=== PATIENT | male | born 1980 | race Caucasian/White ===

== ENCOUNTER 2018-01-01 03:12 | Inpatient (IN) | payer OTHER, SELFPAY ==
[2018-01-01] VITALS (19 sets, daily range): BP systolic 103–120; BP diastolic 57–86; PULSE 95–142; RESP 12–21; TEMP 36.8–38.1; O2SAT 94–98; BMI 25.5; BMI 25.6
--- NOTE | 2018-01-01 03:17 | NURSING ---
CALLED FOR EKG PER RN REQUEST, NO OLD EKG'S IN MUSE
--- NOTE | 2018-01-01 03:19 | EKG12_ITS ---
Test Reason : CP/SOB Blood Pressure : / mmHG Vent. Rate : 103 BPM Atrial Rate : 103 BPM P-R Int : 144 ms QRS Dur : 086 ms QT Int : 332 ms P-R-T Axes : 042 016 045 degrees QTc Int : 434 ms Sinus tachycardia Otherwise normal ECG Confirmed by TOR LACY, GOVIND ([id number]), school photograph editor BRINDA MONTES ([id number]) on 01/03/2018 2:15:31 PM Referred By: HOLLIE Confirmed By:GOVIND LENTZ MD
--- NOTE | 2018-01-01 03:19 | RAD_ITS ---
STUDY: X-RAY CHEST REASON FOR EXAM: Male, 37 years old. Chest pain for 6 months. Onset of shortness of breath tonight. TECHNIQUE: PA and lateral chest. COMPARISON: None. FINDINGS: The lungs are clear and expanded. There is no demonstrated pleural abnormality. Normal size heart. Normal mediastinum and narayan. Normal visualized pulmonary arteries. Normal visualized aortic arch and descending thoracic aorta. Normal visualized thoracic spine. Normal visualized ribs, clavicles, and shoulders. There is no demonstrated abnormality of the visualized soft tissue structures of the upper abdomen. RAD/Chest PA and Lateral IMPRESSION: Normal x-ray examination of the chest. Electronically Signed: Jey Lou MD at 4:06 EST , Service support ,
--- NOTE | 2018-01-01 03:22 | ED.DCSUM_ITS ---
- ER Visit Summary Date of Service: 01/01/18 Chief Complaint: [Chest pain shortness of breath.] History of Present Illness: The patient is a 37 M [presents the emergency department with chest pain and shortness of breath. He woke up about 10 PM with severe shortness of breath feeling like his throat was closing tightness in his chest could breathe could not talk he had tightness in his hands. This started suddenly. He is not lightheaded or dizzy or nauseated. He states is slightly improved. He rates it about 4 or 5 out of 10. He has had a cough and headache. No fevers. His only medical problem is GERD. He does vapor E cigarettes. He drinks 2 beers a month. He has been seeing his primary care doctor over the past year for chest pain he has had a stress test and echocardiogram which were normal about 6 months ago. No new medications or exposures. No rash or itchiness.] Physical Examination: [] WN WD NAD very anxious appearing PERRL EOMI MMM NECK supple and nontender, no masses Regular tachycardic rhythm no murmur rub or gallop, no peripheral edema, symmetric radial pulses CTAB no respiratory distress ABDOMEN is soft and nontender, normal bowel sounds, no distension, no rebound or guarding SKIN is warm and dry no rashes Alert and Oriented x3, CN II-XII in tact, no motor or sensory deficits, gait normal No lymphadenopathy Test Results: [] Emergency Department Course and Treatment: [EKG shows sinus tachycardia at a rate of 103. Chest x-ray is normal. D-dimer is normal. Troponin is normal. Patient has a mild leukocytosis with neutrophilic shift and lymphopenia. He was given Ativan and Benadryl in the emerge C department. His symptoms resolved however he continued to be tachycardic. CTA was obtained at that time and showed a right pleural thickening but was otherwise normal. There was no dissection or PE. Patient has had a 2 day Holter monitor stress test and seen neurologist over the last 1-2 years for various symptoms. I think at this time he can be discharged home however he continues to be Tachycardic from 110-120. It is a sinus tachycardia. It is asymptomatic at this time. I will have him follow-up with cardiology and did recommend possible 30 day Holter monitor. He was given a work excuse for today. Him and his given careful precautions for which to return.] Treatment Plan: [] Disposition: [Discharge] Impression: [Chest pain, sinus tachycardia] This note was generated with [employer] dictation software. It may contain incorrect words, spelling, and punctuation that were not noted in review of the chart prior to signing ED Disposition - Plan for ED Patient: Chief Complaint: Shortness of Breath Referrals: Nicole Hanks MD [Primary Care Provider] -
[2018-01-01] MEDS: Aspirin 81 MG TAB.CHEW 324 MG PO (03:27)
[2018-01-01] MEDS: LORazepam 2 MG/ML Syringe 0.5 MG IV (03:33)
[2018-01-01] MEDS: Ondansetron 4 MG/2 ML Vial IV (03:34)
[2018-01-01 03:41] LABS: D-Dimer Quantitative (DVT/PE) 0.27 FEU/ug/m (0.27-0.49)
[2018-01-01 03:42] LABS: Absolute Lymphocyte Count 0.55 X10^3/ul (0.83-4.51); Absolute Neutrophil Count 10.2 X10^3/uL (2.0-7.7); Basophil# 0.02 X10^3/uL; Basophil% 0.2 % (0-1); Differential Indicated SCAN CRITERIA MET; Eosinophil# 0.07 X10^3/uL; Eosinophils% 0.6 % (0-5); Hematocrit 41.4 % (40-54); Hemoglobin 14.1 g/dl (13.0-16.5); Lymphocyte # 0.55 X10^3/ul (4.0); Lymphocyte % 4.8 % (19-41); Mean Corp Hgb Conc 34.1 g/gl (32-36); Mean Corpuscular Hgb 30.9 pg (27.0-32.0); Mean Corpuscular Volume 90.6 fL (80-94); Mean Platelet Vol. 10.3 fl (6.2-12.0); Monocyte# 0.59 X10^3/uL; Monocyte% 5.2 % (0-10); Neutrophil # 10.19 X10^3/uL (2.7-7.7); Neutrophil % 88.9 % (47-70); POSITIVE COUNT NO; POSITIVE DIFFERENTIAL YES; POSITIVE MORPHOLOGY NO; Platelet Count 262 K/mm3 (150-450); RBC Distribution Width CV 12.2 % (11.6-14.6); RBC Distribution Width SD 40.2 fl (35.1-43.9); Red Blood Count 4.57 M/mm3 (4.6-6.2); White Blood Count 11.5 K/mm3 (4.4-11.0)
[2018-01-01 03:51] LABS: Anion Gap 6 (5-15); BUN 14 mg/dL (7-18); BUN/Creat Ratio 14.7 RATIO (10-20); Calcium,Total 8.9 mg/dL (8.5-10.1); Chloride 105 mmol/L (98-107); Creatinine, Serum 0.95 mg/dL (0.70-1.30); EST Glomerular Filtration Rate 94 mL/min (>60); Est Glom Filt Rate - Afr Amer 114 mL/min (>60); Estimated Creatinine Clearance 109.93 ml/min; Glucose 104 mg/dL (74-106); Sodium Level 140 mmol/L (136-145)
[2018-01-01 03:59] LABS: Differential Comment SCANNED
[2018-01-01] MEDS: DiphenhydrAMINE 50 MG/ML Syringe 25 MG IV (04:21)
--- NOTE | 2018-01-01 05:18 | CT_ITS ---
STUDY: CTA CHEST REASON FOR EXAM: Male, 37 years old. Shortness of breath, chest pain. RADIATION DOSAGE (If Supplied By Facility): CTDIvol = ( 14.49 ) mGy, DLP = ( 568.81 ) mGycm TECHNIQUE: The examination was performed with the intravenous administration of 100ML ml of Isovue 370 contrast material. Post-processing of the angiographic images was performed, with multiplanar reformation and 3D reconstruction. Individualized dose optimization techniques were used for this CT. COMPARISON: Chest x-ray January 01, 2018. FINDINGS: Normal enhancement of the main pulmonary artery and right and left pulmonary arteries. Normal enhancement of the bilateral peripheral pulmonary arteries. There is no demonstrated pulmonary embolism. There is extensive streak artifact. Normal thoracic aorta and visualized great vessels. There is no demonstrated aortic dissection. Normal heart and pericardium. Normal mediastinum. Normal hilar regions. Normal visualized trachea and bronchi. The lungs are well expanded. Normal pulmonary parenchyma. 0.9 cm focal pleural thickening lateral pleural surface right lower lobe with adjacent soft tissue stranding axial image 111 series 1002. Normal chest wall structures. Normal osseous structures. Normal visualized upper abdomen. CT/CTA Chest W/WO Contrast IMPRESSION: No pulmonary embolus or thoracic aortic dissection. Focal pleural thickening lateral pleural surface right lower lobe probably representing postinflammatory changes. Recommend limited follow-up noncontrast CT in 6 months, through this area of interest. Electronically Signed: Jey Lou MD at 6:24 EST , Service support ,
[2018-01-01 05:41] LABS: Thyroid Stim Hormone (TSH) 1.52 uIU/mL (0.358-3.74)
[2018-01-01] MEDS: 0.9% Normal Saline 1,000 ML 999 ML IV (06:49)
[2018-01-01] MEDS: Acetaminophen 500 MG Tablet 1000 MG PO (06:50)
--- NOTE | 2018-01-01 07:08 | NURSING ---
when getting the pt up and walking with the pulse ox on, pt was extremely tachy-- 130's, diaphoretic, nausea, pt was pale. he went warm when he got up and i checked his temperature which was 100.6. let the doctor know.
--- NOTE | 2018-01-01 07:33 | PCM.HP.STD ---
Problem List (1) Acute respiratory insufficiency Status: Acute (2) GERD (gastroesophageal reflux disease) Status: Chronic Qualifiers: Esophagitis presence: esophagitis presence not specified Qualified Code(s): K21.9 - Gastro-esophageal reflux disease without esophagitis (3) Bronchitis Status: Acute History of Present Illness Date of Admission: 01/01/18 Chief Complaint: Shortness of breath The patient is a 37 year old M with reported past medical history of hiatal hernia/GERD, recently worked up for chest pain with negative stress test and echo, comes in with complaints of chest pain and shortness of breath that started last night. Denies any history of COPD, asthma, or chronic smoking. He felt short of breath and had chest discomfort that started at 10 PM on 12/31/2017, and progressed to 2 AM of 01/01/2018. According to his , around 2 AM he collapsed, was gasping for air, holding his throat, and unable to speak. He was pale and diaphoretic. She called the EMS, and patient to have SPO2 of 95% on room air with initial faint expiratory wheezes. Air entry was reported as very diminished. BP 152/60, RR 30, HR 133. EKG showed sinus tachycardia. In the [facility] ED, EKG shows sinus tachycardia with no acute ST-T changes. Mention vitals show temperature of 90 8.2F, heart rate of 109, blood pressure 117/86, respiratory rate of 12, SPO2 of 96% on room air but was kept on 2 L of oxygen for comfort. Investigations show WBC count of 11.5, Hb of 14.1, platelets of 262, sodium 140, potassium 4, chloride 105, bicarbonate 29, BUN 14, creatinine 0.95. Chest x-ray shows no acute cardiopulmonary abnormality. CTA shows no PE, normal mediastinum, focal pleural thickening on the lateral surface of the right lower lobe adjacent soft tissue stranding. Past Medical History Past Medical History (Chronic Problems): Chronic Problems GERD (gastroesophageal reflux disease) (Chronic) Allergies Penicillins Allergy (Verified 01/01/18 03:19) Rash Home Medications: Ambulatory Orders Medication Instructions Recorded Esomeprazole Magnesium 40 mg PO DAILY 01/01/18 Surgical History: - - Recent endoscopy, multiple arthroscopies Psychiatric History: No pertinent psych hx Lives: Spouse/ Significant Other Smoking Status: Current some day smoker Tobacco Use: - - vapor cigaretter Alcohol: None Drugs: None - *Family History Maternal History Items: Unknown, No pertinent history Paternal History Items: Unknown Sibling History Items: Unknown Review of Systems Constitutional: Reports: Weakness. Denies: Anorexia, Chills, Fever, Weight Change Eyes: Denies: Blurred vision, Cataracts, Conjunctivae Inflammation, Double vision HEENT: Reports: Nasal Congestion, - - Feels like throat is swollen. Denies: Ear Pain, Head Aches, Hearing Changes, Sinus Congestion, Sinus Drainage Cardiovascular: Denies: Chest Pain, Palpitations Respiratory: Reports: Shortness of Breath, Shortness of breath at rest, Shortness of breath upon exertion. Denies: Cough, Hemoptysis, Pleuritic Pain, Sputum production Gastrointestinal: Denies: Abdominal Pain, Nausea, Vomiting Genitourinary: Denies: Dysuria, Frequency, Hematuria, Incontinence, Nocturia, Retention Musculoskeletal: Denies: Joint Pain, Joint stiffness, Joint swelling, Joint Tenderness Skin: Denies: Dryness, Jaundice, Rash, Wounds Neurological: Denies: Difficulty swallowing, Focal weakness, Headaches, Numbness, Tingling Psychiatric: Denies: Anxiety, Depression, Homicidal Ideations, Suicidal Ideations Endocrine: Denies: Change in Body Habitus, Heat/ Cold Intolerance Hematologic/ Lymphatic: Denies: Adenopathy, Anemia, Easy Bruising, Easy Bleeding VTE Information - Inpt Only VTE Present on Admission: No VTE Pharm Prophylaxis ordered?: No Reason prophylaxis not ordered:: Treatment Not Indicated Patient Problems: Active and Suspected Problems Acute respiratory insufficiency (Acute) Bronchitis (Acute) - Physical Exam General: Alert, Oriented x3, Cooperative, - - on 2L oxygen HEENT: Atraumatic, PERRLA, EOMI, Normocephalic Oral: Moist Mucosa Neck: Supple Lungs: Clear to auscultation, Normal air movement Cardiovascular: Regular rate, Regular Rhythm, Normal S1, Normal S2, No murmurs, Tachycardic Abdomen: Bowel Sounds Present, Soft, Non Tender, Non-Distended, No Hepato-splenomegaly Extremities: No edema Skin: No rashes, No breakdown Musculoskeletal: No Tenderness to Palpation of Joints or Extremities Lymphatic: No Cervical, Supraclavicular, or Inguinal Adenopathy Neurological: Cranial nerves II-XII grossly intact, Motor Exam 5/5 strength throughout Psych/Mental Status: Normal Affect, Appropriate Vital Signs Temp Pulse Resp BP Pulse Ox 100.6 F H 115 H 18 117/78 97 01/01/18 06:50 01/01/18 06:50 01/01/18 06:50 01/01/18 06:50 01/01/18 06:50 Oxygen Flow Rate 2 Oxygen Delivery Method Nasal Cannula Weight: 80.7 kg Body Mass Index (BMI) 25.5 Microbiology Past 72 Hours 01/01/18 06:50 Group A Streptococcus Rapid Screen - Preliminary Mucosa - Throat 01/01/18 03:30 Influenza Types A,B Direct FA (JOHN) - Final Mucosa - Nasopharyngeal Laboratory Tests Past 24 Hrs 01/01/18 01/01/18 01/01/18 03:20 03:20 03:20 WBC 11.5 H RBC 4.57 L Hgb 14.1 Hct 41.4 MCV 90.6 MCH 30.9 MCHC 34.1 RDW 12.2 RDW Differential 40.2 Plt Count 262 MPV 10.3 Immature Gran % (Auto) 0.300 Neut % (Auto) 88.9 H Lymph % (Auto) 4.8 L [place] % (Auto) 5.2 Eos % (Auto) 0.6 Baso % (Auto) 0.2 Absolute Neuts (auto) 10.2 H Absolute Lymphs (auto) 0.55 L Total Counted Not Reportable Differential Comment SCANNED D-Dimer Quant (PE/DVT) 0.27 Sodium 140 Potassium 4.0 Chloride 105 Carbon Dioxide 29.0 Anion Gap 6 BUN 14 Creatinine 0.95 Estim Creat Clear Calc 109.93 Est GFR (MDRD) Af Amer 114 Est GFR (MDRD) Non-Af 94 BUN/Creatinine Ratio 14.7 Glucose 104 Calcium 8.9 Troponin I < 0.02 TSH 01/01/18 03:20 WBC RBC Hgb Hct MCV MCH MCHC RDW RDW Differential Plt Count MPV Immature Gran % (Auto) Neut % (Auto) Lymph % (Auto) [place] % (Auto) Eos % (Auto) Baso % (Auto) Absolute Neuts (auto) Absolute Lymphs (auto) Total Counted Differential Comment D-Dimer Quant (PE/DVT) Sodium Potassium Chloride Carbon Dioxide Anion Gap BUN Creatinine Estim Creat Clear Calc Est GFR (MDRD) Af Amer Est GFR (MDRD) Non-Af BUN/Creatinine Ratio Glucose Calcium Troponin I TSH 1.52 Assessment/Plan Active and Suspected Problems Acute respiratory insufficiency (Acute) Bronchitis (Acute) 37 year old M with reported past medical history of hiatal hernia/GERD, recently worked up for chest pain with negative stress test and echo, comes in with complaints of chest pain and shortness of breath that started last night. 1. Shortness of breath, chest discomfort, fever(T 100.6), unclear etiology, likely related to viral bronchitis versus anxiety disorder. Influenza Screen was negative, strep throat was negative. CTA chest negative for PE, showed some focal right lower lobe pleural thickening(likely not responsible for presentation). Plan: Admit to [facility], continue on oxygen protocol and wean off for SPO2 more than 94%, continue breathing treatments as needed, blood cultures taken in the ER are pending, will continue on empiric levofloxacin started, follow-up on blood cultures 2. GERD/hiatal hernia, continue on PPI 3. DVT PPX - with early ambulation Code Visit Inpatient E&M: 14756 Init Hosp L3
[2018-01-01] MEDS: Pantoprazole Sodium 40 MG Tablet PO (10:12)
[2018-01-01] MEDS: oxyCODONE 5 MG Tablet PO ×3 (10:12→20:15)
[2018-01-01] MEDS: guaiFENesin 1,200 MG Tablet 1200 MG PO ×2 (10:12→20:15)
[2018-01-01] MEDS: Ipratropium/Albuterol Sulfate 3 ML AMPUL.NEB INHALATION ×2 (11:16→15:26)
[2018-01-01] MEDS: 0.9% Normal Saline 1,000 ML 100 ML IV ×2 (12:55→23:11)
[2018-01-01] MEDS: Mag Hydrox/Al Hydrox/Simeth 30 ML UDC PO (17:27)
--- NOTE | 2018-01-01 17:55 | EKG12_ITS ---
Test Reason : CP Blood Pressure : / mmHG Vent. Rate : 117 BPM Atrial Rate : 117 BPM P-R Int : 154 ms QRS Dur : 100 ms QT Int : 314 ms P-R-T Axes : 045 007 027 degrees QTc Int : 438 ms Sinus tachycardia Confirmed by TRO LACY, GOVIND ([id number]), city editor BRINDA MONTES ([id number]) on 01/08/2018 1:35:10 PM Referred By: MOHAMUD Confirmed By:GOVIND LENTZ MD
[2018-01-01] MEDS: Acetaminophen 325 MG Tablet 650 MG PO (18:20)
[2018-01-01] MEDS: LORazepam 1 MG Tablet PO (19:23)
[2018-01-02] VITALS (18 sets, daily range): BP systolic 95–109; BP diastolic 50–66; PULSE 84–134; RESP 14–18; TEMP 37.1–37.5; O2SAT 90–105
[2018-01-02] MEDS: Acetaminophen 325 MG Tablet 650 MG PO ×2 (03:38→10:22)
[2018-01-02 06:20] LABS: Hematocrit 35.8 % (40-54); Hemoglobin 11.7 g/dl (13.0-16.5); Mean Corp Hgb Conc 32.7 g/gl (32-36); Mean Corpuscular Hgb 30.6 pg (27.0-32.0); Mean Corpuscular Volume 93.7 fL (80-94); Mean Platelet Vol. 10.4 fl (6.2-12.0); Platelet Count 222 K/mm3 (150-450); RBC Distribution Width CV 12.8 % (11.6-14.6); RBC Distribution Width SD 42.6 fl (35.1-43.9); Red Blood Count 3.82 M/mm3 (4.6-6.2)
[2018-01-02 06:23] LABS: Scan Indicated on CBC? Y/N NO
[2018-01-02 06:51] LABS: Anion Gap 8 (5-15); BUN 12 mg/dL (7-18); BUN/Creat Ratio 13.5 RATIO (10-20); Calcium,Total 7.9 mg/dL (8.5-10.1); Chloride 106 mmol/L (98-107); Creatinine, Serum 0.89 mg/dL (0.70-1.30); EST Glomerular Filtration Rate 102 mL/min (>60); Est Glom Filt Rate - Afr Amer 124 mL/min (>60); Estimated Creatinine Clearance 113.64 ml/min; Glucose 80 mg/dL (74-106); Potassium 3.7 mmol/L (3.5-5.1); Sodium Level 140 mmol/L (136-145)
[2018-01-02] MEDS: Ipratropium/Albuterol Sulfate 3 ML AMPUL.NEB INHALATION ×4 (07:44→19:16)
--- NOTE | 2018-01-02 08:03 | RAD_ITS ---
STUDY: X-RAY - THORACIC SPINE REASON FOR EXAM: Male, 37 years old. Back pain. TECHNIQUE: 3 view(s) of the thoracic spine were obtained. COMPARISON: None. FINDINGS: There is an increase in the normal thoracic kyphosis. There is no substantial scoliosis. Normal thoracic vertebrae and endplates. Normal disc space heights. The soft tissue structures are unremarkable. RAD/Thoracic Spine 3 Views IMPRESSION: Increased kyphosis. This may be positional. Electronically Signed: Chad Jiménez MD at 9:16 EST Tel [phone], Service support ,
--- NOTE | 2018-01-02 08:25 | RAD_ITS ---
STUDY: X-RAY - LUMBAR SPINE REASON FOR EXAM: Male, 37 years old. Back pain. TECHNIQUE: 5 view(s) of the lumbar spine were obtained including oblique views. COMPARISON: None FINDINGS: Normal lumbar lordosis. There is no substantial scoliosis. There is a normal alignment of the vertebrae. Normal vertebral bodies and endplates. Normal disc space heights. The soft tissue structures are unremarkable. RAD/L/S Spine Min 4 Views IMPRESSION: Normal x-ray examination of the lumbar spine. Electronically Signed: Chad Jiménez MD at 9:18 EST Tel [phone], Service support ,
--- NOTE | 2018-01-02 08:28 | RAD_ITS ---
STUDY: X-RAY CHEST REASON FOR EXAM: Male, 37 years old. Shortness of breath and dyspnea. TECHNIQUE: PA and lateral views of the chest. COMPARISON: Comparison is made with prior study dated January 01, 2018. FINDINGS: EKG electrodes are seen. There now is evidence of increased markings in both lower lobes with areas of confluence worse in the right lower lobe. This may represent either bibasilar atelectasis and/or early infiltrates. Follow-up is recommended. There is no demonstrated pleural abnormality. Normal size heart. Normal mediastinum and narayan. Normal visualized pulmonary arteries. Normal visualized aortic arch and descending thoracic aorta. Normal visualized thoracic spine. Normal visualized ribs, clavicles, and shoulders. There is no demonstrated abnormality of the visualized soft tissue structures of the upper abdomen. RAD/Chest PA and Lateral IMPRESSION: There are now is evidence of increased markings in the lower lobes with areas of confluence worse in the right lower lobe suggestive of either atelectasis and/or early infiltrates. Follow-up is recommended. Electronically Signed: Chad Jiménez MD at 9:18 EST Tel [phone], Service support ,
[2018-01-02 08:33] LABS: Thyroid Stim Hormone (TSH) 0.72 uIU/mL (0.358-3.74)
[2018-01-02] MEDS: Pantoprazole Sodium 40 MG Tablet PO (10:22)
[2018-01-02] MEDS: guaiFENesin 1,200 MG Tablet 1200 MG PO ×2 (10:22→22:22)
[2018-01-02] MEDS: oxyCODONE 5 MG Tablet PO ×3 (10:23→22:22)
[2018-01-02] MEDS: 0.9% NaCl Peripheral Flush Adult/Peds IV (10:23)
[2018-01-02] MEDS: Mag Hydrox/Al Hydrox/Simeth 30 ML UDC PO (10:23)
--- NOTE | 2018-01-02 11:17 | CASEMGMT ---
RN GRACIELA Face to Face with patient for initial transition planning/care coordination assessment. RN CM introduced self and role at [facility]. Patient lying in bed, alert and oriented, at bedside. Patient willing to participate in assessment and is able to answer all questions appropriately. Care providers, pharmacy, and demographics verified. See link attached. Patient wishes to discharge home, denies need for home health at this time. Patient states he has no further needs or concerns at this time. CM to follow for discharge planning needs that may arise. Disposition Plan: Patient to discharge home with family support and follow-up plans in place.
[2018-01-02] MEDS: 0.9% Normal Saline 1,000 ML 100 ML IV (14:04)
[2018-01-02] MEDS: Senna/Docusate Sodium 1 Tablet 2 TABLET PO ×2 (14:23→22:23)
--- NOTE | 2018-01-02 15:05 | PCM.PN.HOSP ---
Patient Problems: Active and Suspected Problems Acute respiratory insufficiency (Acute) Bronchitis (Acute) Subjective: Patient was seen and examined. Noted that he has been tachycardic the whole night with heart rate going up above 140s, any nausea or vomiting. Been using incentive spirometer. Objective: Physical Exam General: Alert, Oriented x3, Cooperative, - - on 2L oxygen, later was saturating well off oxygen HEENT: Atraumatic, PERRLA, EOMI, Normocephalic Oral: Moist Mucosa Neck: Supple Lungs: Clear to auscultation, Normal air movement Cardiovascular: Regular rate, Regular Rhythm, Normal S1, Normal S2, No murmurs, Tachycardic Abdomen: Bowel Sounds Present, Soft, Non Tender, Non-Distended, No Hepato-splenomegaly Extremities: No edema Skin: No rashes, No breakdown Musculoskeletal: No Tenderness to Palpation of Joints or Extremities Lymphatic: No Cervical, Supraclavicular, or Inguinal Adenopathy Neurological: Cranial nerves II-XII grossly intact, Motor Exam 5/5 strength throughout Psych/Mental Status: Normal Affect, Appropriate Vitals/I&O's: Vital Signs Temp Pulse Resp BP Pulse Ox 99.5 F H 115 H 18 107/50 L 93 01/02/18 10:00 01/02/18 14:35 01/02/18 14:35 01/02/18 11:35 01/02/18 11:04 Oxygen Flow Rate 1 Oxygen Delivery Method Room Air Weight: 78.6 kg Body Mass Index (BMI) 25.5 Orthostatic Vital Signs Start: 01/02/18 11:35 Freq: q24h Status: Active Protocol: Activity Type Activity Date Activity User E-Sign Co-Sign Detail Recorded Client Recorded Date Recorded By Document 01/02/18 11:35 ELISSA [id number] 01/02/18 11:44 ELISSA 01/02/18 11:35 Orthostatic Vitals Standing -Blood Pressure (90/60-120/80) 100/60 -Extremity Use Left Arm -Pulse Rate (60-100) 134 H Sitting -Blood Pressure (90/60-120/80) 109/66 -Extremity Use Left Arm -Pulse Rate (60-100) 128 H Lying -Blood Pressure (90/60-120/80) 107/50 L -Extremity Use Left Arm -Pulse Rate (60-100) 107 H Intake and Output for Last 24 Hours 12/31/17 01/01/18 01/02/18 23:59 23:59 23:59 Intake Total 2071 / 2071 2200 / 2200 Output Total 1500 / 1500 1999 / 1999 Balance 571 / 571 200 / 200 Microbiology Past 72 Hours 01/01/18 10:55 Mucosa - Nasopharyngeal Respiratory Panel (PCR) - Final Laboratory Results 01/02/18 06:00: WBC 7.0, RBC 3.82 L, Hgb 11.7 L, Hct 35.8 L, MCV 93.7, MCH 30.6, MCHC 32.7, RDW 12.8, RDW Differential 42.6, Plt Count 222, MPV 10.4 01/02/18 06:00: Sodium 140, Potassium 3.7, Chloride 106, Carbon Dioxide 26.0, Anion Gap 8, BUN 12, Creatinine 0.89, Estim Creat Clear Calc 113.64, Est GFR (MDRD) Af Amer 124, Est GFR (MDRD) Non-Af 102, BUN/Creatinine Ratio 13.5, Glucose 80, Calcium 7.9 L 01/02/18 06:00: TSH 0.72 Current Medications Acetaminophen (Tylenol) 650 mg PO Q6H PRN PRN PRN Reason: MILD-MOD PAIN (1-5/10) OR TEMP Last Admin: 01/02/18 10:22 Dose: 650 mg Al Hydroxide/Mg Hydroxide (Mylanta Ii) 30 ml PO Q6H PRN PRN PRN Reason: Gastric burning Last Admin: 01/02/18 10:23 Dose: 30 ml Albuterol/Ipratropium (Duoneb) 3 ml INHALATION Q4HWA.RT [facility] Last Admin: 01/02/18 14:35 Dose: 3 ml Guaifenesin (Mucinex) 1,200 mg PO BID [facility] Last Admin: 01/02/18 10:22 Dose: 1,200 mg Levofloxacin (Levaquin) 750 mg in 150 mls @ 100 mls/hr IV Q24 [facility] Last Admin: 01/02/18 10:22 Dose: 100 mls/hr Aztreonam 2 gm/ Sodium (Chloride) 100 mls @ 150 mls/hr IV Q8 [facility] Last Admin: 01/02/18 14:04 Dose: 150 mls/hr Sodium Chloride () 1,000 mls @ 100 mls/hr IV .Q10H [facility] Stop: 01/03/18 07:59 Last Admin: 01/02/18 14:04 Dose: 100 mls/hr Magnesium Hydroxide (Milk Of Magnesia) 30 ml PO DAILY PRN PRN Reason: Constipation Ondansetron HCl (Zofran) 4 mg IV Q8H PRN PRN PRN Reason: NAUSEA Oxycodone HCl (Oxyir) 5 mg PO Q4H PRN PRN PRN Reason: Moderate Pain (pain scale 4-5) Last Admin: 01/02/18 14:23 Dose: 5 mg Pantoprazole Sodium (Protonix) 40 mg PO DAILY [facility] Last Admin: 01/02/18 10:22 Dose: 40 mg Psyllium Hydrophilic Mucilloid (Metamucil) 1 packet PO DAILY PRN PRN PRN Reason: CONSTIPATION Senna/Docusate Sodium (Senokot-S, Yasmeen-Colace) 2 tablet PO BID PRN PRN Reason: Constipation Last Admin: 01/02/18 14:23 Dose: 2 tablet Sodium Chloride () 5 - 30 ml IV UD PRN PRN Reason: SALINE FLUSH Last Admin: 01/02/18 10:23 Dose: 10 ml Assessment/Plan Active and Suspected Problems Acute respiratory insufficiency (Acute) Bronchitis (Acute) 37 year old M with reported past medical history of hiatal hernia/GERD, recently worked up for chest pain with negative stress test and echo, comes in with complaints of chest pain and shortness of breath that started last night. 1. Sepsis secondary to right CAP, repeat chest x-ray this morning suggestive of right lower lobe community-acquired pneumonia, present since admission, started on levaquin empirically, vitals show persistent tachycardia, WBC is improved, still having low-grade fever, blood cultures are pending, respiratory panel and influenza negative, continue on levofloxacin 750 mg IV daily, would add Aztreonam IV for severe community acquired pneumonia in a patient who is allergic to penicillin(hives), will continue to monitor vitals closely. 2. Tachycardia, sinus, secondary to sepsis secondary to right CAP, PE ruled out with negative CTA chest , will continue patient on IV fluids and monitor 3. Chronic smoker, vapor use, advised to quit 4. GERD/hiatal hernia, no hernia seen on CT, continue on PPI 5. DVT PPX - with early ambulation Code Visit Inpatient E&M: 93277 Subs Hosp L2
--- NOTE | 2018-01-02 15:13 | PN_ITS ---
Patient Problems: Active and Suspected Problems Acute respiratory insufficiency (Acute) Bronchitis (Acute) Subjective: Patient was seen and examined. Noted that he has been tachycardic the whole night with heart rate going up above 140s, any nausea or vomiting. Been using incentive spirometer. Objective: Physical Exam General: Alert, Oriented x3, Cooperative, - - on 2L oxygen, later was saturating well off oxygen HEENT: Atraumatic, PERRLA, EOMI, Normocephalic Oral: Moist Mucosa Neck: Supple Lungs: Clear to auscultation, Normal air movement Cardiovascular: Regular rate, Regular Rhythm, Normal S1, Normal S2, No murmurs, Tachycardic Abdomen: Bowel Sounds Present, Soft, Non Tender, Non-Distended, No Hepato- splenomegaly Extremities: No edema Skin: No rashes, No breakdown Musculoskeletal: No Tenderness to Palpation of Joints or Extremities Lymphatic: No Cervical, Supraclavicular, or Inguinal Adenopathy Neurological: Cranial nerves II-XII grossly intact, Motor Exam 5/5 strength throughout Psych/Mental Status: Normal Affect, Appropriate Vitals/I&O's: Vital Signs Temp Pulse Resp BP Pulse Ox 99.5 F H 115 H 18 107/50 L 93 01/02/18 10:00 01/02/18 14:35 01/02/18 14:35 01/02/18 11:35 01/02/18 11:04 Oxygen Flow Rate 1 Oxygen Delivery Method Room Air Weight: 78.6 kg Body Mass Index (BMI) 25.5 Orthostatic Vital Signs Start: 01/02/18 11:35 Freq: q24h Status: Active Protocol: Activity Type Activity Date Activity User E-Sign Co-Sign Detail Recorded Client Recorded Date Recorded By Document 01/02/18 11:35 ELISSA [id number] 01/02/18 11:44 ELISSA 01/02/18 11:35 Orthostatic Vitals Standing -Blood Pressure (90/60-120/80) 100/60 -Extremity Use Left Arm -Pulse Rate (60-100) 134 H Sitting -Blood Pressure (90/60-120/80) 109/66 -Extremity Use Left Arm -Pulse Rate (60-100) 128 H Lying -Blood Pressure (90/60-120/80) 107/50 L -Extremity Use Left Arm -Pulse Rate (60-100) 107 H Intake and Output for Last 24 Hours 12/31/17 01/01/18 01/02/18 23:59 23:59 23:59 Intake Total 2071 / 2071 2200 / 2200 Output Total 1500 / 1500 1999 / 1999 Balance 571 / 571 200 / 200 Microbiology Past 72 Hours 01/01/18 10:55 Mucosa - Nasopharyngeal Respiratory Panel (PCR) - Final Laboratory Results 01/02/18 06:00: WBC 7.0, RBC 3.82 L, Hgb 11.7 L, Hct 35.8 L, MCV 93.7, MCH 30.6 , MCHC 32.7, RDW 12.8, RDW Differential 42.6, Plt Count 222, MPV 10.4 01/02/18 06:00: Sodium 140, Potassium 3.7, Chloride 106, Carbon Dioxide 26.0, Anion Gap 8, BUN 12, Creatinine 0.89, Estim Creat Clear Calc 113.64, Est GFR ( MDRD) Af Amer 124, Est GFR (MDRD) Non-Af 102, BUN/Creatinine Ratio 13.5, Glucose 80, Calcium 7.9 L 01/02/18 06:00: TSH 0.72 Current Medications Acetaminophen (Tylenol) 650 mg PO Q6H PRN PRN PRN Reason: MILD-MOD PAIN (1-5/10) OR TEMP Last Admin: 01/02/18 10:22 Dose: 650 mg Al Hydroxide/Mg Hydroxide (Mylanta Ii) 30 ml PO Q6H PRN PRN PRN Reason: Gastric burning Last Admin: 01/02/18 10:23 Dose: 30 ml Albuterol/Ipratropium (Duoneb) 3 ml INHALATION Q4HWA.RT [facility] Last Admin: 01/02/18 14:35 Dose: 3 ml Guaifenesin (Mucinex) 1,200 mg PO BID [facility] Last Admin: 01/02/18 10:22 Dose: 1,200 mg Levofloxacin (Levaquin) 750 mg in 150 mls @ 100 mls/hr IV Q24 [facility] Last Admin: 01/02/18 10:22 Dose: 100 mls/hr Aztreonam 2 gm/ Sodium (Chloride) 100 mls @ 150 mls/hr IV Q8 [facility] Last Admin: 01/02/18 14:04 Dose: 150 mls/hr Sodium Chloride () 1,000 mls @ 100 mls/hr IV .Q10H [facility] Stop: 01/03/18 07:59 Last Admin: 01/02/18 14:04 Dose: 100 mls/hr Magnesium Hydroxide (Milk Of Magnesia) 30 ml PO DAILY PRN PRN Reason: Constipation Ondansetron HCl (Zofran) 4 mg IV Q8H PRN PRN PRN Reason: NAUSEA Oxycodone HCl (Oxyir) 5 mg PO Q4H PRN PRN PRN Reason: Moderate Pain (pain scale 4-5) Last Admin: 01/02/18 14:23 Dose: 5 mg Pantoprazole Sodium (Protonix) 40 mg PO DAILY [facility] Last Admin: 01/02/18 10:22 Dose: 40 mg Psyllium Hydrophilic Mucilloid (Metamucil) 1 packet PO DAILY PRN PRN PRN Reason: CONSTIPATION Senna/Docusate Sodium (Senokot-S, Yasmeen-Colace) 2 tablet PO BID PRN PRN Reason: Constipation Last Admin: 01/02/18 14:23 Dose: 2 tablet Sodium Chloride () 5 - 30 ml IV UD PRN PRN Reason: SALINE FLUSH Last Admin: 01/02/18 10:23 Dose: 10 ml Assessment/Plan Active and Suspected Problems Acute respiratory insufficiency (Acute) Bronchitis (Acute) 37 year old M with reported past medical history of hiatal hernia/GERD, recently worked up for chest pain with negative stress test and echo, comes in with complaints of chest pain and shortness of breath that started last night. 1. Sepsis secondary to right CAP, repeat chest x-ray this morning suggestive of right lower lobe community-acquired pneumonia, present since admission, started on levaquin empirically, vitals show persistent tachycardia, WBC is improved, still having low-grade fever, blood cultures are pending, respiratory panel and influenza negative, continue on levofloxacin 750 mg IV daily, would add Aztreonam IV for severe community acquired pneumonia in a patient who is allergic to penicillin(hives), will continue to monitor vitals closely. 2. Tachycardia, sinus, secondary to sepsis secondary to right CAP, PE ruled out with negative CTA chest , will continue patient on IV fluids and monitor 3. Chronic smoker, vapor use, advised to quit 4. GERD/hiatal hernia, no hernia seen on CT, continue on PPI 5. DVT PPX - with early ambulation Code Visit Inpatient E&M: 50295 Subs Hosp L2
[2018-01-02] MEDS: Ondansetron 4 MG/2 ML Vial IV (18:14)
[2018-01-03] VITALS (14 sets, daily range): BP systolic 100–125; BP diastolic 57–80; PULSE 68–97; RESP 16–18; TEMP 36.9–37.3; O2SAT 94–97
[2018-01-03] MEDS: 0.9% Normal Saline 1,000 ML 100 ML IV (00:10)
[2018-01-03 06:09] LABS: Absolute Lymphocyte Count 1.42 X10^3/ul (0.83-4.51); Absolute Neutrophil Count 2.2 X10^3/uL (2.0-7.7); Basophil# 0.01 X10^3/uL; Basophil% 0.2 % (0-1); Eosinophil# 0.03 X10^3/uL; Eosinophils% 0.7 % (0-5); Hematocrit 39.1 % (40-54); Hemoglobin 12.7 g/dl (13.0-16.5); Lymphocyte # 1.42 X10^3/ul (4.0); Lymphocyte % 33.7 % (19-41); Mean Corp Hgb Conc 32.5 g/gl (32-36); Mean Corpuscular Hgb 30.8 pg (27.0-32.0); Mean Corpuscular Volume 94.9 fL (80-94); Mean Platelet Vol. 10.1 fl (6.2-12.0); Monocyte# 0.58 X10^3/uL; Monocyte% 13.8 % (0-10); Neutrophil # 2.16 X10^3/uL (2.7-7.7); Neutrophil % 51.4 % (47-70); Platelet Count 213 K/mm3 (150-450); RBC Distribution Width SD 43.9 fl (35.1-43.9); Red Blood Count 4.12 M/mm3 (4.6-6.2); White Blood Count 4.2 K/mm3 (4.4-11.0)
[2018-01-03 06:15] LABS: POSITIVE COUNT NO; POSITIVE DIFFERENTIAL NO; POSITIVE MORPHOLOGY NO
[2018-01-03 06:41] LABS: Anion Gap 9 (5-15); BUN 9 mg/dL (7-18); BUN/Creat Ratio 9.9 RATIO (10-20); Calcium,Total 8.1 mg/dL (8.5-10.1); Chloride 105 mmol/L (98-107); Creatinine, Serum 0.91 mg/dL (0.70-1.30); EST Glomerular Filtration Rate 99 mL/min (>60); Est Glom Filt Rate - Afr Amer 120 mL/min (>60); Estimated Creatinine Clearance 111.14 ml/min; Glucose 91 mg/dL (74-106); Potassium 3.8 mmol/L (3.5-5.1); Sodium Level 140 mmol/L (136-145)
[2018-01-03] MEDS: Ipratropium/Albuterol Sulfate 3 ML AMPUL.NEB INHALATION ×3 (07:37→14:54)
[2018-01-03] MEDS: guaiFENesin 1,200 MG Tablet 1200 MG PO ×2 (08:41→21:47)
[2018-01-03] MEDS: Pantoprazole Sodium 40 MG Tablet PO (08:41)
[2018-01-03] MEDS: oxyCODONE 5 MG Tablet PO (08:45)
[2018-01-03] MEDS: Ondansetron 4 MG/2 ML Vial IV (10:36)
[2018-01-03] MEDS: 0.9% NaCl Peripheral Flush Adult/Peds IV ×2 (12:31→21:48)
[2018-01-03] MEDS: Acetaminophen 325 MG Tablet 650 MG PO (16:01)
--- NOTE | 2018-01-03 16:11 | PCM.PN.HOSP ---
Patient Problems: Active and Suspected Problems Acute respiratory insufficiency (Acute) Bronchitis (Acute) Subjective: Patient was seen and examined. feels much better. No fevers seen. No more tachycardia. Medicated for nausea overnight. Objective: Physical Exam General: Alert, Oriented x3, Cooperative, - - on 2L oxygen, later was saturating well off oxygen HEENT: Atraumatic, PERRLA, EOMI, Normocephalic Oral: Moist Mucosa Neck: Supple Lungs: Clear to auscultation, Normal air movement Cardiovascular: Regular rate, Regular Rhythm, Normal S1, Normal S2, No murmurs, Tachycardic Abdomen: Bowel Sounds Present, Soft, Non Tender, Non-Distended, No Hepato-splenomegaly Extremities: No edema Skin: No rashes, No breakdown Musculoskeletal: No Tenderness to Palpation of Joints or Extremities Lymphatic: No Cervical, Supraclavicular, or Inguinal Adenopathy Neurological: Cranial nerves II-XII grossly intact, Motor Exam 5/5 strength throughout Psych/Mental Status: Normal Affect, Appropriate Vitals/I&O's: Vital Signs Temp Pulse Resp BP Pulse Ox 99.0 F 84 16 125/80 H 96 01/03/18 14:10 01/03/18 14:58 01/03/18 14:58 01/03/18 14:10 01/03/18 14:10 Oxygen Flow Rate 1 Oxygen Delivery Method Room Air Weight: 78.6 kg Body Mass Index (BMI) 25.5 Intake and Output for Last 24 Hours 01/01/18 01/02/18 01/03/18 23:59 23:59 23:59 Intake Total 2071 / 2071 3260 / 3260 2689 / 2689 Output Total 1500 / 1500 2900 / 2900 2780 / 2780 Balance 571 / 571 360 / 360 -91 / -91 Microbiology Past 72 Hours 01/01/18 08:02 Blood Culture (Wb) #2 - Right Hand Blood Culture - Preliminary No growth in 48 hours. 01/01/18 07:55 Blood Culture (Wb) #2 - Anticubital Left Blood Culture - Preliminary No growth in 48 hours. 01/01/18 10:55 Mucosa - Nasopharyngeal Respiratory Panel (PCR) - Final Laboratory Results 01/03/18 05:50: WBC 4.2 L, RBC 4.12 L, Hgb 12.7 L, Hct 39.1 L, MCV 94.9 H, MCH 30.8, MCHC 32.5, RDW 13.0, RDW Differential 43.9, Plt Count 213, MPV 10.1, Immature Gran % (Auto) 0.200, Neut % (Auto) 51.4, Lymph % (Auto) 33.7, [place] % (Auto) 13.8 H, Eos % (Auto) 0.7, Baso % (Auto) 0.2, Absolute Neuts (auto) 2.2, Absolute Lymphs (auto) 1.42, Total Counted Not Reportable 01/03/18 05:50: Sodium 140, Potassium 3.8, Chloride 105, Carbon Dioxide 26.0, Anion Gap 9, BUN 9, Creatinine 0.91, Estim Creat Clear Calc 111.14, Est GFR (MDRD) Af Amer 120, Est GFR (MDRD) Non-Af 99, BUN/Creatinine Ratio 9.9 L, Glucose 91, Calcium 8.1 L Current Medications Acetaminophen (Tylenol) 650 mg PO Q6H PRN PRN PRN Reason: MILD-MOD PAIN (1-5/10) OR TEMP Last Admin: 01/03/18 16:01 Dose: 650 mg Al Hydroxide/Mg Hydroxide (Mylanta Ii) 30 ml PO Q6H PRN PRN PRN Reason: Gastric burning Last Admin: 01/02/18 10:23 Dose: 30 ml Albuterol/Ipratropium (Duoneb) 3 ml INHALATION Q4HWA.RT [facility] Last Admin: 01/03/18 14:54 Dose: 3 ml Guaifenesin (Mucinex) 1,200 mg PO BID [facility] Last Admin: 01/03/18 08:41 Dose: 1,200 mg Levofloxacin (Levaquin) 750 mg in 150 mls @ 100 mls/hr IV Q24 [facility] Last Admin: 01/03/18 09:36 Dose: 100 mls/hr Aztreonam 2 gm/ Sodium (Chloride) 100 mls @ 150 mls/hr IV Q8 [facility] Last Admin: 01/03/18 14:08 Dose: 150 mls/hr Magnesium Hydroxide (Milk Of Magnesia) 30 ml PO DAILY PRN PRN Reason: Constipation Ondansetron HCl (Zofran) 4 mg IV Q8H PRN PRN PRN Reason: NAUSEA Last Admin: 01/03/18 10:36 Dose: 4 mg Oxycodone HCl (Oxyir) 5 mg PO Q4H PRN PRN PRN Reason: Moderate Pain (pain scale 4-5) Last Admin: 01/03/18 08:45 Dose: 5 mg Pantoprazole Sodium (Protonix) 40 mg PO DAILY [facility] Last Admin: 01/03/18 08:41 Dose: 40 mg Promethazine HCl (Phenergan (Ll)) 6.25 mg IV Q6H PRN PRN PRN Reason: NAUSEA/VOMITING Last Admin: 01/03/18 12:31 Dose: 6.25 mg Psyllium Hydrophilic Mucilloid (Metamucil) 1 packet PO DAILY PRN PRN PRN Reason: CONSTIPATION Senna/Docusate Sodium (Senokot-S, Yasmeen-Colace) 2 tablet PO BID PRN PRN Reason: Constipation Last Admin: 01/02/18 22:23 Dose: 2 tablet Sodium Chloride () 5 - 30 ml IV UD PRN PRN Reason: SALINE FLUSH Last Admin: 01/03/18 12:31 Dose: 10 ml Assessment/Plan Active and Suspected Problems Acute respiratory insufficiency (Acute) Bronchitis (Acute) 37 year old M with reported past medical history of hiatal hernia/GERD, recently worked up for chest pain with negative stress test and echo, comes in with complaints of chest pain and shortness of breath that started last night. 1. Sepsis secondary to right CAP, tachycardia has improved, patient's initial CXR was negative, repeat chest x-ray yesterday was suggestive of right lower lobe community-acquired pneumonia, present since admission, on Levaquin and aztreonam IV, no fevers seen, will continue on same regimen as patient was initially very ill and just became less tachycardic less then 24 hours, [facility] tomorrow on po omnicef 2. Tachycardia, sinus, secondary to sepsis secondary to right CAP, PE ruled out with negative CTA chest , improved, resolved, will stop IV fluids 3. Chronic smoker, vapor use, advised to quit. 4. GERD/hiatal hernia, no hernia seen on CT, continue on PPI 5. DVT PPX - with early ambulation Code Visit Inpatient E&M: 89971 Subs Hosp L2
--- NOTE | 2018-01-03 16:17 | PN_ITS ---
Patient Problems: Active and Suspected Problems Acute respiratory insufficiency (Acute) Bronchitis (Acute) Subjective: Patient was seen and examined. feels much better. No fevers seen. No more tachycardia. Medicated for nausea overnight. Objective: Physical Exam General: Alert, Oriented x3, Cooperative, - - on 2L oxygen, later was saturating well off oxygen HEENT: Atraumatic, PERRLA, EOMI, Normocephalic Oral: Moist Mucosa Neck: Supple Lungs: Clear to auscultation, Normal air movement Cardiovascular: Regular rate, Regular Rhythm, Normal S1, Normal S2, No murmurs, Tachycardic Abdomen: Bowel Sounds Present, Soft, Non Tender, Non-Distended, No Hepato- splenomegaly Extremities: No edema Skin: No rashes, No breakdown Musculoskeletal: No Tenderness to Palpation of Joints or Extremities Lymphatic: No Cervical, Supraclavicular, or Inguinal Adenopathy Neurological: Cranial nerves II-XII grossly intact, Motor Exam 5/5 strength throughout Psych/Mental Status: Normal Affect, Appropriate Vitals/I&O's: Vital Signs Temp Pulse Resp BP Pulse Ox 99.0 F 84 16 125/80 H 96 01/03/18 14:10 01/03/18 14:58 01/03/18 14:58 01/03/18 14:10 01/03/18 14:10 Oxygen Flow Rate 1 Oxygen Delivery Method Room Air Weight: 78.6 kg Body Mass Index (BMI) 25.5 Intake and Output for Last 24 Hours 01/01/18 01/02/18 01/03/18 23:59 23:59 23:59 Intake Total 2071 / 2071 3260 / 3260 2689 / 2689 Output Total 1500 / 1500 2900 / 2900 2780 / 2780 Balance 571 / 571 360 / 360 -91 / -91 Microbiology Past 72 Hours 01/01/18 08:02 Blood Culture (Wb) #2 - Right Hand Blood Culture - Preliminary No growth in 48 hours. 01/01/18 07:55 Blood Culture (Wb) #2 - Anticubital Left Blood Culture - Preliminary No growth in 48 hours. 01/01/18 10:55 Mucosa - Nasopharyngeal Respiratory Panel (PCR) - Final Laboratory Results 01/03/18 05:50: WBC 4.2 L, RBC 4.12 L, Hgb 12.7 L, Hct 39.1 L, MCV 94.9 H, MCH 30.8, MCHC 32.5, RDW 13.0, RDW Differential 43.9, Plt Count 213, MPV 10.1, Immature Gran % (Auto) 0.200, Neut % (Auto) 51.4, Lymph % (Auto) 33.7, [place] % ( Auto) 13.8 H, Eos % (Auto) 0.7, Baso % (Auto) 0.2, Absolute Neuts (auto) 2.2, Absolute Lymphs (auto) 1.42, Total Counted Not Reportable 01/03/18 05:50: Sodium 140, Potassium 3.8, Chloride 105, Carbon Dioxide 26.0, Anion Gap 9, BUN 9, Creatinine 0.91, Estim Creat Clear Calc 111.14, Est GFR ( MDRD) Af Amer 120, Est GFR (MDRD) Non-Af 99, BUN/Creatinine Ratio 9.9 L, Glucose 91, Calcium 8.1 L Current Medications Acetaminophen (Tylenol) 650 mg PO Q6H PRN PRN PRN Reason: MILD-MOD PAIN (1-5/10) OR TEMP Last Admin: 01/03/18 16:01 Dose: 650 mg Al Hydroxide/Mg Hydroxide (Mylanta Ii) 30 ml PO Q6H PRN PRN PRN Reason: Gastric burning Last Admin: 01/02/18 10:23 Dose: 30 ml Albuterol/Ipratropium (Duoneb) 3 ml INHALATION Q4HWA.RT [facility] Last Admin: 01/03/18 14:54 Dose: 3 ml Guaifenesin (Mucinex) 1,200 mg PO BID [facility] Last Admin: 01/03/18 08:41 Dose: 1,200 mg Levofloxacin (Levaquin) 750 mg in 150 mls @ 100 mls/hr IV Q24 [facility] Last Admin: 01/03/18 09:36 Dose: 100 mls/hr Aztreonam 2 gm/ Sodium (Chloride) 100 mls @ 150 mls/hr IV Q8 [facility] Last Admin: 01/03/18 14:08 Dose: 150 mls/hr Magnesium Hydroxide (Milk Of Magnesia) 30 ml PO DAILY PRN PRN Reason: Constipation Ondansetron HCl (Zofran) 4 mg IV Q8H PRN PRN PRN Reason: NAUSEA Last Admin: 01/03/18 10:36 Dose: 4 mg Oxycodone HCl (Oxyir) 5 mg PO Q4H PRN PRN PRN Reason: Moderate Pain (pain scale 4-5) Last Admin: 01/03/18 08:45 Dose: 5 mg Pantoprazole Sodium (Protonix) 40 mg PO DAILY [facility] Last Admin: 01/03/18 08:41 Dose: 40 mg Promethazine HCl (Phenergan (Ll)) 6.25 mg IV Q6H PRN PRN PRN Reason: NAUSEA/VOMITING Last Admin: 01/03/18 12:31 Dose: 6.25 mg Psyllium Hydrophilic Mucilloid (Metamucil) 1 packet PO DAILY PRN PRN PRN Reason: CONSTIPATION Senna/Docusate Sodium (Senokot-S, Yasmeen-Colace) 2 tablet PO BID PRN PRN Reason: Constipation Last Admin: 01/02/18 22:23 Dose: 2 tablet Sodium Chloride () 5 - 30 ml IV UD PRN PRN Reason: SALINE FLUSH Last Admin: 01/03/18 12:31 Dose: 10 ml Assessment/Plan Active and Suspected Problems Acute respiratory insufficiency (Acute) Bronchitis (Acute) 37 year old M with reported past medical history of hiatal hernia/GERD, recently worked up for chest pain with negative stress test and echo, comes in with complaints of chest pain and shortness of breath that started last night. 1. Sepsis secondary to right CAP, tachycardia has improved, patient's initial CXR was negative, repeat chest x-ray yesterday was suggestive of right lower lobe community-acquired pneumonia, present since admission, on Levaquin and aztreonam IV, no fevers seen, will continue on same regimen as patient was initially very ill and just became less tachycardic less then 24 hours, [facility] [place] tomorrow on po omnicef 2. Tachycardia, sinus, secondary to sepsis secondary to right CAP, PE ruled out with negative CTA chest , improved, resolved, will stop IV fluids 3. Chronic smoker, vapor use, advised to quit. 4. GERD/hiatal hernia, no hernia seen on CT, continue on PPI 5. DVT PPX - with early ambulation Code Visit Inpatient E&M: 06801 Subs Hosp L2
[2018-01-04 02:00] VITALS: BP 114/71; PULSE 81; RESP 16; TEMP 37.1; O2SAT 95
[2018-01-04 03:50] VITALS: PULSE 78
[2018-01-04] MEDS: 0.9% NaCl Peripheral Flush Adult/Peds IV (05:39)
[2018-01-04 07:11] LABS: Absolute Lymphocyte Count 1.45 X10^3/ul (0.83-4.51); Absolute Neutrophil Count 2.9 X10^3/uL (2.0-7.7); Basophil# 0.01 X10^3/uL; Basophil% 0.2 % (0-1); Eosinophil# 0.04 X10^3/uL; Eosinophils% 0.8 % (0-5); Hematocrit 44.2 % (40-54); Hemoglobin 14.1 g/dl (13.0-16.5); Lymphocyte # 1.45 X10^3/ul (4.0); Lymphocyte % 29.8 % (19-41); Mean Corp Hgb Conc 31.9 g/gl (32-36); Mean Corpuscular Hgb 29.7 pg (27.0-32.0); Mean Corpuscular Volume 93.2 fL (80-94); Mean Platelet Vol. 9.8 fl (6.2-12.0); Monocyte# 0.48 X10^3/uL; Monocyte% 9.9 % (0-10); Neutrophil # 2.88 X10^3/uL (2.7-7.7); Neutrophil % 59.1 % (47-70); Platelet Count 237 K/mm3 (150-450); RBC Distribution Width CV 12.9 % (11.6-14.6); RBC Distribution Width SD 43.8 fl (35.1-43.9); Red Blood Count 4.74 M/mm3 (4.6-6.2); White Blood Count 4.9 K/mm3 (4.4-11.0)
[2018-01-04] MEDS: Acetaminophen 325 MG Tablet 650 MG PO (07:14)
[2018-01-04 07:18] LABS: POSITIVE COUNT NO; POSITIVE DIFFERENTIAL NO; POSITIVE MORPHOLOGY NO
[2018-01-04 07:20] VITALS: PULSE 84; RESP 16; O2SAT 93
[2018-01-04] MEDS: Ipratropium/Albuterol Sulfate 3 ML AMPUL.NEB INHALATION (07:20)
[2018-01-04 07:24] VITALS: BP 110/71; PULSE 94; RESP 18; TEMP 36.5; O2SAT 95
[2018-01-04 07:28] VITALS: PULSE 110
[2018-01-04] MEDS: guaiFENesin 1,200 MG Tablet 1200 MG PO (07:36)
--- NOTE | 2018-01-04 08:02 | PCM.DC ---
- Discharge Diagnoses Current Active Problems: Current Active and Chronic Problems Acute respiratory insufficiency (Acute) GERD (gastroesophageal reflux disease) (Chronic) Bronchitis (Acute) Reason(s) for Visit for Discharge Instructions: Fever, shortness of breath You will use the following diet at home:: Regular Your food should be the consistency of: Regular Your liquids should be the consistency of: Regular/Thin Discharge Activity: Return to Normal Activity Additional Instructions: You are advised to stop smoking. Complete all your antibiotics. Continue to use the incentive spirometer. Allergies/Adverse Reactions: Allergies Penicillins Allergy (Verified 01/01/18 03:19) Rash Medications to take at Discharge Esomeprazole Magnesium 40 mg PO DAILY 01/01/18 Cefdinir [Omnicef [equiv]] 300 mg PO Q12H #14 cap 01/03/18 Guaifenesin [Mucinex] 1,200 mg PO BID #14 tab 01/03/18 The following prescriptions were given: Cefdinir [Omnicef [equiv]] 300 mg PO Q12H #14 cap Guaifenesin [Mucinex] 1,200 mg PO BID #14 tab Primary Care Physician: Nicole Hanks MD [Primary Care Provider] - Please follow up with your Primary Care Physician in: within 2 weeks Proposed Discharge Date: 01/04/18
--- NOTE | 2018-01-04 08:04 | DS.PCM_ITS ---
Discharge Date and Diagnosis Date of Admission: 01/01/18 Date of Discharge: 01/04/18 - Primary Discharge Diagnosis Active and Suspected Problems Acute respiratory insufficiency (Acute) Acute CAP - Secondary Discharge Diagnosis Chronic Problems GERD (gastroesophageal reflux disease) (Chronic) Hospital Course and Treatment Imaging Results: Clinical Impression(s) from Imaging Studies Chest X-Ray 01/01/18 03:19 IMPRESSION: Normal x-ray examination of the chest. Electronically Signed: Jey Lou MD at 4:06 EST , Service support , Chest CTA 01/01/18 05:18 IMPRESSION: No pulmonary embolus or thoracic aortic dissection. Focal pleural thickening lateral pleural surface right lower lobe probably representing postinflammatory changes. Recommend limited follow-up noncontrast CT in 6 months, through this area of interest. Electronically Signed: Jey Lou MD at 6:24 EST , Service support , Thoracic Spine X-Ray 01/02/18 08:03 IMPRESSION: Increased kyphosis. This may be positional. Electronically Signed: Chad Jiménez MD at 9:16 EST Tel [phone], Service support , Lumbar Spine X-Ray 01/02/18 08:25 IMPRESSION: Normal x-ray examination of the lumbar spine. Electronically Signed: Chad Jiménez MD at 9:18 EST Tel [phone], Service support , Chest X-Ray 01/02/18 08:28 IMPRESSION: There are now is evidence of increased markings in the lower lobes with areas of confluence worse in the right lower lobe suggestive of either atelectasis and/or early infiltrates. Follow-up is recommended. Electronically Signed: Chad Jiménez MD at 9:18 EST Tel [phone], Service support , None Operations: None Procedures: None Summary of Care Provided: 37 year old M with reported past medical history of hiatal hernia/GERD, recently worked up for chest pain with negative stress echo, comes in with complaints of chest pain and shortness of breath of one day's duration. He was said to be complaining of worsening SOB and the EMS was called. 1. Sepsis secondary to right community acquired pneumonia, patient's initial CXR was negative, repeat chest x-ray yesterday was suggestive of right lower lobe community-acquired pneumonia, started on IV Levaquin and later aztreonam IV was added. Influenza, respiratory panel and blood cultures are negative. Low- grade fevers were seen on admission. Discharged on omnicef. 2. Tachycardia, sinus, secondary to sepsis secondary to right CAP, PE ruled out with negative CTA chest, this resolved with IV fluids and antibiotics. 3. Chronic smoker, vapor use, advised to quit. 4. GERD/hiatal hernia, no hernia seen on CT, on PPI Discharge Diet: No Restrictions Discharge Activity: Return to Normal Activity Home Medications: Medications to take at Discharge Esomeprazole Magnesium 40 mg PO DAILY 01/01/18 Cefdinir [Omnicef [equiv]] 300 mg PO Q12H #14 cap 01/03/18 Guaifenesin [Mucinex] 1,200 mg PO BID #14 tab 01/03/18 Following Prescrptions Were Given to Patient: Cefdinir [Omnicef [equiv]] 300 mg PO Q12H #14 cap Guaifenesin [Mucinex] 1,200 mg PO BID #14 tab Primary Care Physician: Nicole Hanks MD [Primary Care Provider] - Please follow up with your Primary Care Physician in: within 2 weeks Disposition: Home Minutes spent on discharge:: 25 Patient Condition:: Stable Meaningful Use Info Meaningful Use Diagnoses (Choose all that apply): None applicable Code Visit Inpatient E&M: 16114 Disch Hosp
[2018-01-04] MEDS: Pantoprazole Sodium 40 MG Tablet PO (09:16)
== END 2018-01-04 10:10 | disposition home or self-care (01) | DRG 871 ==
LOC: ED 04:03 → MS3 07:48
PROVIDERS: Admitting Provider Internal Medicine; Emergency Provider Emergency Medicine; Family Provider Family Medicine; PCP Family Medicine; Visit Provider Internal Medicine
DX: A41.9 Sepsis, unspecified organism (principal); J18.9 Pneumonia, unspecified organism; J20.9 Acute bronchitis, unspecified; R06.89 Other abnormalities of breathing; K21.9 Gastro-esophageal reflux disease without esophagitis; F17.290 Nicotine dependence, other tobacco product, uncomplicated; Z79.899 Other long term (current) drug therapy; Z88.0 Allergy status to penicillin
CPT/HCPCS: 36415; 71046; 71275; 72072; 72110; 80048; 84443; 84484; 85025; 85027; 85379; 87040; 87633; 87804; 87880; 93005; 94640; 99251; 99285; 99406; J7030; Q9967; A4216; G0463; J2405

== ENCOUNTER → 2018-01-10 16:00 | Outpatient (CLI) | payer OTHER, SELFPAY ==
[2018-01-10 17:45] LABS: Absolute Lymphocyte Count 2.54 X10^3/ul (0.83-4.51); Absolute Neutrophil Count 4.2 X10^3/uL (2.0-7.7); Basophil# 0.03 X10^3/uL; Basophil% 0.4 % (0-1); Eosinophil# 0.17 X10^3/uL; Eosinophils% 2.3 % (0-5); Hematocrit 38.1 % (40-54); Hemoglobin 13.1 g/dl (13.0-16.5); Lymphocyte # 2.54 X10^3/ul (4.0); Lymphocyte % 33.6 % (19-41); Mean Corp Hgb Conc 34.4 g/gl (32-36); Mean Corpuscular Volume 90.3 fL (80-94); Mean Platelet Vol. 10.5 fl (6.2-12.0); Monocyte# 0.59 X10^3/uL; Monocyte% 7.8 % (0-10); Neutrophil # 4.16 X10^3/uL (2.7-7.7); Neutrophil % 55.1 % (47-70); POSITIVE COUNT NO; POSITIVE DIFFERENTIAL NO; POSITIVE MORPHOLOGY NO; Platelet Count 317 K/mm3 (150-450); RBC Distribution Width CV 12.2 % (11.6-14.6); RBC Distribution Width SD 39.3 fl (35.1-43.9); Red Blood Count 4.22 M/mm3 (4.6-6.2); White Blood Count 7.6 K/mm3 (4.4-11.0)
[2018-01-10 18:20] LABS: Anion Gap 9 (5-15); BUN 17 mg/dL (7-18); BUN/Creat Ratio 21.2 RATIO (10-20); Calcium,Total 8.4 mg/dL (8.5-10.1); Chloride 106 mmol/L (98-107); EST Glomerular Filtration Rate 115 mL/min (>60); Est Glom Filt Rate - Afr Amer 139 mL/min (>60); Glucose 98 mg/dL (74-106); Potassium 3.9 mmol/L (3.5-5.1); Sodium Level 140 mmol/L (136-145)
== END ==
PROVIDERS: Internal Medicine; Family Provider Family Medicine; PCP Family Medicine; Visit Provider Family Medicine
DX: J15.9 Unspecified bacterial pneumonia (principal)
CPT/HCPCS: 36415; 80048; 85025

== ENCOUNTER → 2018-01-28 11:59 | Outpatient (CLI) | payer OTHER, SELFPAY ==
--- NOTE | 2018-01-28 12:59 | US_ITS ---
STUDY: ABDOMINAL ULTRASOUND - RIGHT UPPER QUADRANT REASON FOR VISIT: Male, 37 years old. Right abdominal pain. TECHNIQUE: Ultrasound evaluation of the right upper quadrant was performed with real-time and static [place]-scale imaging. TECHNICAL QUALITY: Limited. Examination limited by bowel gas. COMPARISON: None. FINDINGS: Liver: The liver measures 16.0 cm. There is increased echogenicity consistent with fatty infiltration. The bile ducts are within normal limits. There is hepatic color flow. The direction of portal flow is hepatopetal. There is no demonstrated mass lesion. Gallbladder: Normal distended gallbladder. The gallbladder wall measures 2.8 mm. There is a negative sonographic Maxwell's sign. There is no pericholecystic fluid. There are no gallstones. There is a 6 mm x 5 mm polyp adherent to the gallbladder wall. Common Bile Duct (C.B.D.): The common bile duct measures 2.0 mm. Pancreas: There is nonvisualization of the pancreas due to overlying bowel gas. There is normal echogenicity of the pancreas. There is no demonstrated pancreatic mass or cyst. Right Kidney: Normal size of the right kidney. The right kidney measures 12.2 cm x 4.9 cm x 5.7 cm. Normal renal cortex. The right cortex measures 1.9 cm. There is no demonstrated renal mass or cyst. There is no right hydronephrosis. US/Gallbladder IMPRESSION: 6 mm x 5 mm gallbladder polyp. Fatty infiltration of the liver. Electronically Signed: Chad Jiménez MD at 14:27 EST Tel [phone], Service support ,
[2018-01-28 15:30] LABS: Absolute Neutrophil Count 4.2 X10^3/uL (2.0-7.7); Basophil# 0.02 X10^3/uL; Basophil% 0.3 % (0-1); Eosinophil# 0.22 X10^3/uL; Hematocrit 42.2 % (40-54); Hemoglobin 13.8 g/dl (13.0-16.5); Lymphocyte % 32.8 % (19-41); Mean Corp Hgb Conc 32.7 g/gl (32-36); Mean Corpuscular Hgb 30.3 pg (27.0-32.0); Mean Corpuscular Volume 92.5 fL (80-94); Mean Platelet Vol. 10.5 fl (6.2-12.0); Monocyte# 0.44 X10^3/uL; Neutrophil # 4.22 X10^3/uL (2.7-7.7); Neutrophil % 57.6 % (47-70); Platelet Count 307 K/mm3 (150-450); Red Blood Count 4.56 M/mm3 (4.6-6.2); White Blood Count 7.3 K/mm3 (4.4-11.0)
[2018-01-28 15:39] LABS: Absolute Lymphocyte Count 2.68 X10^3/ul (0.83-4.51); Absolute Neutrophil Count 4.1 X10^3/uL (2.0-7.7); Basophil# 0.02 X10^3/uL; Basophil% 0.3 % (0-1); Eosinophil# 0.19 X10^3/uL; Eosinophils% 2.6 % (0-5); Hematocrit 41.7 % (40-54); Hemoglobin 13.5 g/dl (13.0-16.5); Lymphocyte # 2.68 X10^3/ul (4.0); Lymphocyte % 36.2 % (19-41); Mean Corp Hgb Conc 32.4 g/gl (32-36); Mean Corpuscular Hgb 29.7 pg (27.0-32.0); Mean Corpuscular Volume 91.9 fL (80-94); Mean Platelet Vol. 10.2 fl (6.2-12.0); Monocyte# 0.42 X10^3/uL; Monocyte% 5.7 % (0-10); Neutrophil # 4.09 X10^3/uL (2.7-7.7); Neutrophil % 55.1 % (47-70); Platelet Count 289 K/mm3 (150-450); RBC Distribution Width CV 12.7 % (11.6-14.6); RBC Distribution Width SD 42.8 fl (35.1-43.9); Red Blood Count 4.54 M/mm3 (4.6-6.2); White Blood Count 7.4 K/mm3 (4.4-11.0)
[2018-01-28 15:45] LABS: POSITIVE COUNT NO; POSITIVE DIFFERENTIAL NO; POSITIVE MORPHOLOGY NO
[2018-01-28 15:47] LABS: POSITIVE COUNT NO; POSITIVE DIFFERENTIAL NO
[2018-01-28 15:48] LABS: POSITIVE MORPHOLOGY NO
[2018-01-28 15:55] LABS: ALB/GLOB Ratio 1.1 RATIO (0.9-2.4); AST(SGOT) 58 U/L (15-37); Alanine Aminotransfer ALT/SGPT 142 U/L (16-61); Albumin, Serum 4.1 g/dL (3.2-5.0); Alkaline Phosphatase 77 U/L (45-117); Anion Gap 10 (5-15); BUN 17 mg/dL (7-18); BUN/Creat Ratio 20.8 RATIO (10-20); Chloride 104 mmol/L (98-107); Creatinine, Serum 0.82 mg/dL (0.70-1.30); EST Glomerular Filtration Rate 112 mL/min (>60); Est Glom Filt Rate - Afr Amer 136 mL/min (>60); Globulin 3.8 g/dL (2.2-4.2); Glucose 78 mg/dL (74-106); Potassium 3.7 mmol/L (3.5-5.1); Protein, Total 7.9 g/dL (6.4-8.2); Sodium Level 139 mmol/L (136-145)
[2018-01-28 16:20] LABS: ALB/GLOB Ratio 1.1 RATIO (0.9-2.4); AST(SGOT) 59 U/L (15-37); Alanine Aminotransfer ALT/SGPT 141 U/L (16-61); Alkaline Phosphatase 76 U/L (45-117); Anion Gap 11 (5-15); BUN 16 mg/dL (7-18); Calcium,Total 8.7 mg/dL (8.5-10.1); Chloride 105 mmol/L (98-107); Creatinine, Serum 0.84 mg/dL (0.70-1.30); EST Glomerular Filtration Rate 109 mL/min (>60); Est Glom Filt Rate - Afr Amer 132 mL/min (>60); Globulin 3.8 g/dL (2.2-4.2); Glucose 77 mg/dL (74-106); Lipase 203 U/L (73-393); Potassium 3.9 mmol/L (3.5-5.1); Protein, Total 7.8 g/dL (6.4-8.2); Sodium Level 140 mmol/L (136-145)
== END ==
PROVIDERS: Family Provider Family Medicine; PCP Family Medicine; Visit Provider Family Medicine
DX: R10.11 Right upper quadrant pain (principal)
CPT/HCPCS: 36415; 76705; 80053; 83690; 85025

== ENCOUNTER → 2018-01-29 10:06 | Outpatient (CLI) | payer OTHER, SELFPAY ==
[2018-01-30 09:07] LABS: HEPATITIS B SURFACE AG Negative (Negative); Hepatitis A AB, Total Negative (Negative); Hepatitis A IgM Antibody Negative (Negative); Hepatitis B Core AB IgM Negative (Negative); Hepatitis B Core Ab Total Negative (Negative); Hepatitis C Ab 0.2 s/co ratio (0.0-0.9)
[2018-01-30 12:55] LABS: Hep B Surface Antibodies Non Reactive (.)
== END ==
PROVIDERS: Family Provider Family Medicine; PCP Family Medicine; Visit Provider Family Medicine
DX: R79.89 Other specified abnormal findings of blood chemistry (principal)
CPT/HCPCS: 36415; 86704; 86705; 86706; 86708; 86709; 86803; 87340

== ENCOUNTER → 2018-01-30 07:47 | Outpatient (CLI) | payer OTHER, SELFPAY ==
--- NOTE | 2018-01-30 08:06 | NM_ITS ---
CLINICAL: 37-year-old male with reported history of right upper quadrant abdominal pain. RADIONUCLIDE HEPATOBILIARY SCINTIGRAPHY COMPARISON: Abdominal ultrasound report 01/28/2018 FINDINGS: Following the intravenous administration of 5.4 mCi of 99m Tc Mebrofenin, hepatobiliary images reveal: 1. Relatively prompt and homogeneous radiopharmaceutical concentration is noted by a normal sized liver. No parenchymal defects are identified. 2. Gallbladder activity is identified at 15 minutes post radiopharmaceutical administration. 3. Small intestinal tract is observed at 10 minutes following tracer injection. 4. Washout of the radiopharmaceutical by the hepatic parenchyma appears qualitatively normal. Cholecystokinin (0.02 ug/kg) was administered intravenously over a 30-minute period. The post CCK gallbladder ejection fraction calculated at 30 minutes following Cholecystokinin administration was noted to be < 5 % (normal greater than 35%). NM/Hepatobilliary Imaging IMPRESSION: 1. ABNORMAL 99m Tc Mebrofenin hepatobiliary imaging examination with Cholecystokinin. A. A gallbladder ejection fraction calculated to be less than 35% following the administration of Cholecystokinin is consistent with the presence of functional hepatobiliary disease (gallbladder and/or sphincter of Oddi dyskinesia) and/or organic hepatobiliary disease (chronic acalculous cholecystitis and/or cystic duct syndrome) in patients with intermediate to high pretest probabilities of hepatobiliary illness. ([employer] et al, Journal of Nuclear Medicine 32:1695, 1990). Electronically Signed: Ken Sr DO at 10:54 EST Tel , Service support ,
== END ==
PROVIDERS: Family Provider Family Medicine; PCP Family Medicine; Visit Provider Family Medicine
DX: R10.11 Right upper quadrant pain (principal)
CPT/HCPCS: 78226; A9537

== ENCOUNTER → 2018-02-12 14:27 | Outpatient (CLI) | payer OTHER, SELFPAY ==
--- NOTE | 2018-02-12 14:32 | VDLE_ITS ---
Reason For Study: LLE pain RIGHT LEFT CFV is compressible, spontaneous, phasic, GSV is normal. competent and demonstrates normal CFV is compressible, spontaneous, phasic, augmentation. competent, and demonstrates normal Procedure augmentation. Exam performed in department. FV is compressible, spontaneous, phasic, The exam was diagnostic. competent and demonstrates normal A preliminary report was called and/or faxed augmentation. to Teetee Fowler PA-C @ [phone] @ 2:55 POP V is compressible, spontaneous, phasic, pm. competent and demonstrates normal augmentation. T/P Trunk is compressible. PTV is compressible. LT PerV is compressible. Interpretation Summary There is no evidence of left lower extremity deep vein thrombosis. Left greater saphenous vein appears patent and compressible segmentally. Normal flow patterns right common femoral vein. Ordering Physician: Teetee Fowler PA-C Referring Physician: Joshua Cortez Performed By: Ashley Her, KALPESH, RVT
== END ==
PROVIDERS: Family Provider Family Medicine; PCP Family Medicine; Visit Provider Physician Assistant
DX: M79.662 Pain in left lower leg (principal)
CPT/HCPCS: 93971

== ENCOUNTER → 2018-05-23 07:56 | Outpatient (CLI) | payer OTHER, SELFPAY ==
--- NOTE | 2018-05-23 08:05 | RAD_ITS ---
STUDY: X-RAY - ESOPHAGUS (BARIUM SWALLOW) WITH FLUOROSCOPY REASON FOR EXAM: Male, 37 years old. Dysphagia. TECHNIQUE: 15 view(s) of the esophagus were obtained following swallowing of barium. FLUOROSCOPY TIME (if supplied): (0:24) minutes/seconds COMPARISON: None. FINDINGS: There is no demonstrated esophageal foreign body. There is no demonstrated stricture or mucosal abnormality. Normal gastroesophageal junction, without a demonstrated hiatal hernia. The patient ingest a 12 mm tablet of barium without any difficulty. Normal visualized aortic arch and descending thoracic aorta. Normal visualized pulmonary parenchyma. Normal visualized osseous structures of the thorax. RAD/Esophagus Only IMPRESSION: Normal plain film x-ray examination (barium swallow) of the esophagus. Electronically Signed: Chad Jiménez MD at 8:47 EDT Tel [phone], Service support ,
== END ==
PROVIDERS: Family Provider Family Medicine; PCP Family Medicine; Visit Provider Otolaryngology
DX: R13.10 Dysphagia, unspecified (principal); K21.9 Gastro-esophageal reflux disease without esophagitis
CPT/HCPCS: 74220

== ENCOUNTER → 2018-08-06 18:27 | Outpatient (CLI) | payer OTHER, SELFPAY ==
[2018-08-06 20:28] LABS: M R Staph aureus DNA By PCR Negative (Negative); Probe Check PASS; Specimen Processing Control PASS; Staph aureus DNA By PCR POSITIVE (Negative)
== END ==
PROVIDERS: Visit Provider Podiatrist
DX: L60.0 Ingrowing nail (principal)
CPT/HCPCS: 87070; 87077; 87186; 87205; 87640

== ENCOUNTER 2018-08-28 20:57 | Emergency (ER) | payer OTHER, SELFPAY ==
[2018-08-28 20:58] VITALS: BP 115/78; PULSE 121; RESP 20; TEMP 36.7; O2SAT 93; BMI 26.7
--- NOTE | 2018-08-28 21:16 | EKG12_ITS ---
Test Reason : SOB Blood Pressure : / mmHG Vent. Rate : 095 BPM Atrial Rate : 095 BPM P-R Int : 152 ms QRS Dur : 084 ms QT Int : 340 ms P-R-T Axes : 048 -07 019 degrees QTc Int : 427 ms Normal sinus rhythm Normal ECG Confirmed by MARY LACY, DILIP ([id number]), staff editor BRINDA MONTES ([id number]) on 09/01/2018 2:37:18 PM Referred By: SINDHU Confirmed By:DILIP HERNANDEZ MD
[2018-08-28] MEDS: 0.9% Normal Saline 1,000 ML 1000 ML IV (21:28)
[2018-08-28 21:39] VITALS: PULSE 98; RESP 18
[2018-08-28] MEDS: Ipratropium/Albuterol Sulfate 3 ML AMPUL.NEB INHALATION (21:39)
[2018-08-28 21:44] LABS: Absolute Lymphocyte Count 0.93 X10^3/ul (0.83-4.51); Absolute Neutrophil Count 7.2 X10^3/uL (2.0-7.7); Basophil# 0.02 X10^3/uL; Basophil% 0.2 % (0-1); Eosinophil# 0.03 X10^3/uL; Eosinophils% 0.3 % (0-5); Hematocrit 40.8 % (40-54); Hemoglobin 13.4 g/dl (13.0-16.5); Lymphocyte # 0.93 X10^3/ul (4.0); Lymphocyte % 9.9 % (19-41); Mean Corp Hgb Conc 32.8 g/gl (32-36); Mean Corpuscular Hgb 29.7 pg (27.0-32.0); Mean Corpuscular Volume 90.5 fL (80-94); Mean Platelet Vol. 9.8 fl (6.2-12.0); Monocyte# 1.14 X10^3/uL; Monocyte% 12.2 % (0-10); Neutrophil # 7.22 X10^3/uL (2.7-7.7); Neutrophil % 77.3 % (47-70); Platelet Count 243 K/mm3 (150-450); RBC Distribution Width CV 12.6 % (11.6-14.6); RBC Distribution Width SD 41.5 fl (35.1-43.9); Red Blood Count 4.51 M/mm3 (4.6-6.2); White Blood Count 9.4 K/mm3 (4.4-11.0)
[2018-08-28 21:45] LABS: POSITIVE COUNT NO; POSITIVE DIFFERENTIAL NO; POSITIVE MORPHOLOGY NO
--- NOTE | 2018-08-28 21:50 | RAD_ITS ---
STUDY: X-RAY CHEST REASON FOR EXAM: Male, 38 years old. Shortness of breath TECHNIQUE: Frontal and lateral views COMPARISON: None. FINDINGS: The lungs are clear and expanded. There is no demonstrated pleural abnormality. Normal size heart. Normal mediastinum and narayan. Normal visualized pulmonary arteries. Normal visualized aortic arch and descending thoracic aorta. Normal visualized thoracic spine. Normal visualized ribs, clavicles, and shoulders. There is no demonstrated abnormality of the visualized soft tissue structures of the upper abdomen. RAD/Chest PA and Lateral IMPRESSION: Normal x-ray examination of the chest. Electronically Signed: David Chowdhury DO at 22:13 EDT Tel [phone], Service support ,
[2018-08-28 21:54] LABS: ALB/GLOB Ratio 1.1 RATIO (0.9-2.4); AST(SGOT) 30 U/L (15-37); Alanine Aminotransfer ALT/SGPT 57 U/L (16-61); Albumin, Serum 3.9 g/dL (3.2-5.0); Alkaline Phosphatase 84 U/L (45-117); Anion Gap 9 (5-15); BUN 10 mg/dL (7-18); BUN/Creat Ratio 10.4 RATIO (10-20); Calcium,Total 8.5 mg/dL (8.5-10.1); Chloride 105 mmol/L (98-107); Creatinine, Serum 0.96 mg/dL (0.70-1.30); EST Glomerular Filtration Rate 93 mL/min (>60); Est Glom Filt Rate - Afr Amer 112 mL/min (>60); Estimated Creatinine Clearance 107.73 ml/min; Globulin 3.7 g/dL (2.2-4.2); Glucose 103 mg/dL (74-106); Potassium 3.2 mmol/L (3.5-5.1); Protein, Total 7.6 g/dL (6.4-8.2); Sodium Level 139 mmol/L (136-145)
--- NOTE | 2018-08-28 22:36 | ED.VISSUMM ---
- ER Visit Summary Date of Service: 08/28/18 Chief Complaint: Shortness of breath History of Present Illness: The patient is a 38 M who states that he is experiencing some chest tightness tonight trying to sleep. He notes he vomited last night. He has had tightness in his throat for greater than a year and is in ENT and GI. He had admission in December 2017 for community-acquired pneumonia. He states that for extended period of time he has been fatigued. He had 2 stress test in 2017 that were negative. He notes a pain on the left lower chest left upper quadrant that he describes as burning that comes and goes. He is a former smoker. Physical Examination: Afebrile vital signs are stable. Noted tachycardia in triage however he is 89 on my examination Gen: Well-nourished well-developed Head: Normocephalic atraumatic Eyes: Perrl EOMI ENT: TMs clear no rhinorrhea moist mucous membranes Neck: Supple no lymphadenopathy no JVD nontender CVS: Regular rate rhythm no murmurs normal S1-S2 Respiratory: No distress clear to auscultation bilaterally chest nontender Abdomen: Soft nontender nondistended normal bowel sounds no masses Back: Nontender Extremity: Nontender no edema Skin: Normal color no rash Neuro: alert orientated ?3 CN II-XII intact normal strength sensation reflexes gait cerebellar Psych: Normal affect normal mood Emergency Department Course and Treatment: EKG normal sinus rhythm at a rate of 95. Chest x-ray negative. CBC BMP and troponin were negative. Patient sitting in the bed resting comfortably. He is to be discharged and follow-up with his doctor. This appears to be acute on chronic condition. Impression: 1. Dyspnea This note was generated with [employer] dictation software. It may contain incorrect words, spelling, and punctuation that were not noted in review of the chart prior to signing ED Disposition - Plan for ED Patient: Disposition: Home or Assisted Living Chief Complaint: Shortness of Breath Instructions: ED Dyspnea Shortness of Breath Referrals: Nicole Hanks MD [Primary Care Provider] - (call to arrange follow up)
--- NOTE | 2018-08-29 12:01 | CM.ED ---
ED CALLBACK: Follow-up call placed to patient. Patient states he had an appointment with his PCP this morning and she wants him to try elevating the head of his bed with sleep. He states she feels his symptoms may be related to reflux. Patient denies any questions, concerns or needs at this time.
== END 2018-08-28 22:46 | disposition home or self-care (01) ==
PROVIDERS: Emergency Provider Emergency Medicine; Family Provider Family Medicine; PCP Family Medicine
DX: R06.00 Dyspnea, unspecified (principal); R07.89 Other chest pain; K21.9 Gastro-esophageal reflux disease without esophagitis; Z87.01 Personal history of pneumonia (recurrent); Z87.891 Personal history of nicotine dependence
CPT/HCPCS: 71046; 80053; 84484; 85025; 93005; 94640; 99283; J7030; A4216

== ENCOUNTER → 2018-09-12 09:57 | Outpatient (CLI) | payer OTHER, SELFPAY ==
--- NOTE | 2018-09-12 10:00 | NM_ITS ---
CLINICAL: 38-year-old male with reported history of chronic nausea. SEMI-SOLID PHASE 99m Tc SULFUR COLLOID GASTRIC EMPTYING STUDY COMPARISON: CCK-hepatobiliary scintigraphy study report 01/30/2018 FINDINGS: The patient was administered 1.1 mCi of 99m Tc sulfur colloid mixed with oatmeal and consumed per os. Image acquisitions in the anterior-posterior projections for a total of 60 minutes. There is prompt visualization of the stomach. There is no gastroesophageal reflux identified. The T1/2 linear fit was calculated to be 24.21 minutes, (Normal: 12-56 minutes). NM/Gastric Emptying Study IMPRESSION: 1. NORMAL 99m Tc sulfur colloid semi-solid phase (oatmeal) gastric emptying imaging examination. A. There is normal and preserved semi-solid phase gastric emptying compared to normal controls with maintained first order kinetics throughout all components of the examination. (Moe et al, J Nucl Med Tech 38: 186, 2010). Electronically Signed: Ken Sr DO at 7:57 EDT Tel , Service support ,
== END ==
PROVIDERS: Family Provider Family Medicine; PCP Family Medicine; Referring Provider Internal Medicine Gastroenterology; Visit Provider Internal Medicine Gastroenterology
DX: R11.0 Nausea (principal)
CPT/HCPCS: 78264; A9541

== ENCOUNTER 2019-04-11 14:52 | Emergency (ER) | payer OTHER, SELFPAY ==
[2019-04-11 14:52] VITALS: BMI 25.5
[2019-04-11 14:53] VITALS: BP 129/84; PULSE 89; RESP 16; TEMP 36.9; O2SAT 98; BMI 27.4
--- NOTE | 2019-04-11 15:55 | ED.VIS.GEN ---
History of Present Illness Chief Complaint: Lower Extremity Injury Informant: Patient Onset: Days Context: Gradual Onset Timing: Continuous, Intermittent Quality: Pain and cramping Location: Mid right calf Current Severity: Mild Maximum Severity: Moderate Worsened by: Walking and palpation Relieved by: Nothing Associated Symptoms: Patient has been in a walking shoe/boot for approximately 4 weeks secondary Narrative: Patient presents with atraumatic right calf pain. He has been in a walking boot/walking shoe for the past 4 weeks. He had an injury to his toe. There is no fractures noted. He denies history of PE or DVT. He denies chest pain or shortness of breath. He also complains of numbness anterior right foot and anterior right leg. He has no symptoms of claudication. He has no other complaints. Prior similar symptoms: No Recent Illness/Hospitalization: Yes - Past Medical History (1) GERD (gastroesophageal reflux disease) Status: Chronic Past Medical History - Allergies and Home Meds Allergies/Adverse Reactions: Allergies bee venom protein (honey bee) Allergy (Verified 04/11/19 14:54) Shortness of breath Penicillins Allergy (Verified 04/11/19 14:54) Rash Primary Care Physician: Nicole Hanks MD [Primary Care Provider] - Prior records reviewed: Yes Surgical History: noncontributory, - - Recent endoscopy, multiple arthroscopies Lives: Spouse/ Significant Other Smoking Status: Never smoker Alcohol: Rare Drugs: None - Family History Maternal Family History: Reports: Unknown, No pertinent history Paternal Family History: Reports: Unknown Sibling Family History: Reports: Unknown Review of Systems General: Denies: Chills, Fever, Malaise, Sweats, Weight loss Eyes: Denies: Visual changes - bilaterally, Blurred Vision - bilaterally, Diplopia Cardiovascular: Denies: Chest pain, Palpitations, Heart racing Respiratory: Denies: Dyspnea, Cough, Sputum, Dyspnea on exertion, Orthopnea, Paroxysmal nocturnal dyspnea, -, - Gastrointestinal: Denies: Abdominal pain, Nausea, Vomiting Musculoskeletal: Reports: Extremity Pain - Posterior mid right calf. Denies: Myalgias, Arthralgias, Neck pain, Back pain, Swelling Skin: Denies: Rash, Wounds Hematologic: Denies: Easy bruising, Easy bleeding Physical Exam Vital Signs/Narrative: Vital Signs Temp Pulse Resp BP Pulse Ox 04/11/19 14:53 98.5 F 89 16 129/84 H 98 Inital Vital Signs reviewed: Yes General: Well nourished, Well developed, No Acute Distress Eyes: Perrl, EOMI ENT: Moist mucous membranes, No rhinorrhea Neck: Supple, Nontender, No lymphadenopathy, No JVD Cardiovascular: Regular rate, Regular rhythm Respiratory: No distress Extremities: No edema, Tenderness - In the distribution of deep venous system. Negative for: Nontender, Edema Skin: Normal color, No rash Neurological: Alert, Oriented x3, Cranial nerves II-XII grossly intact, Normal Strength, Normal Sensation Psychological: Normal affect, Normal Mood Diagnostic/Tx/Re-eval Laboratory Results 04/11/19 15:40 D-Dimer Quant (PE/DVT) 1.05 H* - Medical Decision Making Dimer was obtained to risk stratify for DVT. He is low likelihood. Would not expect paresthesia anterior right foot or anterior right leg if this was a DVT. There is no asymmetry, discoloration, ligament distention or palpable cords. There is no significant asymmetry between the right leg and left leg. Since patient's d-dimer is elevated he will receive a dose of Eliquis. He was explained risk benefits of Coumadin and Lovenox versus Xarelto versus Eliquis. After answering his questions he chose Eliquis. He will be scheduled for an outpatient noninvasive study. ED Disposition - Plan for ED Patient: Disposition: Home or Assisted Living Diagnosis: Pain of right calf, Elevated d-dimer Instructions: ED Leg Swelling Unilateral Referrals: Nicole Hanks MD [Primary Care Provider] -
[2019-04-11 16:14] LABS: D-Dimer Quantitative (DVT/PE) 1.05 FEU/ug/m (0.27-0.49)
--- NOTE | 2019-04-11 16:17 | ED.RN ---
PT WITH D-DIMER 1.05. DR. ANNE AWARE.
--- NOTE | 2019-04-11 16:17 | ED.RN ---
LAB CALLED WITH D-DIMER 1.05, RYAN CHOW RN, INFORMED OF SAME.
--- NOTE | 2019-04-11 16:58 | VDLE_ITS ---
Reason For Study: ELEVATED D DIMER RIGHT LEFT GSV is normal. CFV is compressible, spontaneous, phasic, CFV is compressible, spontaneous, phasic, competent, and demonstrates normal competent and demonstrates normal augmentation. augmentation. FV is compressible, spontaneous, phasic, competent and demonstrates normal augmentation. POP V is compressible, spontaneous, phasic, competent and demonstrates normal augmentation. T/P Trunk is compressible. PTV is compressible. RT PerV is compressible. RT Soleal V is dilated and NONCOMPRESSIBLE. Interpretation Summary Acute deep vein thrombosis is noted in the right soleus vein. The remainder of the right lower extremity deep venous system is patent and compressible. Valvular competence appears intact within the proximal deep venous system on the right . The right greater saphenous vein appears patent and compressible segmentally. Ordering Physician: Ruperto Lemus Referring Physician: MARLENE POWELL Performed By: Amy Lee, KALPESH, RVT
[2019-04-11] MEDS: APIXABAN 5 MG TABLET 10 MG PO (17:21)
[2019-04-11 17:26] VITALS: BP 127/91; PULSE 79; RESP 16; O2SAT 97
== END 2019-04-11 17:27 | disposition home or self-care (01) ==
PROVIDERS: Emergency Provider Emergency Medicine; Family Provider Family Medicine; PCP Family Medicine
DX: M79.661 Pain in right lower leg (principal); R20.0 Anesthesia of skin; R74.8 Abnormal levels of other serum enzymes; K21.9 Gastro-esophageal reflux disease without esophagitis; Z88.0 Allergy status to penicillin; Z79.899 Other long term (current) drug therapy
CPT/HCPCS: 85379; 93971; 99283

== ENCOUNTER 2019-04-16 13:09 | Emergency (ER) | payer OTHER, SELFPAY ==
[2019-04-16 13:10] VITALS: BP 156/91; PULSE 72; RESP 18; TEMP 36.4; O2SAT 98; BMI 27.8
--- NOTE | 2019-04-16 13:20 | EKG12_ITS ---
Test Reason : SOB Blood Pressure : / mmHG Vent. Rate : 079 BPM Atrial Rate : 079 BPM P-R Int : 164 ms QRS Dur : 094 ms QT Int : 388 ms P-R-T Axes : 039 000 027 degrees QTc Int : 444 ms Normal sinus rhythm Normal ECG Confirmed by HORTENSIA GIFFORD ([id number]), editorial writer IMANI DE LEON ([id number]) on 04/23/2019 8:49:43 AM Referred By: GEOFF Confirmed By:HORTENSIA GIFFORD
--- NOTE | 2019-04-16 13:23 | RAD_ITS ---
STUDY: X-RAY CHEST REASON FOR EXAM: Male, 38 years old. Left-sided chest pain. Shortness of breath. History of the left lower extremity DVT. TECHNIQUE: Single AP portable view of the chest. COMPARISON: Comparison is made with prior study dated August 28, 2018. FINDINGS: EKG electrodes are seen. The lungs are clear and expanded. There is no demonstrated pleural abnormality. Normal size heart. Normal mediastinum and narayan. Normal visualized pulmonary arteries. Normal visualized aortic arch and descending thoracic aorta. Normal visualized thoracic spine. Normal visualized ribs, clavicles, and shoulders. There is no demonstrated abnormality of the visualized soft tissue structures of the upper abdomen. RAD/Chest 1 View (Portable) IMPRESSION: Normal x-ray examination of the chest. Electronically Signed: Chad Jiménez, at 13:51 EDT , Service support ,
--- NOTE | 2019-04-16 13:29 | CT_ITS ---
STUDY: CTA CHEST REASON FOR EXAM: Male, 38 years old. Left-sided chest pain and shortness of breath. Recent diagnosis of the left lower extremity DVT. RADIATION DOSAGE (If Supplied By Facility): CTDIvol = ( 15.47 ) mGy, DLP = ( 714.77 ) mGycm TECHNIQUE: The examination was performed with the intravenous administration of 100ML IV Isovue 370. Post-processing of the angiographic images was performed, with multiplanar reformation and 3D reconstruction. Individualized dose optimization techniques were used for this CT. COMPARISON: Comparison is made with prior examination dated January 01, 2018. FINDINGS: Normal enhancement of the main pulmonary artery and right and left pulmonary arteries. Normal enhancement of the bilateral peripheral pulmonary arteries. There is no demonstrated pulmonary embolism. Normal thoracic aorta and visualized great vessels. There is no demonstrated aortic dissection. Normal heart and pericardium. Normal mediastinum. Normal hilar regions. Normal visualized trachea and bronchi. The lungs are well expanded. Minimal degree of bone bibasilar atelectasis. Normal pleura. Normal chest wall structures. Normal osseous structures. Normal visualized upper abdomen. CT/CTA Chest W/WO Contrast IMPRESSION: Normal CTA chest examination, without a demonstrated pulmonary embolism or arterial dissection. Electronically Signed: Chad Jiménez, at 14:29 EDT , Service support ,
--- NOTE | 2019-04-16 13:30 | VDLE_ITS ---
Reason For Study: Chest Pain RIGHT LEFT GSV is normal. CFV is compressible, spontaneous, phasic, CFV is compressible, spontaneous, phasic, competent, and demonstrates normal competent and demonstrates normal augmentation. augmentation. FV is compressible, spontaneous, phasic, competent and demonstrates normal augmentation. POP V is compressible, spontaneous, phasic, competent and demonstrates normal augmentation. T/P Trunk is compressible. RT PerV is compressible. Acute deep vein thrombosis is noted in the right posterior tibial vein. Acute deep vein thrombosis is noted in the right soleus vein. Acute deep vein thrombosis is noted in the right gastroc vein. Procedure Exam performed portable in ED. A preliminary report was called and/or faxed to ED. Interpretation Summary Acute deep vein thrombosis is noted in the right posterior tibial vein. Acute deep vein thrombosis is noted in the right soleus vein. Acute deep vein thrombosis is noted in the right gastrocnemius vein. The remainder of the right lower extremity deep venous system is patent and compressible. Valvular competence appears intact within the proximal deep venous system on the right . The right greater saphenous vein appears patent and compressible segmentally. Ordering Physician: Moustapha White Referring Physician: Nicole Hanks M.D. Performed By: Vanessa Flores RVT
--- NOTE | 2019-04-16 13:34 | ED.DCSUM_ITS ---
- ER Visit Summary Date of Service: 04/16/19 Chief Complaint: [] Transient left chest spasm history of right calf DVT History of Present Illness: The patient is a 38 M [] patient diagnosed with right calf DVT Saturday he has been on Eliquis 10 mg a day. He basically indicates she is been wearing a right lower extremity boot related to some unspecified problem causing pain to his right great toe no trauma no history of DVT. He was in his usual state of health today he was in his car as he had another car he felt a nonspecific spasm in his left chest that radiates his left back it caused some minimal shortness of breath. It lasted for just a few minutes resolve spontaneously and he came into the emergency department. He has had no fever no cough no numbness weakness paresthesias the right lower extremity is the same as it has always been is unchanged, he had some discomfort to the right calf he has no discomfort behind the knee or in the right thigh, he has no symptoms in the left leg. He has no history of MN DVT otherwise or PE Physical Examination: [] VS Within normal range General, no distress resting comfortably HEENT is generally unremarkable The neck is supple no adenopathy Cardiovascular, regular rate and rhythm Lungs, clear bilateral Abdomen, soft nontender Extremities, no clubbing cyanosis or edema the right lower extremities really unremarkable he has some discomfort over the right great toe but the exam is normal he has a very vague discomfort over the right calf dorsi and plantar flexion knee function hip function normal no pain behind the knee or in the right thigh neurovascular function normal Neurologic, awake alert answering questions appropriately moving all 4 extremities Test Results: [] Emergency Department Course and Treatment: [] His complaints his risk factors of DVT PE is certainly differential this time screening labs are obtained EKG CTA duplex scan to look for propagation of the DVT Treatment Plan: [] Patient's EKG shows a sinus rhythm nothing acute, the screening labs also showed no acute abnormalities generally see those reports, chest x-ray unremarkable per radiology, CTA of chest showed no PE dissection or other acute abnormality please see all those reports, duplex scan of the right leg showed that the DVT is still below the knee but it now involves 1 of the soleus veins in the mandi-gastroc vein but again below the knee nothing in the popliteal fossa or in the thigh I went and discussed all the above with the patient his we discussed the long differential chest pain and the potential life-threatening etiologies we discussed inpatient versus outpatient management. He indicates that he feels fine indicates that the chest spasm he had lasted for a very short period of time he had no recurrence of it he understands all the above does not wish to be admitted and would prefer outpatient management, he will continue take all his medications and follow-up as outpatient providers return for change in symptoms Disposition: [] Home stable declined admission Impression: [] Transient chest spasm resolved history of DVT below the knee right calf This note was generated with [employer] dictation software. It may contain incorrect words, spelling, and punctuation that were not noted in review of the chart prior to signing ED Disposition - Plan for ED Patient: Referrals: Nicole Hanks MD [Primary Care Provider] -
[2019-04-16 13:51] LABS: Absolute Lymphocyte Count 2.46 X10^3/ul (0.83-4.51); Absolute Neutrophil Count 3.3 X10^3/uL (2.0-7.7); Basophil# 0.02 X10^3/uL; Basophil% 0.3 % (0-1); Eosinophil# 0.18 X10^3/uL; Eosinophils% 2.8 % (0-5); Hematocrit 40.9 % (40-54); Hemoglobin 13.8 g/dl (13.0-16.5); Lymphocyte # 2.46 X10^3/ul (4.0); Lymphocyte % 38.6 % (19-41); Mean Corp Hgb Conc 33.7 g/gl (32-36); Mean Corpuscular Hgb 30.2 pg (27.0-32.0); Mean Corpuscular Volume 89.5 fL (80-94); Mean Platelet Vol. 9.8 fl (6.2-12.0); Monocyte# 0.38 X10^3/uL; Neutrophil # 3.32 X10^3/uL (2.7-7.7); Neutrophil % 52.1 % (47-70); POSITIVE COUNT NO; POSITIVE DIFFERENTIAL NO; POSITIVE MORPHOLOGY NO; Platelet Count 291 K/mm3 (150-450); RBC Distribution Width CV 12.4 % (11.6-14.6); RBC Distribution Width SD 40.1 fl (35.1-43.9); Red Blood Count 4.57 M/mm3 (4.6-6.2); White Blood Count 6.4 K/mm3 (4.4-11.0)
[2019-04-16 14:06] LABS: Anion Gap 5 (5-15); BUN 12 mg/dL (7-18); Calcium,Total 8.7 mg/dL (8.5-10.1); Chloride 109 mmol/L (98-107); Creatinine, Serum 1.09 mg/dL (0.70-1.30); EST Glomerular Filtration Rate 80 mL/min (>60); Est Glom Filt Rate - Afr Amer 97 mL/min (>60); Estimated Creatinine Clearance 94.88 ml/min; Glucose 108 mg/dL (74-106); Potassium 3.5 mmol/L (3.5-5.1); Sodium Level 140 mmol/L (136-145)
[2019-04-16 15:17] VITALS: BP 166/94; PULSE 78; RESP 18; O2SAT 100
--- NOTE | 2019-04-16 16:05 | ED.DEP ---
ED Disposition - Plan for ED Patient: Instructions: ED Chest Pain Atypical Unkn Cause Referrals: Nicole Hanks MD [Primary Care Provider] -
[2019-04-16 16:17] VITALS: BP 148/78; PULSE 76; RESP 16; O2SAT 98
== END 2019-04-16 16:18 | disposition home or self-care (01) ==
LOC: ED 13:59
PROVIDERS: Emergency Provider Emergency Medicine; Family Provider Family Medicine; PCP Family Medicine
DX: I82.441 Acute embolism and thrombosis of right tibial vein (principal); I82.4Z1 Acute embolism and thrombosis of unspecified deep veins of right distal lower extremity; R07.9 Chest pain, unspecified; R06.02 Shortness of breath; Z79.01 Long term (current) use of anticoagulants; Z86.718 Personal history of other venous thrombosis and embolism; Z79.899 Other long term (current) drug therapy
CPT/HCPCS: 71045; 71275; 80048; 84484; 85025; 93005; 93971; 96360; 96361; 99285; J7030; J7040; Q9967; A4216

== ENCOUNTER → 2019-06-02 16:41 | Outpatient (CLI) | payer OTHER, SELFPAY ==
[2019-06-03 10:59] LABS: M R Staph aureus DNA By PCR Negative (Negative); Probe Check PASS; Specimen Processing Control PASS; Staph aureus DNA By PCR POSITIVE (Negative)
== END ==
PROVIDERS: PCP Family Medicine; Visit Provider Podiatrist
DX: L60.0 Ingrowing nail (principal)
CPT/HCPCS: 87070; 87077; 87186; 87205; 87640

== ENCOUNTER → 2019-07-01 16:46 | Outpatient (CLI) | payer OTHER, SELFPAY ==
--- NOTE | 2019-07-01 16:50 | RAD_ITS ---
STUDY: X-RAY CHEST REASON FOR EXAM: Male, 39 years old. Hemoptysis. TECHNIQUE: PA and lateral chest radiographs. COMPARISON: 04/16/2019 CTA chest. FINDINGS: The lungs are clear and expanded. There is no demonstrated pleural abnormality. Normal size heart. Normal mediastinum and narayan. Normal visualized pulmonary arteries. Normal visualized aortic arch and descending thoracic aorta. Normal visualized thoracic spine. Normal visualized ribs, clavicles, and shoulders. There is no demonstrated abnormality of the visualized soft tissue structures of the upper abdomen. RAD/Chest PA and Lateral IMPRESSION: Normal x-ray examination of the chest. Electronically Signed: Wisam Davey, at 17:46 EDT Tel , Service support ,
[2019-07-01 17:30] LABS: Absolute Lymphocyte Count 2.99 X10^3/uL (0.83-4.51); Absolute Neutrophil Count 3.6 X10^3/uL (2.0-7.7); Basophil# 0.04 X10^3/uL; Basophil% 0.5 % (0-1); Eosinophil# 0.17 X10^3/uL; Eosinophils% 2.3 % (0-5); Hematocrit 41.6 % (40-54); Hemoglobin 13.7 g/dL (13.0-16.5); Lymphocyte # 2.99 X10^3/ul (4.0); Lymphocyte % 40.9 % (19-41); Mean Corp Hgb Conc 32.9 g/dL (32-36); Mean Corpuscular Hgb 29.9 pg (27.0-32.0); Mean Corpuscular Volume 90.8 fL (80-94); Mean Platelet Vol. 10.1 fl (6.2-12.0); Monocyte# 0.46 X10^3/uL; Monocyte% 6.3 % (0-10); NRBC Flagged by Analyzer 0 % (0-5); Neutrophil # 3.64 X10^3/uL (2.7-7.7); Neutrophil % 49.9 % (47-70); Platelet Count 284 K/mm3 (150-450); RBC Distribution Width SD 40.1 fl (35.1-43.9); Red Blood Count 4.58 M/mm3 (4.6-6.2); White Blood Count 7.3 K/mm3 (4.4-11.0)
[2019-07-01 17:38] LABS: D-Dimer Quantitative (DVT/PE) < 0.27 FEU/ug/m (0.27-0.49)
[2019-07-01 17:39] LABS: Erythrocyte Sedimentation Rate 6 mm/hr (0-15)
[2019-07-04 20:07] LABS: QNTFERON TB Mitogen Value > 10.00 IU/mL (.); QNTFERON TB Nil Value 0.02 IU/mL (.); QNTFERON TB1+ Ag Value 0.02 IU/mL (.); QNTFERON TB2+ Ag Value 0.01 IU/mL (.)
[2019-07-05 07:42] LABS: QNTIFERON TB Positive Criteria Negative (Negative)
== END ==
PROVIDERS: Family Provider Family Medicine; PCP Family Medicine; Referring Provider Family Medicine; Visit Provider Family Medicine
DX: R04.2 Hemoptysis (principal)
CPT/HCPCS: 36415; 71046; 85025; 85379; 85652; 86480

== ENCOUNTER → 2019-07-07 17:26 | Outpatient (CLI) | payer OTHER, SELFPAY ==
[2019-07-09 14:16] LABS: M R Staph aureus DNA By PCR Negative (Negative); Probe Check PASS; Specimen Processing Control PASS; Staph aureus DNA By PCR POSITIVE (Negative)
== END ==
PROVIDERS: Family Provider Family Medicine; PCP Family Medicine; Referring Provider Podiatrist; Visit Provider Podiatrist
DX: L60.0 Ingrowing nail (principal)
CPT/HCPCS: 87070; 87075; 87077; 87186; 87205; 87640

== ENCOUNTER → 2019-08-04 15:08 | Outpatient (CLI) | payer OTHER, SELFPAY ==
--- NOTE | 2019-08-04 15:20 | MRI_ITS ---
STUDY: MRI RIGHT FOREFOOT WITHOUT CONTRAST REASON FOR EXAM: Male, 39 years old. Foot pain TECHNIQUE: Standardized fat and water weighted pulse sequences were obtained in all 3 orthogonal planes. COMPARISON: None. FINDINGS: There are small osteophytes at the first metatarsophalangeal joint. There are small articular and osteochondral lesions involving the base of the proximal phalanx and distal first metatarsal. The largest osteochondral lesion is involving the plantar aspect of the distal metaphysis of the first metatarsal which measures approximately 4 mm. There is subchondral bone marrow edema within the distal first metatarsal. There is mild edema with increased T2 signal within the subcutaneous soft tissues. The visualized intrinsic and extrinsic ligaments are normal. There are mild degenerative changes at the tarsometatarsal joints. MRI/Lower Ext/No Jt/w/o IMPRESSION: Osteoarthrosis which is most significant at the first metatarsal-phalangeal joint with osteophyte formation, articular and osteochondral lesions as described above Electronically Signed: Adilson Pride, at 5:14 EDT Tel , Service support ,
== END ==
PROVIDERS: Family Provider Family Medicine; PCP Family Medicine; Referring Provider Podiatrist; Visit Provider Podiatrist
DX: S93.521D Sprain of metatarsophalangeal joint of right great toe, subsequent encounter (principal); S96.2 Injury of intrinsic muscle and tendon at ankle and foot level; M19.071 Primary osteoarthritis, right ankle and foot; M79.671 Pain in right foot; X58.XXXD Exposure to other specified factors, subsequent encounter
CPT/HCPCS: 73718

== ENCOUNTER → 2019-09-04 15:53 | Outpatient (CLI) | payer OTHER, SELFPAY ==
[2019-09-04 17:20] LABS: Absolute Lymphocyte Count 3.32 X10^3/uL (0.83-4.51); Absolute Neutrophil Count 3.9 X10^3/uL (2.0-7.7); Basophil# 0.03 X10^3/uL; Basophil% 0.4 % (0-1); Eosinophil# 0.11 X10^3/uL; Eosinophils% 1.4 % (0-5); Hematocrit 42.5 % (40-54); Hemoglobin 13.9 g/dL (13.0-16.5); Lymphocyte # 3.32 X10^3/ul (4.0); Mean Corp Hgb Conc 32.7 g/dL (32-36); Mean Corpuscular Hgb 29.8 pg (27.0-32.0); Mean Platelet Vol. 10.3 fl (6.2-12.0); Monocyte# 0.57 X10^3/uL; Monocyte% 7.2 % (0-10); NRBC Flagged by Analyzer 0 % (0-5); Neutrophil # 3.85 X10^3/uL (2.7-7.7); Neutrophil % 48.7 % (47-70); Platelet Count 307 K/mm3 (150-450); RBC Distribution Width CV 11.9 % (11.6-14.6); Red Blood Count 4.67 M/mm3 (4.6-6.2); White Blood Count 7.9 K/mm3 (4.4-11.0)
[2019-09-04 17:35] LABS: Prothrombin Time (Protime)PT. 12.9 SECONDS (11.7-14.9)
[2019-09-04 17:36] LABS: Partial Thromboplast Time 32.8 Seconds (24.1-36.2)
[2019-09-04 17:55] LABS: Anion Gap 8 (5-15); BUN 17 mg/dL (7-18); BUN/Creat Ratio 14.9 RATIO (10-20); Calcium,Total 8.9 mg/dL (8.5-10.1); Chloride 105 mmol/L (98-107); Creatinine, Serum 1.14 mg/dL (0.70-1.30); EST Glomerular Filtration Rate 76 mL/min (>60); Est Glom Filt Rate - Afr Amer 92 mL/min (>60); Glucose 78 mg/dL (74-106); Potassium 3.6 mmol/L (3.5-5.1); Sodium Level 138 mmol/L (136-145)
== END ==
PROVIDERS: Family Provider Family Medicine; PCP Family Medicine; Referring Provider Podiatrist Foot & Ankle Surgery; Visit Provider Podiatrist Foot & Ankle Surgery
DX: Z01.818 Encounter for other preprocedural examination (principal)
CPT/HCPCS: 36415; 80048; 85025; 85610; 85730

== ENCOUNTER → 2019-10-16 15:23 | Outpatient (CLI) | payer OTHER, SELFPAY ==
--- NOTE | 2019-10-16 15:26 | VDLE_ITS ---
Reason For Study: PAIN RIGHT LEFT GSV is normal. CFV is compressible, spontaneous, phasic, CFV is compressible, spontaneous, phasic, competent, and demonstrates normal competent and demonstrates normal augmentation. augmentation. FV is compressible, spontaneous, phasic, competent and demonstrates normal augmentation. POP V is compressible, spontaneous, phasic, competent and demonstrates normal augmentation. T/P Trunk is compressible. PTV is compressible. Acute deep vein thrombosis is noted in the right peroneal vein. Procedure Exam performed in department. A preliminary report was called and/or faxed to Marlene Hanks. Interpretation Summary Acute deep vein thrombosis is noted in the right peroneal vein. The remainder of the right lower extremity deep venous system is patent and compressible. Valvular competence appears intact within the proximal deep venous system on the right . The right great saphenous vein appears patent and compressible segmentally. Ordering Physician: Juan Cowan Referring Physician: MARLENE HANKS Performed By: Amy Lee, RDCS, RVT
== END ==
PROVIDERS: Family Provider Family Medicine; PCP Family Medicine; Referring Provider Podiatrist Foot & Ankle Surgery; Visit Provider Podiatrist Foot & Ankle Surgery
DX: M79.661 Pain in right lower leg (principal)
CPT/HCPCS: 93971

== ENCOUNTER 2019-10-20 13:15 | Emergency (ER) | payer OTHER, SELFPAY ==
[2019-10-20 13:16] VITALS: BP 130/78; PULSE 97; RESP 16; TEMP 36.6; O2SAT 97; BMI 27.6
--- NOTE | 2019-10-20 13:53 | VDLE_ITS ---
Reason For Study: Swelling RIGHT LEFT GSV is normal. CFV is compressible, spontaneous, phasic, CFV is compressible, spontaneous, phasic, competent, and demonstrates normal competent and demonstrates normal augmentation. augmentation. FV is compressible, spontaneous, phasic, competent and demonstrates normal augmentation. POP V is compressible, spontaneous, phasic, competent and demonstrates normal augmentation. T/P Trunk is compressible. PTV is compressible. Acute deep vein thrombosis is noted in the right peroneal vein. Procedure Exam performed portable in ED. Compared to study done on 10/16/19. A preliminary report was called and/or faxed to ED Nurse. Interpretation Summary Acute deep vein thrombosis is noted in the right peroneal vein. The remainder of the right lower extremity deep venous system is patent and compressible. Valvular competence appears intact within the proximal deep venous system on the right . The right great saphenous vein appears patent and compressible segmentally. There has been no change since a prior study on 10/16/2019. Ordering Physician: Matthew Rice Referring Physician: Nicole Hanks M.D. Performed By: Vanessa Flores RVT
[2019-10-20 14:12] LABS: Absolute Lymphocyte Count 2.28 X10^3/uL (0.83-4.51); Absolute Neutrophil Count 4.9 X10^3/uL (2.0-7.7); Basophil# 0.04 X10^3/uL; Basophil% 0.5 % (0-1); Eosinophil# 0.13 X10^3/uL; Eosinophils% 1.6 % (0-5); Hematocrit 40.4 % (40-54); Hemoglobin 13.5 g/dL (13.0-16.5); Lymphocyte # 2.28 X10^3/ul (4.0); Lymphocyte % 28.5 % (19-41); Mean Corp Hgb Conc 33.4 g/dL (32-36); Mean Corpuscular Hgb 30.2 pg (27.0-32.0); Mean Corpuscular Volume 90.4 fL (80-94); Mean Platelet Vol. 9.8 fl (6.2-12.0); Monocyte# 0.59 X10^3/uL; Monocyte% 7.4 % (0-10); NRBC Flagged by Analyzer 0 % (0-5); Neutrophil # 4.94 X10^3/uL (2.7-7.7); Neutrophil % 61.7 % (47-70); Platelet Count 268 K/mm3 (150-450); RBC Distribution Width CV 11.9 % (11.6-14.6); RBC Distribution Width SD 39.7 fl (35.1-43.9); Red Blood Count 4.47 M/mm3 (4.6-6.2)
[2019-10-20 14:30] LABS: International Normalized Ratio 1.2; Prothrombin Time (Protime)PT. 14.9 SECONDS (11.7-14.9)
--- NOTE | 2019-10-20 15:22 | ED.VISSUMM ---
- ER Visit Summary Date of Service: 10/20/19 Chief Complaint: Redness and pain to the right upper thigh History of Present Illness: The patient is a 39 M who presents with redness and pain to his right upper thigh that began yesterday. Patient describes his pain as cramping. Patient states the pain is constant. Patient states is over the posterior aspect of the right thigh. Patient states it is better when he applies pressure to the area. Patient admits to subjective fevers and chills. Patient admits to nausea but denies any vomiting. Patient is currently being treated for DVT. Patient also had recent surgery on his right great toe. Physical Examination: Stable. Patient is afebrile. Patient is in no acute distress. Skin is warm and dry. There is some mild erythema around the incision of the right great toes consistent with healing. There is minimal tenderness. There is no discharge or drainage. There is no fluctuance. There is no calf tenderness on the right. There is some mild tenderness over the posterior aspect of the right thigh. There is no erythema or warmth. There is full range of motion. Pedal pulses are equal bilaterally. Test Results: CBC was normal. INR was 1.2. Venous duplex of the right lower extremity was obtained. There is a DVT in the right peroneal vein which is unchanged compared to previous venous duplex. There is no progression of the DVT. Emergency Department Course and Treatment: Patient was advised of his results. Patient was instructed to continue his medications as previously prescribed. Patient was instructed to follow-up with his primary care physician in 5 to 7 days. Patient understood and was agreeable with the plan. All questions were answered. Disposition: Discharge home Impression: DVT right peroneal vein This note was generated with [employer] dictation software. It may contain incorrect words, spelling, and punctuation that were not noted in review of the chart prior to signing ED Disposition - Plan for ED Patient: Disposition: Home or Assisted Living Diagnosis: DVT (deep venous thrombosis) Instructions: Deep Vein Thrombosis Referrals: Nicole Hanks MD [Primary Care Provider] - 5-7 Days
== END 2019-10-20 15:48 | disposition home or self-care (01) ==
PROVIDERS: Emergency Provider Emergency Medicine; Family Provider Family Medicine; PCP Family Medicine
DX: I82.451 Acute embolism and thrombosis of right peroneal vein (principal); R11.0 Nausea; R07.9 Chest pain, unspecified; M54.2 Cervicalgia; R35.0 Frequency of micturition; F41.9 Anxiety disorder, unspecified; Z79.01 Long term (current) use of anticoagulants; Z79.899 Other long term (current) drug therapy
CPT/HCPCS: 85025; 85610; 93971; 99283

== ENCOUNTER → 2019-11-02 09:58 | Outpatient (CLI) | payer OTHER, SELFPAY ==
[2019-10-20 13:16] VITALS: BMI 27.6
--- NOTE | 2019-11-02 10:00 | VDLE_ITS ---
Reason For Study: swelling, F/U DVT RIGHT LEFT GSV is normal. CFV is compressible, spontaneous, phasic, CFV is compressible, spontaneous, phasic, competent, and demonstrates normal competent and demonstrates normal augmentation. augmentation. FV is compressible, spontaneous, phasic, competent and demonstrates normal augmentation. POP V is compressible, spontaneous, phasic, competent and demonstrates normal augmentation. T/P Trunk is compressible. PTV is compressible. Acute deep vein thrombosis is noted in the right peroneal vein. No significant change noted from prior exam 10.20.2019. Procedure Exam performed in department. A preliminary report was called and/or faxed to Dr. Guillen @ 10:35 am. Interpretation Summary Acute deep vein thrombosis is noted in the right peroneal vein. The remainder of the right lower extremity deep venous system is patent and compressible. Valvular competence appears intact within the proximal deep venous system on the right . The right great saphenous vein appears patent and compressible segmentally. There has been no change since a prior study on 10/20/2019. Ordering Physician: Joshua Guillen Referring Physician: Joshua Guillen Performed By: Ashley Her, KALPESH, RVT
== END ==
PROVIDERS: Family Provider Family Medicine; PCP Family Medicine; Referring Provider Family Medicine; Visit Provider Family Medicine
DX: M79.89 Other specified soft tissue disorders (principal)
CPT/HCPCS: 93971

== ENCOUNTER → 2019-11-02 10:32 | Outpatient (CLI) | payer OTHER, SELFPAY ==
[2019-10-20 13:16] VITALS: BMI 27.6
[2019-11-05 07:07] LABS: Dilute Prothrombin Time (dPT) 39.8 sec (0.0-55.0); Dilute Russell Viper Venom 51.7 sec (0.0-47.0); PTT-LA 43.6 sec (0.0-51.9); Protein C Antigen 101 % (60-150); Protein C, Functional 127 % (73-180); Thrombin Time 20.1 sec (0.0-23.0); dPT Confirm Ratio 1.11 Ratio (0.00-1.40)
[2019-11-05 15:49] LABS: Antithrombin 3 Function 125 % (75-135); Interpretation Comment: (.); Protein S, Free 75 % (57-157); Protein S, Funtional 71 % (63-140); Protein S, Total 89 % (60-150)
== END ==
PROVIDERS: Family Provider Family Medicine; PCP Family Medicine; Referring Provider Family Medicine; Visit Provider Family Medicine
DX: I82.409 Acute embolism and thrombosis of unspecified deep veins of unspecified lower extremity (principal)
CPT/HCPCS: 36415; 85300; 85302; 85303; 85305; 85306

== ENCOUNTER → 2019-11-03 16:41 | Outpatient (CLI) | payer OTHER, SELFPAY ==
[2019-10-20 13:16] VITALS: BMI 27.6
== END ==
PROVIDERS: Family Provider Family Medicine; PCP Family Medicine; Referring Provider Dermatology; Visit Provider Dermatology
DX: L08.9 Local infection of the skin and subcutaneous tissue, unspecified (principal)
CPT/HCPCS: 87070; 87077; 87186; 87205

== ENCOUNTER → 2020-08-15 11:46 | Outpatient (CLI) | payer OTHER, SELFPAY ==
--- NOTE | 2020-08-15 11:49 | US_ITS ---
STUDY: SUPERFICIAL ULTRASOUND - RIGHT UPPER THIGH. REASON FOR EXAM: Male, 40 years old. Lump right thigh TECHNIQUE: A superficial ultrasound was performed with real-time and static banegas-scale imaging. COMPARISON: None. FINDINGS: The palpable abnormality corresponds to a 1 cm x 1.7 cm x 0.7 cm mildly hyperechoic nodule. This most likely represents a focal lipoma. US/Ext Non Vasc Limited/Soft Tiss IMPRESSION: Findings suggestive of a small lipoma at the palpable site. Electronically Signed: Chad Jiménez, at 13:04 EDT , Service support ,
== END ==
PROVIDERS: PCP Family Medicine; Referring Provider Family Medicine; Visit Provider Family Medicine
DX: R22.41 Localized swelling, mass and lump, right lower limb (principal)
CPT/HCPCS: 76882

== ENCOUNTER → 2020-10-03 12:59 | Outpatient (CLI) | payer OTHER, SELFPAY ==
[2020-08-25 14:30] VITALS: BMI 27.6
--- NOTE | 2020-10-03 14:42 | NEURO ---
NCS and/or EMG Patient Report Ordering Doctor: Nicole Hanks DATE OF SERVICE: 10/03/20 Indication: Intermittent circumferential numbness of the right lower extremity. Left elbow pain associated with intermittent numbness. Evaluate for peripheral nerve injury. Findings: Nerve conduction studies were performed in the left upper and right lower extremities. The left median motor study recording the abductor pollicis brevis showed a normal amplitude, normal distal latency and normal conduction velocity. The left ulnar motor study recording the abductor digiti minimi showed a normal amplitude, normal distal latency and normal conduction velocity. No conduction block or focal slowing was present across the elbow. The left median sensory response recording digit two showed a normal amplitude, latency and conduction velocity. The left ulnar sensory response recording digit five showed a normal amplitude, latency and conduction velocity. The left radial sensory response recording over the extensor snuff box showed a normal amplitude, latency and conduction velocity. The right peroneal motor study recording the extensor digitorum brevis showed a normal amplitude, normal distal latency and normal conduction velocity. No conduction block or focal slowing was present across the fibular neck. The right tibial motor study recording the abductor hallucis brevis showed a normal amplitude, normal distal latency and normal conduction velocity. Right sural sensory response showed a normal amplitude and conduction velocity. Right superficial peroneal sensory response showed a normal amplitude and conduction velocity. Needle EMG of the left upper and right lower extremity muscles was performed. No denervation was present in any muscle, including the cervical and lumbar paraspinal muscles. Motor unit morphology, activation, and recruitment patterns were normal. Impression: This is a normal study. There is no electrophysiologic evidence of peripheral neuropathy. In addition, there was no electrophysiologic evidence of cervical or lumbar radiculopathy. Please note: routine nerve conduction studies and needle EMG assess the larger, myelinated motor and sensory fibers. Thus, routine electrodiagnostic studies may be insensitive in detecting a peripheral neuropathy restricted to small fibers alone (i.e., pain, temperature and autonomic fibers). However, most peripheral neuropathies with predominantly small fiber large dysfunction will also involve large fibers to a lesser extent, and will demonstrate abnormalities on electrodiagnostic studies. Thus, clinical correlation is required in the interpretation of this negative electrodiagnostic study if an isolated small fiber neuropathy is considered. Mello Avitia D.O.
== END ==
PROVIDERS: PCP Family Medicine; Referring Provider Family Medicine; Visit Provider Family Medicine
DX: R20.2 Paresthesia of skin (principal)
CPT/HCPCS: 95886; 95912

== ENCOUNTER → 2021-01-23 11:01 | Outpatient (CLI) | payer OTHER, SELFPAY ==
[2020-08-25 14:30] VITALS: BMI 27.6
--- NOTE | 2021-01-23 11:05 | RAD_ITS ---
STUDY: X-RAY CHEST REASON FOR EXAM: Male, 40 years old. HEMOPTYSIS TECHNIQUE: PA and lateral views of the chest. COMPARISON: Comparison is made with prior study dated 07/01/2019. FINDINGS: The lungs are clear and expanded. Scattered calcified granulomas. There is no demonstrated pleural abnormality. Normal size heart. Normal mediastinum and narayan. Normal visualized pulmonary arteries. Normal visualized aortic arch and descending thoracic aorta. Normal visualized thoracic spine. Normal visualized ribs, clavicles, and shoulders. There is no demonstrated abnormality of the visualized soft tissue structures of the upper abdomen. RAD/Chest PA and Lateral IMPRESSION: Normal x-ray examination of the chest. Electronically Signed: Chad Jiménez MD at 18:23 EST , Service support ,
[2021-01-23 15:45] LABS: Absolute Lymphocyte Count 2.64 X10^3/uL (0.83-4.51); Absolute Neutrophil Count 3.3 X10^3/uL (2.0-7.7); Basophil# 0.04 X10^3/uL; Basophil% 0.6 % (0-1); Eosinophil# 0.12 X10^3/uL; Eosinophils% 1.8 % (0-5); Hematocrit 41.9 % (40-54); Hemoglobin 13.6 g/dL (13.0-16.5); Lymphocyte # 2.64 X10^3/ul (4.0); Lymphocyte % 40.2 % (19-41); Mean Corp Hgb Conc 32.5 g/dL (32-36); Mean Corpuscular Hgb 29.9 pg (27.0-32.0); Mean Corpuscular Volume 92.1 fL (80-94); Mean Platelet Vol. 10.7 fl (6.2-12.0); Monocyte% 7.6 % (0-10); NRBC Flagged by Analyzer 0 % (0-5); Neutrophil # 3.25 X10^3/uL (2.7-7.7); Neutrophil % 49.6 % (47-70); Platelet Count 327 K/mm3 (150-450); RBC Distribution Width CV 11.9 % (11.6-14.6); RBC Distribution Width SD 40.6 fl (35.1-43.9); Red Blood Count 4.55 M/mm3 (4.6-6.2); White Blood Count 6.6 K/mm3 (4.4-11.0)
[2021-01-23 15:46] LABS: Erythrocyte Sedimentation Rate 7 mm/hr (0-20)
== END ==
PROVIDERS: PCP Family Medicine; Referring Provider Family Medicine; Visit Provider Family Medicine
DX: R04.2 Hemoptysis (principal)
CPT/HCPCS: 36415; 71046; 85025; 85652

== ENCOUNTER → 2021-04-28 16:28 | Outpatient (CLI) | payer OTHER, SELFPAY ==
[2020-08-25 14:30] VITALS: BMI 27.6
[2021-05-01 14:08] LABS: QNTFERON TB Mitogen Value > 10.00 IU/mL (.); QNTFERON TB Nil Value 0 IU/mL (.); QNTFERON TB1+ Ag Value 0 IU/mL (.); QNTFERON TB2+ Ag Value 0 IU/mL (.)
[2021-05-01 14:49] LABS: QNTIFERON TB Positive Criteria Negative (Negative)
== END ==
PROVIDERS: PCP Family Medicine; Visit Provider Internal Medicine Pulmonary Disease
DX: R04.2 Hemoptysis (principal)
CPT/HCPCS: 36415; 86480

== ENCOUNTER → 2021-04-30 14:47 | Outpatient (CLI) | payer OTHER, SELFPAY ==
[2020-08-25 14:30] VITALS: BMI 27.6
== END ==
PROVIDERS: PCP Family Medicine; Visit Provider Internal Medicine Pulmonary Disease
DX: R04.2 Hemoptysis (principal)
CPT/HCPCS: 87015; 87070; 87116; 87205; 87206

== ENCOUNTER 2021-05-15 18:56 | Emergency (ER) | payer OTHER, SELFPAY ==
[2020-08-25 14:30] VITALS: BMI 27.6
[2021-05-15 18:57] VITALS: BP 136/82; PULSE 76; RESP 18; TEMP 36.5; O2SAT 97; BMI 27.3
[2021-05-15 19:15] LABS: Absolute Lymphocyte Count 3.96 X10^3/uL (0.83-4.51); Absolute Neutrophil Count 4.3 X10^3/uL (2.0-7.7); Basophil# 0.06 X10^3/uL; Basophil% 0.6 % (0-1); Eosinophil# 0.23 X10^3/uL; Eosinophils% 2.5 % (0-5); Hematocrit 41.2 % (40-54); Hemoglobin 13.7 g/dL (13.0-16.5); Lymphocyte # 3.96 X10^3/ul (0.83-4.51); Lymphocyte % 42.7 % (19-41); Mean Corp Hgb Conc 33.3 g/dL (32-36); Mean Corpuscular Hgb 30.5 pg (27.0-32.0); Mean Corpuscular Volume 91.8 fL (80-94); Monocyte# 0.69 X10^3/uL; Monocyte% 7.4 % (0-10); NRBC Flagged by Analyzer 0 % (0-5); Neutrophil # 4.31 X10^3/uL (2.7-7.7); Neutrophil % 46.6 % (47-70); Platelet Count 315 K/mm3 (150-450); RBC Distribution Width CV 11.9 % (11.6-14.6); RBC Distribution Width SD 40.2 fl (35.1-43.9); Red Blood Count 4.49 M/mm3 (4.6-6.2); White Blood Count 9.3 K/mm3 (4.4-11.0)
[2021-05-15 19:29] LABS: Anion Gap 9 (5-15); BUN 14 mg/dL (7-18); BUN/Creat Ratio 12.2 RATIO (10-20); Calcium,Total 8.8 mg/dL (8.5-10.1); Chloride 105 mmol/L (98-107); Creatinine, Serum 1.15 mg/dL (0.70-1.30); EST Glomerular Filtration Rate 75 mL/min (>60); Est Glom Filt Rate - Afr Amer 90 mL/min (>60); Estimated Creatinine Clearance 85.39 ml/min; Glucose 88 mg/dL (74-106); Potassium 3.5 mmol/L (3.5-5.1); Sodium Level 142 mmol/L (136-145)
--- NOTE | 2021-05-15 19:52 | CT_ITS ---
INDICATION: hemoptysis, syncope EXAMINATION: CTA Chest WO/W Contrast Injection TECHNIQUE: Helically acquired images were obtained of the chest following administration of IV contrast. A radiation dose optimization technique was used for this scan. 3D postprocessing images including MIPS were reviewed. IV Contrast dosage and agent: IV 100mL [id number] COMPARISON: 04/16/2019. FINDINGS: Lungs: 5 mm pulmonary nodule in the left upper lobe (axial image 193), stable since 2018. Mediastinum: The cardiomediastinal silhouette is not enlarged. Enlarged pretracheal node measuring 2 cm, stable since 2018. Otherwise, no evidence of axillary, hilar or other mediastinal adenopathy. The thoracic aorta is unremarkable. No obvious filling defect seen within the visualized pulmonary arteries. Pleura: Unremarkable Bones/Soft tissues: No suspicious osseous or soft tissue lesions Upper abdomen: No visualized abnormalities in the upper abdomen. CT/CTA Chest W/WO Contrast IMPRESSION: No acute abnormalities in the chest. Specifically, no evidence of acute pulmonary emboli to the segmental level. 5 mm left upper lobe pulmonary nodule, stable since 2018. Electronically Signed: Mello Gonzalez MD at 20:42 EDT Tel , Service support ,
--- NOTE | 2021-05-15 19:53 | EKG12_ITS ---
Test Reason : DYSRHYTHMIA Blood Pressure : / mmHG Vent. Rate : 066 BPM Atrial Rate : 066 BPM P-R Int : 184 ms QRS Dur : 094 ms QT Int : 412 ms P-R-T Axes : 059 008 025 degrees QTc Int : 431 ms Normal sinus rhythm with sinus arrhythmia Normal ECG Confirmed by TOR LACY, GOVIND ([id number]), graphics editor IMANI DE LEON ([id number]) on 05/17/2021 9:27:42 AM Referred By: TL Confirmed By:GOVIND LENTZ MD
--- NOTE | 2021-05-15 22:07 | EX.ED.DYSGE1 ---
HPI History of Present Illness Chief Complaint: Syncope Informant: patient and spouse/S.O. Onset/Context/Timing Onset: Month(s) (3) Narrative Narrative: Patient presents for evaluation for syncope after coughing episode. He states he has been coughing up blood for the past 3 months. Remote tobacco history in the past 15 years along with 5 years of vaping. He states had a normal coughing episode that he has had for this past 3 months and passed out. Denies chest pains. Per significant other, seen his PCP work-up initiated. He was referred to ENT had a laryngoscopy reported negative per patient. Then referred to GI Dr. Neal, states was told was not a GI issue. He is referred over to pulmonology Dr. Remy, states there is an upcoming appointment however sputum testing has been sent to the lab here. He states he had chest x-rays as an outpatient. There is been no recent travel outside the country. Reports TB testing has been obtained and pending. Past medical history of nonspecific tremors seen neurology placed on gabapentin. History of hiatal hernia on Dexilant. Reported he had a DVT in his right lower extremity pre and post surgery to his right foot. He was on Eliquis for 3 months each time then transition over to aspirin. Reviewing records noted sputum Gram stain with normal benjie, acid-fast bacilli still pending at this time. [facility] Medical History Acute respiratory insufficiency Bronchitis DVT (deep venous thrombosis) GERD (gastroesophageal reflux disease) Osteoarthritis Home Medications buspirone 10 mg PO TID 04/11/19 [History Last Taken 04/16/19] Lactobacillus acidophilus 2 cap PO DAILY 04/16/19 [History Last Taken 04/15/19] dexlansoprazole 60 mg PO DAILY 04/16/19 [History Last Taken 04/16/19] aspirin [Aspir-81] 81 mg PO DAILY 05/15/21 [History Last Taken Unknown] gabapentin 300 mg PO TID 05/15/21 [History Last Taken Unknown] Allergy/AdvReac Type Severity Reaction Status Date / Time bee venom protein (honey bee) Allergy Shortness Verified 05/15/21 18:59 of breath Penicillins Allergy Rash Verified 05/15/21 18:59 Family History Aunt Colon cancer Uncle Cancer testicle Surgical History History of bilateral knee arthroplasty History of cholecystectomy History of esophagogastroduodenoscopy (EGD) history of left thumb surgery history of right toe surgery Social History Smoking Status: Never smoker ROS ROS ED Constitutional Constitutional ED: Denies chills, fever(s) or sweats Eyes Eyes: Denies change in vision ENT ENT ED: Denies dysphagia or sore throat Cardiovascular Cardiovascular: Reports other Details: Syncope ; Denies chest pain, leg edema, palpitations or racing heartbeat Respiratory/Chest Respiratory/Chest: Denies cough, dyspnea or dyspnea on exertion Gastrointestinal Gastrointestinal: Denies abdominal pain, diarrhea, nausea or vomiting Genitourinary Genitourinary ED: Denies dysuria, hematuria or urinary frequency Musculoskeletal Musculoskeletal: Denies back pain, extremity pain or neck pain Integumentary Denies rash or wounds Neurologic Neurologic: Denies headache(s), paresthesias or weakness EXAM Physical Exam Const Vital Signs: 05/15/21 18:57 05/15/21 19:36 05/15/21 22:12 Temperature 97.7 F L Temperature Source Temporal Pulse Rate 76 70 Respiratory Rate 18 16 Respiratory Effort Normal Non-Labored Respiratory Pattern Normal Blood Pressure 136/82 H 118/72 Blood Pressure Mean 100 87 Pulse Ox 97 97 Oxygen Delivery Method Room Air Room Air Positive well nourished and well developed General Appearance ED: well developed and NAD HEENT Reports moist mucous membranes HEENT Narrative: No posterior pharyngeal bleeding. normocephalic and atraumatic Eyes PERRL, EOMs intact bilaterally and conjunctivae normal General Eye ED: Yes normal appearance of both eyes Neck no lymphadenopathy and supple General: Negative for tenderness Chest Wall Chest: Negative for tenderness Resp normal respiratory effort and normal air movement Effort and Inspection: symmetric chest movement; Negative for respiratory distress Cardio regular rate, regular rhythm and no murmurs Peripheral Pulses: pulses 2+ throughout GI normal to inspection, nondistended, normoactive bowel sounds and non-tender Palpation: Negative for guarding or rebound tenderness present Back/Spine no CVA tenderness and no thoracic nor lumbar tenderness Extremity normal to inspection General Extremety ED: Negative for edema or tenderness General Extremity: Negative for edema Neuro oriented x3 and no sensory deficits noted Sensorium / Orientation: awake and alert Skin no rashes or lesions noted and no wounds MDM MDM MDM Narrative Medical decision making narrative: Patient vital signs stable nontoxic no respiratory distress. History concerning for cough induced syncope. Concerning presentation is hemoptysis. He has had a DVT in the past. Discussed rule out PE or pulmonary masses. They agreed. Lab studies hemoglobin 13.7. EKG normal. CT of the chest negative for PE there is a 5 mm left upper lobe pulmonary nodule stable since 2018. 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 All questions were answered. Lab Data Attestation: I reviewed the patient's lab results. Labs: Laboratory Results - last 24 hr 05/15/21 05/15/21 18:42 18:42 WBC 9.3 RBC 4.49 L Hgb 13.7 Hct 41.2 MCV 91.8 MCH 30.5 MCHC 33.3 RDW Std Deviation 40.2 RDW Coeff of Fernando 11.9 Plt Count 315 MPV 10.0 Immature Gran % (Auto) 0.200 Neut % (Auto) 46.6 L Lymph % (Auto) 42.7 H [place] % (Auto) 7.4 Eos % (Auto) 2.5 Baso % (Auto) 0.6 Absolute Neuts (auto) 4.3 Absolute Lymphs (auto) 3.96 Nucleated RBC % 0 Sodium 142 Potassium 3.5 Chloride 105 Carbon Dioxide 28.0 Anion Gap 9 BUN 14 Creatinine 1.15 Estim Creat Clear Calc 85.39 Est GFR (MDRD) Af Amer 90 Est GFR (MDRD) Non-Af 75 BUN/Creatinine Ratio 12.2 Glucose 88 Calcium 8.8 Radiography Diagnostic Testing: Radiology Impression Chest CTA 05/15/21 19:52 IMPRESSION: No acute abnormalities in the chest. Specifically, no evidence of acute pulmonary emboli to the segmental level. 5 mm left upper lobe pulmonary nodule, stable since 2018. Electronically Signed: Mello Gonzalez MD at 20:42 EDT Tel , Service support , EKG Initial EKG: Attestation: I personally reviewed and interpreted this EKG as follows: Comments: Sinus rate of 66, no ST changes. Isolated T wave inversion lead III nonspecific. QTc 431. Discharge Plan Triage Chief Complaint: Syncope ED Provider: Valerio Vargas Dx/Rx/DC Orders Clinical Impression: Cough syncope syndrome, Hemoptysis, Pulmonary nodule, left Instructions: ED Hemoptysis, ED Dizziness Syncope Fainting W Pre Prescriptions: No Action buspirone 10 MG tablet 10 mg PO TID RF: 0 dexlansoprazole 60 MG capsule,biphase delayed releas 60 mg PO DAILY RF: 0 Lactobacillus acidophilus 1 EACH capsule 2 cap PO DAILY RF: 0 aspirin [Aspir-81] 81 mg Tablet,Delayed Release (Dr/Ec) 81 mg PO DAILY RF: 0 gabapentin 300 mg capsule 300 mg PO TID RF: 0 Primary Care Provider: Nicole Hanks Referrals: Nicole Hanks MD [Primary Care Provider] - Adilson Remy MD [STAFF PHYSICIAN] - Keep Zane appointment Activity Restrictions/Additional Instructions: CTA chest negative for PE, no masses, stable 5 mm left pulmonary nodule. Keep follow-up with Dr. Remy. Disposition Disposition: Home, self care
[2021-05-15 22:12] VITALS: BP 118/72; PULSE 70; RESP 16; O2SAT 97
[2021-05-15 22:34] VITALS: BP 110/71; PULSE 73; RESP 16; O2SAT 98
== END 2021-05-15 22:36 | disposition home or self-care (01) ==
PROVIDERS: Emergency Provider Emergency Medicine; PCP Family Medicine
DX: R55 Syncope and collapse (principal); R04.2 Hemoptysis; R91.1 Solitary pulmonary nodule; K21.9 Gastro-esophageal reflux disease without esophagitis; M19.90 Unspecified osteoarthritis, unspecified site; Z79.82 Long term (current) use of aspirin; Z79.899 Other long term (current) drug therapy; Z87.891 Personal history of nicotine dependence; Z86.718 Personal history of other venous thrombosis and embolism
CPT/HCPCS: 71275; 80048; 85025; 93005; 96360; 96361; 99285; J7040; Q9967

== ENCOUNTER → 2021-05-26 11:42 | Outpatient (CLI) | payer OTHER, SELFPAY ==
[2021-05-15 18:57] VITALS: BMI 27.3
[2021-05-26 12:39] LABS: Erythrocyte Sedimentation Rate 8 mm/hr (0-20)
[2021-05-26 13:32] LABS: CRP < 2.90 mg/L (0.0-3.0); Rheumatoid Factor < 10.0 IU/mL (<15)
[2021-05-28 07:50] LABS: ANTINUCLEAR ANTIBODIES DIRECT Negative (Negative)
[2021-05-31 20:08] LABS: Angiotensin Convert Enzyme 29 U/L (14-82); Cytoplasmic Ab (C-ANCA) <1:20 titer (Neg:<1:20)
[2021-05-31 21:22] LABS: CCP IgG Antibodies 5 units (0-19); Perinuclear Ab (P-ANCA) <1:20 titer (Neg:<1:20)
== END ==
PROVIDERS: PCP Family Medicine; Referring Provider Internal Medicine Pulmonary Disease; Visit Provider Internal Medicine Pulmonary Disease
DX: R04.2 Hemoptysis (principal); R91.1 Solitary pulmonary nodule
CPT/HCPCS: 36415; 82164; 85652; 86038; 86140; 86200; 86256; 86431

== ENCOUNTER → 2021-06-07 12:57 | Outpatient (CLI) | payer OTHER, SELFPAY ==
[2021-05-15 18:57] VITALS: BMI 27.3
--- NOTE | 2021-06-07 12:59 | VDLE_ITS ---
Reason For Study: HX DVT RIGHT LEFT GSV is normal. GSV is normal. CFV is compressible, spontaneous, phasic, CFV is compressible, spontaneous, phasic, competent and demonstrates normal competent, and demonstrates normal augmentation. augmentation. FV is compressible, spontaneous, phasic, FV is compressible, spontaneous, phasic, competent and demonstrates normal competent and demonstrates normal augmentation. augmentation. POP V is compressible, spontaneous, phasic, POP V is compressible, spontaneous, phasic, competent and demonstrates normal competent and demonstrates normal augmentation. augmentation. T/P Trunk is compressible. T/P Trunk is compressible. PTV is compressible. PTV is compressible. RT PerV is compressible. LT PerV is compressible. VL/Venous Duplex US - Sameer Extrem Interpretation Summary No evidence for acute deep venous thrombosis bilateral lower extremities with p atent and compressible bilateral great saphenous veins. Ordering Physician: Adilson Remy Referring Physician: MARLENE POWELL Performed By: Amy Lee, JENNYCS, RVT
== END ==
PROVIDERS: PCP Family Medicine; Referring Provider Internal Medicine Pulmonary Disease; Visit Provider Internal Medicine Pulmonary Disease
DX: R06.00 Dyspnea, unspecified (principal); Z86.718 Personal history of other venous thrombosis and embolism
CPT/HCPCS: 93970

== ENCOUNTER 2021-06-21 10:57 | Day surgery (SDC) | payer OTHER, SELFPAY ==
[2021-06-20 09:21] LABS: Hematocrit 42.5 % (40-54); Mean Corp Hgb Conc 32.9 g/dL (32-36); Mean Corpuscular Hgb 30.1 pg (27.0-32.0); Mean Corpuscular Volume 91.4 fL (80-94); Platelet Count 339 K/mm3 (150-450); RBC Distribution Width CV 11.9 % (11.6-14.6); RBC Distribution Width SD 39.7 fl (35.1-43.9); Red Blood Count 4.65 M/mm3 (4.6-6.2); White Blood Count 6.7 K/mm3 (4.4-11.0)
[2021-06-20 09:29] LABS: Prothrombin Time (Protime)PT. 12.4 SECONDS (11.7-14.9)
[2021-06-20 09:30] LABS: Partial Thromboplast Time 32.6 Seconds (24.1-36.2)
[2021-06-21] VITALS (9 sets, daily range): BP systolic 112–127; BP diastolic 77–89; PULSE 53–84; RESP 16; TEMP 36.8–37.2; O2SAT 92–95; BMI 26.6
--- NOTE | 2021-06-21 | FLU_PTH ---
PATIENT: GOVIND GOVEA LOC: EN U#:[id number] AGE/SX: 41/M ROOM: RE06/21/[address]: Dr. Adilson Remy MD : 1980 BED: DIS: 06/21/2021 SPEC #: [id number] RECD: 06/21/21 13:26 STATUS: INDERJIT SMITH #: [id number] SO: 06/21/21 00:[address]: Adilson Remy V DEPT: CYTOLOGY RECD BY: Rudy Paz ENTERED: 06/22/21 07:57 SP TYPE: Fluid OTHR DR: Dr. Nicole Hanks MD Tissues: A - Bronchus of left upper lobe B - Bronchus of left upper lobe C - Bronchus of left upper lobe Procedures: Special Stain Group II Surgery Specimen Level IV Cytospin Fluid HEADER OPERATION: Bronchoscopy (MAC) PRE-OP DIAGNOSIS: Hemoptysis, cough, solitary pulmonary nodule TISSUE SUBMITTED: A ? Washing LEESA for cytology, B ? Linville LEESA, C ? Brushing LEESA 3 slides DIAGNOSIS CYTOLOGY A. Washing LEESA fluid (cytospin and cell block): Negative for malignant cells. B. [place] (cell block): Paucicellular specimen, negative for malignant cells. See comment. C. Brushings LEESA (smears): Negative for malignant cells. SJ:rg 06/23/2021 COMMENT A & C. Increased number of neutrophils are not seen. B. Neutrophils are not seen. Please also correlate with corresponding surgical specimen [id number]. CYTOLOGY STUDY Slides are reviewed. CYTOLOGY GROSS A - Received is 30 ml of red cloudy fluid labeled with the patient's name and and designated per the requisition as washing LEESA. Submitted for cytology preparation including cell block. B - Received is a metallic endoscopic cytobrush with adherent minute fragments of rosa-red tissue brush in 2 ml of clear red fluid and labeled with the patient's name and and designated per the requisition as brush, LEESA. The material is dislodged from the brush and submitted for cell block. C - Received are three smears labeled with the patient's name and designated per the requisition as brushing LEESA. Submitted for staining. / prieto 06/22/2021 TC:5 CPT: 86610, 93316 x2, 10797
--- NOTE | 2021-06-21 | LUNG_PTH ---
PATIENT: GOVIND GOVEA LOC: EN U#:[id number] AGE/SX: 41/M ROOM: RE06/21/[address]: Dr. Adilson Remy MD : 1980 BED: DIS: 06/21/2021 SPEC #: [id number] RECD: 06/21/21 13:28 STATUS: INDERJIT MTZ #: [id number] SO: 06/21/21 00:[address]: Adilson Remy V DEPT: SURGICAL PATHOLOGY RECD BY: Rudy Paz ENTERED: 06/22/21 07:58 SP TYPE: LUNG BX OTHR DR: Dr. Nicole Hanks MD Tissues: Lung, NOS Procedures: Surgery Specimen Level IV HEADER OPERATION: Bronchoscopy (MAC) PRE-OP DIAGNOSIS: Hemoptysis, cough, solitary pulmonary nodule TISSUE SUBMITTED: Gaston MICROSCOPIC DIAGNOSIS Gaston, biopsy: Fragments of bronchial mucosa with mild chronic inflammation. See comment. JOSE:prieto 06/23/2021 COMMENT Changes consistent with vasculitis are not seen. Significant number of neutrophils are not seen. A small fragment of cartilage is also noted. Please also correlate with corresponding cytology [id number]. MICROSCOPIC DESCRIPTION Slides are reviewed. GROSS DESCRIPTION Received in fixative is one container labeled with the patient's name and designated gaston. The specimen consists of multiple fragments of hemorrhagic soft tissue that in aggregate measure 0.5 x 0.5 x 0.1 cm. The specimen is totally submitted in one cassette. / SJ:prieto 06/22/21 TC:3 CPT: 49775
[2021-06-21] MEDS: Lactated Ringers 1,000 ML 100 ML IV (11:10)
[2021-06-21] MEDS: Phenylephrine 0.25% 15 ML NASAL.SRY 15 SPRAY NASAL (11:50)
[2021-06-21] MEDS: Lidocaine 2% (5ml sdv) 5 ML VIAL.MPF (12:55)
[2021-06-21] MEDS: 0.9% Normal Saline (Pres. free 10 ML Vial (12:56)
[2021-06-21] MEDS: Epinephrine (1 mg/ml) 1 MG/ML VIAL (12:56)
[2021-06-21] MEDS: Lidocaine 2% Jelly 1 APPLIC Tube (12:57)
--- NOTE | 2021-06-21 12:58 | OP.BRONCH_ITS ---
Patient Name: Sebastian Humphries Procedure Date: 06/21/2021 11:54 AM Date of : 1980 Age: 41 Procedure: Bronchoscopy Indications: Hemoptysis, Hemoptysis with normal CXR Providers: Adilson Remy MD Referring MD: Adilson Remy MD Medicines: Lidocaine 2% applied to cords 2 mL, Lidocaine 2% applied to the tracheobronchial tree 10 mL, Oxygen 6 L/min, Sedation Required Anesthesia Staff Assistance Complications: No immediate complications Procedure: Pre-Anesthesia Assessment: - A History and Physical has been performed. Patient meds and allergies have been reviewed. The risks and benefits of the procedure and the sedation options and risks were discussed with the patient. All questions were answered and informed consent was obtained. Patient identification and proposed procedure were verified prior to the procedure by the nurse office staff. Mental Status Examination: alert and oriented. Airway Examination: normal oropharyngeal airway. Respiratory Examination: clear to auscultation. CV Examination: normal and RRR, no murmurs, no S3 or S4. After reviewing the risks and benefits, the patient was deemed in satisfactory condition to undergo the procedure. The anesthesia plan was to use moderate sedation / analgesia (conscious sedation). Immediately prior to administration of medications, the patient was re-assessed for adequacy to receive sedatives. The heart rate, respiratory rate, oxygen saturations, blood pressure, adequacy of pulmonary ventilation, and response to care were monitored throughout the procedure. The physical status of the patient was re-assessed after the procedure. After I obtained informed consent, the scope was passed under direct vision. Throughout the procedure, the patient's blood pressure, pulse, and oxygen saturations were monitored continuously. The bronchoscope was introduced through the right nostril and advanced to the tracheobronchial tree of both lungs. The patient tolerated the procedure well. The total duration of the procedure was 20 minutes. Findings: the patient had generlized hyperemia of the airways, see photos. Endobronchial biopsies were performed at the [facility] using forceps and sent for histopathology examination. Three samples were obtained. Guided brushings were obtained in the left mainstem bronchus with a cytology brush and sent for cell count, bacterial culture, viral smears & culture, and fungal & AFB analysis and cytology. One sample was obtained. Impression: - Hemoptysis - Hemoptysis with normal CXR - An endobronchial biopsy was performed. - Brushings were obtained. Recommendation: - Await test results. Procedure Code(s): --- Professional --- 43625, Bronchoscopy, rigid or flexible, including fluoroscopic guidance, when performed; with bronchial or endobronchial biopsy(s), single or multiple sites 28577, Bronchoscopy, rigid or flexible, including fluoroscopic guidance, when performed; with brushing or protected brushings Diagnosis Code(s): --- Professional --- R04.2, Hemoptysis CPT copyright 2017 [employer]. All rights reserved. The codes documented in this report are preliminary and upon grinder set up operator review may be revised to meet current compliance requirements. MD Adilson Montemayor MD 06/21/2021 12:58:20 PM This report has been signed electronically. Number of Addenda: 0 Note Initiated On: 06/21/2021 11:54 AM
[2021-06-21 13:34] LABS: Cytology, Body Fluid / CSF SEE PATHOLOGY REPORT
[2021-06-21 13:57] LABS: Appearance/Body Fluid SL CLDY; Color/Body Fluid PINK; Source- Body Fluid BRONCHIAL LAVAGE
[2021-06-21 14:02] LABS: Red Cell Count/Body Fluid 17760 /mm3
[2021-06-21 14:03] LABS: White Blood Count/Body Fluid 65 /mm3
[2021-06-21 14:04] LABS: Appearance/Body Fluid CLEAR; Color/Body Fluid COLORLESS; Source- Body Fluid OTHER
[2021-06-21 14:06] LABS: Red Cell Count/Body Fluid 75 /mm3
[2021-06-21 14:07] LABS: White Blood Count/Body Fluid 0 /mm3
[2021-06-21 14:28] LABS: Body Fluid QC Type(s) BF2
[2021-06-21 14:37] LABS: Lymphocytes 3 %; Macrophages 45 %; Neutrophil (Segs) 18 %; Other Cell Type/BF 34 %
[2021-06-23 10:05] LABS: Pathologist Comment/Body Fluid Reviewed
[2021-06-23 10:06] LABS: Body Fluid QC Type(s) BF2
[2021-06-23 10:07] LABS: Pathologist Comment/Body Fluid Reviewed
== END 2021-06-21 14:03 ==
LOC: EN 10:57 → AC 10:57
PROVIDERS: PCP Family Medicine; Referring Provider Internal Medicine Pulmonary Disease; Visit Provider Internal Medicine Pulmonary Disease
PROC: 0BJ08ZZ Inspection of Tracheobronchial Tree, Via Natural or Artificial Opening Endoscopic (ICD-10-PCS; CPT 31622; principal; 2021-06-21 11:45)
DX: J42 Unspecified chronic bronchitis (principal); R04.2 Hemoptysis; R91.1 Solitary pulmonary nodule; Z20.822 Contact with and (suspected) exposure to COVID-19; K21.9 Gastro-esophageal reflux disease without esophagitis; Z79.899 Other long term (current) drug therapy; Z87.891 Personal history of nicotine dependence; Z96.653 Presence of artificial knee joint, bilateral
CPT/HCPCS: 31623; 31625; 36415; 85027; 85610; 85730; 87426; 88108; 88305; 88313; 89050; C9803; J7120; J2405; J3490

== ENCOUNTER → 2021-10-09 13:07 | Outpatient (CLI) | payer OTHER, SELFPAY | PROVIDERS: PCP Family Medicine; Referring Provider Internal Medicine Pulmonary Disease; Visit Provider Internal Medicine Pulmonary Disease | DX: U07.1 COVID-19 (principal); J06.9 Acute upper respiratory infection, unspecified; R04.2 Hemoptysis; R91.1 Solitary pulmonary nodule; R05.3 Chronic cough | CPT/HCPCS: 87635; C9803; U0005; U0003 ==

== ENCOUNTER 2021-10-11 13:05 | Emergency (ER) | payer OTHER, SELFPAY ==
[2021-10-11 13:18] VITALS: BP 130/84; PULSE 92; RESP 20; TEMP 36.6; O2SAT 99; BMI 26.8
[2021-10-11 14:33] VITALS: O2SAT 95
[2021-10-11 15:05] VITALS: BP 137/98; PULSE 90; RESP 11; TEMP 36.6; O2SAT 93
[2021-10-11 15:06] VITALS: BP 137/98; PULSE 90; RESP 11; TEMP 36.6; O2SAT 93; O2SAT 94
--- NOTE | 2021-10-11 15:17 | EDS_ITS ---
HPI History of Present Illness Chief Complaint: Shortness of Breath Informant: patient and spouse/S.O. Onset/Context/Timing Onset: Days Current Severity: Mild Maximum Severity: Moderate Narrative Narrative: Patient presents secondary to shortness of breath and chest pain. He developed symptoms of Covid on October 07. He tested positive for Covid on October 09. He states he got a coughing fit at home today and had trouble catching his breath. He called EMS. He was scheduled to get monoclonal antibody infusion at 4:00 today. [facility] Medical History Acute respiratory insufficiency Alcohol use Bronchitis Chest pain DVT (deep venous thrombosis) Former smoker GERD (gastroesophageal reflux disease) History of GI bleed History of IBS History of stress test Injury of head and neck Loss of consciousness Migraine headache Osteoarthritis Shortness of breath on exertion Tremors of nervous system Home Medications buspirone 10 mg PO TID 04/11/19 [History Last Taken 04/16/19] Lactobacillus acidophilus 2 cap PO DAILY 04/16/19 [History Last Taken 04/15/19] dexlansoprazole 60 mg PO DAILY 04/16/19 [History Last Taken 06/21/21] gabapentin 300 mg PO TID 05/15/21 [History Last Taken 06/21/21] enoxaparin [Lovenox] 80 mg SUBCUT Q12H 30 Days #48 ml 10/11/21 [Rx Last Taken Unknown] prednisone 20 mg PO DAILY 10/11/21 [History Last Taken Unknown] Allergy/AdvReac Type Severity Reaction Status Date / Time bee venom protein (honey bee) Allergy Shortness Verified 10/11/21 13:21 of breath Penicillins Allergy Rash Verified 10/11/21 13:21 Family History Aunt Colon cancer Uncle Cancer testicle Surgical History History of bilateral knee arthroplasty History of cholecystectomy History of esophagogastroduodenoscopy (EGD) history of left thumb surgery history of right toe surgery Social History Smoking Status: Former smoker ROS ROS ED Constitutional Constitutional ED: Denies chills or fever(s) Eyes Eyes: Denies change in vision ENT ENT ED: Denies sore throat Cardiovascular Cardiovascular: Reports chest pain Respiratory/Chest Respiratory/Chest: Reports cough and dyspnea Gastrointestinal Gastrointestinal: Denies abdominal pain, diarrhea, nausea or vomiting Genitourinary Genitourinary ED: Denies dysuria Musculoskeletal Musculoskeletal: Denies back pain Integumentary Denies rash Neurologic Neurologic: Denies headache(s) or weakness Allergic/Immunologic Allergic/Immunologic ED: Denies urticaria EXAM Physical Exam Const Vital Signs: 10/11/21 13:18 10/11/21 14:33 10/11/21 15:05 Temperature 97.8 F 98 F Temperature Source Temporal Temporal Pulse Rate 92 90 Respiratory Rate 20 H 11 L Blood Pressure 130/84 H 137/98 H Blood Pressure Mean 99 111 Pulse Ox 99 95 93 Oxygen Delivery Method Nasal Cannula Room Air Room Air Oxygen Flow Rate (L/min) 2 10/11/21 15:06 Temperature 98 F Temperature Source Temporal Pulse Rate 90 Respiratory Rate 11 L Blood Pressure 137/98 H Blood Pressure Mean 111 Pulse Ox 93 Oxygen Delivery Method Room Air Oxygen Flow Rate (L/min) 2 Positive well nourished and well developed General Appearance ED: well developed HEENT Reports moist mucous membranes Eyes PERRL and EOMs intact bilaterally Neck supple Chest Wall inspection of chest normal and palpation of chest normal Resp normal respiratory effort and clear to auscultation bilaterally Cardio regular rate and regular rhythm GI normal to inspection, nondistended, normoactive bowel sounds and non-tender Palpation: soft Extremity normal to inspection Neuro oriented x3 Sensorium / Orientation: alert Psych mental status grossly normal Skin no rashes or lesions noted MDM MDM MDM Narrative Medical decision making narrative: Lab work and CTA chest obtained. Prehospital EKG reviewed which reveals sinus rhythm at approximately 78 bpm. No ischemia. Lab Data Attestation: I reviewed the patient's lab results. Labs: Laboratory Results - last 24 hr 10/11/21 10/11/21 15:35 15:35 WBC 8.6 RBC 4.63 Hgb 14.1 Hct 42.7 MCV 92.2 MCH 30.5 MCHC 33.0 RDW Std Deviation 41.5 RDW Coeff of Fernando 12.2 Plt Count 237 MPV 9.8 Immature Gran % (Auto) 0.300 Neut % (Auto) 67.1 Lymph % (Auto) 24.2 [place] % (Auto) 7.7 Eos % (Auto) 0.5 Baso % (Auto) 0.2 Absolute Neuts (auto) 5.8 Absolute Lymphs (auto) 2.08 Nucleated RBC % 0 Sodium 139 Potassium 3.2 L Chloride 105 Carbon Dioxide 29.0 Anion Gap 5 BUN 15 Creatinine 1.02 Estim Creat Clear Calc 98.41 Est GFR (MDRD) Af Amer 103 Est GFR (MDRD) Non-Af 85 BUN/Creatinine Ratio 14.7 Glucose 115 H Calcium 8.7 Radiography Diagnostic Testing: Clinical Impression(s) from Imaging Studies Chest CTA 10/11/21 16:00 IMPRESSION: Multiple bilateral pulmonary emboli. Mild right basilar atelectasis.. Findings which may be consistent with very subtle early changes of Covid 19 pneumonia in the lower lobes Electronically Signed: Yazan Miller MD at 16:29 EST , Service support , ADDENDUM: 10/11/21 1646 IMPRESSION: Multiple bilateral pulmonary emboli. Mild right basilar atelectasis.. Findings which may be consistent with very subtle early changes of Covid 19 pneumonia in the lower lobes N.B. : The above Results were Read Back by Yazan Miller MD to Dr Raymon MD, and understanding confirmed on 10/11/2021 16:39:29 (ET). Electronically Signed: Yazan Miller MD at 16:29 EST , Service support , Treatment and Re-Evaluation Comments:: I spoke with the patient's contamination consultant, Dr. Remy. Patient had a history of DVT and was previously on Eliquis. He had problems with hemoptysis. Dr. Remy would like him to be placed on Lovenox. We will give first dose here and do teaching. Patient was able to be rescheduled for monoclonal antibody treatment at 530 this evening. Discharge Plan Triage Chief Complaint: Shortness of Breath ED Provider: Natalie Ennis Dx/Rx/DC Orders Clinical Impression: COVID-19, Pulmonary emboli Instructions: Coronavirus Disease 2019 (COVID-19): Overview, Coronavirus Disease 2019 (COVID-19): Caring for Yourself or Others, Embolism Pulmonary Dc Prescriptions: New enoxaparin [Lovenox] 80 mg/0.8 mL syringe 80 mg subcut Q12H 30 Days Qty: 48 RF: 0 No Action buspirone 10 MG tablet 10 mg PO TID RF: 0 dexlansoprazole 60 MG capsule,biphase delayed releas 60 mg PO DAILY RF: 0 Lactobacillus acidophilus 1 EACH capsule 2 cap PO DAILY RF: 0 gabapentin 300 mg capsule 300 mg PO TID RF: 0 prednisone 20 mg tablet 20 mg PO DAILY RF: 0 Primary Care Provider: Nicole Hanks Referrals: Nicole Hanks MD [Primary Care Provider] - Adilson Remy MD [STAFF PHYSICIAN] - 1-2 Weeks Disposition Disposition: Home, Self Care
[2021-10-11 15:45] LABS: Absolute Lymphocyte Count 2.08 X10^3/uL (0.83-4.51); Absolute Neutrophil Count 5.8 X10^3/uL (2.0-7.7); Basophil# 0.02 X10^3/uL; Basophil% 0.2 % (0-1); Eosinophil# 0.04 X10^3/uL; Eosinophils% 0.5 % (0-5); Hematocrit 42.7 % (40-54); Hemoglobin 14.1 g/dL (13.0-16.5); Lymphocyte # 2.08 X10^3/ul (0.83-4.51); Lymphocyte % 24.2 % (19-41); Mean Corpuscular Hgb 30.5 pg (27.0-32.0); Mean Corpuscular Volume 92.2 fL (80-94); Mean Platelet Vol. 9.8 fl (6.2-12.0); Monocyte# 0.66 X10^3/uL; Monocyte% 7.7 % (0-10); NRBC Flagged by Analyzer 0 % (0-5); Neutrophil # 5.75 X10^3/uL (2.7-7.7); Neutrophil % 67.1 % (47-70); Platelet Count 237 K/mm3 (150-450); RBC Distribution Width CV 12.2 % (11.6-14.6); RBC Distribution Width SD 41.5 fl (35.1-43.9); Red Blood Count 4.63 M/mm3 (4.6-6.2); White Blood Count 8.6 K/mm3 (4.4-11.0)
[2021-10-11 15:58] LABS: Anion Gap 5 (5-15); BUN 15 mg/dL (7-18); BUN/Creat Ratio 14.7 RATIO (10-20); Calcium,Total 8.7 mg/dL (8.5-10.1); Chloride 105 mmol/L (98-107); Creatinine, Serum 1.02 mg/dL (0.70-1.30); EST Glomerular Filtration Rate 85 mL/min (>60); Est Glom Filt Rate - Afr Amer 103 mL/min (>60); Estimated Creatinine Clearance 98.41 ml/min; Glucose 115 mg/dL (74-106); Potassium 3.2 mmol/L (3.5-5.1); Sodium Level 139 mmol/L (136-145)
--- NOTE | 2021-10-11 16:00 | CT_ITS ---
We are attempting to reach an attending provider to discuss findings. An addendum with communication details will be sent when the communication is complete. STUDY: CTA CHEST REASON FOR EXAM: Male, 41 years old. sob, CP, covid RADIATION DOSAGE (If Supplied By Facility): CTDIvol = ( 11.65 ) mGy, DLP = ( 404.97 ) mGycm TECHNIQUE: The examination was performed with the intravenous administration of IV 100mL Isovue-370. Post-processing of the angiographic images was performed, with multiplanar reformation and 3D reconstruction. Individualized dose optimization techniques were used for this CT. COMPARISON: None. FINDINGS: There is intraluminal clot noted distal main pulmonary arteries bilaterally extending into the proximal upper lobe branches as well as the descending interlobar and segmental branches of both lower lobes. No definitive evidence for right ventricular strain Normal thoracic aorta and visualized great vessels. There is no demonstrated aortic dissection. Normal heart and pericardium. Normal mediastinum. Normal hilar regions. Normal visualized trachea and bronchi. The lungs are well expanded. There is mild atelectasis within the right lower lobe. Very subtle patchy groundglass densities are seen in the lower lobes which may be on the basis of mild Covid 19 pneumonia. No gross infiltration Normal pleura. Normal chest wall structures. Normal osseous structures. Normal visualized upper abdomen. CT/CTA Chest W/WO Contrast IMPRESSION: Multiple bilateral pulmonary emboli. Mild right basilar atelectasis.. Findings which may be consistent with very subtle early changes of Covid 19 pneumonia in the lower lobes Electronically Signed: Yazan Miller MD at 16:29 EST , Service support ,
--- NOTE | 2021-10-11 16:49 | NURSING ---
[id number] MANNING [id number] DR MANNING CALLED BACK
[2021-10-11 17:12] VITALS: BP 129/84; PULSE 89; RESP 12; O2SAT 95
[2021-10-11] MEDS: Enoxaparin 80 MG/0.8 ML Syringe SC (17:14)
[2021-10-11 17:27] LABS: BNP,B-Type NATRIURETIC PEPTIDE < 2.0 pg/mL (0-100)
[2021-10-11 18:03] LABS: Troponin-I HS 6 pg/mL (3.0-78.0)
== END 2021-10-11 17:25 | disposition home or self-care (01) ==
PROVIDERS: Emergency Provider Emergency Medicine; PCP Family Medicine
DX: U07.1 COVID-19 (principal); I26.99 Other pulmonary embolism without acute cor pulmonale; K58.9 Irritable bowel syndrome, unspecified; K21.9 Gastro-esophageal reflux disease without esophagitis; M19.90 Unspecified osteoarthritis, unspecified site; Z79.52 Long term (current) use of systemic steroids; Z79.899 Other long term (current) drug therapy; Z86.718 Personal history of other venous thrombosis and embolism; Z87.891 Personal history of nicotine dependence
CPT/HCPCS: 71275; 80048; 83880; 84484; 85025; 96372; 99284; Q9967

== ENCOUNTER 2021-10-11 17:29 | Outpatient (CLI) | payer OTHER, SELFPAY ==
[2021-10-11 17:34] VITALS: BP 126/80; PULSE 87; RESP 16; TEMP 36.6; O2SAT 95; BMI 26.8
[2021-10-11] MEDS: 0.9% Saline Lock 10 ML Syringe IV (17:34)
[2021-10-11 18:10] VITALS: BP 130/78; PULSE 88; RESP 16; TEMP 36.9; O2SAT 96
[2021-10-11 19:10] VITALS: BP 122/76; PULSE 88; RESP 16; TEMP 36.8; O2SAT 96
== END 2021-10-11 19:10 | disposition home or self-care (01) ==
LOC: MS3OUT 17:29 → MS3 17:30
PROVIDERS: PCP Family Medicine; Referring Provider Nurse Practitioner Adult Health; Visit Provider Nurse Practitioner Adult Health
DX: Z23 Encounter for immunization (principal); U07.1 COVID-19
CPT/HCPCS: J7050; M0245; Q0245; A4216

== ENCOUNTER 2021-10-24 10:15 | Emergency (ER) | payer OTHER, SELFPAY ==
[2021-10-24 10:16] VITALS: BP 138/96; PULSE 91; RESP 16; TEMP 36.4; O2SAT 92; BMI 25.8
--- NOTE | 2021-10-24 11:44 | EKG12_ITS ---
Test Reason : CP Blood Pressure : / mmHG Vent. Rate : 070 BPM Atrial Rate : 070 BPM P-R Int : 162 ms QRS Dur : 086 ms QT Int : 376 ms P-R-T Axes : 021 -07 022 degrees QTc Int : 406 ms Normal sinus rhythm Normal ECG When compared with ECG of 15-MAY-2021 20:43, No significant change was found Confirmed by GENEVIEVE LACY, DANIEL ([id number]), editor dictionary IMANI DE LEON ([id number]) on 10/30/2021 9:54:24 AM Referred By: SOHAM Confirmed By:SHASHI VALLEJO MD
--- NOTE | 2021-10-24 11:47 | RAD_ITS ---
STUDY: X-RAY CHEST REASON FOR EXAM: Male, 41 years old. hemoptysis TECHNIQUE: AP COMPARISON: 01/23/2021 FINDINGS: The lungs are clear and expanded. There is no demonstrated pleural abnormality. Normal size heart. Normal mediastinum and narayan. Normal visualized pulmonary arteries. Normal visualized aortic arch and descending thoracic aorta. Normal visualized thoracic spine. Normal visualized ribs, clavicles, and shoulders. There is no demonstrated abnormality of the visualized soft tissue structures of the upper abdomen. RAD/Chest 1 View (Portable) IMPRESSION: Nonacute portable x-ray examination of the chest. Electronically Signed: Edmond Ochoa MD ([place]) at 12:00 EST , Service support ,
--- NOTE | 2021-10-24 11:54 | EDS_ITS ---
HPI History of Present Illness Chief Complaint: Shortness of Breath Informant: patient Onset/Context/Timing Onset: Weeks Context: gradual Timing: Continuous Quality: Positive for Dyspnea on exertion Worsened by: Exertion Relieved by: Rest Associated Symptoms cough, subjective, chills and sweats; Negative for rhinorrhea, ear pain, fever or sore throat Narrative Narrative: Patient presents with shortness of breath and hemoptysis. Patient states this has been getting worse over the past couple days. Patient admits to some chills and sweats. Patient was started on Lovenox for pulmonary embolism. Patient had a positive COVID-19 test on 10/07/2021. Patient states that he has had hemoptysis in the past and that he had a bronchoscopy which showed inflamed blood vessels in his lungs. There were no masses or cancer of any kind. Patient states that his hemoptysis resolved after that but when he started back on the Lovenox his hemoptysis returned. Patient states it is currently only mild. Patient states he has not had any episodes today. Patient admits to some pain in his chest. Patient describes as cramping but sharp at times. Patient states it is over the substernal and right parasternal areas. [facility] Medical History Acute respiratory insufficiency Alcohol use Bronchitis Chest pain DVT (deep venous thrombosis) Former smoker GERD (gastroesophageal reflux disease) History of GI bleed History of IBS History of stress test Injury of head and neck Loss of consciousness Migraine headache Osteoarthritis Shortness of breath on exertion Tremors of nervous system Home Medications buspirone 10 mg PO TID 04/11/19 [History Last Taken 04/16/19] Lactobacillus acidophilus 2 cap PO DAILY 04/16/19 [History Last Taken 04/15/19] dexlansoprazole 60 mg PO DAILY 04/16/19 [History Last Taken 06/21/21] gabapentin 300 mg PO TID 05/15/21 [History Last Taken 06/21/21] enoxaparin [Lovenox] 80 mg SUBCUT Q12H 30 Days #48 ml 10/11/21 [Rx Last Taken Unknown] prednisone 20 mg PO DAILY 10/11/21 [History Last Taken Unknown] Allergy/AdvReac Type Severity Reaction Status Date / Time bee venom protein (honey bee) Allergy Shortness Verified 10/11/21 13:21 of breath Penicillins Allergy Rash Verified 10/11/21 13:21 Family History Aunt Colon cancer Uncle Cancer testicle Surgical History History of bilateral knee arthroplasty History of cholecystectomy History of esophagogastroduodenoscopy (EGD) history of left thumb surgery history of right toe surgery Social History Smoking Status: Former smoker ROS ROS ED Constitutional Constitutional ED: Reports chills and sweats; Denies fever(s) Eyes Eyes: Reports blurry vision; Denies diplopia ENT ENT ED: Denies rhinorrhea or sore throat Cardiovascular Cardiovascular: Reports chest pain; Denies palpitations Respiratory/Chest Respiratory/Chest: Reports cough, dyspnea and sputum Gastrointestinal Gastrointestinal: Reports abdominal pain and nausea; Denies vomiting Genitourinary Genitourinary ED: Denies dysuria or hematuria Musculoskeletal Musculoskeletal: Denies back pain or neck pain Integumentary Denies abscess or rash Neurologic Neurologic: Reports headache(s); Denies weakness Allergic/Immunologic Allergic/Immunologic ED: Denies mouth swelling or urticaria EXAM Physical Exam Const Vital Signs: 10/24/21 10:16 10/24/21 12:27 10/24/21 14:19 Temperature 97.6 F L Temperature Source Temporal Pulse Rate 91 72 78 Respiratory Rate 16 9 L 15 Blood Pressure 138/96 H 137/88 H 120/88 H Blood Pressure Mean 110 104 98 Pulse Ox 92 96 95 Oxygen Delivery Method Room Air Nasal Cannula Room Air Oxygen Flow Rate (L/min) 2 Positive well nourished and well developed General Appearance ED: well developed HEENT Reports moist mucous membranes Neck supple and no JVD Resp normal respiratory effort and clear to auscultation bilaterally Cardio regular rate, regular rhythm and no murmurs GI normal to inspection, nondistended, normoactive bowel sounds Palpation: soft and tender RLQ and Rovsing's sign (Negative); Negative for guarding or rebound tenderness present Extremity normal to inspection General Extremety ED: Negative for edema or tenderness General Extremity: Negative for edema Neuro oriented x3, CN's II-XII intact bilaterally and no sensory deficits noted Sensorium / Orientation: alert Motor Exam: strength 5/5 throughout Psych mental status grossly normal Skin no rashes or lesions noted MDM MDM MDM Narrative Medical decision making narrative: Portable 1 view chest x-ray was obtained. On my interpretation, lung desai are clear. There is normal cardiac silhouette. Bony thorax is normal. There is no acute process noted. Radiologist also interpreted the x-ray and agrees. CBC was within normal limits. PT with INR was within normal limits. PTT was 42.4. Comprehensive metabolic profile was essentially within normal limits. Urinalysis does not show any evidence of urinary tract infection. With the normal white blood cell count and normal la bs, I do not feel CT scan of the abdomen pelvis is necessary at this time to rule out appendicitis. Patient was advised of his findings. Patient was advised that appendicitis cannot 100% ruled out however, it is less likely given the normal laboratory findings. Patient was advised that if his pain does become worse he should return to the emergency department. Patient was instructed to continue his Lovenox as prescribed. Patient had no further episodes of hemoptysis here. Patient understands and is agreeable with the plan. All questions were answered. Lab Data Attestation: I reviewed the patient's lab results. Labs: Laboratory Results - last 24 hr 10/24/21 10/24/21 10/24/21 11:55 11:55 11:55 WBC 9.4 RBC 4.72 Hgb 14.5 Hct 42.2 MCV 89.4 MCH 30.7 MCHC 34.4 RDW Std Deviation 38.9 RDW Coeff of Fernando 11.9 Plt Count 383 MPV 9.7 Immature Gran % (Auto) 0.400 Neut % (Auto) 53.6 Lymph % (Auto) 37.8 [place] % (Auto) 6.0 Eos % (Auto) 1.5 Baso % (Auto) 0.7 Absolute Neuts (auto) 5.0 Absolute Lymphs (auto) 3.54 Nucleated RBC % 0 PT 12.0 INR 0.9 APTT 42.4 H Sodium 137 Potassium 4.1 Chloride 104 Carbon Dioxide 27.0 Anion Gap 6 BUN 18 Creatinine 0.90 Estim Creat Clear Calc 111.53 Est GFR (MDRD) Af Amer 120 Est GFR (MDRD) Non-Af 99 BUN/Creatinine Ratio 20.1 H Glucose 101 Calcium 8.7 Total Bilirubin 0.40 AST 52 H ALT 143 H Alkaline Phosphatase 78 Total Protein 7.7 Albumin 3.6 Globulin 4.1 Albumin/Globulin Ratio 0.9 Urine Color Urine Clarity Urine pH Ur Specific [place] Urine Protein Urine Glucose (UA) Urine Ketones Urine Occult Blood Urine Nitrite Urine Bilirubin Urine Urobilinogen Ur Leukocyte Esterase Urine RBC Urine WBC Ur Squamous Epith Cells Urine Bacteria Urine Mucus 10/24/21 12:13 WBC RBC Hgb Hct MCV MCH MCHC RDW Std Deviation RDW Coeff of Fernando Plt Count MPV Immature Gran % (Auto) Neut % (Auto) Lymph % (Auto) [place] % (Auto) Eos % (Auto) Baso % (Auto) Absolute Neuts (auto) Absolute Lymphs (auto) Nucleated RBC % PT INR APTT Sodium Potassium Chloride Carbon Dioxide Anion Gap BUN Creatinine Estim Creat Clear Calc Est GFR (MDRD) Af Amer Est GFR (MDRD) Non-Af BUN/Creatinine Ratio Glucose Calcium Total Bilirubin AST ALT Alkaline Phosphatase Total Protein Albumin Globulin Albumin/Globulin Ratio Urine Color Yellow Urine Clarity Clear Urine pH 6.5 Ur Specific [place] 1.010 Urine Protein Negative Urine Glucose (UA) Normal Urine Ketones Negative Urine Occult Blood 10 H Urine Nitrite Negative Urine Bilirubin Negative Urine Urobilinogen Normal Ur Leukocyte Esterase Negative Urine RBC 0 SEEN Urine WBC 0 SEEN Ur Squamous Epith Cells 0 SEEN Urine Bacteria 0 SEEN Urine Mucus 0 SEEN Radiography Chest X-Ray - ED: 1 View, Read by ED Physician, Read by Radiologist and Normal Diagnostic Testing: Clinical Impression(s) from Imaging Studies Chest X-Ray 10/24/21 11:47 IMPRESSION: Nonacute portable x-ray examination of the chest. Electronically Signed: Edmond Ochoa MD ([place]) at 12:00 EST , Service support , Discharge Plan Triage Chief Complaint: Shortness of Breath ED Provider: Matthew Rice Dx/Rx/DC Orders Clinical Impression: Hemoptysis, Abdominal pain, right lower quadrant Instructions: ED Hemoptysis, ED Abdominal Pain Unkn Cause Male... Prescriptions: No Action buspirone 10 MG tablet 10 mg PO TID RF: 0 dexlansoprazole 60 MG capsule,biphase delayed releas 60 mg PO DAILY RF: 0 Lactobacillus acidophilus 1 EACH capsule 2 cap PO DAILY RF: 0 gabapentin 300 mg capsule 300 mg PO TID RF: 0 prednisone 20 mg tablet 20 mg PO DAILY RF: 0 enoxaparin [Lovenox] 80 mg/0.8 mL syringe 80 mg subcut Q12H 30 Days Qty: 48 RF: 0 Primary Care Provider: Nicole Hanks Referrals: Nicole Hanks MD [Primary Care Provider] - 3-5 Days Disposition Disposition: Home, Self Care
[2021-10-24 12:06] LABS: Absolute Lymphocyte Count 3.54 X10^3/uL (0.83-4.51); Basophil# 0.07 X10^3/uL; Basophil% 0.7 % (0-1); Eosinophil# 0.14 X10^3/uL; Eosinophils% 1.5 % (0-5); Hematocrit 42.2 % (40-54); Hemoglobin 14.5 g/dL (13.0-16.5); Lymphocyte # 3.54 X10^3/ul (0.83-4.51); Lymphocyte % 37.8 % (19-41); Mean Corp Hgb Conc 34.4 g/dL (32-36); Mean Corpuscular Hgb 30.7 pg (27.0-32.0); Mean Corpuscular Volume 89.4 fL (80-94); Mean Platelet Vol. 9.7 fl (6.2-12.0); Monocyte# 0.56 X10^3/uL; NRBC Flagged by Analyzer 0 % (0-5); Neutrophil # 5.01 X10^3/uL (2.7-7.7); Neutrophil % 53.6 % (47-70); Platelet Count 383 K/mm3 (150-450); RBC Distribution Width CV 11.9 % (11.6-14.6); RBC Distribution Width SD 38.9 fl (35.1-43.9); Red Blood Count 4.72 M/mm3 (4.6-6.2); White Blood Count 9.4 K/mm3 (4.4-11.0)
[2021-10-24 12:14] LABS: International Normalized Ratio 0.9
[2021-10-24 12:15] LABS: Partial Thromboplast Time 42.4 Seconds (24.1-36.2)
[2021-10-24 12:17] LABS: Bacteria 0 SEEN /hpf (None Seen); Mucous, Urine 0 SEEN /hpf (<or=2+); Red Blood Cells-Urine 0 SEEN /hpf (0-5); Squamous Epithelial Cells - UA 0 SEEN /hpf (0-5); White Blood Cells 0 SEEN /hpf (0-5)
[2021-10-24 12:18] LABS: Color, Urine Yellow (Yellow); Glucose, Dipstick Normal (Normal); Ketone-Dipstick Negative (Negative); Leukocyte Esterase-Dipstick Negative /ul (Negative); Nitrite-Dipstick Negative (Negative); Occult Blood-Urine 10 /ul (Negative); Protein-Dipstick Negative (Negative); Urine Bilirubin Dipstick Negative (Negative); Urine Clarity Clear (Clear); Urine Urobilinogen Normal (Normal); Urine pH 6.5 (5.0 - 8.0)
[2021-10-24 12:27] VITALS: BP 137/88; PULSE 72; RESP 9; O2SAT 96
--- NOTE | 2021-10-24 12:32 | ED.RN ---
dr consulted about greater that 2 weeks covid infection. isolation precautions discontinued at dr hernandez. kilo gurrola, rn [id number]
[2021-10-24 13:05] LABS: ALB/GLOB Ratio 0.9 RATIO (0.9-2.4); AST(SGOT) 52 U/L (15-37); Alanine Aminotransfer ALT/SGPT 143 U/L (16-61); Albumin, Serum 3.6 g/dL (3.2-5.0); Alkaline Phosphatase 78 U/L (45-117); Anion Gap 6 (5-15); BUN 18 mg/dL (7-18); BUN/Creat Ratio 20.1 RATIO (10-20); Calcium,Total 8.7 mg/dL (8.5-10.1); Chloride 104 mmol/L (98-107); EST Glomerular Filtration Rate 99 mL/min (>60); Est Glom Filt Rate - Afr Amer 120 mL/min (>60); Estimated Creatinine Clearance 111.53 ml/min; Globulin 4.1 g/dL (2.2-4.2); Glucose 101 mg/dL (74-106); Potassium 4.1 mmol/L (3.5-5.1); Protein, Total 7.7 g/dL (6.4-8.2); Sodium Level 137 mmol/L (136-145)
[2021-10-24 14:19] VITALS: BP 120/88; PULSE 78; RESP 15; O2SAT 95
[2021-10-24 15:33] VITALS: BP 122/77; PULSE 75; RESP 11; O2SAT 95
== END 2021-10-24 15:33 | disposition home or self-care (01) ==
PROVIDERS: Emergency Provider Emergency Medicine; PCP Family Medicine
DX: R04.2 Hemoptysis (principal); R10.31 Right lower quadrant pain; Z86.16 Personal history of COVID-19; Z87.891 Personal history of nicotine dependence; Z79.01 Long term (current) use of anticoagulants
CPT/HCPCS: 71045; 80053; 81001; 85025; 85610; 85730; 93005; 99284; A4216

== ENCOUNTER → 2021-11-15 10:34 | Outpatient (CLI) | payer OTHER, SELFPAY ==
--- NOTE | 2021-11-15 10:47 | CT_ITS ---
STUDY: CTA CHEST REASON FOR EXAM: Male, 41 years old. PE , KNOWN PE''S FOUND 10/11/21 STAT READ RADIATION DOSAGE (If Supplied By Facility): CTDIvol = ( 9.83 ) mGy, DLP = ( 409.81 ) mGycm TECHNIQUE: The examination was performed with the intravenous administration of IV 100mL Isovue-370. Post-processing of the angiographic images was performed, with multiplanar reformation and 3D reconstruction. Individualized dose optimization techniques were used for this CT. COMPARISON: Comparison is made with prior study dated 10/11/2021. FINDINGS: Normal enhancement of the main pulmonary artery and right and left pulmonary arteries. Normal enhancement of the bilateral peripheral pulmonary arteries. There is no demonstrated pulmonary embolism. Normal thoracic aorta and visualized great vessels. There is no demonstrated aortic dissection. Normal heart and pericardium. Normal mediastinum. Normal hilar regions. Normal visualized trachea and bronchi. The lungs are well expanded. Normal pulmonary parenchyma. Normal pleura. Normal chest wall structures. Normal osseous structures. Fatty infiltration of the liver. CT/CTA Chest W/WO Contrast IMPRESSION: Normal CTA chest examination, without a demonstrated pulmonary embolism or arterial dissection. Electronically Signed: Chad Jiménez MD at 12:38 EST , Service support ,
== END ==
PROVIDERS: PCP Family Medicine; Referring Provider Internal Medicine Pulmonary Disease; Visit Provider Internal Medicine Pulmonary Disease
DX: I26.92 Saddle embolus of pulmonary artery without acute cor pulmonale (principal)
CPT/HCPCS: 71275; Q9967

== ENCOUNTER 2021-12-01 08:37 | Outpatient (CLI) | payer OTHER, SELFPAY | END 2021-12-01 23:59 | disposition short-term general hospital (02) | LOC: PSN 08:38 | PROVIDERS: PCP Family Medicine; Referring Provider Internal Medicine Pulmonary Disease; Visit Provider Internal Medicine Pulmonary Disease | DX: R05.9 Cough, unspecified (principal) | CPT/HCPCS: 87635; C9803; U0003; U0005 ==

== ENCOUNTER 2022-01-04 00:29 | Emergency (ER) | payer OTHER, SELFPAY ==
[2022-01-04 00:30] VITALS: BP 134/90; PULSE 81; RESP 14; TEMP 36.6; O2SAT 96; BMI 30.2
--- NOTE | 2022-01-04 00:43 | CT_ITS ---
STUDY: CTA CHEST REASON FOR EXAM: Male, 41 years old. HEMOPTYSIS RADIATION DOSAGE (If Supplied By Facility): CTDIvol = ( 14.36 ) mGy, DLP = ( 531.79 ) mGycm TECHNIQUE: The examination was performed with the intravenous administration of IV 100mL Isovue-370. Post-processing of the angiographic images was performed, with multiplanar reformation and 3D reconstruction. Individualized dose optimization techniques were used for this CT. COMPARISON: None. FINDINGS: Normal enhancement of the main pulmonary artery and right and left pulmonary arteries. Normal enhancement of the bilateral peripheral pulmonary arteries. There is no demonstrated pulmonary embolism. Normal thoracic aorta and visualized great vessels. There is no demonstrated aortic dissection. Normal heart and pericardium. Normal mediastinum. Normal hilar regions. Normal visualized trachea and bronchi. The lungs are well expanded. Patchy centrilobular groundglass opacities and tree-in-bud opacities are seen in the right upper lobe, right middle lobe and right lower lobe consistent with early pneumonia. Normal pleura. Normal chest wall structures. Normal osseous structures. Normal visualized upper abdomen. CT/CTA Chest W/WO Contrast IMPRESSION: Early pneumonia in the right upper lobe, right middle lobe and right lower lobe. There is no demonstrated pulmonary embolism or arterial dissection. Electronically Signed: Brigette Hernadez MD at 2:36 EST ,
--- NOTE | 2022-01-04 00:43 | EKG12_ITS ---
Test Reason : CP Blood Pressure : / mmHG Vent. Rate : 083 BPM Atrial Rate : 083 BPM P-R Int : 170 ms QRS Dur : 088 ms QT Int : 376 ms P-R-T Axes : 042 -01 021 degrees QTc Int : 441 ms Normal sinus rhythm Normal ECG Confirmed by TOR LACY, GOVIND ([id number]), editor city IMANI DE LEON ([id number]) on 01/05/2022 10:41:46 AM Referred By: DR MANLEY Confirmed By:GOVIND LENTZ MD
--- NOTE | 2022-01-04 00:44 | EDS_ITS ---
HPI History of Present Illness Chief Complaint: GI Bleed Informant: patient and spouse/S.O. Narrative Narrative: Patient recently had COVID-19 developed pulmonary embolisms.41-year-old male presents the emergency room with cough and hemoptysis. He is currently on Xarelto. He does see pulmonology with Dr. Remy. He states that he was feeling fine and when he was sleeping he woke from sleep with burning in the central part of his chest and developed coughing and then phlegm and then blood streaks. He used a rescue inhaler which seemed to help some. This is not the first time that this is happened to him. No black or bloody stools. No vomiting. [facility] Medical History Acute respiratory insufficiency Alcohol use Bronchitis Chest pain DVT (deep venous thrombosis) Former smoker GERD (gastroesophageal reflux disease) History of GI bleed History of IBS History of stress test Injury of head and neck Loss of consciousness Migraine headache Osteoarthritis Shortness of breath on exertion Tremors of nervous system Home Medications buspirone 10 mg PO TID 04/11/19 [History Last Taken 04/16/19] dexlansoprazole 60 mg PO DAILY 04/16/19 [History Last Taken 06/21/21] gabapentin 300 mg PO TID 05/15/21 [History Last Taken 06/21/21] prednisone 20 mg PO DAILY 10/11/21 [History Last Taken Unknown] buspirone 10 mg PO TID 01/04/22 [History Last Taken Unknown] fluticasone furoate [Arnuity Ellipta] 200 mcg INHALATION DAILY 01/04/22 [History Last Taken Unknown] rivaroxaban [Xarelto] 20 mg PO DAILY 01/04/22 [History Last Taken Unknown] Allergy/AdvReac Type Severity Reaction Status Date / Time bee venom protein (honey bee) Allergy Shortness Verified 01/04/22 00:32 of breath Penicillins Allergy Rash Verified 01/04/22 00:32 Family History Aunt Colon cancer Uncle Cancer testicle Surgical History History of bilateral knee arthroplasty History of cholecystectomy History of esophagogastroduodenoscopy (EGD) history of left thumb surgery history of right toe surgery Social History Smoking Status: Former smoker ROS ROS ED Constitutional Constitutional ED: Denies chills or weight loss Eyes Eyes: Denies change in vision or diplopia ENT ENT ED: Denies ear pain, rhinorrhea or sore throat Cardiovascular Cardiovascular: Reports chest pain; Denies orthopnea, palpitations or racing heartbeat Respiratory/Chest Respiratory/Chest: Reports cough, dyspnea and sputum; Denies orthopnea Gastrointestinal Gastrointestinal: Denies abdominal pain, diarrhea, nausea or vomiting Genitourinary Genitourinary ED: Denies dysuria, hematuria or urinary frequency Musculoskeletal Musculoskeletal: Denies arthralgias or myalgias Integumentary Denies abscess or rash Neurologic Neurologic: Denies headache(s) or weakness Psychiatric Psychiatric: Denies anxiety, depression, suicidal ideation or suicidal thoughts Endocrine Endocrinology: Denies polydipsia, polyphagia or polyuria Allergic/Immunologic Allergic/Immunologic ED: Denies mouth swelling, tongue swelling or urticaria EXAM Physical Exam Const Vital Signs: 01/04/22 00:30 01/04/22 02:29 01/04/22 02:36 Temperature 97.9 F Temperature Source Oral Pulse Rate 81 102 H 86 Respiratory Rate 14 16 18 Respiratory Pattern Normal Blood Pressure 134/90 H Blood Pressure Mean 104 Pulse Ox 96 94 Oxygen Delivery Method Room Air Room Air Positive well nourished and well developed General Appearance ED: well developed HEENT Reports normocephalic, head/scalp atraumatic, TM's clear and moist mucous membranes Negative for trauma Tympanic Membrane ED: Yes TM's clear Eyes PERRL and EOMs intact bilaterally Neck no lymphadenopathy, supple and no JVD Resp normal respiratory effort Resp Narrative: Cough with deep inspiration Auscultation: diminished lung sounds Cardio regular rate, regular rhythm and no murmurs GI normal to inspection, nondistended, normoactive bowel sounds and non-tender Palpation: soft Back/Spine no CVA tenderness and normal ROM Extremity normal to inspection General Extremety ED: Negative for edema General Extremity: Negative for edema Neuro oriented x3 and CN's II-XII intact bilaterally Sensorium / Orientation: alert Motor Exam: strength 5/5 throughout Psych mental status grossly normal Mood & Affect: Negative for depressed or tearful Skin no rashes or lesions noted and no wounds MDM MDM MDM Narrative Medical decision making narrative: Basic blood work was unremarkable. The patient on his CT has infiltrative-like changes on the right side. He generally sleeps on his right side. He has burning in his chest. He is on Dexilant for reflux and buspirone because of a hiatal hernia. He follows with Dr. Neal. Clinical suspicion is this started abruptly is that while sleeping on his side he aspirated. This would explain the rhonchi on the right side which would follow with the CT. He received a GI cocktail which did improve some burning as well as a DuoNeb. He is not currently febrile or with a white count I do not think we need prophylactic antibiotics at this time but he was advised that should he develop fever or worsening symptoms that he may require an antibiotic. The hemoptysis I think is most likely due to the strenuous coughing that he was doing. At this point patient will be discharged home following up with his doctor. Lab Data Attestation: I reviewed the patient's lab results. Labs: Laboratory Results - last 24 hr 01/04/22 01/04/22 01/04/22 00:33 00:33 00:33 WBC 8.2 RBC 4.65 Hgb 14.6 Hct 43.3 MCV 93.1 MCH 31.4 MCHC 33.7 RDW Std Deviation 41.7 RDW Coeff of Fernando 12.2 Plt Count 319 MPV 9.9 Immature Gran % (Auto) 0.400 Neut % (Auto) 40.3 L Lymph % (Auto) 48.7 H Rogers % (Auto) 6.9 Eos % (Auto) 3.1 Baso % (Auto) 0.6 Absolute Neuts (auto) 3.3 Absolute Lymphs (auto) 3.97 Nucleated RBC % 0 PT 18.1 H INR 1.6 APTT 45.8 H Sodium 141 Potassium 3.5 Chloride 107 Carbon Dioxide 29.0 Anion Gap 5 BUN 12 Creatinine 1.02 Estim Creat Clear Calc 89.11 Est GFR (MDRD) Af Amer 103 Est GFR (MDRD) Non-Af 85 BUN/Creatinine Ratio 11.8 Glucose 89 Calcium 8.7 Total Bilirubin 0.30 AST 20 ALT 42 Alkaline Phosphatase 73 Troponin I High Sens 4 Total Protein 7.7 Albumin 4.1 Globulin 3.6 Albumin/Globulin Ratio 1.1 Radiography Diagnostic Testing: Clinical Impression(s) from Imaging Studies Chest CTA 01/04/22 00:43 IMPRESSION: Early pneumonia in the right upper lobe, right middle lobe and right lower lobe. There is no demonstrated pulmonary embolism or arterial dissection. Electronically Signed: Brigette Hernadez MD at 2:36 EST , EKG Initial EKG: Attestation: I personally reviewed and interpreted this EKG as follows: Comments: Normal sinus rhythm ventricular rate of 83 bpm Discharge Plan Triage Chief Complaint: GI Bleed ED Provider: Pawel Roberson Dx/Rx/DC Orders Clinical Impression: Hemoptysis, Aspiration into airway, Chest pain due to GERD Instructions: What Is GERD?, ED Hemoptysis Prescriptions: No Action buspirone 10 MG tablet 10 mg PO TID RF: 0 dexlansoprazole 60 MG capsule,biphase delayed releas 60 mg PO DAILY RF: 0 gabapentin 300 mg capsule 300 mg PO TID RF: 0 prednisone 20 mg tablet 20 mg PO DAILY RF: 0 buspirone 10 mg tablet 10 mg PO TID RF: 0 Xarelto 20 mg tablet 20 mg PO DAILY RF: 0 Arnuity Ellipta 200 mcg/actuation blister with device 200 mcg INHALATION DAILY RF: 0 Primary Care Provider: Nicole Hanks Referrals: Nicole Hanks MD [Primary Care Provider] - 3-5 Days Disposition Disposition: Home, Self Care
[2022-01-04 00:50] LABS: Absolute Lymphocyte Count 3.97 X10^3/uL (0.83-4.51); Absolute Neutrophil Count 3.3 X10^3/uL (2.0-7.7); Basophil# 0.05 X10^3/uL; Basophil% 0.6 % (0-1); Eosinophil# 0.25 X10^3/uL; Eosinophils% 3.1 % (0-5); Hematocrit 43.3 % (40-54); Hemoglobin 14.6 g/dL (13.0-16.5); Lymphocyte # 3.97 X10^3/ul (0.83-4.51); Lymphocyte % 48.7 % (19-41); Mean Corp Hgb Conc 33.7 g/dL (32-36); Mean Corpuscular Hgb 31.4 pg (27.0-32.0); Mean Corpuscular Volume 93.1 fL (80-94); Mean Platelet Vol. 9.9 fl (6.2-12.0); Monocyte# 0.56 X10^3/uL; Monocyte% 6.9 % (0-10); NRBC Flagged by Analyzer 0 % (0-5); Neutrophil % 40.3 % (47-70); Platelet Count 319 K/mm3 (150-450); RBC Distribution Width CV 12.2 % (11.6-14.6); RBC Distribution Width SD 41.7 fl (35.1-43.9); Red Blood Count 4.65 M/mm3 (4.6-6.2); White Blood Count 8.2 K/mm3 (4.4-11.0)
[2022-01-04 00:59] LABS: International Normalized Ratio 1.6; Prothrombin Time (Protime)PT. 18.1 SECONDS (11.7-14.9)
[2022-01-04] MEDS: Mag Hydrox/Al Hydrox/Simeth 30 ML UDC PO (00:59)
[2022-01-04 01:00] LABS: Partial Thromboplast Time 45.8 Seconds (24.1-36.2)
[2022-01-04 01:07] LABS: ALB/GLOB Ratio 1.1 RATIO (0.9-2.4); AST(SGOT) 20 U/L (15-37); Alanine Aminotransfer ALT/SGPT 42 U/L (16-61); Albumin, Serum 4.1 g/dL (3.2-5.0); Alkaline Phosphatase 73 U/L (45-117); Anion Gap 5 (5-15); BUN 12 mg/dL (7-18); BUN/Creat Ratio 11.8 RATIO (10-20); Calcium,Total 8.7 mg/dL (8.5-10.1); Chloride 107 mmol/L (98-107); Creatinine, Serum 1.02 mg/dL (0.70-1.30); EST Glomerular Filtration Rate 85 mL/min (>60); Est Glom Filt Rate - Afr Amer 103 mL/min (>60); Estimated Creatinine Clearance 89.11 ml/min; Globulin 3.6 g/dL (2.2-4.2); Glucose 89 mg/dL (74-106); Potassium 3.5 mmol/L (3.5-5.1); Protein, Total 7.7 g/dL (6.4-8.2); Sodium Level 141 mmol/L (136-145); Troponin-I HS 4 pg/mL (3.0-78.0)
[2022-01-04 02:29] VITALS: PULSE 102; RESP 16; O2SAT 94
[2022-01-04] MEDS: Ipratropium/Albuterol Sulfate 3 ML AMPUL.NEB INHALATION (02:35)
[2022-01-04 02:36] VITALS: PULSE 86; RESP 18
[2022-01-04 03:31] VITALS: BP 121/86; PULSE 96; RESP 19; O2SAT 95
== END 2022-01-04 03:32 | disposition home or self-care (01) ==
PROVIDERS: Emergency Provider Emergency Medicine; PCP Family Medicine; Visit Provider Emergency Medicine
DX: R04.2 Hemoptysis (principal); T17.908A Unspecified foreign body in respiratory tract, part unspecified causing other injury, initial encounter; K44.9 Diaphragmatic hernia without obstruction or gangrene; K21.9 Gastro-esophageal reflux disease without esophagitis; Z87.891 Personal history of nicotine dependence; Z86.16 Personal history of COVID-19; Z86.711 Personal history of pulmonary embolism; Z79.01 Long term (current) use of anticoagulants; Z79.52 Long term (current) use of systemic steroids; Z79.899 Other long term (current) drug therapy
CPT/HCPCS: 71275; 80053; 84484; 85025; 85610; 85730; 93005; 94640; 99285; Q9967; A4216

== ENCOUNTER 2022-04-03 13:52 | Day surgery (SDC) | payer OTHER, SELFPAY ==
[2022-04-03] VITALS (9 sets, daily range): BP systolic 111–116; BP diastolic 77–85; PULSE 69–79; RESP 16; TEMP 36.4–36.8; O2SAT 95–98; BMI 26.9
[2022-04-03] MEDS: Lactated Ringers 1,000 ML 15 ML IV (14:25)
--- NOTE | 2022-04-03 15:00 | EGD_PTH ---
PATIENT: GOVIND GOVEA LOC: EN U#:[id number] AGE/SX: 41/M ROOM: RE04/03/[address]: Dr. Rey Garland DO : 1980 BED: DIS: 04/03/2022 SPEC #: [id number] RECD: 04/03/22 16:21 STATUS: INDERJIT SMITH #: [id number] SO: 04/03/22 15:[address]: Rey Garland DEPT: SURGICAL PATHOLOGY RECD BY: Jarrett Cruz ENTERED: 04/04/22 09:38 SP TYPE: EGD BIOPSY NAEEM DR: Dr. Nicole Hanks MD Tissues: Esophagus, NOS Procedures: Special Stain Group II Surgery Specimen Level IV Alcian Blue/PAS (control) HEADER OPERATION: EGD ([facility] [place]) with biopsy PRE-OP DIAGNOSIS: GERD TISSUE SUBMITTED: Distal esophagus biopsy MICROSCOPIC DIAGNOSIS Distal esophagus, biopsy: Gastroesophageal junctional mucosa with mild chronic inflammation. Changes of reflux. No evidence of goblet cell metaplasia. See comment. AM:prieto 04/05/2022 COMMENT Alcian blue/PAS stain with matched control supports the above diagnosis. MICROSCOPIC DESCRIPTION Slides are reviewed. GROSS DESCRIPTION Received in fixative is one container labeled with the patient's name and designated distal esophagus biopsy. The specimen consists of two irregular fragments of light rosa soft tissue that in aggregate measure 0.6 x 0.3 x 0.1 cm. The specimen is totally submitted in one cassette. / SJ:prieto 04/04/2022 TC:3 CPT: 26748, 03046
--- NOTE | 2022-04-03 15:03 | PCM.HP.BLA ---
History and Physical Date of Admission: 04/03/22 Details: SEBASTIAN GOVEA, is a 41 M who presents to the office today for Initial consultation. Sebastian established with this clinic 02.23.22 with a referral from his PCP for GERD with possible aspiration. He presented to [facility] ED 01.04.22 with cough, hemoptysis in the setting of Xarelto and a burning sensation in his chest. Workup found infiltrate changes to the right chest. Followed with Dr. Neal for 5-6 years for hiatal hernia and hemoptysis; prescribed Dexilant and recommended to see pulmonology. He was discharged in a stable condition without antibiotics. For many years he has had issue with reflux throughout the day and night. CPAP started for sleep apnea a couple week ago which has helped with night reflux. He was waking during the night with reflux symptoms and since start has not woken during the night. During the day he will have an acid taste in his mouth. Denies food triggers with reflux. Currently taking Dexilant 60mg and buspar 10mg TID. Buspar started to treat frequent BM 8-10 in a day that were very soft. Currently having 2-3 soft BM a day. Cholecystectomy around 2018. Medical history includes COVID infection with pulmonary embolisms (follows with Dr. Remy). EGD performed 01.13.16 finding small sliding hiatal hernia. Gastric emptying study 09.12.18 calculated at 24.21 minutes (normal 12-56 miutes). Bronchoscopy 06.21.21 finding hemoptysis with normal CXR. Biopsy revealed inflammation without malignant cells. CTA 01.04.22 finding early pneumonia in the right three lobes of the lung. Remaining exam unremarkable. ROS Gastro GI: Positive for abdominal pain, belching, bloating and heartburn Exam Const General: cooperative and comfortable Nutritional Appearance: average body habitus and well nourished [facility] Head: normal to inspection Ears: hearing grossly normal bilaterally Nose: external nose normal Face and sinus: normal facial exam Mouth: oral mucosae normal Throat: posterior oropharynx normal Eyes General: appearance normal, both eyes and all related structures Neck Neck: normal visual inspection Chest Chest palpation & inspection: normal inspection of the chest and normal palpation of entire chest wall Resp Effort & Inspection: normal respiratory effort Auscultation: Bilateral: Clear to Auscultation Cardio Palpation: normal PMI Rate: regular rate Rhythm: regular rhythm GI Inspection: normal to inspection Auscultation: normal bowel sounds Percussion: normal to percussion Palpation: no hepatosplenomegaly Skin General: no rashes or lesions noted Neuro General: patient alert Extrem General: normal to inspection Psych Affect: normal affect Quality Reporting Tobacco Screening ([facility]) Smoking Status: Former smoker Assessment and Plan Assessment and Plan (1) GERD (gastroesophageal reflux disease): Status: Chronic Qualifiers: Esophagitis presence: esophagitis presence not specified Qualified Code(s): K21.9 - Gastro-esophageal reflux disease without esophagitis Comment: controlled on meds Plan - Dr. Le Friend, DO: Patient symptoms are not controlled on Dexilant 60 mg a day. We will have him stop the medicine for approximately 5 days and perform an EGD with Ramsay placement to see if he has signs and symptoms of nonerosive reflux disease versus reflux disease that is refractory to therapy. He had a gastric emptying study back in 2018. He will likely need to be repeated. I went over continued with the patient and his regarding the natural history of starting anticholinergic medicine such as buspirone which he takes on a 3 times a day basis. I have re-examined the patient. There are no clinical changes since date of exam.
--- NOTE | 2022-04-03 15:39 | OP.EGD_ITS ---
Patient Name: Sebastian Humphries Procedure Date: 04/03/2022 3:04 PM Date of : 1980 Age: 41 Procedure: Upper GI endoscopy Indications: Heartburn Providers: Rey Garland DO Medicines: Monitored Anesthesia Care Patient Profile: This is a 41 year old male. Refer to note in patient chart for documentation of history and physical. Patient has symptoms of chronic chest pain and chronic heartburn. Complications: No immediate complications. Procedure: Pre-Anesthesia Assessment: - Prior to the procedure, a History and Physical was performed, and patient medications and allergies were reviewed. The risks and benefits of the procedure and the sedation options and risks were discussed with the patient. All questions were answered and informed consent was obtained. Patient identification and proposed procedure were verified by the physician in the pre-procedure area. Mental Status Examination: alert and oriented. Airway Examination: normal oropharyngeal airway and neck mobility. Respiratory Examination: clear to auscultation. CV Examination: normal. Prophylactic Antibiotics: The patient does not require prophylactic antibiotics. Prior Anticoagulants: The patient has taken no previous anticoagulant or antiplatelet agents. After reviewing the risks and benefits, the patient was deemed in satisfactory condition to undergo the procedure. The anesthesia plan was to use moderate sedation / analgesia (conscious sedation). Immediately prior to administration of medications, the patient was re-assessed for adequacy to receive sedatives. The heart rate, respiratory rate, oxygen saturations, blood pressure, adequacy of pulmonary ventilation, and response to care were monitored throughout the procedure. The physical status of the patient was re-assessed after the procedure. After obtaining informed consent, the endoscope was passed under direct vision. Throughout the procedure, the patient's blood pressure, pulse, and oxygen saturations were monitored continuously. The gastroscope was introduced through the mouth, and advanced to the second part of duodenum. The upper GI endoscopy was accomplished without difficulty. The patient tolerated the procedure well. Moderate Sedation: Moderate (conscious) sedation was administered by the endoscopy nurse and supervised by the endoscopist. The following parameters were monitored: oxygen saturation, heart rate, blood pressure, and response to care. Scope In: 3:19:34 PM Scope Out: 3:24:52 PM Total Procedure Duration Time 0 hours 5 minutes 18 seconds Findings: The examined esophagus was normal. The Z-line was irregular and was found 38 cm from the incisors. Biopsies were taken with a cold forceps for histology. Verification of patient identification for the specimen was done. Estimated blood loss was minimal. A small hiatal hernia was present. The entire examined stomach was normal. The second portion of the duodenum was normal. Impression: - Normal esophagus. - Z-line irregular, 38 cm from the incisors. Biopsied. - Small hiatal hernia. - Normal stomach. - Normal second portion of the duodenum. Recommendation: - Written discharge instructions were provided to the patient. - The signs and symptoms of potential delayed complications were discussed with the patient. - Patient has a contact number available for emergencies. - Return to normal activities tomorrow. - Resume previous diet. - Continue present medications. - Await pathology results. Procedure Code(s): --- Professional --- 96480, Esophagogastroduodenoscopy, flexible, transoral; with biopsy, single or multiple CPT copyright 2017 [employer]. All rights reserved. The codes documented in this report are preliminary and upon invoice coder review may be revised to meet current compliance requirements. Rey Garland DO 04/03/2022 3:38:44 PM This report has been signed electronically. Number of Addenda: 1 Note Initiated On: 04/03/2022 3:04 PM Addendum Number: 1 Addendum Date: 08/24/2022 6:24:10 AM MAC was used as sedation for this procedure. Rey Garland DO 08/24/2022 6:24:14 AM This report has been signed electronically.
--- NOTE | 2022-04-03 15:39 | OP.CCLET_ITS ---
08/24/2022 Nicole Hanks [address] [place] [address] Re : Upper GI endoscopy procedure for Sebastian Humphries Dear Dr. Hanks This procedure was performed on Sunday, April 03, 2022. My impressions and recommendations are as follows: Impressions : - Normal esophagus. - Z-line irregular, 38 cm from the incisors. Biopsied. - Small hiatal hernia. - Normal stomach. - Normal second portion of the duodenum. Recommendations : - Written discharge instructions were provided to the patient. - The signs and symptoms of potential delayed complications were discussed with the patient. - Patient has a contact number available for emergencies. - Return to normal activities tomorrow. - Resume previous diet. - Continue present medications. - Await pathology results. My findings are described in the full procedure note, which is enclosed. If I can be of further assistance, please feel free to contact me at . Sincerely, Rey Garland DO 04/03/2022 3:38:44 PM This report has been signed electronically.
== END 2022-04-03 16:22 | disposition home or self-care (01) ==
LOC: EN 13:54 → AC 13:57
PROVIDERS: PCP Family Medicine; Referring Provider Family Medicine; Visit Provider Internal Medicine Gastroenterology
PROC: 0DJ08ZZ Inspection of Upper Intestinal Tract, Via Natural or Artificial Opening Endoscopic (ICD-10-PCS; CPT 43235; principal; 2022-04-03 14:55)
DX: K21.9 Gastro-esophageal reflux disease without esophagitis (principal); K44.9 Diaphragmatic hernia without obstruction or gangrene; Z20.822 Contact with and (suspected) exposure to COVID-19; M19.90 Unspecified osteoarthritis, unspecified site; Z79.01 Long term (current) use of anticoagulants; Z79.899 Other long term (current) drug therapy; Z87.891 Personal history of nicotine dependence; Z86.16 Personal history of COVID-19; Z86.711 Personal history of pulmonary embolism; Z86.19 Personal history of other infectious and parasitic diseases
CPT/HCPCS: 43239; 87426; 88305; 88313; J7120; J2405

== ENCOUNTER → 2022-08-03 | Outpatient (CLI) | payer OTHER, SELFPAY ==
[2022-08-03 17:25] LABS: Erythrocyte Sedimentation Rate 12 mm/hr (0-20)
[2022-08-03 17:58] LABS: CRP < 2.90 mg/L (0.0-3.0)
[2022-08-10 07:07] LABS: Albumin 4.1 g/dL (2.9-4.4); Alpha-1-Globulins 0.2 g/dL (0.0-0.4); Alpha-2-Globulins 0.7 g/dL (0.4-1.0); Complement C3 147 mg/dL (82-167); Gamma Globulin 1.2 g/dL (0.4-1.8); Immunoglobulin A 205 mg/dL (90-386); Immunoglobulin E 26 IU/mL (6-495); Immunoglobulin G 1066 mg/dL (603-1613); Immunoglobulin M 164 mg/dL (20-172); PROEL- TOTAL PROTEIN 7.3 g/dL (6.0-8.5)
[2022-08-10 11:05] LABS: CCP IgG Antibodies 3 units (0-19); Complement CH50 54 U/mL (>41); Cytoplasmic Ab (C-ANCA) <1:20 titer (Neg:<1:20); Perinuclear Ab (P-ANCA) <1:20 titer (Neg:<1:20)
[2022-08-10 19:07] LABS: Anti-Centromere B Ab <0.2 AI (0.0-0.9); Anti-Chromatin <0.2 AI (0.0-0.9); Anti-Jo <0.2 AI (0.0-0.9); Anti-Scleroderma-70 AB <0.2 AI (0.0-0.9); Beef <0.10 kU/L (Class 0); Corn <0.10 kU/L (Class 0); Egg, Whole <0.10 kU/L (Class 0); Milk (Cow) <0.10 kU/L (Class 0); Peanut <0.10 kU/L (Class 0); Pork <0.10 kU/L (Class 0); RNP Ab <0.2 AI (0.0-0.9); SJOGREN'S Anti-SS-A test < 0.2 AI (0.0-0.9); SJOGREN'S Anti-SS-B test < 0.2 AI (0.0-0.9); Smith Ab <0.2 AI (0.0-0.9); Soybean <0.10 kU/L (Class 0); Wheat <0.10 kU/L (Class 0)
[2022-08-11 07:16] LABS: Anti-dsDNA Ab <1 IU/mL (0-9); Chocolate <0.10 kU/L (Class 0)
== END | disposition home or self-care (01) ==
LOC: LAB 15:55
PROVIDERS: PCP Family Medicine; Referring Provider Internal Medicine Gastroenterology; Visit Provider Internal Medicine Gastroenterology
DX: R21 Rash and other nonspecific skin eruption (principal)
CPT/HCPCS: 36415; 82784; 82785; 84165; 85652; 86003; 86005; 86140; 86160; 86162; 86200; 86225; 86235; 86256; 86334

== ENCOUNTER 2022-08-15 13:13 | Emergency (ER) | payer OTHER, SELFPAY ==
[2022-08-15 13:14] VITALS: BP 142/96; PULSE 77; RESP 16; TEMP 36.8; O2SAT 96; BMI 26.6
[2022-08-15 13:17] VITALS: BP 142/96; PULSE 77; RESP 16; TEMP 36.8; O2SAT 96
[2022-08-15 13:29] VITALS: O2SAT 97
--- NOTE | 2022-08-15 13:30 | RAD_ITS ---
INDICATION: chest pain EXAMINATION/TECHNIQUE: X-RAY - XR Chest 1 View COMPARISON: 10/24/2021. FINDINGS: LINES/DEVICES: None. LUNGS: No consolidation, edema or effusion. No pneumothorax. MEDIASTINUM AND CARDIOVASCULAR STRUCTURES: Cardiac silhouette not enlarged. Central airways and mediastinal contour are unremarkable. BONES AND SOFT TISSUES: Unremarkable. RAD/Chest 1 View (Portable) IMPRESSION: No radiographic evidence of acute cardiopulmonary disease. Electronically Signed: Jonnathan Crabtree MD at 13:44 EDT ,
--- NOTE | 2022-08-15 13:34 | EDS_ITS ---
HPI History of Present Illness Chief Complaint: Chest Pain Informant: patient and spouse/S.O. Onset/Context/Timing Onset: Days Activity at onset: gradual Timing: Intermittent Quality: Positive for Aching and Dull Location: Left Parasternal and Left Chest Current Severity: Mild Maximum Severity: Mild Worsened By: Movement of Torso; Not Worsened By Exertion, Movement of Arm, Palpation, Breathing or Coughing Relieved By: Nothing Associated Symptoms: Positive for Dyspnea; Negative for Nausea, Vomiting, Diaphoresis, Cough, Fever, Lightheadedness, Acid Reflux or Palpitations Narrative Narrative: 42-year-old male history of prior DVT when he had a orthopedic boot on and then PEs bilaterally when he had COVID. He was on blood thinners they stopped those. He had extensive work-up for clots at [facility] saw both a vascular surgeon and other subspecialist. He has no clotting disorder. He has never had cardiac disease. He states he has had intermittent left-sided chest pain described as dull and aching. No hemoptysis. Is not pleuritic. Worse when he bends over. He was on a blood draw done the day he described this to ominous in the emergency department to be evaluated. He denies any fever. No leg swelling. No recent travel or surgery. Prior Similar Symptoms: Yes Recent Illness/Hospitalization: No CVD Risk Factors: Negative for Hypertension, Diabetes, Hypercholesterolemia or Smoking PE Risk Factors: Positive for Prior DVT or PE; Negative for Recent Travel/Surgery, Recent Immobilization, Cancer or OCP + Smoking + >/=35 TAD Risk Factors: Negative for Marfan's Syndrome [facility] Medical History Acute respiratory insufficiency Alcohol use Bronchitis Chest pain CPAP (continuous positive airway pressure) dependence DVT (deep venous thrombosis) Former smoker GERD (gastroesophageal reflux disease) History of COVID-19 History of GI bleed History of IBS History of stress test Injury of head and neck Loss of consciousness Migraine headache Osteoarthritis Pulmonary embolism Shortness of breath on exertion Sleep apnea Tremor Tremors of nervous system Home Medications buspirone 10 mg tablet 10 mg PO TID 04/11/19 [History Last Taken 04/16/19] dexlansoprazole 60 mg capsule,biphase delayed release 60 mg PO DAILY gerd 04/16/19 [History Last Taken 06/21/21] gabapentin 300 mg capsule 600 mg PO TID nerve pain/ tremors 05/15/21 [History Last Taken 04/03/22 05:00] fluticasone furoate 200 mcg/actuation blister powder for inhalation (Arnuity Ellipta) 200 mcg inhalation DAILY 01/04/22 [History Last Taken Unknown] Lactobacillus acidophilus 10 billion cell capsule (Probiotic) 10,000 mmu cells PO DAILY 04/02/22 [History Last Taken Unknown] albuterol sulfate 90 mcg/actuation aerosol inhaler 1 - 2 puff inhalation PRN PRN POST-COVID 04/02/22 [History Last Taken Unknown] apixaban 5 mg tablet (Eliquis) 5 mg PO BID PE'S BOTH LUNGS COVID 04/02/22 [History Last Taken 04/02/22] multivitamin 1 tab PO DAILY 04/02/22 [History Last Taken Unknown] ehsgup-ujrkgnlj-jofdygh 12,000-38,000-60,000 unit capsule,delayed rel (Creon) 1 cap PO TID #90 caps 06/12/22 [Rx Last Taken Unknown] Allergy/AdvReac Type Severity Reaction Status Date / Time bee venom protein (honey bee) Allergy Shortness Verified 08/15/22 13:20 of breath Penicillins Allergy Rash Verified 08/15/22 13:20 Family History Aunt Colon cancer Uncle Cancer testicle Surgical History History of bilateral knee arthroplasty History of bronchoscopy History of cholecystectomy History of esophagogastroduodenoscopy (EGD) history of left thumb surgery history of right toe surgery Social History Smoking Status: Former smoker ROS ROS ED ROS Narrative Chest pain. Review of Systems ROS Unobtainable: Denies due to encephalopathy Constitutional Constitutional ED: Denies chills or fever(s) Eyes Eyes: Reports none; Denies blurry vision ENT ENT ED: Denies ear pain Cardiovascular Cardiovascular: Reports as per HPI and chest pain; Denies palpitations or racing heartbeat Respiratory/Chest Respiratory/Chest: Reports dyspnea; Denies cough Gastrointestinal Gastrointestinal: Denies abdominal pain Genitourinary Genitourinary ED: Denies dysuria or hematuria Musculoskeletal Musculoskeletal: Denies arthralgias Integumentary Denies abscess Neurologic Neurologic: Denies headache(s) Psychiatric Psychiatric: Denies anxiety or depression Endocrine Endocrinology: Denies cold intolerance Hematologic/Lymphatic Hematologic/Lymphatic: Denies easy bleeding or easy bruising Allergic/Immunologic Allergic/Immunologic ED: Denies mouth swelling EXAM Physical Exam Narrative Exam Narrative: 42-year-old male no acute distress. Vital signs stable afebrile. Pulse ox 96% on room air no hypoxia. H EENT exam unremarkable. Neck nontender no JVD. Lungs clear to auscultation. Heart regular rhythm no murmur rate about 77. Chest wall mild tenderness on the left. Abdomen soft nontender. Moving all 4 extremities. Equal symmetrical radial pulse. Calves nontender without edema or cords. Neurologically patient is awake and alert. Const Vital Signs: 08/15/22 13:14 08/15/22 13:17 08/15/22 13:18 Temperature 98.2 F 98.2 F Temperature Source Oral Oral Pulse Rate 77 77 Respiratory Rate 16 16 Respiratory Effort Normal Non-Labored Blood Pressure 142/96 H 142/96 H Blood Pressure Mean 111 111 Pulse Ox 96 96 Oxygen Delivery Method Room Air Room Air 08/15/22 13:29 08/15/22 13:29 08/15/22 15:01 Temperature Temperature Source Pulse Rate 72 Respiratory Rate 14 Respiratory Effort Blood Pressure 133/87 H Blood Pressure Mean 102 Pulse Ox 97 98 Oxygen Delivery Method Room Air Room Air Room Air Positive well nourished and well developed; Negative for obese, cachectic, contractures or unkempt General Appearance ED: well developed and NAD; Negative for unkempt, cachectic, contractures or pallor Nutritional Appearance: Negative for cachectic or obese HEENT Reports moist mucous membranes normocephalic and atraumatic; Negative for tenderness Eyes PERRL and EOMs intact bilaterally General Eye ED: Negative for pale conjunctiva or scleral icterus Neck no lymphadenopathy, supple and no JVD General: Negative for tenderness Chest Wall inspection of chest normal; Negative for palpation of chest normal Chest: tenderness Resp normal respiratory effort and clear to auscultation bilaterally Effort and Inspection: Negative for respiratory distress Auscultation: Negative for rales, rhonchi or wheezes Cardio regular rate, regular rhythm, S1 normal heart sound, S2 normal heart sound and no murmurs Rate: Negative for bradycardia Rhythm: Negative for abnormal rhythm Peripheral Pulses: Negative for pulses 2+ throughout GI normal to inspection, nondistended, normoactive bowel sounds, soft to palpation, non-tender, non-distended and no masses; Negative for hepatosplenomegaly Auscultation: Negative for hyperactive bowel sounds Palpation: Negative for splenomegaly Rectal Exam: Negative for heme negative stool Back/Spine no CVA tenderness and no thoracic nor lumbar tenderness General Back: Negative for CVA tenderness Cervical Spine: Negative for cervical spine tenderness Extremity normal to inspection General Extremety ED: Negative for edema General Extremity: Negative for edema Neuro oriented x3 and CN's II-XII intact bilaterally Sensorium / Orientation: awake, alert, oriented to person, oriented to place and oriented to time; Negative for confused, lethargic or stuporous Motor Exam: strength 5/5 throughout Psych mental status grossly normal Appearance: Negative for unkempt Attitude: No agitated Mood & Affect: Negative for depressed, anxious or tearful Skin no rashes or lesions noted and no wounds General Skin Exam: Negative for jaundice or pallor Rashes: No rashes noted Trauma: Negative for abrasion or laceration Heart Score History: Slightly/Non-Suspicious ECG: Normal Risk Factors: No Risk Factors Troponin: </= Normal Limit Score: 0 MDM MDM MDM Narrative Medical decision making narrative: 42-year-old atypical chest pain undergo cardiac work-up. Also a D-dimer due to his history of prior bilateral PEs and DVT history. He does have reproducible component to the pain. Otherwise exam is benign. Repeat exam patient doing well at 3:28 PM. CTA negative. We discussed all of his labs to be discharged home with outpatient follow-up. Lab Data Attestation: I reviewed the patient's lab results. Lab results narrative: CBC shows a white count 9.4. H&H 13 and 41. Electrolytes unremarkable gap of 8 normal BUN and creatinine. Glucose 132. Troponin 4. D-dimer is elevated at 0.73. Chest x-ray unremarkable. CTA shows no PE no acute abnormality interpreted by radiologist and reviewed by me. Labs: Laboratory Results - last 24 hr 08/15/22 08/15/22 08/15/22 10:15 10:15 10:15 WBC 9.4 RBC 4.36 L Hgb 13.4 Hct 41.0 MCV 94.0 MCH 30.7 MCHC 32.7 RDW Std Deviation 43.9 RDW Coeff of Fernando 12.7 Plt Count 327 MPV 10.2 Immature Gran % (Auto) 0.400 Neut % (Auto) 51.5 Lymph % (Auto) 34.7 Stewart % (Auto) 5.6 Eos % (Auto) 7.2 H Baso % (Auto) 0.6 Absolute Neuts (auto) 4.9 Absolute Lymphs (auto) 3.27 Nucleated RBC % 0 D-Dimer Quant (PE/DVT) 0.73 H* Sodium 140 Potassium 3.6 Chloride 106 Carbon Dioxide 26.0 Anion Gap 8 BUN 14 Creatinine 0.96 Estim Creat Clear Calc 103.50 Est GFR (MDRD) Af Amer 111 Est GFR (MDRD) Non-Af 92 BUN/Creatinine Ratio 14.6 Glucose 132 H Calcium 9.2 Troponin I High Sens 4 Radiography Chest X-Ray - ED: 1 View, Read by ED Physician, Read by Radiologist, Normal, Heart, Lungs, Mediastinum, Bony Structures and No Acute Disease Diagnostic Testing: Clinical Impression(s) from Imaging Studies Chest X-Ray 08/15/22 13:30 IMPRESSION: No radiographic evidence of acute cardiopulmonary disease. Electronically Signed: Jonnathan Crabtree MD at 13:44 EDT , Chest CTA 08/15/22 14:51 IMPRESSION: No demonstrated PE, or thoracic aortic aneurysm or dissection No acute pulmonary process No suspicious adenopathy Electronically Signed: Frankie Fontana MD at 15:23 EDT , Chest x-ray, portable, single view shows no acute abnormality. Interpreted both by myself and radiologist. Rhythm Strip Rhythm Strip: Sinus Rhythm Rate: 67 Ectopy: None EKG Initial EKG: Attestation: I personally reviewed and interpreted this EKG as follows: Interpretation: Sinus Rhythm and No Acute Injury Pattern Comments: Normal sinus rhythm normal rate of 67 no signs of acute NH nor ischemia. Unchanged from prior EKG from January 04 of this year. Prior: Unchanged Discharge Plan Triage Chief Complaint: Chest Pain ED Provider: Lexx Gabriel Dx/Rx/DC Orders Clinical Impression: Chest pain, Hx of pulmonary embolus Instructions: ED Chest Pain, Uncertain Cause Prescriptions: No Action buspirone 10 MG tablet 10 mg PO TID dexlansoprazole 60 MG capsule,biphase delayed releas 60 mg PO DAILY gabapentin 300 mg capsule 600 mg PO TID Label Comments: TAKE 1 CAPSULE BY MOUTH THREE TIMES DAILY Arnuity Ellipta 200 mcg/actuation blister with device 200 mcg INHALATION DAILY Label Comments: Use 1 inhalation daily with good oral care multivitamin Tablet 1 tab PO DAILY albuterol sulfate 90 mcg/actuation HFA aerosol inhaler 1 - 2 puff INHALATION PRN PRN (Reason: POST-COVID) Label Comments: inhale 2 (TWO) puffs by mouth and into the lungs FOUR TIMES DAILY NEEDED Probiotic 10 billion cell Capsule 10,000 mmu cells PO DAILY Eliquis 5 mg tablet 5 mg PO BID Label Comments: TAKE 1 TABLET BY MOUTH TWICE DAILY Creon 12,000-38,000 -60,000 unit capsule,delayed release(DR/EC) 1 cap PO TID Qty: 90 2RF Rx Instructions: administer with meals and/or snacks Primary Care Provider: Nicole Hanks Referrals: Nicole Hanks MD [Primary Care Provider] - 3-5 Days if not improving Activity Restrictions/Additional Instructions: Follow-up with primary care physician as needed. Return if feeling worse. All your labs, chest x-ray and EKG were unremarkable other than your D-dimer being slightly elevated. Disposition Disposition: Home, Self Care
[2022-08-15 13:38] LABS: Absolute Lymphocyte Count 3.27 X10^3/uL (0.83-4.51); Absolute Neutrophil Count 4.9 X10^3/uL (2.0-7.7); Basophil# 0.06 X10^3/uL; Basophil% 0.6 % (0-1); Eosinophil# 0.68 X10^3/uL; Eosinophils% 7.2 % (0-5); Hemoglobin 13.4 g/dL (13.0-16.5); Lymphocyte # 3.27 X10^3/ul (0.83-4.51); Lymphocyte % 34.7 % (19-41); Mean Corp Hgb Conc 32.7 g/dL (32-36); Mean Corpuscular Hgb 30.7 pg (27.0-32.0); Mean Platelet Vol. 10.2 fl (6.2-12.0); Monocyte# 0.53 X10^3/uL; Monocyte% 5.6 % (0-10); NRBC Flagged by Analyzer 0 % (0-5); Neutrophil # 4.85 X10^3/uL (2.7-7.7); Neutrophil % 51.5 % (47-70); Platelet Count 327 K/mm3 (150-450); RBC Distribution Width CV 12.7 % (11.6-14.6); RBC Distribution Width SD 43.9 fl (35.1-43.9); Red Blood Count 4.36 M/mm3 (4.6-6.2); White Blood Count 9.4 K/mm3 (4.4-11.0)
[2022-08-15 13:55] LABS: Anion Gap 8 (5-15); BUN 14 mg/dL (7-18); BUN/Creat Ratio 14.6 RATIO (10-20); Calcium,Total 9.2 mg/dL (8.5-10.1); Chloride 106 mmol/L (98-107); Creatinine, Serum 0.96 mg/dL (0.70-1.30); EST Glomerular Filtration Rate 92 mL/min (>60); Est Glom Filt Rate - Afr Amer 111 mL/min (>60); Glucose 132 mg/dL (74-106); Potassium 3.6 mmol/L (3.5-5.1); Sodium Level 140 mmol/L (136-145); Troponin-I HS (w/2H Reflex) 4 pg/mL (3.0-78.0)
[2022-08-15 14:00] LABS: D-Dimer Quantitative (DVT/PE) 0.73 FEU/ug/m (0.27-0.49)
--- NOTE | 2022-08-15 14:51 | CT_ITS ---
STUDY: CTA CHEST REASON FOR EXAM: Male, 42 years old. Atypical chest pain, diaphoresis RADIATION DOSAGE (If Supplied By Facility): CTDIvol = ( 13.97 ) mGy, DLP = ( 416.21 ) mGycm TECHNIQUE: The examination was performed with the intravenous administration of IV 100mL Isovue-370. Post-processing of the angiographic images was performed, with multiplanar reformation and 3D reconstruction. Individualized dose optimization techniques were used for this CT. COMPARISON: None. FINDINGS: Normal enhancement of the main pulmonary artery and right and left pulmonary arteries. Normal enhancement of the bilateral peripheral pulmonary arteries. There is no demonstrated pulmonary embolism. Normal thoracic aorta and visualized great vessels. There is no demonstrated aortic dissection. Normal heart and pericardium. Normal mediastinum. Normal hilar regions. Normal visualized trachea and bronchi. The lungs are well expanded. Normal pulmonary parenchyma. Normal pleura. Normal chest wall structures. Normal osseous structures. Normal visualized upper abdomen. CT/CTA Chest W/WO Contrast IMPRESSION: No demonstrated PE, or thoracic aortic aneurysm or dissection No acute pulmonary process No suspicious adenopathy Electronically Signed: Frankie Fontana MD at 15:23 EDT ,
[2022-08-15 15:01] VITALS: BP 133/87; PULSE 72; RESP 14; O2SAT 98
[2022-08-15 15:34] LABS: Reflex Troponin-HS? (from REC) Y
[2022-08-15 15:42] VITALS: BP 133/68; PULSE 71; RESP 18; O2SAT 98
== END 2022-08-15 15:42 | disposition home or self-care (01) ==
PROVIDERS: Emergency Provider Emergency Medicine; PCP Family Medicine; Visit Provider Emergency Medicine
DX: R07.9 Chest pain, unspecified (principal); R06.00 Dyspnea, unspecified; K21.9 Gastro-esophageal reflux disease without esophagitis; Z79.01 Long term (current) use of anticoagulants; Z79.899 Other long term (current) drug therapy; Z86.711 Personal history of pulmonary embolism; Z86.718 Personal history of other venous thrombosis and embolism; Z86.16 Personal history of COVID-19; Z87.891 Personal history of nicotine dependence
CPT/HCPCS: 71045; 71275; 80048; 84484; 85025; 85379; 93005; 99284; Q9967; A4216

== ENCOUNTER 2022-11-21 18:00 | Outpatient (RCR) | payer OTHER, SELFPAY ==
--- NOTE | 2022-10-17 18:38 | HP.PTEVAL ---
Patient's Visit Information GOVIND GOVEA is a 42 year old M referred to Physical Therapy by DALILA Pierre with a diagnosis of Atypical Chest Pain. Date of Evaluation: 10/17/22 Physical Therapist: JUHI Dhaliwal - Visit Plan Frequency: 2x /Week Duration: 2 Months Plan: 2X/ week for 8 weeks for C-spine accessory streching, thoracic and anterior chest wall stretches, thoracic and scapular and postural strengthening with HEP. HEP: levator, upper trap and corner stretch - Subjective Couple of years ago he was coughing up blood. They found inflammed blood vessels and a year ago he got COVID and had PE in B lungs. He is now getting SOB and hard to catch his breath upon exertion. The Dr have no idea. He is on rescue inhaler and daily inhaler. Those help. He has a C-PAP that he has gotten over the past year. He was a smoker years back. They did a couple of scopes and all airways are inflammed. They are hoping that PT strengthens the chest bradshaw. He has done the breathing tests and they all came back excellent but the next day he had no enery... he can breathe fine. He does not feel like he can get that full breath. He has no exercised in years. He has some chest tightness but no pain and it is hit and miss. He has some N&T but he is seeing a neurologist for the tingling and on Gabapetin. He sees the [facility] Dr on Saturday. They will dig a little further. He works but sits about half the day. His sx are really inconsistent. He is sleeping. He sleeps on B sides at night. - Pain Chest Pain Pain Intensity (Out of 10): 0 - Objective Posture: Sits with slightly rounded shoulders and increase PPT with anterior shoulder placement. R handed: R 110# and L 110#. UE AROM: full AROM. UE MMT: R shoulder flex 10.2 and L 14.2. R shoulder ER 19 and L 17.7. Tight anterior chest wall and Pt felt tightness in mid trap with door way ER. Pt is tight upper, mid and lower trap and levator - Balance/Special Test Scores Lower Extremity Functional Score: 44 - Goals Goal 1:: I HEP Goal Time Frame: 6-8 Weeks Goal 2:: Increase ability to breath deep and not have the chest tightness by 50% Goal Time Frame: 6-8 Weeks Goal 3:: Decrease neck and thoracic and anterior chest wall tightness Goal Time Frame: 6-8 Weeks Goal 4:: Sit with upright posture Goal Time Frame: 6-8 Weeks - Rehabilitation Potential Rehabilitation Potential: Good - Anticipated Interventions Patient/Client Instruction: Educate patient on: Condition, Plan of Care For the Purpose of:: To decrease pain, To increase ROM, To improve nutrient delivery to tissue, To improve muscle performance and motor function, To improve ability to perform ADL's, To increase tolerance to activity/condition/position, To improve performance and independence with ADL's, To improve health of tissue, To decrease soft tissue restriction, To increase flexibility/ROM Therapeutic Exercise to Include: Strength training, Endurance training, Body mechanics, Postural training, Flexibilty training, Neuromotor development, Passive ROM, Active ROM, Dynamic Lumbar Stabilization, Scapular Strength/Stabilization For the Purpose of:: To decrease pain, To increase ROM, To improve muscle performance and motor function, To improve ability to perform ADL's, To increase tolerance to activity/condition/position, To improve performance and independence with ADL's, To decrease level of supervision to perform tasks, To improve health of tissue, To decrease soft tissue restriction, To increase flexibility/ROM Manual Therapy Techniques to Include: Mobilization, Passive ROM For the Purpose of:: To decrease pain, To increase ROM, To improve nutrient delivery to tissue, To improve muscle performance and motor function Thank you for the opportunity to evaluate your patient. For Medicare and Medicare HMO plans, please review the plan of care and approve it. It will need to be FAXED BACK to us at [phone] for Medicare purposes. For Medicare only, by signing this I certify the plan of care. Please let me know if there are questions or concerns regarding this plan of care. Physician Signature: Date:
--- NOTE | 2022-11-21 18:30 | HP.PTDCSUM ---
It has been my pleasure to treat GOVIND GOVEA referred by DALILA Pierre, with the diagnosis of Atypical Chest Pain for a total of 6 visit(s). Discharge Date: 11/21/22 Please see the following information for a summary of their discharge status. Subjective: Pt reports that he feels that he is better. He feels that the cold makes him harder to breathe. He is hoping to be able to keep doing the stuff at home. Pt has not had pain for awhile. He has not been too SOB. He felt that he was super tired after the bike the last session. He has a TM and bowflex and total gym at home and will try and keep up with the exercises. He feels that he is able to blow up the balloon and doing better with diaphramtic breathing. He has always breathed through his mouth and feels that he is working towards more diaph breathing. He does now have a massage chair. Chest Pain Pain Intensity (Out of 10): 0 % Improvement: 60 Objective/Function: 1/2 foam anterior chest stretch with chin tucks X 10. Pt sits with upright posture but not 100% of the time. Goal 1:: I HEP Goal Progress: Goal Met Goal 2:: Increase ability to breath deep and not have the chest tightness by 50% Goal Progress: Goal Met Goal 3:: Decrease neck and thoracic and anterior chest wall tightness Goal Progress: Progressing Goal 4:: Sit with upright posture Goal Progress: Progressing Plan: DC PT to HEP previously given and try and increase cardio as tolerated. Discharge Comments: DC PT to HEP If there are questions or concerns regarding this patient's physical therapy, please feel free to call me at [phone]. Thank you for the referral of this patient. Sincerely, Serina Hill, MPT Balance/Gait/Functional tests - Balance/Special Test Scores Lower Extremity Functional Score: 71
== END 2022-11-21 19:00 | disposition home or self-care (01) ==
LOC: PT 18:00
PROVIDERS: PCP Family Medicine; Referring Provider Nurse Practitioner Family; Visit Provider Nurse Practitioner Family
DX: R06.00 Dyspnea, unspecified (principal)
CPT/HCPCS: 97110; 97161; 97530

== ENCOUNTER → 2023-10-02 | Outpatient (CLI) | payer OTHER, SELFPAY | END | disposition home or self-care (01) | PROVIDERS: PCP Family Medicine; Visit Provider Internal Medicine Gastroenterology | DX: R14.0 Abdominal distension (gaseous) (principal); R19.7 Diarrhea, unspecified; R05.9 Cough, unspecified | CPT/HCPCS: 36415 ==

== ENCOUNTER → 2023-11-29 | Outpatient (CLI) | payer OTHER, SELFPAY ==
--- NOTE | 2023-11-29 15:58 | CT_ITS ---
STUDY: CTA CHEST REASON FOR EXAM: Male, 43 years old. SOB RADIATION DOSAGE (If Supplied By Facility): CTDIvol = ( 10.77 ) mGy, DLP = ( 997.70 ) mGycm TECHNIQUE: The examination was performed with the intravenous administration of IV 100mL Isovue-370. Post-processing of the angiographic images was performed, with multiplanar reformation and 3D reconstruction. Individualized dose optimization techniques were used for this CT. COMPARISON: August 15, 2022 FINDINGS: Normal enhancement of the main pulmonary artery and right and left pulmonary arteries. Normal enhancement of the bilateral peripheral pulmonary arteries. There is no demonstrated pulmonary embolism. Normal thoracic aorta and visualized great vessels. There is no demonstrated aortic dissection. Normal heart and pericardium. Normal mediastinum. Normal hilar regions. Normal visualized trachea and bronchi. The lungs are well expanded. Mild atelectasis within the dependent portion of both lungs more pronounced in the lower lobes.. No focal infiltration or pulmonary nodule Normal pleura. Normal chest wall structures. Normal osseous structures. Nonspecific fatty infiltrated liver.. Fatty infiltrated liver CT/CTA Chest W/WO Contrast IMPRESSION: Mild atelectasis within the dependent portion of the lungs more pronounced the lower lobes. No focal infiltration. No evidence for aortic aneurysm, dissection or pulmonary embolus Electronically Signed: Yazan Miller MD at 16:47 EST Reading Location ID and State: [facility] / MD Tel , Service support ,
--- OUTSIDE RECORDS SUMMARY | 2023-11-29 16:22 | XMS RPT_ITS | CCD ---
Author Name Unknown Address [address] [place] [address] Organization [facility] Care Team Providers Care 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 Name Role Phone KYLE MORALES Unavailable Unavailable KYLE MORALES Unavailable Unavailable Jolliff, Nicole Jamila Primary Care Provider [phone] Jolliff, Nicole Jamila Primary Care Provider Jolliff, Nicole Jamila Primary Care Provider JOLLIFF, NICOLE JAMILA Primary Care Unavailable SHAILA ALVARADO Attending Unavailable JOLLIFF, NICOLE JAMILA Primary Care Unavailable Jolliff, Nicole Jamila Primary Care Provider JOLLIFF, NICOLE JAMILA Primary Care Unavailable SANTIAGO BLANCA Attending Unavailable JOLLIFF, NICOLE JAMILA Primary Care Unavailable SANTIAGO BLANCA Attending Unavailable JOLLIFF, NICOLE JAMILA Primary Care Unavailable ITIN, MARCI Attending Unavailable JOLLIFF, NICOLE JAMILA Primary Care Unavailable SANTIAGO BLANCA Attending Unavailable MICHAELLE MARIE Attending Unavailable JOLLIFF, NICOLE JAMILA Primary Care Unavailable VI MARIEEN Referring Unavailable JOLLIFF, NICOLE JAMILA Primary Care Unavailable ITIN, MARCI Referring Unavailable SANTIAGO BLANCA Attending Unavailable JOLLIFF, NICOLE JAMILA Primary Care Unavailable JOLLIFF, NICOLE JAMILA Primary Care Unavailable ITIN, MARCI Attending Unavailable JOLLIFF, NICOLE JAMILA Primary Care Unavailable ITIN, MARCI Attending Unavailable JOLLIFF, NICOLE JAMILA Primary Care Unavailable DAHLHAUSENLISBETHMICHAELLE Attending Unavailable ITIN, MARCI Referring Unavailable JOLLIFF, NICOLE JAMILA Primary Care Unavailable ASHLY TANNER Attending Unavailable JOLLIFF, NICOLE JAMILA Primary Care Unavailable ITIN, MARCI Attending Unavailable ITIN, MARCI Referring Unavailable JOLLIFF, NICOLE JAMILA Primary Care Unavailable SANTIAGO BLANCA Attending Unavailable Allergies Allergy Classification Reported Allergen(s) Allergy Type Date of Onset Reaction(s) Facility (20 sources) Penicillins; Translations: [PENICILLINS] Propensity to adverse reactions to drug (disorder) 8 Rash [facility] Other [place] Repository (20 sources) Bees; Translations: [BEES] Allergy to substance 9 Anaphylaxis [facility] Medications Current Medications Medication Drug Class(es) Dates Sig (Normalized) Sig (Original) gabapentin 600 mg oral tablet (20 sources) Anti-epileptic Agent Start: 11-08-2023 End: 02-06-2024 take 1 tablet by mouth three times daily gabapentin (NEURONTIN) 600 mg tablet Take 1 tablet by mouth three times a day for 90 days. 270 tablet 0 11/08/2023 02/06/2024 Active Completed/Discontinued Medications Medication Drug Class(es) Dates Sig (Normalized) Sig (Original) amylase 47069 unt / lipase 32142 unt / protease 85402 unt delayed release oral capsule (16 sources) Start: 08-11-2022 CREON 12,000-38,000 -60,000 unit delayed release capsule 2-3 capsules tid with meals and snacks 0 08/11/2022 Active Problems Active Problems Problem Classification Problem Date Documented Da te Episodic/Chronic Anxiety disorders (9 sources) Anxiety disorder; Translations: [Anxiety disorder, unspecified] Onset: 3 Chronic Esophageal disorders (20 sources) Gastroesophageal reflux disease; Translations: [Gastro-esophageal reflux disease without esophagitis] Onset: 8 01-31-2018 Chronic Mood disorders (1 source) Depressive disorder; Translations: [Depression, unspecified depression type] Chronic Other aftercare (2 sources) Patient encounter status; Translations: [Encounter for therapeutic drug level monitoring] Episodic Other infections; including parasitic (2 sources) Personal history of other infectious and parasitic diseases; Translations: [Personal history of COVID-19] Episodic Other nervous system disorders (6 sources) Disorder of the central nervous system; 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] Chronic Other nervous system disorders (2 sources) Syringomyelia and syringobulbia; 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] Chronic Other nervous system disorders (2 sources) Syringomyelia and syringobulbia; 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 (HCC)] Onset: 2 Chronic Other nervous system disorders (7 sources) Paresthesia; Translations: [Paresthesia of skin] Episodic Other nervous system disorders (10 sources) Tremor; Translations: [Tremor, unspecified] Episodic Other nervous system disorders (2 sources) Hyperreflexia; Translations: [Abnormal reflex] Episodic Other nervous system disorders (1 source) Tremor, unspecified; Translations: [Tremor] Onset: 3 Episodic Phlebitis; thrombophlebitis and thromboembolism (2 sources) H/O: Deep vein thrombosis; Translations: [Personal history of other venous thrombosis and embolism] Episodic Pulmonary heart disease (1 source) Chronic pulmonary embolism; Translations: [Chronic pulmonary embolism] Chronic Past or Other Problems Problem Classification Problem Date Documented Da te Episodic/Chronic Abdominal hernia (20 sources) Hiatal hernia; Translations: [Diaphragmatic hernia without obstruction or gangrene] Onset: 01-31-2018 01-31-2018 Episodic Abdominal pain (20 sources) Right upper quadrant pain; Translations: [Right upper quadrant pain] Onset: 01-30-2018 01-30-2018 Episodic Malaise and fatigue (7 sources) Asthenia; Translations: [Weakness] Onset: 03-28-2023 Episodic Other nervous system disorders (1 source) Paresthesia of skin; Translations: [Paresthesia of skin] Onset: 03-28-2023 Episodic Pulmonary heart disease (20 sources) Pulmonary embolism; Translations: [Other pulmonary embolism without acute cor pulmonale] Onset: 12-21-2021 12-21-2021 Episodic Results Test Name Value Interpretation Reference Range Facil ity Vital Signs Date Time Vital Sign Value Performing Clinician Smita jarquin 03-28-2023 16:29-0400 Body temperature 97.9 [degF] Michaelle Marie FLAGSETTER.CARPENTER ASSEMBLER Work Phone: [facility] 03-28-2023 16:29-0400 Body weight 94.17 kg Michaelle Marie APRN.CNP Work Phone: [facility] 03-28-2023 16:29-0400 Diastolic blood pressure 90 mm[Hg] Michaelle Marie FLAGSETTER.[employer]PENTER ASSEMBLER Work Phone: [facility] 03-28-2023 16:29-0400 Heart rate 70 /min Michaelle Dahlhausen FLAGSETTER.[employer]PENTER ASSEMBLER Work Phone: [facility] 03-28-2023 16:29-0400 Respiratory rate 16 /min Michaelle Dahlhausen FLAGSETTER.[employer]PENTER ASSEMBLER Work Phone: [facility] 03-28-2023 16:29-0400 SaO2% (BldA) [Mass fraction] 96 % Michaelle Dahlhausen FLAGSETTER.[employer]PENTER ASSEMBLER Work Phone: [facility] 03-28-2023 16:29-0400 Systolic blood pressure 135 mm[Hg] Michaelle Dahlhausen FLAGSETTER.[employer]PENTER ASSEMBLER Work Phone: [facility] 10-19-2022 09:23-0500 Diastolic blood pressure 84 mm[Hg] Marci Coto MD Work Phone: [facility] 10-19-2022 09:23-0500 Heart rate 75 /min Marci Coto MD Work Phone: [facility] 10-19-2022 09:23-0500 SaO2% (BldA) [Mass fraction] 94 % Marci Coto MD Work Phone: [facility] 10-19-2022 09:23-0500 Systolic blood pressure 129 mm[Hg] Marci Coto MD Work Phone: [facility] 10-16-2022 15:45-0500 Body height 177.8 cm Shaila Alvarado MD Work Phone: [facility] 10-16-2022 15:45-0500 Body weight 88.1 kg Shaila Alvarado MD Work Phone: [facility] 10-16-2022 15:45-0500 Diastolic blood pressure 82 mm[Hg] Shaila Alvarado MD Work Phone: [facility] 10-16-2022 15:45-0500 Heart rate 93 /min Shaila Alvarado MD Work Phone: [facility] 10-16-2022 15:45-0500 Respiratory rate 16 /min Shaila Alvarado MD Work Phone: [facility] 10-16-2022 15:45-0500 SaO2% (BldA) [Mass fraction] 97 % Shaila Alvarado MD Work Phone: [facility] 10-16-2022 15:45-0500 Systolic blood pressure 125 mm[Hg] Shaila Alvarado MD Work Phone: [facility] 09-06-2022 13:43-0400 Body temperature 97.9 [degF] Michaelle Dahlhausen FLAGSETTER.[employer]PENTER ASSEMBLER Work Phone: [facility] 09-06-2022 13:43-0400 Body weight 84.55 kg Michaelle Dahlhausen FLAGSETTER.[employer]PENTER ASSEMBLER Work Phone: [facility] 09-06-2022 13:43-0400 Diastolic blood pressure 73 mm[Hg] Michaelle Dahlhausen FLAGSETTER.[employer]PENTER ASSEMBLER Work Phone: [facility] 09-06-2022 13:43-0400 Heart rate 86 /min Michaelle Dahlhausen FLAGSETTER.[employer]PENTER ASSEMBLER Work Phone: [facility] 09-06-2022 13:43-0400 Respiratory rate 16 /min Michaelle Dahlhausen FLAGSETTER.[employer]PENTER ASSEMBLER Work Phone: [facility] 09-06-2022 13:43-0400 SaO2% (BldA) [Mass fraction] 97 % Michaelle Dahlhausen FLAGSETTER.[employer]PENTER ASSEMBLER Work Phone: [facility] 09-06-2022 13:43-0400 Systolic blood pressure 125 mm[Hg] Michaelle Dahlhausen FLAGSETTER.[employer]PENTER ASSEMBLER Work Phone: [facility] 04-27-2022 09:23-0400 Diastolic blood pressure 80 mm[Hg] Clement Marks MD Work Phone: [facility] 04-27-2022 09:23-0400 Heart rate 66 /min Clement Marks MD Work Phone: [facility] 04-27-2022 09:23-0400 Systolic blood pressure 120 mm[Hg] Clement Marks MD Work Phone: [facility] 04-27-2022 09:21-0400 Body height 177.8 cm Clement Marks MD Work Phone: [facility] 04-27-2022 09:21-0400 Body weight 83.73 kg Clement Marks MD Work Phone: [facility] 04-27-2022 09:21-0400 SaO2% (BldA) [Mass fraction] 100 % Clement Marks MD Work Phone: [facility] 04-03-2022 11:55-0400 Body temperature 98.2 [degF] Esbastian Masci DO Work Phone: [facility] 04-03-2022 11:55-0400 Body weight 85.73 kg Sebastian Masci DO Work Phone: [facility] 04-03-2022 11:55-0400 Diastolic blood pressure 79 mm[Hg] Sebastian Masci DO Work Phone: [facility] 04-03-2022 11:55-0400 Heart rate 70 /min Sebastian Masci DO Work Phone: [facility] 04-03-2022 11:55-0400 Systolic blood pressure 130 mm[Hg] Sebastian Masci DO Work Phone: [facility] 02-15-2022 11:23-0400 Body temperature 98.2 [degF] Michaelle Marie FLAGSETTER.[employer]PENTER ASSEMBLER Work Phone: [facility] 02-15-2022 11:23-0400 Body weight 87.09 kg Michaelle Marie FLAGSETTER.[employer]PENTER ASSEMBLER Work Phone: [facility] 02-15-2022 11:23-0400 Diastolic blood pressure 82 mm[Hg] Michaelle Marie FLAGSETTER.[employer]PENTER ASSEMBLER Work Phone: [facility] 02-15-2022 11:23-0400 Heart rate 72 /min Michaelle Marie APRN.NATALIIA Work Phone: [facility] 02-15-2022 11:23-0400 Respiratory rate 18 /min Michaelle Marie FLAGSETTER.NATALIIA Work Phone: [facility] 02-15-2022 11:23-0400 SaO2% (BldA) [Mass fraction] 99 % Michaelel Marie FLAGSETTER.NATALIIA Work Phone: [facility] 02-15-2022 11:23-0400 Systolic blood pressure 122 mm[Hg] Michaelle Marie FLAGSETTER.NATALIIA Work Phone: [facility] Encounters Encounter Date Encounter Type Care Provider Facility Start: 11-07-2023 Refill Michaelle mcpherson FLAGSETTER.NATALIIA Work Phone: Neurology Procedures Date Procedure Procedure Detail Performing Clinician Start: 03-19-2022 Adult depression screening assessment Sebastian Paris DO Work Phone: Start: 02-21-2022 Adult depression screening assessment Michaelle Marie APRN.CNP Work Phone: Start: 01-09-2021 Adult depression screening assessment Michaelle Marie APRN.NATALIIA Work Phone: Plan of Treatment Date Care Activity Detail Author Start: 11-05-2023 Urine microalbumin profile DTaP,Tdap,Td Vaccine (2 - Td or Tdap) [facility] Start: 07-26-2023 Influenza vaccination [facility] Start: 03-26-2023 End: 05-26-2023 CBC W Auto Differential panel - Blood CBC + DIFF Lab Routine Paresthesia of skin Expected: 03/26/2023, Expires: 05/26/2023 [facility] Work Phone: Payers Date Payer Category Payer Private Health Insurance [employer] A ETNA CHOICE POS II [id number] 2016-Present [phone] [address] [place] [address] POS [id number] 2016 Private Health Insurance [id number] 2016 Private Health Insurance [id number] Social History Date Type Detail Facility Start: 01-30-2018 End: 09-06-2022 Tobacco smoking status NHIS Ex-smoker [facility] End: 11-25-2011 History of tobacco use Current smoker [facility] End: 11-25-2011 History of tobacco use Cigarette Smoker [facility] Start: 01-30-2018 End: 03-28-2023 Cigarettes smoked current (pack per day) - Reported 2 [facility] Start: 01-30-2018 End: 09-06-2022 Tobacco use and exposure Smokeless tobacco non-user [facility] Start: 02-15-2022 End: 11-08-2023 Alcohol intake Current drinker of alcohol (finding) [facility] Start: 01-31-2018 History SDOH Alcohol Comment 2 beers a month [facility] Start: 01-31-2018 End: 09-06-2022 Tobacco Comment used vape until 01/2018 [facility] Start: 1980 Sex Assigned At Male [facility] Start: 02-05-2022 End: 10-19-2022 Exposure to SARS-CoV-2 (event) Not sure [facility] Start: 03-28-2023 End: 07-16-2023 Tobacco use panel [facility] Adult Depression Screening Assessment 0 [facility] Start: 12-13-2021 Gender identity Identifies as male gender (finding) [facility] Start: 11-09-2020 Sexual orientation Heterosexual (fin ding) [facility] Clinical Notes 02-15-2022 to 11-08-2023 Telephone Encounter - Michaelle Marie APRN.CNP - 11/08/2023 12:14 PM ESTTelephone Encounter - Kayla Clifford LPN - 11/08/2023 8:02 AM Tiesha Jacob - 07/24/2023 4:48 PM EDT Note Date & Type Note Facility 11-08-2023 Miscellaneous Notes PDMP website checked and validated. All prescriptions have been APPROPRIATELY filled. No suspicious activity was identified. November 08, 2023 Michaelle Marie APRN.CARPENTER ASSEMBLER Prescription pended to requested pharmacy and forwarded to provider for review. IBAN: 03/28/2023 NOV: not scheduled Last prescribed: 04/23/2023 documented in this encounter [facility] 07-24-2023 Note HNO ID: [id number] Author: Tiesha Baldwin Service: ? Author Type: ? Type: Progress Notes Filed: 07/24/2023 5:11 PM Note Text: I have communicated my name and active licensure. The patient's identity and physical location were verified at the time of the visit. Either the patient or their legal patient account representative has been informed of the risks and benefits of - and alternatives to - treatment through a remote evaluation and consents to proceed with the evaluation remotely. This was a virtual visit through zoom. The patient consented to virtual encounter. Mr. Humphries reports that his tremor has decreased slightly. He does not feel like medication dose needs to be increased. His anxiety is good. He takes sertraline 200 mg. We agreed to implement the following plan: 1) Follow-up in 6 months Scribed for Marci Coto MD, by Tiesha Baldwin, vp medical, July 24, 2023. [facility] 07-24-2023 Note HNO ID: [id number] Author: Marci Coto MD Service: ? Author Type: Physician Type: Progress Notes Filed: 07/24/2023 5:11 PM Note Text: I have communicated my name and active licensure. The patient's identity and physical location were verified at the time of the visit. Either the patient or their legal patient account representative has been informed of the risks and benefits of - and alternatives to - treatment through a remote evaluation and consents to proceed with the evaluation remotely. This was a virtual visit through zoom. The patient consented to virtual encounter. Mr. Humphries reports that his tremor is under control. He does not feel that medication dose needs to be increased. His anxiety is under control. He takes sertraline 200 mg PO QD and he is speaking with [facility] psychologist. We agreed to implement the following plan: 1) Follow-up in 6 months 2) Continue with the same medications. Scribed for Marci Coto MD, by dale Urrutiaibe, July 24, 2023. Marci Coto MD 20 minutes and at least 50% of this time was used for counseling. [facility] 07-24-2023 History of Presen t illness Narrative I have communicated my name and active licensure. The patient's identity and physical location were verified at the time of the visit. Either the patient or their legal patient account representative has been informed of the risks and benefits of - and alternatives to - treatment through a remote evaluation and consents to proceed with the evaluation remotely. This was a virtual visit through zoom. The patient consented to virtual encounter. Mr. Humphries reports that his tremor has decreased slightly. He does not feel like medication dose needs to be increased. His anxiety is good. He takes sertraline 200 mg. We agreed to implement the following plan: 1) Follow-up in 6 months Scribed for Marci Coto MD, by dale Urrutia, July 24, 2023. I have communicated my name and active licensure. The patient's identity and physical location were verified at the time of the visit. Either the patient or their legal patient account representative has been informed of the risks and benefits of - and alternatives to - treatment through a remote evaluation and consents to proceed with the evaluation remotely. This was a virtual visit through zoom. The patient consented to virtual encounter. Mr. Humphries reports that his tremor is under control. He does not feel that medication dose needs to be increased. His anxiety is under control. He takes sertraline 200 mg PO QD and he is speaking with [facility] psychologist. We agreed to implement the following plan: 1) Follow-up in 6 months 2) Continue with the same medications. Scribed for Marci Coto MD, by Tiesha Baldwin vp medical, July 24, 2023. Marci Coto MD 20 minutes and at least 50% of this time was used for counseling. documented in this encounter [facility] 07-20-2023 Note HNO ID: [id number] Author: Santiago Blanca, PhD Service: ? Author Type: Psychologist Type: Progress Notes Filed: 07/20/2023 12:55 PM Note Text: [facility] Psychology Progress Note Billing codes: 0M9/Chan PSYCHOLOGY: FOLLOW-UP APPOINTMENT PROGRESS NOTE- Virtual Visit I have communicated my name and active licensure. The patient's identity and physical location were verified at the time of this visit. Either the patient or their legal patient account representative has been informed of the risks and benefits of -- and alternatives to -- treatment through a remote evaluation and consents to proceed with the evaluation remotely. Sebastian Humphries 07/20/2023 [id number] PROVIDER: Santiago Blanca, PhD CPT Code: 58506- Psychotherapy, 30 minutes with patient and/or family- Virtual Visit Diagnosis: Generalized anxiety disorder (primary encounter diagnosis) Time spent doing therapy with patient: 12:00-12:36 pm Parties Present: Patient Interventions: Cognitive Behavioral MENTAL STATUS: Mood: euthymic Affect: mood-congruent Thoughts/Associations: goal directed, organized Suicidal/Homicidal Ideation: None expressed or evidenced MEDICATIONS: Per medical record: Current Outpatient Medications Medication Sig gabapentin (NEURONTIN) 600 mg tablet Take 1 tablet by mouth three times daily for 180 days. sertraline (ZOLOFT) 100 mg tablet 2 tablets in AM propranolol ER (INDERAL LA) 60 mg 24 hr capsule Take 1 capsule by mouth once daily. CREON 12,000-38,000 -60,000 unit delayed release capsule 2-3 capsules tid with meals and snacks multivitamin tablet Take 1 tablet by mouth once daily. Dexlansoprazole 60 mg CpDM Take 60 mg by mouth once daily. Current Facility-Administered Medications Medication Dose Route Frequency perflutren lipid microspheres 1.3 mL in NaCl (PF) 0.9% 10 mL injection (DEFINITY) INTRAVENOUS DIRECTED PRN sodium chloride 0.9 % (flush) 10 mL (BD POSIFLUSH) 10 mL INTRAVENOUS DIRECTED PRN Psychiatric Medication Issues: No change from previous appointment Mood/Behavior Depression: PHQ-9 Score: 6 usually representing mild (5-9) depression. Anxiety: NÉSTOR-7 Total Score: 8 usually representing mild (5-9) anxiety. Finally, the following table shows the patient's overall global physical and mental health using the PROMIS scale: PROMIS-10 Flowsheet Row Appointment from 07/20/2023 in [facility] from 04/23/2023 in [facility] Global Physical Health T Score 34.9 47.7 Global Mental Health T Score 41.1 41.1 0-10 Standard Pain Scale 2 4 *PROMIS-10 scoring scale: mean = 50, over 50 is above average, under 50 is below average DIAGNOSIS: (F41.1) Generalized anxiety disorder (primary encounter diagnosis) PROGRESS TO DATE/ASSESSMENT: Progressing satisfactorily. Mr. Humphries reports he continues to engage in diaphragmatic breathing multiple times a day. He feels this has brought his baseline stress levels down and allows him to better see factors that may lead to exacerabtiosn in irritability. He observes that when others around him are upset he tends to start to feel more agitated. We discussed links to childhood and expectations surrounding feeling unsafe in these situations growing up. We also reviewed ways he can better understand this is a contributing factor so that he can separate the knee-jerk reaction from a thoughtful response regarding the current situation. We also spent time discussing ways he can reinforce helpful boundaries with his family. Overall, Mr. Humphries has substantially improved with tremor and anxiety management. We reviewed harbingers for possible worsening of symptoms (e.g., poor sleep, increased irritability, increased tension with family) and a plan for getting back in touch with me should he notice this occurring. TREATMENT PLAN/GOALS/OBJECTIVES: Homework: Continue diaphragmatic breathing practices, healthy boundary setting with family, activity pacing at work Follow Up: PRN- will contact as needed if symptoms should worsen Santiago Blanca, Ph.D. Staff, [facility] 07-20-2023 History of Presen t illness Narrative [facility] Psychology Progress Note Billing codes: 0M9/Chan PSYCHOLOGY: FOLLOW-UP APPOINTMENT PROGRESS NOTE- Virtual Visit I have communicated my name and active licensure. The patient's identity and physical location were verified at the time of this visit. Either the patient or their legal patient account representative has been informed of the risks and benefits of -- and alternatives to -- treatment through a remote evaluation and consents to proceed with the evaluation remotely. Sebastian Humphries 07/20/2023 [id number] PROVIDER: Santiago Blanca, PhD CPT Code: 75700- Psychotherapy, 30 minutes with patient and/or family- Virtual Visit Diagnosis: Generalized anxiety disorder (primary encounter diagnosis) Time spent doing therapy with patient: 12:00-12:36 pm Parties Present: Patient Interventions: Cognitive Behavioral MENTAL STATUS: Mood: euthymic Affect: mood-congruent Thoughts/Associations: goal directed, organized Suicidal/Homicidal Ideation: None expressed or evidenced MEDICATIONS: Per medical record: Current Outpatient Medications Medication Sig gabapentin (NEURONTIN) 600 mg tablet Take 1 tablet by mouth three times daily for 180 days. sertraline (ZOLOFT) 100 mg tablet 2 tablets in AM propranolol ER (INDERAL LA) 60 mg 24 hr capsule Take 1 capsule by mouth once daily. CREON 12,000-38,000 -60,000 unit delayed release capsule 2-3 capsules tid with meals and snacks multivitamin tablet Take 1 tablet by mouth once daily. Dexlansoprazole 60 mg CpDM Take 60 mg by mouth once daily. Current Facility-Administered Medications Medication Dose Route Frequency perflutren lipid microspheres 1.3 mL in NaCl (PF) 0.9% 10 mL injection (DEFINITY) INTRAVENOUS DIRECTED PRN sodium chloride 0.9 % (flush) 10 mL (BD POSIFLUSH) 10 mL INTRAVENOUS DIRECTED PRN Psychiatric Medication Issues: No change from previous appointment Mood/Behavior Depression: PHQ-9 Score: 6 usually representing mild (5-9) depression. Anxiety: NÉSTOR-7 Total Score: 8 usually representing mild (5-9) anxiety. Finally, the following table shows the patient's overall global physical and mental health using the PROMIS scale: PROMIS-10 Flowsheet Row Appointment from 07/20/2023 in [facility] from 04/23/2023 in [facility] Global Physical Health T Score 34.9 47.7 Global Mental Health T Score 41.1 41.1 0-10 Standard Pain Scale 2 4 *PROMIS-10 scoring scale: mean = 50, over 50 is above average, under 50 is below average DIAGNOSIS: (F41.1) Generalized anxiety disorder (primary encounter diagnosis) PROGRESS TO DATE/ASSESSMENT: Progressing satisfactorily. Mr. Humphries reports he continues to engage in diaphragmatic breathing multiple times a day. He feels this has brought his baseline stress levels down and allows him to better see factors that may lead to exacerabtiosn in irritability. He observes that when others around him are upset he tends to start to feel more agitated. We discussed links to childhood and expectations surrounding feeling unsafe in these situations growing up. We also reviewed ways he can better understand this is a contributing factor so that he can separate the knee-jerk reaction from a thoughtful response regarding the current situation. We also spent time discussing ways he can reinforce helpful boundaries with his family. Overall, Mr. Humphries has substantially improved with tremor and anxiety management. We reviewed harbingers for possible worsening of symptoms (e.g., poor sleep, increased irritability, increased tension with family) and a plan for getting back in touch with me should he notice this occurring. TREATMENT PLAN/GOALS/OBJECTIVES: Homework: Continue diaphragmatic breathing practices, healthy boundary setting with family, activity pacing at work Follow Up: PRN- will contact as needed if symptoms should worsen Santiago Blanca, Ph.D. Staff, [facility] documented in this encounter [facility] 06-08-2023 Note HNO ID: [id number] Author: Santiago Blanca, PhD Service: ? Author Type: Psychologist Type: Progress Notes Filed: 06/08/2023 3:40 PM Note Text: [facility] Psychology Progress Note Billing codes: 0M9/Chan PSYCHOLOGY: FOLLOW-UP APPOINTMENT PROGRESS NOTE- Virtual Visit Due to the federal emergency declaration and the need for ongoing mental health services, the following visit was completed virtually and informed consent obtained orally to reduce the risk of COVID-19 exposure. Oral consent to services related to virtual visits was obtained after information was sent via [employer] or read to patient if MyChart not available. I have communicated my name and active licensure. The patient's identity and physical location were verified at the time of this visit. Either the patient or their legal patient account representative has been informed of the risks and benefits of -- and alternatives to -- treatment through a remote evaluation and consents to proceed with the evaluation remotely. Sebastian Humphries 06/08/2023 [id number] PROVIDER: Santiago Blanca, PhD CPT Code: 29875- Psychotherapy, 45 minutes with patient and/or family- Virtual Visit Diagnosis: Generalized anxiety disorder (primary encounter diagnosis) Tremor Time spent doing therapy with patient: 3:00-3:38 pm Parties Present: Patient Interventions: Cognitive Behavioral MENTAL STATUS: Mood: euthymic Affect: mood-congruent Thoughts/Associations: goal directed Suicidal/Homicidal Ideation: None expressed or evidenced MEDICATIONS: Per medical record: Current Outpatient Medications Medication Sig gabapentin (NEURONTIN) 600 mg tablet Take 1 tablet by mouth three times daily for 180 days. sertraline (ZOLOFT) 100 mg tablet 2 tablets in AM propranolol ER (INDERAL LA) 60 mg 24 hr capsule Take 1 capsule by mouth once daily. CREON 12,000-38,000 -60,000 unit delayed release capsule 2-3 capsules tid with meals and snacks multivitamin tablet Take 1 tablet by mouth once daily. Dexlansoprazole 60 mg CpDM Take 60 mg by mouth once daily. Current Facility-Administered Medications Medication Dose Route Frequency perflutren lipid microspheres 1.3 mL in NaCl (PF) 0.9% 10 mL injection (DEFINITY) INTRAVENOUS DIRECTED PRN sodium chloride 0.9 % (flush) 10 mL (BD POSIFLUSH) 10 mL INTRAVENOUS DIRECTED PRN Psychiatric Medication Issues: No change from previous appointment DIAGNOSIS: (F41.1) Generalized anxiety disorder (primary encounter diagnosis) (R25.1) Tremor PROGRESS TO DATE/ASSESSMENT: Mr. Humphries reports he has been working more on his breathing strategies. He feels they are helpful and he hopes to continue to integrate them more at work and at home. Tremor has been intermittent and may sometimes worsen when physically taxing himself. He feels Zoloft 200 mg is helping with anxiety. Session time was spent discussing ways Mr. Humphries can continue consistent self-care behavior, communicate his needs to his , and how he can discretely incormporate breathing strategies at work and at home. TREATMENT PLAN/GOALS/OBJECTIVES: Homework: small behavior change, continue relaxation practice, continue assertive communication Next: Cognitive Restructuring Making new thoughts become habits Follow Up: 1 month Santiago Blanca, Ph.D. Staff, [facility] 06-08-2023 History of Presen t illness Narrative [facility] Psychology Progress Note Billing codes: 0M9/Chan PSYCHOLOGY: FOLLOW-UP APPOINTMENT PROGRESS NOTE- Virtual Visit Due to the federal emergency declaration and the need for ongoing mental health services, the following visit was completed virtually and informed consent obtained orally to reduce the risk of COVID-19 exposure. Oral consent to services related to virtual visits was obtained after information was sent via [employer] or read to patient if MyChart not available. I have communicated my name and active licensure. The patient's identity and physical location were verified at the time of this visit. Either the patient or their legal patient account representative has been informed of the risks and benefits of -- and alternatives to -- treatment through a remote evaluation and consents to proceed with the evaluation remotely. Sebastian Daily Brynadrian 06/08/2023 [id number] PROVIDER: Santiago Blanca, PhD CPT Code: 82346- Psychotherapy, 45 minutes with patient and/or family- Virtual Visit Diagnosis: Generalized anxiety disorder (primary encounter diagnosis) Tremor Time spent doing therapy with patient: 3:00-3:38 pm Parties Present: Patient Interventions: Cognitive Behavioral MENTAL STATUS: Mood: euthymic Affect: mood-congruent Thoughts/Associations: goal directed Suicidal/Homicidal Ideation: None expressed or evidenced MEDICATIONS: Per medical record: Current Outpatient Medications Medication Sig gabapentin (NEURONTIN) 600 mg tablet Take 1 tablet by mouth three times daily for 180 days. sertraline (ZOLOFT) 100 mg tablet 2 tablets in AM propranolol ER (INDERAL LA) 60 mg 24 hr capsule Take 1 capsule by mouth once daily. CREON 12,000-38,000 -60,000 unit delayed release capsule 2-3 capsules tid with meals and snacks multivitamin tablet Take 1 tablet by mouth once daily. Dexlansoprazole 60 mg CpDM Take 60 mg by mouth once daily. Current Facility-Administered Medications Medication Dose Route Frequency perflutren lipid microspheres 1.3 mL in NaCl (PF) 0.9% 10 mL injection (DEFINITY) INTRAVENOUS DIRECTED PRN sodium chloride 0.9 % (flush) 10 mL (BD POSIFLUSH) 10 mL INTRAVENOUS DIRECTED PRN Psychiatric Medication Issues: No change from previous appointment DIAGNOSIS: (F41.1) Generalized anxiety disorder (primary encounter diagnosis) (R25.1) Tremor PROGRESS TO DATE/ASSESSMENT: Mr. Humphries reports he has been working more on his breathing strategies. He feels they are helpful and he hopes to continue to integrate them more at work and at home. Tremor has been intermittent and may sometimes worsen when physically taxing himself. He feels Zoloft 200 mg is helping with anxiety. Session time was spent discussing ways Mr. Humphries can continue consistent self-care behavior, communicate his needs to his , and how he can discretely incormporate breathing strategies at work and at home. TREATMENT PLAN/GOALS/OBJECTIVES: Homework: small behavior change, continue relaxation practice, continue assertive communication Next: Cognitive Restructuring Making new thoughts become habits Follow Up: 1 month Santiago Blanca, Ph.D. Staff, [facility] documented in this encounter [facility] 05-25-2023 Note HNO ID: [id number] Author: Santiago Blanca, PhD Service: ? Author Type: Psychologist Type: Progress Notes Filed: 05/25/2023 4:50 PM Note Text: [facility] Psychology Progress Note Billing codes: 0M9/Chan PSYCHOLOGY: FOLLOW-UP APPOINTMENT PROGRESS NOTE- Virtual Visit Due to the federal emergency declaration and the need for ongoing mental health services, the following visit was completed virtually and informed consent obtained orally to reduce the risk of COVID-19 exposure. Oral consent to services related to virtual visits was obtained after information was sent via [employer] or read to patient if [employer] not available. I have communicated my name and active licensure. The patient's identity and physical location were verified at the time of this visit. Either the patient or their legal patient account representative has been informed of the risks and benefits of -- and alternatives to -- treatment through a remote evaluation and consents to proceed with the evaluation remotely. Sebastian Humphries 05/25/2023 [id number] PROVIDER: Santiago Blanca, PhD CPT Code: 30594- Psychotherapy, 45 minutes with patient and/or family- Virtual Visit Diagnosis: Generalized anxiety disorder (primary encounter diagnosis) Time spent doing therapy with patient: 3:55-4:45 pm Parties Present: Patient Interventions: Cognitive Behavioral MENTAL STATUS: Mood: euthymic Affect: mood-congruent Thoughts/Associations: organized Suicidal/Homicidal Ideation: None expressed or evidenced MEDICATIONS: Per medical record: Current Outpatient Medications Medication Sig gabapentin (NEURONTIN) 600 mg tablet Take 1 tablet by mouth three times daily for 180 days. sertraline (ZOLOFT) 100 mg tablet 2 tablets in AM propranolol ER (INDERAL LA) 60 mg 24 hr capsule Take 1 capsule by mouth once daily. CREON 12,000-38,000 -60,000 unit delayed release capsule 2-3 capsules tid with meals and snacks multivitamin tablet Take 1 tablet by mouth once daily. Dexlansoprazole 60 mg CpDM Take 60 mg by mouth once daily. Current Facility-Administered Medications Medication Dose Route Frequency perflutren lipid microspheres 1.3 mL in NaCl (PF) 0.9% 10 mL injection (DEFINITY) INTRAVENOUS DIRECTED PRN sodium chloride 0.9 % (flush) 10 mL (BD POSIFLUSH) 10 mL INTRAVENOUS DIRECTED PRN Psychiatric Medication Issues: No change from previous appointment DIAGNOSIS: (F41.1) Generalized anxiety disorder (primary encounter diagnosis) PROGRESS TO DATE/ASSESSMENT: Mr. Humphries reports much of life remains the same. His children are out of school for the summer and he is spending more time with his son which has been fun. His work situation remains ambiguous that he feels he has come to a better sense of acceptance about this and we will just continue to try to focus on his job and associated duties until told otherwise. He notes some ongoing stressful interactions with his , who also tends to get anxious which then can worsen his irritability. Session time was spent discussing various precipitating and maintaining factors associated with anger outbursts. We discussed central tenants of cognitive behavioral therapy, including cognitive reframing. We discussed the use of this in concert with diaphragmatic breathing. We also discussed ways he can better identify triggers for anger as he continues to struggle with this. TREATMENT PLAN/GOALS/OBJECTIVES: Homework: Continue diaphragmatic breathing, cognitive reframing, monitor anger episodes and possible precipitating factors Next: Cognitive Restructuring Making new thoughts become habits Expand present -moment awareness Follow Up: 2 weeks Santiago Blanca, Ph.D. Staff, [facility] 05-25-2023 History of Presen t illness Narrative [facility] Psychology Progress Note Billing codes: 0M9/Chan PSYCHOLOGY: FOLLOW-UP APPOINTMENT PROGRESS NOTE- Virtual Visit Due to the federal emergency declaration and the need for ongoing mental health services, the following visit was completed virtually and informed consent obtained orally to reduce the risk of COVID-19 exposure. Oral consent to services related to virtual visits was obtained after information was sent via [employer] or read to patient if MyChart not available. I have communicated my name and active licensure. The patient's identity and physical location were verified at the time of this visit. Either the patient or their legal patient account representative has been informed of the risks and benefits of -- and alternatives to -- treatment through a remote evaluation and consents to proceed with the evaluation remotely. Sebastian Daily Brynadrian 05/25/2023 [id number] PROVIDER: Santiago Blanca, PhD CPT Code: 23248- Psychotherapy, 45 minutes with patient and/or family- Virtual Visit Diagnosis: Generalized anxiety disorder (primary encounter diagnosis) Time spent doing therapy with patient: 3:55-4:45 pm Parties Present: Patient Interventions: Cognitive Behavioral MENTAL STATUS: Mood: euthymic Affect: mood-congruent Thoughts/Associations: organized Suicidal/Homicidal Ideation: None expressed or evidenced MEDICATIONS: Per medical record: Current Outpatient Medications Medication Sig gabapentin (NEURONTIN) 600 mg tablet Take 1 tablet by mouth three times daily for 180 days. sertraline (ZOLOFT) 100 mg tablet 2 tablets in AM propranolol ER (INDERAL LA) 60 mg 24 hr capsule Take 1 capsule by mouth once daily. CREON 12,000-38,000 -60,000 unit delayed release capsule 2-3 capsules tid with meals and snacks multivitamin tablet Take 1 tablet by mouth once daily. Dexlansoprazole 60 mg CpDM Take 60 mg by mouth once daily. Current Facility-Administered Medications Medication Dose Route Frequency perflutren lipid microspheres 1.3 mL in NaCl (PF) 0.9% 10 mL injection (DEFINITY) INTRAVENOUS DIRECTED PRN sodium chloride 0.9 % (flush) 10 mL (BD POSIFLUSH) 10 mL INTRAVENOUS DIRECTED PRN Psychiatric Medication Issues: No change from previous appointment DIAGNOSIS: (F41.1) Generalized anxiety disorder (primary encounter diagnosis) PROGRESS TO DATE/ASSESSMENT: Mr. Humphries reports much of life remains the same. His children are out of school for the summer and he is spending more time with his son which has been fun. His work situation remains ambiguous that he feels he has come to a better sense of acceptance about this and we will just continue to try to focus on his job and associated duties until told otherwise. He notes some ongoing stressful interactions with his , who also tends to get anxious which then can worsen his irritability. Session time was spent discussing various precipitating and maintaining factors associated with anger outbursts. We discussed central tenants of cognitive behavioral therapy, including cognitive reframing. We discussed the use of this in concert with diaphragmatic breathing. We also discussed ways he can better identify triggers for anger as he continues to struggle with this. TREATMENT PLAN/GOALS/OBJECTIVES: Homework: Continue diaphragmatic breathing, cognitive reframing, monitor anger episodes and possible precipitating factors Next: Cognitive Restructuring Making new thoughts become habits Expand present -moment awareness Follow Up: 2 weeks Santiago Blanca, Ph.D. Staff, [facility] documented in this encounter [facility] 04-23-2023 Note HNO ID: [id number] Author: Marci Coto MD Service: ? Author Type: Physician Type: Progress Notes Filed: 04/23/2023 4:06 PM Note Text: I have communicated my name and active licensure. The patient's identity and physical location were verified at the time of this visit. Either the patient or their legal patient account representative has been informed of the risks and benefits of -- and alternatives to -- treatment through a remote evaluation and consents to proceed with the evaluation remotely. We spoke through Zoom. He agreed to virtual encounter. The patient is tolerating propranolol ER 60 mg once a day well. The patient feels that his tremor is all but gone at the present time. The patient is tolerating sertraline 150 mg once a day; he would rate his current anxiety level as 3/10. However, he feels he has room for improvement as far as anxiety is concerned. Plan: 1. He will continue taking propranolol ER 60 mg once a day. 2. He will increase sertraline to 200 mg once a day in the morning to better control generalized anxiety disorder. 3. The patient will continue seeing [facility] psychologist. Follow-up in 3 months. Marci Coto MD 20 minutes and more than 50% of this time was used for counseling. This note was created using dictation software. Please, excuse typographical errors. [facility] 04-23-2023 Miscellaneous Notes PDMP website checked and validated. All prescriptions have been APPROPRIATELY filled. No suspicious activity was identified. April 23, 2023 Michaelle Marie APRN.[employer] Pt would like to try [facility]. Please resend to the new pharmacy. Flori Sinclair LPN Script was sent to [facility] for 6 months, clarifying if pt wants sent to a new pharmacy. Flori Sinclair LPN documented in this encounter [facility] 04-13-2023 Note HNO ID: [id number] Author: Santiago Blanca, PhD Service: ? Author Type: Psychologist Type: Progress Notes Filed: 05/06/2023 11:43 PM Note Text: [facility] Psychology Progress Note Billing codes: 0M9/Chan PSYCHOLOGY: FOLLOW-UP APPOINTMENT PROGRESS NOTE- Virtual Visit Due to the federal emergency declaration and the need for ongoing mental health services, the following visit was completed virtually and informed consent obtained orally to reduce the risk of COVID-19 exposure. Oral consent to services related to virtual visits was obtained after information was sent via [employer] or read to patient if [employer] not available. I have communicated my name and active licensure. The patient's identity and physical location were verified at the time of this visit. Either the patient or their legal patient account representative has been informed of the risks and benefits of -- and alternatives to -- treatment through a remote evaluation and consents to proceed with the evaluation remotely. Sebastian Humphries 04/13/2023 [id number] PROVIDER: Santiago Blanca, PhD CPT Code: 80746- Psychotherapy, 45 minutes with patient and/or family- Virtual Visit Diagnosis: Generalized anxiety disorder (primary encounter diagnosis) Time spent doing therapy with patient: 4:00-4:46 pm Parties Present: Patient Interventions: Cognitive Behavioral MENTAL STATUS: Mood: anxious Affect: mood-congruent Thoughts/Associations: organized, concrete Suicidal/Homicidal Ideation: None expressed or evidenced MEDICATIONS: Per medical record: Current Outpatient Medications Medication Sig gabapentin (NEURONTIN) 600 mg tablet Take 1 tablet by mouth three times daily for 180 days. sertraline (ZOLOFT) 100 mg tablet 1.5 tablet in AM propranolol ER (INDERAL LA) 60 mg 24 hr capsule Take 1 capsule by mouth once daily. CREON 12,000-38,000 -60,000 unit delayed release capsule 2-3 capsules tid with meals and snacks multivitamin tablet Take 1 tablet by mouth once daily. busPIRone (BUSPAR) 10 mg tablet Take 10 mg by mouth three times daily. Once daily Dexlansoprazole 60 mg CpDM Take 60 mg by mouth once daily. Current Facility-Administered Medications Medication Dose Route Frequency perflutren lipid microspheres 1.3 mL in NaCl (PF) 0.9% 10 mL injection (DEFINITY) INTRAVENOUS DIRECTED PRN sodium chloride 0.9 % (flush) 10 mL (BD POSIFLUSH) 10 mL INTRAVENOUS DIRECTED PRN Psychiatric Medication Issues: No change from previous appointment DIAGNOSIS: (F41.1) Generalized anxiety disorder (primary encounter diagnosis) PROGRESS TO DATE/ASSESSMENT: Mr. Humphries reports some ongoing anxiety and increased irritability. He notes this seems to be happening more recently, especially at work. He notes feeling slighted or discounted can be triggers for anger. He wants to work on this in therapy so that he can better cope with various situations. Pt identified goals: Manage triggers and early signs of anger when they arise Help to serve as a model for daughter, who also experiences difficulty with anger TREATMENT PLAN/GOALS/OBJECTIVES: Homework: Diaphragmatic breathing Next: Cognitive Restructuring Anger management Follow Up: 1 month Santiago Blanca, Ph.D. Staff, [facility] 03-28-2023 Note HNO ID: [id number] Author: Michaelle Marie APRN.[employer] Service: ? Author Type: Nurse Practitioner Type: Progress Notes Filed: 03/29/2023 7:28 AM Note Text: [facility] [place] Follow-up Visit Follow-up note March 28, 2023 HPI: Mr. Humphries presents today for a follow-up visit. Per his previous visit on 09/06/22: R20.2 Paresthesia of skin (primary encounter diagnosis) R25.1 Tremor R53.1 Weakness Comment: Previously seen for above mentioned symptoms with uncertain etiology. Past testing including EMG and skin biopsy unremarkable. He was started on gabapentin and is currently taking 600mg TID with improvement in paresthesias. He has also since had follow up with the movement disorder clinic and has since started both Zoloft 100mg and Topamax 50mg. He reports some improvement in tremor with use of Topamax, though noting medication was started only two days prior and he has not yet increased dose to full 50mg at this time. Reviewed SE and he will continue to monitor. At this time will continue gabapentin as previously prescribed. RF provided. Updated labs ordered, however, as his PCP is outside of [facility] he will first review outside records and will sent to office if already completed within the past year. Recommend continuing to follow with the movement disorder clinic as scheduled. G95.0 Syrinx ([facility]) Comment: Previous MRI thoracic spine noting syrinx at T7-8. Previously seen by neurosurgery with recommendation for repeat imaging and follow up in one year. Syrinx not felt to be contributing to symptoms. He will contact office and schedule upcoming appointment. Since his previous appointment he reports that he has not noted paresthesias. Sx have improved. He continues to take gabapentin 600mg TID. No reported SE. He does report that he tried decreasing gabapentin dose. Tried cutting pill in half and eventually weaned down to two pills. N/t only slightly worsened but he did note worsening of tremor and therefore increased back to three tablets. Following with movement clinic. Recent referred to a psychologist within the movement clinic for tremor. Had appt last sat. Reviewed calming exercises. Consideration for Buspar. Also following with neurosurgery. Does not have to return for two years as syrinx is stable. Per neurosurgery on 10/16/22: ASSESSMENT/PLAN 1. Syringomyelia and syringobulbia (HCC) Reviewed MRI thoracic spine - stable appearance of T7 syrinx, no evidence of contrast enhancement in spinal cord. - some improvement in symptoms with medical management - LE paresthesias are not explained by presence of the syrinx - recommend continued follow up with repeat MRI thoracic spine in 2 years, given stability over the last 2 yrs - Encouraged patient to contact our office should there be any further questions, concerns, or change in symptoms. - MRI THORACIC SPINE WO/W IVCON; Future Reports that when falling asleep he will startle easily. Does wear CPAP at night. Recently fell out of bed after being startled. Denies acting out dreams or yelling out in his sleep. No reported sx of RBD. PAST MEDICAL HISTORY Diagnosis Date Chest pain DVT (deep venous thrombosis) (HCC) Fatigue GERD (gastroesophageal reflux disease) Hiatal hernia Pneumonia Pulmonary embolism (HCC) Sleep apnea Tremor PAST SURGICAL HISTORY Procedure Laterality Date BIOPSY 04/03/2022 during GI scope BRONCHOSCOPY 05/2021 EGD HAND SURGERY HX Left 2010 scope lt thumb KNEE SURGERY HX Left 2000 LAPAROSCOPY SURG CHOLECYSTECTOMY 02/05/2018 Cholecystectomy, lap NASAL SURG PROC UNLISTED biopsy PAST SURGICAL HISTORY OF 2019 Joint replaced big toe right foot Current Outpatient Medications on File Prior to Visit Medication Sig sertraline (ZOLOFT) 100 mg tablet 1.5 tablet in AM propranolol ER (INDERAL LA) 60 mg 24 hr capsule Take 1 capsule by mouth once daily. gabapentin (NEURONTIN) 600 mg tablet Take 1 tablet by mouth three times daily for 180 days. CREON 12,000-38,000 -60,000 unit delayed release capsule 2-3 capsules tid with meals and snacks multivitamin tablet Take 1 tablet by mouth once daily. busPIRone (BUSPAR) 10 mg tablet Take 10 mg by mouth three times daily. Once daily Dexlansoprazole 60 mg CpDM Take 60 mg by mouth once daily. Current Facility-Administered Medications on File Prior to Visit Medication perflutren lipid microspheres 1.3 mL in NaCl (PF) 0.9% 10 mL injection (DEFINITY) sodium chloride 0.9 % (flush) 10 mL (BD POSIFLUSH) Social History Tobacco Use Smoking status: Former Packs/day: 2.00 Years: 10.00 Pack years: 20.00 Types: Cigarettes Quit date: 11/25/2011 Years since quittin.3 Smokeless tobacco: Never Tobacco comments: used vape until 01/2018 Vaping Use Vaping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 Coto MD 20 minutes and at least 50% of this time was used for counseling. This note was created using dictation software. Please, excuse typographical errors. [facility] 01-22-2023 History of Presen t illness Narrative I spoke with the patient over Zoom. The patient consented to virtual encounter. The patient feels that he has at least 30% improvement in tremor with propranolol ER 60 mg once a day. The patient reports at least 50% improvement in anxiety level with central 150 mg once a day. We agreed to continue on current medications without change for now. We agreed to set up assessment with [facility] through telemedicine. The patient's anxiety is significant and it may be greatly contributing to his overall neurological symptoms that may have significant functional overlay. Therefore, psychological assessment and intervention is of great significance. Follow-up with me in 3 months. Marci Coot MD 20 minutes and at least 50% of this time was used for counseling. This note was created using dictation software. Please, excuse typographical errors. documented in this encounter [facility] 10-19-2022 Note HNO ID: [id number] Author: Marci Coto MD Service: ? Author Type: Physician Type: Progress Notes Filed: 10/19/2022 10:20 AM Note Text: [facility] - FOLLOW UP EVALUATION No referring provider defined for this encounter. Nicole Hanks MD [address] [facility] [id number] I had the pleasure of seeing Mr. Humphries for follow up today. He is a 42 year old right-handed male with a history of Tremor since 2020. He is seen with his . Subjective Previous Plan-09/04/2022 Visit: Topamax 25 mg at bedtime for 1 week then increase to 50 mg at bedtime if no benefit noted. Counseled on side effects of Topamax See Dr. Coto in person in 6 months Updated Movement Disorders Medication Schedule: Medications Level of service : 52608 (10-19 min). Time spent 10 min on the day of service, which included preparing to see the patient, [id number] patient care, completing clinical documentation, obtaining and/or reviewing separately obtained history, performing a medically appropriate examination, counseling and educating the patient/family/caregiver, and ordering medications, tests, or procedures. Thank you for allowing me to be part of the clinical care of this patient! I look forward to continued participation in the patient?s care with you. Please do not hesitate to call with any questions. Sincerely, Ashly Tanner APRN.[employer]PENTER [employer]SEMBLER Interval History: The patient feels that sertraline improved mood at least 80%; tremor improved at least 40%. He could not tolerate topiramate. This is the first time I see the patient for prpx-cf-dcbh evaluation; prior visit was the virtual visit. Questionnaires: Mood/Behavior Depression: PHQ-9 Score: 7 usually representing mild (5-9) depression. Anxiety: NÉSTOR-7 Total Score: 4 usually representing no significant (0-4) anxiety. Finally, the following table shows the patient's overall global physical and mental health using the PROMIS scale: PROMIS-10 Flowsheet Row Office Visit from 10/19/2022 in [facility] from 09/04/2022 in Neurology Global Physical Health T Score 39.8 37.4 Global Mental Health T Score 43.5 53.3 0-10 Standard Pain Scale 4 3 *PROMIS-10 scoring scale: mean = 50, over 50 is above average, under 50 is below average Movement Disorders Medications Schedule - as of the start of the visit: Medications AM N PM Gabapentin 300 mg 2 2 2 topamax 25mg 1-2 Sertraline 50 mg 2 buspar 10 mg 1 ALLERGIES Allergen Reactions Bees Anaphylaxis Penicillins Rash Current Outpatient Medications Medication Sig gabapentin (NEURONTIN) 600 mg tablet Take 1 tablet by mouth three times daily for 180 days. CREON 12,000-38,000 -60,000 unit delayed release capsule 2-3 capsules tid with meals and snacks ARNUITY ELLIPTA 200 mcg/actuation inhaler Inhale 1 Puff as instructed once daily. multivitamin tablet Take 1 tablet by mouth once daily. busPIRone (BUSPAR) 10 mg tablet Take 10 mg by mouth three times daily. Once daily Dexlansoprazole 60 mg CpDM Take 60 mg by mouth once daily. sertraline (ZOLOFT) 100 mg tablet 1.5 tablet in AM propranolol ER (INDERAL LA) 60 mg 24 hr capsule Take 1 capsule by mouth once daily. Current Facility-Administered Medications Medication Dose Route Frequency perflutren lipid microspheres 1.3 mL in NaCl (PF) 0.9% 10 mL injection (DEFINITY) INTRAVENOUS DIRECTED PRN sodium chloride 0.9 % (flush) 10 mL (BD POSIFLUSH) 10 mL INTRAVENOUS DIRECTED PRN Objective Vital Signs: BP 129/84 (BP Site: Left Arm, BP Position: Sitting, BP Cuff Size: Large Adult) Pulse 75 SpO2 94% Orthostatic Vitals: None for this encounter No LMP for male patient. There is no height or weight on file to calculate BMI. General Physical Examination: General Exam General Neurological Examination: Neurological Exam Movement Disorders Cognitive and Motor Biomeasures: Processing Speed Test Total Number Correct: ; Z Score: Visual Memory Test Raw Score: ; Z Score: Manual Dexterity Test (max = 180 secs) Left Hand Time: ; Right Hand Time: Walking Speed Test (25 foot walk): *Z score interpretation: higher than -1.5 is within normal; -1.5 to -2.0 represents mild impairment; lower than -2.0 represents significant impairment Movement Disorders Scales Performed: Mzrg-Unthdz-Wrucf Tremor Scale Face Tremor At Rest: 0 - None. Tongue Tremor At Rest: 0 - None. Posture Holdin - None. Voice Tremor Action and Intention: 0 - None. Head Tremor At Rest: 0 - None. Posture Holdin - None. Action and Intention: RUE Tremor At Rest: 0 - None. Posture Holdin - Slight. May be intermittent. Action and Intention: 1 - Slight. May be intermittent. LUE Tremor At Rest: 0 - None. Posture Holdin - Slight. May be intermittent. Action and Intention: 1 - Slight. May be intermittent. Trunk Tremor At Rest: 0 - None. Posture Holdin - None. (more content not included)... [facility] 10-19-2022 Instructions Marci Coto MD - 10/19/2022 9:58 AM EST Please, increase sertraline to 150 mg a day in AM Please, start propranolol ER 60 mg once a day in 4 weeks if increase in sertraline alone is not sufficient to make you comfortable Please, see [facility] Please, follow-up in 3 months documented in this encounter [facility] 10-19-2022 History of Presen t illness Narrative [facility] - FOLLOW UP EVALUATION No referring provider defined for this encounter. Nicole Hanks MD [address] [facility] [address] I had the pleasure of seeing Mr. Humphries for follow up today. He is a 42 year old right-handed male with a history of Tremor since 2020. He is seen with his . Subjective Previous Plan-09/04/2022 Visit: Topamax 25 mg at bedtime for 1 week then increase to 50 mg at bedtime if no benefit noted. Counseled on side effects of Topamax See Dr. Coto in person in 6 months Updated Movement Disorders Medication Schedule: Medications Level of service : 11385 (10-19 min). Time spent 10 min on the day of service, which included preparing to see the patient, [id number] patient care, completing clinical documentation, obtaining and/or reviewing separately obtained history, performing a medically appropriate examination, counseling and educating the patient/family/caregiver, and ordering medications, tests, or procedures. Thank you for allowing me to be part of the clinical care of this patient! I look forward to continued participation in the patient s care with you. Please do not hesitate to call with any questions. Sincerely, Ashly Tanner, 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 Interval History: The patient feels that sertraline improved mood at least 80%; tremor improved at least 40%. He could not tolerate topiramate. This is the first time I see the patient for ygal-zs-ruej evaluation; prior visit was the virtual visit. Questionnaires: Mood/Behavior Depression: PHQ-9 Score: 7 usually representing mild (5-9) depression. Anxiety: NÉSTOR-7 Total Score: 4 usually representing no significant (0-4) anxiety. Finally, the following table shows the patient's overall global physical and mental health using the PROMIS scale: PROMIS-10 Flowsheet Row Office Visit from 10/19/2022 in [facility] from 09/04/2022 in Neurology Global Physical Health T Score 39.8 37.4 Global Mental Health T Score 43.5 53.3 0-10 Standard Pain Scale 4 3 *PROMIS-10 scoring scale: mean = 50, over 50 is above average, under 50 is below average Movement Disorders Medications Schedule - as of the start of the visit: Medications AM N PM Gabapentin 300 mg 2 2 2 topamax 25mg 1-2 Sertraline 50 mg 2 buspar 10 mg 1 ALLERGIES Allergen Reactions Bees Anaphylaxis Penicillins Rash Current Outpatient Medications Medication Sig gabapentin (NEURONTIN) 600 mg tablet Take 1 tablet by mouth three times daily for 180 days. CREON 12,000-38,000 -60,000 unit delayed release capsule 2-3 capsules tid with meals and snacks ARNUITY ELLIPTA 200 mcg/actuation inhaler Inhale 1 Puff as instructed once daily. multivitamin tablet Take 1 tablet by mouth once daily. busPIRone (BUSPAR) 10 mg tablet Take 10 mg by mouth three times daily. Once daily Dexlansoprazole 60 mg CpDM Take 60 mg by mouth once daily. sertraline (ZOLOFT) 100 mg tablet 1.5 tablet in AM propranolol ER (INDERAL LA) 60 mg 24 hr capsule Take 1 capsule by mouth once daily. Current Facility-Administered Medications Medication Dose Route Frequency perflutren lipid microspheres 1.3 mL in NaCl (PF) 0.9% 10 mL injection (DEFINITY) INTRAVENOUS DIRECTED PRN sodium chloride 0.9 % (flush) 10 mL (BD POSIFLUSH) 10 mL INTRAVENOUS DIRECTED PRN Objective Vital Signs: BP 129/84 (BP Site: Left Arm, BP Position: Sitting, BP Cuff Size: Large Adult) Pulse 75 SpO2 94% Orthostatic Vitals: None for this encounter No LMP for male patient. There is no height or weight on file to calculate BMI. General Physical Examination: General Exam General Neurological Examination: Neurological Exam Movement Disorders Cognitive and Motor Biomeasures: Processing Speed Test Total Number Correct: ; Z Score: Visual Memory Test Raw Score: ; Z Score: Manual Dexterity Test (max = 180 secs) Left Hand Time: ; Right Hand Time: Walking Speed Test (25 foot walk): *Z score interpretation: higher than -1.5 is within normal; -1.5 to -2.0 represents mild impairment; lower than -2.0 represents significant impairment Movement Disorders Scales Performed: Hbwy-Nhhadp-Nuvfm Tremor Scale Face Tremor At Rest: 0 - None. Tongue Tremor At Rest: 0 - None. Posture Holdin - None. Voice Tremor Action and Intention: 0 - None. Head Tremor At Rest: 0 - None. Posture Holdin - None. Action and Intention: RUE Tremor At Rest: 0 - None. Posture Holdin - Slight. May be intermittent. Action and Intention: 1 - Slight. May be intermittent. LUE Tremor At Rest: 0 - None. Posture Holdin - Slight. May be intermittent. Action and Intention: 1 - Slight. May be intermittent. Trunk Tremor At Rest: 0 - None. Posture Holdin - None. RLE Tremor At Rest: 0 - None. Posture Holdin - None. Action and Intention: 0 - None. LLE Tremor At Rest: 0 - None. Posture Holdin - None Action and Intention: 0 - None. Handwriting 0 - Normal. Drawing Drawing A - Right 0 - Normal. Drawing A - Left 1 - Slightly tremulous. May cross lines occasionally. Drawing B - Right 0 - Normal. Drawing B - Left 1 - Slightly tremulous. May cross lines occasionally. Drawing C- Right 0 - Normal. Drawing C - Left 1 - Slightly tremulous. May cross lines occasionally. Pouring Right: 0 - Normal. Left: 1 - More careful than a person without tremor, but no water is spilled. Speaking 0 - Normal. Feeding (non liquids) 0 - Normal. Liquids to Mouth 1 - Mildly abnormal. Can still use a spoon, but not if it is completely full. Hygiene 0 - Normal. Dressing 0 - Normal. Writing 1 - Mildly abnormal. Legible. Continues to write letters. Working 1 - Able to work, but needs to be more careful than the average person. TOTAL SCORE 11 Assessment and Plan: Assessment Mr. Humphries is a right-handed 42 year old year old male with With history of tremor. The patient's tremor is minimal and is enhanced by anxiety. The patient's tremor is presenting in the context of stress, depression and anxiety. The tremor has significant functional overlay. We agreed to implement the following plan: 1. We agreed to increase sertraline to 150 mg once a day. 2. The patient may start propranolol ER 60 mg once a day in 4 weeks after increasing sertraline 250 mg a day. The patient may forego starting propranolol if tremor improvement with increase in sertraline alone is sufficient. We discussed pros and cons of propranolol. 3. We agreed to go forward with R psychology assessment. 4. Follow-up with me in 3 months. The following are the current problems noted and addressed during this visit: Tremor (primary encounter diagnosis) Anxiety disorder, unspecified type Depression, unspecified depression type Plan 10/19/2022 Visit: Increase sertraline to 150 mg a day 1 month after increasing sertraline 250 mg a day start propranolol ER 60 mg once a day if tremor is still bothersome Psychology assessment Follow-up in 3 months Interested in clinical research? Not currently Updated Movement Disorders Medication Schedule: Medications AM N PM Gabapentin 300 mg 2 2 2 sertraline 100mg 1.5 buspar 10 mg 1 propranolol ER 60 mg 1 Return at or around: 01/19/23 Level of service : 94265 (40-54 min). Time spent 45 min on the day of service, which included preparing to see the patient, [id number] patient care, completing clinical documentation, obtaining and/or reviewing separately obtained history, performing a medically appropriate examination, counseling and educating the patient/family/caregiver, ordering medications, tests, or procedures, and care coordination (not separately reported). Thank you for allowing me to be part of the clinical care of this patient! I look forward to continued participation in the patient s care with you. Please do not hesitate to call with any questions. Sincerely, Marci Coto MD documented in this encounter [facility] 10-16-2022 Note HNO ID: [id number] Author: Shaila Alvarado MD Service: ? Author Type: Physician Type: Progress Notes Filed: 10/16/2022 5:35 PM Note Text: NEUROSURGERY FOLLOW UP OFFICE NOTE Shaila Alvarado MD Date of visit: October 16, 2022 Patient Name: Mr.Paul Matt Humphries Date of : 1980 Current Age: [age] year old Sex: male MRN/E# [id number] Last Office Visit: Visit date not found CLINICAL SUMMARY: * T7 syrinx - noted October 2020 SUBJECTIVE: Sebastian Humphries is a 42 year old right-handed male presenting with spouse. PMH including PNA, DVT, PE tremora, BEATRICE. He was initially seen on 01/24/2021. He was referred by Dr. Castro for a 5 year history of leg pain and numbness. His symptoms had improved with use of gabapentin. He also had transient tremors with upper and lower extremities. His MRI thoracic spine demonstrated a small T7 syrinx with no mass effect on spinal cord. Surgical intervention was not needed, recommended to continue with observation. He was requested to follow up in one year with repeat imaging. Today he follows up with MRI imaging. He continues with intermittent numbness to arms and legs, no specific dermatome. Gabapentin has helped symptoms. He denies difficulty walking, recent falls, incontinence. He has been seeing Dr. Castro for bilateral hand tremors. He is here for image review, evaluation and plan of care. 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 PAST MEDICAL HISTORY Diagnosis Date Chest pain DVT (deep venous thrombosis) ([facility]) Fatigue GERD (gastroesophageal reflux disease) Hiatal hernia Pneumonia Pulmonary embolism (HCC) Sleep apnea Tremor PAST SURGICAL HISTORY Procedure Laterality Date BIOPSY 04/03/2022 during GI scope BRONCHOSCOPY 05/2021 EGD HAND SURGERY HX Left 2010 scope lt thumb KNEE SURGERY HX Left 2000 LAPAROSCOPY SURG CHOLECYSTECTOMY 02/05/2018 Cholecystectomy, lap NASAL SURG PROC UNLISTED biopsy PAST SURGICAL HISTORY OF 2019 Joint replaced big toe right foot FAMILY HISTORY Problem Relation Age of Onset other (Back issues) Mother other (unknown) Father Multiple Sclerosis Sister Multiple Sclerosis Brother Dementia Maternal Grandmother Cancer Maternal Grandfather pancreatic ALLERGIES Allergen Reactions Bees Anaphylaxis Penicillins Rash Current Outpatient Medications Medication Sig Dispense Refill gabapentin (NEURONTIN) 600 mg tablet Take 1 tablet by mouth three times daily for 180 days. 270 tablet 1 CREON 12,000-38,000 -60,000 unit delayed release capsule 2-3 capsules tid with meals and snacks sertraline (ZOLOFT) 100 mg tablet Take 1 tablet by mouth once daily. 90 tablet 3 ARNUITY ELLIPTA 200 mcg/actuation inhaler Inhale 1 Puff as instructed once daily. multivitamin tablet Take 1 tablet by mouth once daily. busPIRone (BUSPAR) 10 mg tablet Take 10 mg by mouth three times daily. Once daily Dexlansoprazole 60 mg CpDM Take 60 mg by mouth once daily. Current Facility-Administered Medications Medication Dose Route Frequency Provider Last Rate Last Admin perflutren lipid microspheres 1.3 mL in NaCl (PF) 0.9% 10 mL injection (DEFINITY) INTRAVENOUS DIRECTED PRN Clement Marks MD sodium chloride 0.9 % (flush) 10 mL (BD POSIFLUSH) 10 mL INTRAVENOUS DIRECTED PRN Clement Marks MD OBJECTIVE: BP 125/82 Pulse 93 Resp 16 Ht 5' 10 (1.78m) Wt 194 lb 3.6 oz (88.1kg) SpO2 97% BMI 27.87 kg/(m2). PHYSICAL EXAM GENERAL APPEARANCE: Well nourished, well developed, and no apparent distress. NEURO PSYCH: Patient oriented to person, place, and time. Mood pleasant. Benign affect. MUSCLE BULK: Normal and symmetrical in the upper AND lower extremities. MUSCLE TONE: Normal. MOTOR: Full strength in upper and lower extremities SENSORY: Normal sensory exam GAIT: Normal. Able to walk on toes and heels. Able to do tandem. Romberg negative. REFLEXES: brisk to bilateral U/L extremities. LONG TRACT SIGNS: No clonus . No Hoffmans. STRAIGHT LEG TEST: Ipsilateral: Negative. Contralateral: Negative. Data Review IMAGING STUDIES: MRI thoracic spine obtained on 10/16/2022 demonstrates: Final read pending Images independently reviewed The following portions of the patient's history were reviewed, confirmed, updated as necessary: allergies, current medications, past family history, past medical history, past social history, past surgical history, problem list, HPI and ROS obtained by others. The clinical and radiographic findings as well as the risks, benefits, and alternatives of treatment have been reviewed in detail with the patient. ASSESSMENT/PLAN 1. Syringomyelia and syringobulbia (HCC) Reviewed MRI thoracic spine - stable appearance o (more content not included)... [facility] 10-16-2022 Note HNO ID: [id number] Author: DEBBIE Balderrama) Service: Radiology Author Type: Technologist Type: Progress Notes Filed: 10/16/2022 3:19 PM Note Text: Radiology Service Progress Note DATE OF SERVICE: October 16, 2022 TIME: 3:19 PM PATIENT IDENTITY VERIFICATION COMPLETED USING TWO (2) STANDARD IDENTIFIERS: Name and Date of confirmed by patient verbally. FALL SCREENING: Has the patient had 2 falls in the last year or 1 fall with injury or currently using an Ambulatory Assistive Device (Walker, Cane, Wheelchair, Crutches, etc.)? No PATIENT GENDER DATA: Male PATIENT RELEVANT IMPLANT DATA REVIEWED: Yes ALLERGIES: Reviewed and unchanged CONTRAST ALLERGY: NO. EXAM: MRI - CONTRAST TYPE: GROUP II PERIPHERAL IV DATA: Ambulatory: A peripheral IV was started in the Right antecubital site with a Butterfly: 21g. RADIOLOGY DEPARTMENT: MR; Exam(s) Completed: Spine: Thoracic spine SIGNATURE: DEBBIE Balderrama) PATIENT NAME: Sebastian Humphries DATE: October 16, 2022 TIME: 3:19 PM [facility] 10-16-2022 History of Presen t illness Narrative NEUROSURGERY FOLLOW UP OFFICE NOTE Shaila Alvarado MD Date of visit: October 16, 2022 Patient Name: Mr.Paul Matt Humphries Date of : 1980 Current Age: [age] year old Sex: male MRN/E# [id number] Last Office Visit: Visit date not found CLINICAL SUMMARY: * T7 syrinx - noted October 2020 SUBJECTIVE: Sebastian Humphries is a 42 year old right-handed male presenting with spouse. PMH including PNA, DVT, PE tremora, BEATRICE. He was initially seen on 01/24/2021. He was referred by Dr. Castro for a 5 year history of leg pain and numbness. His symptoms had improved with use of gabapentin. He also had transient tremors with upper and lower extremities. His MRI thoracic spine demonstrated a small T7 syrinx with no mass effect on spinal cord. Surgical intervention was not needed, recommended to continue with observation. He was requested to follow up in one year with repeat imaging. Today he follows up with MRI imaging. He continues with intermittent numbness to arms and legs, no specific dermatome. Gabapentin has helped symptoms. He denies difficulty walking, recent falls, incontinence. He has been seeing Dr. Castro for bilateral hand tremors. He is here for image review, evaluation and plan of care. 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 PAST MEDICAL HISTORY Diagnosis Date Chest pain DVT (deep venous thrombosis) (HCC) Fatigue GERD (gastroesophageal reflux disease) Hiatal hernia Pneumonia Pulmonary embolism (HCC) Sleep apnea Tremor PAST SURGICAL HISTORY Procedure Laterality Date BIOPSY 04/03/2022 during GI scope BRONCHOSCOPY 05/2021 EGD HAND SURGERY HX Left 2010 scope lt thumb KNEE SURGERY HX Left 2000 LAPAROSCOPY SURG CHOLECYSTECTOMY 02/05/2018 Cholecystectomy, lap NASAL SURG PROC UNLISTED biopsy PAST SURGICAL HISTORY OF 2019 Joint replaced big toe right foot FAMILY HISTORY Problem Relation Age of Onset other (Back issues) Mother other (unknown) Father Multiple Sclerosis Sister Multiple Sclerosis Brother Dementia Maternal Grandmother Cancer Maternal Grandfather pancreatic ALLERGIES Allergen Reactions Bees Anaphylaxis Penicillins Rash Current Outpatient Medications Medication Sig Dispense Refill gabapentin (NEURONTIN) 600 mg tablet Take 1 tablet by mouth three times daily for 180 days. 270 tablet 1 CREON 12,000-38,000 -60,000 unit delayed release capsule 2-3 capsules tid with meals and snacks sertraline (ZOLOFT) 100 mg tablet Take 1 tablet by mouth once daily. 90 tablet 3 ARNUITY ELLIPTA 200 mcg/actuation inhaler Inhale 1 Puff as instructed once daily. multivitamin tablet Take 1 tablet by mouth once daily. busPIRone (BUSPAR) 10 mg tablet Take 10 mg by mouth three times daily. Once daily Dexlansoprazole 60 mg CpDM Take 60 mg by mouth once daily. Current Facility-Administered Medications Medication Dose Route Frequency Provider Last Rate Last Admin perflutren lipid microspheres 1.3 mL in NaCl (PF) 0.9% 10 mL injection (DEFINITY) INTRAVENOUS DIRECTED PRN Clement Marks MD sodium chloride 0.9 % (flush) 10 mL (BD POSIFLUSH) 10 mL INTRAVENOUS DIRECTED PRN Clement Marks MD OBJECTIVE: BP 125/82 Pulse 93 Resp 16 Ht 5' 10 (1.78m) Wt 194 lb 3.6 oz (88.1kg) SpO2 97% BMI 27.87 kg/(m^2). PHYSICAL EXAM GENERAL APPEARANCE: Well nourished, well developed, and no apparent distress. NEURO PSYCH: Patient oriented to person, place, and time. Mood pleasant. Benign affect. MUSCLE BULK: Normal and symmetrical in the upper & lower extremities. MUSCLE TONE: Normal. MOTOR: Full strength in upper and lower extremities SENSORY: Normal sensory exam GAIT: Normal. Able to walk on toes and heels. Able to do tandem. Romberg negative. REFLEXES: brisk to bilateral U/L extremities. LONG TRACT SIGNS: No clonus . No Hoffmans. STRAIGHT LEG TEST: Ipsilateral: Negative. Contralateral: Negative. Data Review IMAGING STUDIES: MRI thoracic spine obtained on 10/16/2022 demonstrates: Final read pending Images independently reviewed The following portions of the patient's history were reviewed, confirmed, updated as necessary: allergies, current medications, past family history, past medical history, past social history, past surgical history, problem list, HPI and ROS obtained by others. The clinical and radiographic findings as well as the risks, benefits, and alternatives of treatment have been reviewed in detail with the patient. ASSESSMENT/PLAN 1. Syringomyelia and syringobulbia (HCC) Reviewed MRI thoracic spine - stable appearance of T7 syrinx, no evidence of contrast enhancement in spinal cord. - some improvement in symptoms with medical management - LE paresthesias are not explained by presence of the syrinx - recommend continued follow up with repeat MRI thoracic spine in 2 years, given stability over the last 2 yrs - Encouraged patient to contact our office should there be any further questions, concerns, or change in symptoms. - MRI THORACIC SPINE WO/W IVCON; Future Patient expressed understanding and is in agreement with plan. Some elements may have been copied from a previous note and have been updated/reviewed where appropriate. All portions reflect current medical decision making from today. Shaila Alvarado MD documented in this encounter [facility] 10-16-2022 History of Presen t illness Narrative Radiology Service Progress Note DATE OF SERVICE: October 16, 2022 TIME: 3:19 PM PATIENT IDENTITY VERIFICATION COMPLETED USING TWO (2) STANDARD IDENTIFIERS: Name and Date of confirmed by patient verbally. FALL SCREENING: Has the patient had 2 falls in the last year or 1 fall with injury or currently using an Ambulatory Assistive Device (Walker, Cane, Wheelchair, Crutches, etc.)? No PATIENT GENDER DATA: Male PATIENT RELEVANT IMPLANT DATA REVIEWED: Yes ALLERGIES: Reviewed and unchanged CONTRAST ALLERGY: NO. EXAM: MRI - CONTRAST TYPE: GROUP II PERIPHERAL IV DATA: Ambulatory: A peripheral IV was started in the Right antecubital site with a Butterfly: 21g. RADIOLOGY DEPARTMENT: MR; Exam(s) Completed: Spine: Thoracic spine SIGNATURE: RT Tacos(Michele) PATIENT NAME: Sebastian Humphries DATE: October 16, 2022 TIME: 3:19 PM documented in this encounter [facility] 09-06-2022 Note HNO ID: [id number] Author: Michaelle Marie APRN.NATALIIA Service: ? Author Type: Nurse Practitioner Type: Progress Notes Filed: 09/06/2022 2:43 PM Note Text: [facility] [place] Follow-up Visit Follow-up note September 06, 2022 HPI: Mr. Humphries presents today for a follow-up visit. Per his previous visit on 02/15/22: R20.2 Paresthesia of skin (primary encounter diagnosis) R25.1 Tremor R53.1 Weakness G95.0 Syrinx ([facility]) Comment: Patient previously seen for above mentioned symptoms. Etiology uncertain with all past testing unremarkable with exception of syrinx. Pt currently following with neurosurgery, though not felt that this is contributing to symptoms. Note that he will be scheduling follow up with neurosurgery this upcoming month. More recently has completed skin biopsy to evaluate for small fiber neuropathy. Currently awaiting results. Pending results may consider consult to neuromuscular for second opinion. Currently taking gabapentin 600mg TID for treatment of numbness and tremor with improvement in symptoms. Will continue as previously prescribed. Will contact pt after skin biopsy results obtained at which time will discuss further POC. Numbness and tingling has been good. Feels like this is almost gone. Has been following with the movement disorder clinic. Recently started an additional medication; Topamax to help with tremors. Started only two days ago. Feels this has helped to improve tremor. States they have slowed down. Tremor in both hands. L>R. Assessment and Plan: Mr. Humphries is a 42 year old year old male with essential tremor versus enhanced physiologic tremor. He feels like his tremor has slightly responded to gabapentin, however he feels there is a high-frequency tremor present most of the time. He would like to try something to see if it will help, Dr. Coto started him on Zoloft which has improved his mood significantly. He has a very high frequency, mild tremor at rest on his left side. High-frequency, bilateral tremor both hands posturally and action tremor. We will try a very low-dose of Topamax at bedtime and see if this helps in addition to his gabapentin. I instructed him to follow-up with Dr. Coto in person in 6 months. Plan 09/04/2022 Visit: Topamax 25 mg at bedtime for 1 week then increase to 50 mg at bedtime if no benefit noted. Counseled on side effects of Topamax See Dr. Coto in person in 6 months Denies new weakness, vision changes, speech changes. Was started on Zoloft which he feels has helped his mood. Had another lung scan and PE's were clear. No blood thinners. Was following with hematology who agreed he did not need blood thinner. 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 Was having some difficulty typing. Will be contacting neurosurgery for follow up regarding syrinx. PAST MEDICAL HISTORY Diagnosis Date Chest pain DVT (deep venous thrombosis) (HCC) Fatigue GERD (gastroesophageal reflux disease) Hiatal hernia Pneumonia Pulmonary embolism (HCC) Sleep apnea Tremor PAST SURGICAL HISTORY Procedure Laterality Date BIOPSY 04/03/2022 during GI scope BRONCHOSCOPY 05/2021 EGD HAND SURGERY HX Left 2010 scope lt thumb KNEE SURGERY HX Left 2000 LAPAROSCOPY SURG CHOLECYSTECTOMY 02/05/2018 Cholecystectomy, lap NASAL SURG PROC UNLISTED biopsy PAST SURGICAL HISTORY OF 2018 Joint replaced big toe right foot Current Outpatient Medications on File Prior to Visit Medication Sig CREON 12,000-38,000 -60,000 unit delayed release capsule TAKE 1 CAPSULE BY MOUTH THREE TIMES DAILY WITH MEALS AND SNACKS topiramate (TOPAMAX) 25 mg tablet Take 1 tablet by mouth daily at bedtime for 7 days, THEN 2 tablets daily at bedtime. Continue thereafter.. sertraline (ZOLOFT) 100 mg tablet Take 1 tablet by mouth once daily. gabapentin (NEURONTIN) 300 mg capsule Take 2 capsules by mouth three times daily for 60 days. ARNUITY ELLIPTA 200 mcg/actuation inhaler Inhale 1 Puff as instructed once daily. multivitamin tablet Take 1 tablet by mouth once daily. busPIRone (BUSPAR) 10 mg tablet Take 10 mg by mouth three times daily. Once daily Dexlansoprazole 60 mg CpDM Take 60 mg by mouth once daily. Current Facility-Administered Medications on File Prior to Visit Medication perflutren lipid microspheres 1.3 mL in NaCl (PF) 0.9% 10 mL injection (DEFINITY) sodium chloride 0.9 % (flush) 10 mL (BD POSIFLUSH) Social History Tobacco Use Smoking status: Former Packs/day: 2.00 Years: 10.00 Pack years: 20.00 Types: Cigarettes Quit date: 11/25/2011 Years since quittin.7 Smokeless tobacco: Never Tobacco comments: used vape until 01/2018 Vaping Use Vaping Use: Former Substances: Nicotine, Flavoring Devices: Refillable tank Substance Use Topics Alcohol use: Yes Comment: 2 beers a month Drug use: Yes Types: Marijuana Comment: no use since 18 y/o ALLERGIES Al (more content not included)... [facility] 09[facility] History of Presen t illness Narrative Images from the original note were not included. [facility] [place] Follow-up Visit Follow-up note September 06, 2022 HPI: Mr. Humphries presents today for a follow-up visit. Per his previous visit on 02/15/22: R20.2 Paresthesia of skin (primary encounter diagnosis) R25.1 Tremor R53.1 Weakness G95.0 Syrinx ([facility]) Comment: Patient previously seen for above mentioned symptoms. Etiology uncertain with all past testing unremarkable with exception of syrinx. Pt currently following with neurosurgery, though not felt that this is contributing to symptoms. Note that he will be scheduling follow up with neurosurgery this upcoming month. More recently has completed skin biopsy to evaluate for small fiber neuropathy. Currently awaiting results. Pending results may consider consult to neuromuscular for second opinion. Currently taking gabapentin 600mg TID for treatment of numbness and tremor with improvement in symptoms. Will continue as previously prescribed. Will contact pt after skin biopsy results obtained at which time will discuss further POC. Numbness and tingling has been good. Feels like this is almost gone. Has been following with the movement disorder clinic. Recently started an additional medication; Topamax to help with tremors. Started only two days ago. Feels this has helped to improve tremor. States they have slowed down. Tremor in both hands. L>R. Assessment and Plan: Mr. Humphries is a 42 year old year old male with essential tremor versus enhanced physiologic tremor. He feels like his tremor has slightly responded to gabapentin, however he feels there is a high-frequency tremor present most of the time. He would like to try something to see if it will help, Dr. Coto started him on Zoloft which has improved his mood significantly. He has a very high frequency, mild tremor at rest on his left side. High-frequency, bilateral tremor both hands posturally and action tremor. We will try a very low-dose of Topamax at bedtime and see if this helps in addition to his gabapentin. I instructed him to follow-up with Dr. Coto in person in 6 months. Plan 09/04/2022 Visit: Topamax 25 mg at bedtime for 1 week then increase to 50 mg at bedtime if no benefit noted. Counseled on side effects of Topamax See Dr. Coto in person in 6 months Denies new weakness, vision changes, speech changes. Was started on Zoloft which he feels has helped his mood. Had another lung scan and PE's were clear. No blood thinners. Was following with hematology who agreed he did not need blood thinner. 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 Was having some difficulty typing. Will be contacting neurosurgery for follow up regarding syrinx. PAST MEDICAL HISTORY Diagnosis Date Chest pain DVT (deep venous thrombosis) (HCC) Fatigue GERD (gastroesophageal reflux disease) Hiatal hernia Pneumonia Pulmonary embolism (HCC) Sleep apnea Tremor PAST SURGICAL HISTORY Procedure Laterality Date BIOPSY 04/03/2022 during GI scope BRONCHOSCOPY 05/2021 EGD HAND SURGERY HX Left 2010 scope lt thumb KNEE SURGERY HX Left 2000 LAPAROSCOPY SURG CHOLECYSTECTOMY 02/05/2018 Cholecystectomy, lap NASAL SURG PROC UNLISTED biopsy PAST SURGICAL HISTORY OF 2018 Joint replaced big toe right foot Current Outpatient Medications on File Prior to Visit Medication Sig CREON 12,000-38,000 -60,000 unit delayed release capsule TAKE 1 CAPSULE BY MOUTH THREE TIMES DAILY WITH MEALS AND SNACKS topiramate (TOPAMAX) 25 mg tablet Take 1 tablet by mouth daily at bedtime for 7 days, THEN 2 tablets daily at bedtime. Continue thereafter.. sertraline (ZOLOFT) 100 mg tablet Take 1 tablet by mouth once daily. gabapentin (NEURONTIN) 300 mg capsule Take 2 capsules by mouth three times daily for 60 days. ARNUITY ELLIPTA 200 mcg/actuation inhaler Inhale 1 Puff as instructed once daily. multivitamin tablet Take 1 tablet by mouth once daily. busPIRone (BUSPAR) 10 mg tablet Take 10 mg by mouth three times daily. Once daily Dexlansoprazole 60 mg CpDM Take 60 mg by mouth once daily. Current Facility-Administered Medications on File Prior to Visit Medication perflutren lipid microspheres 1.3 mL in NaCl (PF) 0.9% 10 mL injection (DEFINITY) sodium chloride 0.9 % (flush) 10 mL (BD POSIFLUSH) Social History Tobacco Use Smoking status: Former Packs/day: 2.00 Years: 10.00 Pack years: 20.00 Types: Cigarettes Quit date: 11/25/2011 Years since quittin.7 Smokeless tobacco: Never Tobacco comments: used vape until 01/2018 Vaping Use Vaping Use: Former Substances: Nicotine, Flavoring Devices: Refillable tank Substance Use Topics Alcohol use: Yes Comment: 2 beers a month Drug use: Yes Types: Marijuana Comment: no use since 18 y/o ALLERGIES Allergen Reactions Bees Anaphylaxis Penicillins Rash Review of Systems: Cardiopulmonary: denies chest pain, palpitations Respiratory: denies shortness of breath GI/: denies recent nausea, vomiting, diarrhea, constipation, incontinence Musculoskeletal: denies weakness, joint ache/pain Back/spine: denies low back or cervical pains Neuro: denies + tremors, loss of feeling, dizziness, seizure, blackout, + paresthesia, facial paresthesia, facial weakness, difficulty in speech, slurring of words, dysarthria, dysphagia, memory loss, headache, vision changes, loss of hearing Physical Exam: 09/06/22 1343 BP: 125/73 Pulse: 86 Resp: 16 Temp: 36.6 C (97.9 F) TempSrc: Temporal SpO2: 97% Weight: 84.6 kg (186 lb 6.4 oz) Patient is alert and in no distress. Dress is appropriate. Mood is appropriate Breathing appears regular and unstressed Neurologic examination: Cognitively intact. No deficits. No formal MMSE performed. CN: Pupils equal and reactive to light, extraocular movements intact with no nystagmus, face is symmetric with no facial droop, hearing intact bilaterally, symmetric evaluation of the soft palate, tongue is midline with no deviation, shoulder shrug is symmetric. Motor exam shows 5/5 strength symmetric through the upper and lower extremities in all groups tested. Sensory intact to light touch in all extremities. Vibratory sensation is intact and symmetric all extremities. Pinprick sensation intact throughout all extremities. Deep tendon reflexes are symmetric at the biceps, brachioradialis, triceps, and brisk at the patella, and achilles bilaterally. Coordination: No dysmetria on finger to nose. Low amplitude high frequency tremor to BUE with arms outstretched; L>R No drift seen. Gait normal in stance and pattern. Labs/studies: Component Latest Ref Rng & Units 03/30/2022 CRP <0.9 mg/dL <0.3 HENRIETTA <=52 U/L 22 MRI Spine Report MRI THORACIC SPINE WO IVCON Exam End: 12/06/2020 3:19 PM (Final result) Narrative: * * *Final Report* * * DATE OF EXAM: Dec 06 2020 3:19PM ERASTO 0325 - MRI THORACIC SPINE WO IVCON / PROCEDURE REASON: Syringomyelia and syringobulbia (HCC) * * * * Physician Interpretation * * * * EXAMINATION: MRI THORACIC SPINE WO IVCON CLINICAL HISTORY: Possible syrinx TECHNIQUE: Sagittal STIR and axial T1 and T2 images through the mid thoracic cord were obtained. MQ: [id number] COMPARISON: MR thoracic spine 11/10/20 RESULT: Counting reference: Lumbosacral junction. For the purposes of this report, anatomic variants: Lumbosacral junction was not included on examination, and the numbering convention used was the craniocervical junction. Localizer images: No significant findings. Alignment: Alignment is anatomic. Cord: There is a tiny with syrinx from T7 to T8 best visualized on axial images measuring 1-2 mm in greatest transverse dimension. Otherwise, no definite abnormal cord signal given severe artifact on the STIR images. Bone marrow signal/fracture: Intraosseous hemangiomas in the T9 and T2 vertebral bodies. No evidence of pathologic marrow infiltration. No evidence of prior fracture. Thoracic paraspinal soft tissues: The paraspinal soft tissues are within normal limits within limitations of the exam. Canal and foramina: The thoracic canal and foramina are patent within limitations of the exam. Impression: IMPRESSION: Tiny thoracic syrinx at T7-T8. Anatomic Thoracic/Lumbar Variant: Indeterminate Oil Pumper: DI Transcribe Date/Time: Dec 06 2020 3:32P Dictated by : CY PAINTING MD This examination was interpreted and the report reviewed and electronically signed by: CY PAINTING MD on Dec 06 2020 3:40PM EST Assessment/Plan: R20.2 Paresthesia of skin (primary encounter diagnosis) R25.1 Tremor R53.1 Weakness Comment: Previously seen for above mentioned symptoms with uncertain etiology. Past testing including EMG and skin biopsy unremarkable. He was started on gabapentin and is currently taking 600mg TID with improvement in paresthesias. He has also since had follow up with the movement disorder clinic and has since started both Zoloft 100mg and Topamax 50mg. He reports some improvement in tremor with use of Topamax, though noting medication was started only two days prior and he has not yet increased dose to full 50mg at this time. Reviewed SE and he will continue to monitor. At this time will continue gabapentin as previously prescribed. RF provided. Updated labs ordered, however, as his PCP is outside of [facility] he will first review outside records and will sent to office if already completed within the past year. Recommend continuing to follow with the movement disorder clinic as scheduled. G95.0 Syrinx (HCC) Comment: Previous MRI thoracic spine noting syrinx at T7-8. Previously seen by neurosurgery with recommendation for repeat imaging and follow up in one year. Syrinx not felt to be contributing to symptoms. He will contact office and schedule upcoming appointment. Office Visit on 09/06/22 COMP METABOLIC PANEL CBC + DIFF Michaelle Marie APRN.CNP I spent a total of 28 minutes on the date of the service which included preparing to see the patient, [id number] patient care, completing clinical documentation, obtaining and/or reviewing separately obtained history, performing a medically appropriate examination, counseling and educating the patient/family/caregiver, and ordering medications, tests, or procedures. PDMP website checked and validated. All prescriptions have been APPROPRIATELY filled. No suspicious activity was identified. September 06, 2022 Michaelle Marie APRN.NATALIIA documented in this encounter [facility] 09-04-2022 Note HNO ID: [id number] Author: Ashly Tanner APRN.CNP Service: ? Author Type: Nurse Practitioner Type: Progress Notes Filed: 09/04/2022 1:29 PM Note Text: [facility] - FOLLOW UP EVALUATION Marci Coto [address] [facility] [address] Nicole Hanks MD [address] [facility] [id number] I had the pleasure of seeing Mr. Humphries for follow up today. He is a 42 year old male with a history of Tremor since . He is seen alone. Subjective Interval History: He is noticing a high frequency tremor when he is at rest, both hands, when he clenches his hands it improves. Gabapentin has helped with his not dropping things. Anxiety and agitation is better controlled on Sertraline 100 mg. Questionnaires: Mood/Behavior Depression: PHQ-9 Score: 5 usually representing mild (5-9) depression. Anxiety: NÉSTOR-7 Total Score: 2 usually representing no significant (0-4) anxiety. Finally, the following table shows the patient's overall global physical and mental health using the PROMIS scale: PROMIS-10 Flowsheet Row Distance Health from 09/04/2022 in Neurology Distance [facility] from 02/21/2022 in Neurology Global Physical Health T Score 37.4 44.9 Global Mental Health T Score 53.3 33.8 0-10 Standard Pain Scale 3 4 *PROMIS-10 scoring scale: mean = 50, over 50 is above average, under 50 is below average Movement Disorders Medications Schedule - as of the start of the visit: Medications ALLERGIES Allergen Reactions Bees Anaphylaxis Penicillins Rash Current Outpatient Medications Medication Sig sertraline (ZOLOFT) 100 mg tablet Take 1 tablet by mouth once daily. gabapentin (NEURONTIN) 300 mg capsule Take 2 capsules by mouth three times daily for 60 days. ARNUITY ELLIPTA 200 mcg/actuation inhaler Inhale 1 Puff as instructed once daily. multivitamin tablet Take 1 tablet by mouth once daily. busPIRone (BUSPAR) 10 mg tablet Take 10 mg by mouth three times daily. Dexlansoprazole 60 mg CpDM Take 60 mg by mouth once daily. Current Facility-Administered Medications Medication Dose Route Frequency perflutren lipid microspheres 1.3 mL in NaCl (PF) 0.9% 10 mL injection (DEFINITY) INTRAVENOUS DIRECTED PRN sodium chloride 0.9 % (flush) 10 mL (BD POSIFLUSH) 10 mL INTRAVENOUS DIRECTED PRN Objective Vital Signs: There were no vitals taken for this visit. Orthostatic Vitals: None for this encounter No LMP for male patient. There is no height or weight on file to calculate BMI. General Physical Examination: General Exam General Neurological Examination: Neurological Exam Movement Disorders Scales Performed: [id number] Tremor Scale Face Tremor At Rest: 0 - None. Tongue Tremor At Rest: 0 - None. Posture Holdin - None. Voice Tremor Action and Intention: 0 - None. Head Tremor At Rest: 0 - None. Posture Holdin - None. Action and Intention: RUE Tremor At Rest: 0 - None. Posture Holdin - Slight. May be intermittent. Action and Intention: 1 - Slight. May be intermittent. LUE Tremor At Rest: 1 - Slight. May be intermittent. Posture Holdin - Slight. May be intermittent. Action and Intention: 1 - Slight. May be intermittent. Trunk Tremor At Rest: 0 - None. Posture Holdin - None. RLE Tremor At Rest: 0 - None. Posture Holdin - None. Action and Intention: 0 - None. LLE Tremor At Rest: 0 - None. Posture Holdin - None Action and Intention: 0 - None. Handwriting 0 - Normal. Assessment and Plan: Assessment Mr. Humphries is a 42 year old year old male with essential tremor versus enhanced physiologic tremor. He feels like his tremor has slightly responded to gabapentin, however he feels there is a high-frequency tremor present most of the time. He would like to try something to see if it will help, Dr. Coto started him on Zoloft which has improved his mood significantly. He has a very high frequency, mild tremor at rest on his left side. High-frequency, bilateral tremor both hands posturally and action tremor. We will try a very low-dose of Topamax at bedtime and see if this helps in addition to his gabapentin. I instructed him to follow-up with Dr. Coto in person in 6 months. The following are the current problems noted and addressed during this visit: No diagnosis found. Plan 09/04/2022 Visit: Topamax 25 mg at bedtime for 1 week then increase to 50 mg at bedtime if no benefit noted. Counseled on side effects of Topamax See Dr. Coto in person in 6 months Updated Movement Disorders Medication Schedule: Medications Level of service : 16079 (10-19 min). Time spent 10 min on the day of service, which included preparing to see the patient, [id number] patient care, completing clinical documentation, obtaining and/or reviewing separately obtained history, performing a medically appropriate examination, counseling and educating the patient/family/caregiver, an (more content not included)... [facility] 09-04-2022 History of Presen t illness Narrative [facility] - FOLLOW UP EVALUATION Marci Coto [address] [facility] [id number] Nicole Hanks MD [address] [facility] [id number] I had the pleasure of seeing Mr. Humphries for follow up today. He is a 42 year old male with a history of Tremor since . He is seen alone. Subjective Interval History: He is noticing a high frequency tremor when he is at rest, both hands, when he clenches his hands it improves. Gabapentin has helped with his not dropping things. Anxiety and agitation is better controlled on Sertraline 100 mg. Questionnaires: Mood/Behavior Depression: PHQ-9 Score: 5 usually representing mild (5-9) depression. Anxiety: NÉSTOR-7 Total Score: 2 usually representing no significant (0-4) anxiety. Finally, the following table shows the patient's overall global physical and mental health using the PROMIS scale: PROMIS-10 Flowsheet Row Distance Health from 09/04/2022 in Neurology Distance Health from 02/21/2022 in Neurology Global Physical Health T Score 37.4 44.9 Global Mental Health T Score 53.3 33.8 0-10 Standard Pain Scale 3 4 *PROMIS-10 scoring scale: mean = 50, over 50 is above average, under 50 is below average Movement Disorders Medications Schedule - as of the start of the visit: Medications ALLERGIES Allergen Reactions Bees Anaphylaxis Penicillins Rash Current Outpatient Medications Medication Sig sertraline (ZOLOFT) 100 mg tablet Take 1 tablet by mouth once daily. gabapentin (NEURONTIN) 300 mg capsule Take 2 capsules by mouth three times daily for 60 days. ARNUITY ELLIPTA 200 mcg/actuation inhaler Inhale 1 Puff as instructed once daily. multivitamin tablet Take 1 tablet by mouth once daily. busPIRone (BUSPAR) 10 mg tablet Take 10 mg by mouth three times daily. Dexlansoprazole 60 mg CpDM Take 60 mg by mouth once daily. Current Facility-Administered Medications Medication Dose Route Frequency perflutren lipid microspheres 1.3 mL in NaCl (PF) 0.9% 10 mL injection (DEFINITY) INTRAVENOUS DIRECTED PRN sodium chloride 0.9 % (flush) 10 mL (BD POSIFLUSH) 10 mL INTRAVENOUS DIRECTED PRN Objective Vital Signs: There were no vitals taken for this visit. Orthostatic Vitals: None for this encounter No LMP for male patient. There is no height or weight on file to calculate BMI. General Physical Examination: General Exam General Neurological Examination: Neurological Exam Movement Disorders Scales Performed: Irhk-Yimvhq-Nqlaw Tremor Scale Face Tremor At Rest: 0 - None. Tongue Tremor At Rest: 0 - None. Posture Holdin - None. Voice Tremor Action and Intention: 0 - None. Head Tremor At Rest: 0 - None. Posture Holdin - None. Action and Intention: RUE Tremor At Rest: 0 - None. Posture Holdin - Slight. May be intermittent. Action and Intention: 1 - Slight. May be intermittent. LUE Tremor At Rest: 1 - Slight. May be intermittent. Posture Holdin - Slight. May be intermittent. Action and Intention: 1 - Slight. May be intermittent. Trunk Tremor At Rest: 0 - None. Posture Holdin - None. RLE Tremor At Rest: 0 - None. Posture Holdin - None. Action and Intention: 0 - None. LLE Tremor At Rest: 0 - None. Posture Holdin - None Action and Intention: 0 - None. Handwriting 0 - Normal. Assessment and Plan: Assessment Mr. Humphries is a 42 year old year old male with essential tremor versus enhanced physiologic tremor. He feels like his tremor has slightly responded to gabapentin, however he feels there is a high-frequency tremor present most of the time. He would like to try something to see if it will help, Dr. Coto started him on Zoloft which has improved his mood significantly. He has a very high frequency, mild tremor at rest on his left side. High-frequency, bilateral tremor both hands posturally and action tremor. We will try a very low-dose of Topamax at bedtime and see if this helps in addition to his gabapentin. I instructed him to follow-up with Dr. Coto in person in 6 months. The following are the current problems noted and addressed during this visit: No diagnosis found. Plan 09/04/2022 Visit: Topamax 25 mg at bedtime for 1 week then increase to 50 mg at bedtime if no benefit noted. Counseled on side effects of Topamax See Dr. Coto in person in 6 months Updated Movement Disorders Medication Schedule: Medications Level of service : 03155 (10-19 min). Time spent 10 min on the day of service, which included preparing to see the patient, [id number] patient care, completing clinical documentation, obtaining and/or reviewing separately obtained history, performing a medically appropriate examination, counseling and educating the patient/family/caregiver, and ordering medications, tests, or procedures. Thank you for allowing me to be part of the clinical care of this patient! I look forward to continued participation in the patient s care with you. Please do not hesitate to call with any questions. Sincerely, Ashly Tanner APRN.CNP documented in this encounter [facility] 08-30-2022 Miscellaneous Notes sent to patient with provider update. Phone number for scheduling provided. [place] PDMP website checked and validated. All prescriptions have been APPROPRIATELY filled. No suspicious activity was identified. August 30, 2022 Michaelle Marie APRN.CNP Pt to schedule follow up appt at which time update labs to be obtained as well. Patient requesting refills as follows: Last office visit: 02/21/2022 Next office visit: Was due 05/24/22 Last refill: 06/13/2022 - 09/11/2022 Requested Prescriptions Pending Prescriptions Disp Refills gabapentin (NEURONTIN) 300 mg capsule 540 capsule 0 Sig: Take 2 capsules by mouth three times daily for 90 days. Assessment/Plan: R25.1 Tremor (primary encounter diagnosis) R20.2 Paresthesia of skin R53.1 Weakness G95.0 Syrinx ([facility]) Comment: Patient previously seen for above mentioned symptoms. Etiology uncertain with all past testing unremarkable with exception of syrinx. Pt currently following with neurosurgery, though not felt that this is contributing to symptoms. Skin biopsy results available and reviewed. No evidence of a small fiber sensory neuropathy noted. As results are unremarkable for etiology of symptoms, will place consult to neuromuscular for second opinion. In interim will continue gabapentin 600mg TID for treatment of numbness and tremor. [facility] on 02/21/22 CONSULT TO NEUROLOGY Michaelle Dahlhausen, FLAGSETTER.CARPENTER ASSEMBLER Please route TE to PSS to assist in scheduling follow up appointment. Please review and advise. Amara Rao LPN documented in this encounter [facility] 08-28-2022 Miscellaneous Notes Last FUV February 2022 with II. documented in this encounter [facility] 06-12-2022 History of Presen t illness Narrative VIRTUAL VIDEO VISIT ESTABLISHED This appointment was conducted as a virtual video visit / telephone visit encounter. It required patient-provider interaction for the medical decision making as documented below. Mr. Humphries has consented to this videoencounter. Follow-up re: recurrent provoked VTE events Last seen on 04/27/22 CHIEF COMPLAINT Scheduled follow-up visit HISTORY OF PRESENT ILLNESS Since last visit: => New symptoms: none. => Surgeries or trauma: none. He remains on apixaban 5mg pO BID. No bleeding saide-effects. He denies symptoms of Chronic Thromboembolic Pulmonary Hypertension, including chest pain, exertional or resting dyspnea, Orthopnea, PND, cough, hemoptysis, near-syncope, syncope, palpitations, dizziness, LH. CURRENT MEDS Current Outpatient Medications on File Prior to Visit Medication Sig sertraline (ZOLOFT) 25 mg tablet take 1 tablet in AM for 2 weeks (Patient not taking: Reported on 04/27/2022 ) sertraline (ZOLOFT) 50 mg tablet take 1 tablet in AM sertraline (ZOLOFT) 100 mg tablet Take 1 tablet by mouth once daily. gabapentin (NEURONTIN) 300 mg capsule Take 2 capsules by mouth three times daily for 90 days. ARNUITY ELLIPTA 200 mcg/actuation inhaler Inhale 1 Puff as instructed once daily. multivitamin tablet Take 1 tablet by mouth once daily. busPIRone (BUSPAR) 10 mg tablet Take 10 mg by mouth three times daily. Lactobac no.41/Bifidobact no.7 (PROBIOTIC-10 ORAL) Take 1 tablet by mouth twice daily. Dexlansoprazole 60 mg CpDM Take 60 mg by mouth once daily. Current Facility-Administered Medications on File Prior to Visit Medication perflutren lipid microspheres 1.3 mL in NaCl (PF) 0.9% 10 mL injection (DEFINITY) sodium chloride 0.9 % (flush) 10 mL (BD POSIFLUSH) ALLERGIES Allergies As of Date: 06/12/2022 Allergen Noted Reaction BEES 03/16/2019 Anaphylaxis PENICILLINS 01/30/2018 Rash Fully Assessed 04/27/2022 PAST MEDICAL HISTORY Diagnosis Date Chest pain DVT (deep venous thrombosis) (HCC) Fatigue GERD (gastroesophageal reflux disease) Hiatal hernia Pneumonia Pulmonary embolism (HCC) Sleep apnea Tremor PAST SURGICAL HISTORY Procedure Laterality Date BIOPSY 04/03/2022 during GI scope BRONCHOSCOPY 05/2021 EGD HAND SURGERY HX Left 2010 scope lt thumb KNEE SURGERY HX Left 2000 LAPAROSCOPY SURG CHOLECYSTECTOMY 02/05/2018 Cholecystectomy, lap NASAL SURG PROC UNLISTED biopsy PAST SURGICAL HISTORY OF 2018 Joint replaced big toe right foot FAMILY HISTORY Problem Relation Age of Onset other (Back issues) Mother other (unknown) Father Multiple Sclerosis Sister Multiple Sclerosis Brother Dementia Maternal Grandmother Cancer Maternal Grandfather pancreatic Social History Tobacco Use Smoking status: Former Smoker Packs/day: 2.00 Years: 10.00 Pack years: 20.00 Types: Cigarettes Quit date: 11/25/2011 Years since quittin.5 Smokeless tobacco: Never Used Tobacco comment: used vape until 01/2018 Vaping Use Vaping Use: Former Substances: Nicotine, Flavoring Devices: Refillable tank Substance Use Topics Alcohol use: Yes Comment: 2 beers a month Drug use: Yes Types: Marijuana Comment: no use since 18 y/o => No physical examination completed during this virtual (online) appointment RESULTS OF RECENT LABORATORY TESTS None since last visit RESULTS OF RECENT IMAGING TESTS 05/30/22- Venous duplex US- LE RIGHT SIDE - DEEP VEINS Negative for acute deep vein thrombosis. LEFT SIDE - DEEP VEINS Spontaneous and respirophasic flow noted in the common femoral vein. 05/30/22- Echo CONCLUSIONS: - Exam indication: H/o DVT, Pulmonary Embolism (Post Covid) - The left ventricle is normal in size. Left ventricular systolic function is normal. EF = 67 5% (2D biplane) Normal left ventricular diastolic function. - The right ventricle is normal in size. Right ventricular systolic function is normal. - There are no apparent significant valvular abnormalities. - The patient has not had a prior CC echocardiographic exam for comparison. ASSESSMENT (1) History of recurrent provoked VTE events _ 1ts event - RLE (calf ?) DVT in March 2019 -- related to foot trauma., immobility (boot). Treated with apixaban x3 months. He then had R foot surgery and apparently was diagnosed with another right calf DVT. I am skeptical that this was a second event, although it is possible given the ongoing risk factors. He may have had sjhort-term recurrence due to ongoing risk factors (idelallyshould have remained on anticoag Rx until just before surgery and for 6 weeks after) _ 2nd event. SEP 2021. PE. In the setting of COVID-19 pneumonia requiring ER visit and infusion of monoclonal antibodies. _ He has been on apixaban x8 months - had brief interruption ~1 week for thrombophilia testing last month _ No bleeding complications on DOAC _ He currently has no s/s CTEPH or PTS _ Thrombophilia w/u unremarkable (LAC assay indeterminate but mixing studies were negative; assays do not have to be repeated) _ D-dimer off apixaban was super normal (<240) _ He has no FamHx VTE _ Echocardiogram shows absence of RV systolic dysfunction _ Venous duplex US RLE negative for any residual thrombus PLAN 1. Discontinue apixaban Follow-up as needed I personally spent 15 minutes in total time involved in the management and care of this patient. CLEMENT MARKS M.D. documented in this encounter [facility] 04-27-2022 History of Presen t illness Narrative Images from the original note were not included. [facility] [place] [facility] Department of Cardiovascular Medicine SECTION OF VASCULAR MEDICINE OUTPATIENT VISIT DATE April 27, 2022 OUTPATIENT VISIT TYPE CONSULTATION Consult regarding: Hx PE/DVT Consult requested by: Sebastian Paris My final recommendations will be communicated back to the requesting physician by way of the shared medical record or by letter. Primary care physician: Nicole Hanks MD History of present illness: 42yom. History of VTE x2 (or 3): 1. FEB 2019 - LE-DVT. Had trauma to the right foot and great toe, and had to wear a boot for several months. Treated with apixaban x3 months.\ 2. AUG 2019- right foot surgery. He did not have Duplex US pre-op. No prophylactic anticoagulation was prescribed post-op. Also had to wear a boot. A duplex US in SEP 2019 apparently showed a blood clot . Records not avaiulanble, but he was told it was in the same location of the previous one. he only describes cramp but no edema or other symptoms. He still has some cramps in the operated leg. thus hard to know if symptoms were related to a calf DVT or not. Treated with apixaban x3 months, then aspirin after Dec 2019. Aspirin was discontinued in the Spring 2019 due to hemoptysis. he then went ~18 months without any symptoms of, or confirmed, VTE 2. Acute PE- SEP 2021. Large thrombus burden. Treated with anticoagulation alone. In the setting of COVID-19 pneumonia. Received monoclonal abs in the ER. Treated with apixaban. He has been on apixaban for the past 7-8 months. it was interrupted for thrombophilia w/u in March, resumed after test results became available. A recent thrombophilia panel was unremarkable. _ LAC assays indeterminate D-dimer off anticoagulation was super normal (240) He has had somne short-lived pain in the left upper chest (under clavicle) once every other week. He has also had some low right calf cramps which also last 2-5 min, intermittently (once or twice weekly). He has had some paresthesias in the hands and feet, but evaluation by Neuro has not shown neuropathy. Anxiety may be playing some role in these symptoms. He denies symptoms of Chronic Thromboembolic Pulmonary Hypertension, including chest pain, exertional or resting dyspnea, Orthopnea, PND, cough, hemoptysis, near-syncope, syncope, palpitations, dizziness, LH. He denies symptoms consistent with the Post-thrombotic Syndrome, especifically chronic, intermittent leg pain or swelling. He has not had an echocardiogram since diagnosis of acute PE in SEP 2021 He has no FamHx VTE. Allergies: is allergic to bees and penicillins. Medications: sertraline (ZOLOFT) 50 mg tablet take 1 tablet in AM apixaban (ELIQUIS) 5 mg tab(s) Take 1 tablet by mouth twice daily. sertraline (ZOLOFT) 25 mg tablet take 1 tablet in AM for 2 weeks sertraline (ZOLOFT) 100 mg tablet Take 1 tablet by mouth once daily. gabapentin (NEURONTIN) 300 mg capsule Take 2 capsules by mouth three times daily for 90 days. ARNUITY ELLIPTA 200 mcg/actuation inhaler Inhale 1 Puff as instructed once daily. multivitamin tablet Take 1 tablet by mouth once daily. busPIRone (BUSPAR) 10 mg tablet Take 10 mg by mouth three times daily. Lactobac no.41/Bifidobact no.7 (PROBIOTIC-10 ORAL) Take 1 tablet by mouth twice daily. Dexlansoprazole 60 mg CpDM Take 60 mg by mouth once daily. Past medical history: has a past medical history of Chest pain, DVT (deep venous thrombosis) (HCC), Fatigue, GERD (gastroesophageal reflux disease), Hiatal hernia, Pneumonia, Pulmonary embolism (HCC), and Tremor. Past surgical history: has a past surgical history that includes knee surgery hx (Left, 2000); hand surgery hx (Left, 2010); nasal surg proc unlisted; egd; laparoscopy surg cholecystectomy (02/05/2018); past surgical history of (2019); bronchoscopy (05/2021); and biopsy (04/03/2022). Family history: family history includes Back issues in his mother; Cancer in his maternal grandfather; Dementia in his maternal grandmother; Multiple Sclerosis in his brother and sister; unknown in his father. Social history: reports that he quit smoking about 10 years ago. His smoking use included cigarettes. He has a 20.00 pack-year smoking history. He has never used smokeless tobacco. He reports current alcohol use. He reports current drug use. Drug: Marijuana. REVIEW OF SYSTEMS: Review of systems: General Fever or chills - No Night sweats - No Change in weight - No Lumps in groin, underarms - No Neurological Headaches - YES Seizures - No Passing out - No Dizziness/light headedness - YES Numbness, tingling, pins or needles - YES Weakness in arms or legs - YES Head, eyes, ears, nose and throat Changes in hearing - No Changes in vision - YES Nose bleeds - No Difficulty or pain with swallowing - No Cardiovascular Chest pain or pressure - YES Palpitations - YES Irregular heartbeat - No Shortness of breath - YES Respiratory Cough - No Wheezing - No Shortness of breath at rest - YES Shortness of breath with exertion - YES Coughing up blood - No Sleep apnea - YES Gastrointestinal Abdominal pain - YES Nausea/vomiting - No Diarrhea/Constipation - No Stomach pain after eating - No Blood in stool - No Black stool - No Genitourinary Pain with urination - No Blood in urine - No Gynecology - N/A Abnormal vaginal bleeding - N/A History of loss - N/A Extremity Bulging veins - No Swelling in arms or legs - No Redness of extremities - No Pain with walking - No Color change of hands/feet/digits - YES Musculoskeletal Joint pain - YES Joint swelling - YES Back pain - YES Muscle pain or ache - YES Skin Rash - No Lesions - No Slow healing sores - No Tight or thickened skin - No Hematology Low blood counts - No Easy bruising - No Blood transfusions - No Psychology Depressed mood - No Anxiety or history of panic attacks - No History of recreational drug use - No Cancer screening (up to date?): Colonoscopy: N/A Pap smear: N/A Mammogram: N/A Prostate: No Smoking history: -Current or past smoker? YES former smoker -If current smoker, are you interested in help with quitting? N/A Physical exam: BP 120/80 (BP Site: Left Arm) Pulse 66 Ht 177.8 cm (5' 10 ) Wt 83.7 kg (184 lb 9.6 oz) SpO2 100% BMI 26.49 kg/m General: Alert and oriented, in no acute distress, pleasant mood. Skin: Healthy, intact, no ulcerations, no rashes. HEENT: sclera anicteric, neck supple, no JVD, no carotid bruit. Cardiovascular: Heart has a regular rate and rhythm without murmur. Respiratory: Lungs clear auscultation bilaterally. Gastrointestinal: Abdomen soft and nontender. Musculoskeletal: No cyanosis or clubbing. Peripheral vascular: Dorsalis pedis and posterior tibial pulses 2+/2 bilaterally. Feet and toes warm pink and well perfused. Lower extremities: no edema. Imaging See HPI Labs Component Latest Ref Rng & Units 03/30/2022 Pro C Fun 76 - 147 % 130 Protein S Clottable 59 - 152 % 69 Antithrombin Assay 84 - 138 % 118 APC Resistance >1.96 Ratio 2.39 Factor VIII:C Assay 50 - 173 % 93 Hex Phase Screen 34.0 - 51.8 seconds 57.7 (H) Hex Phase Confirm 34.2 - 47.9 seconds 50.5 (H) Hex Phase Delta <7.1 delta seconds 7.3 (H) Thrombin Time <18.6 seconds 17.6 APTT Screen 24.0 - 35.1 seconds 36.4 (H) Immediate PTT 1:1 Mix <33.2 seconds 31.0 Incubated PTT 1:1 Mix <35.0 seconds 32.1 Cardiolipin Ab, IgA <12.0 APL <9.0 Cardiolipin Ab, IgG <15.0 GPL 11.8 Cardiolipin Ab, IgM <12.5 MPL <9.0 Homocysteine, Serum <15.1 umol/L 7.8 Prothrombin Gene Mutation Prothrombin Gene Mutation negative Interpretation (HYPERCOAG) Performing Pathologist: Luanne Baez . . . _ LAC indeterminate Component Latest Ref Rng & Units 03/30/2022 d Dimer <500 ng/mL FEU 240 Component Latest Ref Rng & Units 12/09/2020 Protein, Total 6.3 - 8.0 g/dL 7.1 Albumin 3.37 - 4.23 gm/dL 4.16 Alpha 1 Globulin 0.18 - 0.31 gm/dL 0.16 (L) Alpha 2 Globulin 0.52 - 0.97 gm/dL 0.59 Beta Globulin 0.84 - 1.36 gm/dL 1.03 Gamma Globulin 0.70 - 1.44 gm/dL 1.15 Interpretation (Prot Electro) No definitive M protein identified M-Protein Location N/A M-Protein Concentration 0.00 gm/dL 0.00 SPE Staff Review Reviewed by Kimberly Serrano MD PhD ([id number]) Protein, Urine Random 0 - 20 mg/dL 7 Albumin, Urine (Prot Electro) % 35.1 Alpha 1 Globulin, Urine % 2.7 Alpha 2 Globulin, Urine % 22.5 Beta Globulin, Urine % 23.1 Gamma Globulin, Urine % 16.7 Interpretation (Urine Electro) No definitive M protein identified Staff Review (Urine Electro) Reviewed by Kimberly Serrano MD PhD ([id number]) Impression (1) Recurrent provoked VTE events _ 1ts event - RLE (calf ?) DVT in March 2019 -- related to foot trauma., immobility (boot). Treated with apixaban x3 months. He then had R foot surgery and apparently was diagnosed with another right calf DVT. I am skeptical that this was a second event, although it is possible given the ongoing risk factors. He may have had sjhort-term recurrence due to ongoing risk factors (idelallyshould have remained on anticoag Rx until just before surgery and for 6 weeks after) _ 2nd event. SEP 2021. PE. In the setting of COVID-19 pneumonia requiring ER visit and infusion of monoclonal antibodies. _ He has been on apixaban x7 months (had briuef interruption ~1 week) for thrombophilia testing last month _ No bleeding complications on DOAC _ He currently has no s/s CTEPH or PTS _ Thrombophilia w/u unremarkable (LAC assay indeterminate but mixing studies were negative; assays do not have to be repeated) _ D-dimer off apixaban was super normal (<240) _ He has no FamHx VTE => It is highly unlikely that he will need to remain on oral anticoag Rx long-term _ Based on his history his irsk of recurrent VTE off anticoagulation is <3% per year (<7% in 5 years) I will recommend echocardiogram (has not had this test since PE diagnosis) to confirm absence of RV strain and pulmonary hypertension, and a venous duplex US RLE to document patency of the distal RLE veins (and/or any residual thrombus) priot to discontinuing anticoagulation Recommendations: 1. Schedule echocardiogram and venous duplex US RLE 2. Continue apixaban for the time being Follow-up with me in 4 weeks Clement Marks MD documented in this encounter [facility] 04-05-2022 Miscellaneous Notes Thank you. Sebastian Paris DO Patient is rescheduled @ [facility] on 04/27. Megan Carrasquillo PSS Let's try [facility]. Sebastian Paris DO No, that was first opening at that location. Nothing available sooner? Sebastian Paris DO Dr. Paris-patient scheduled on 07/[address] [place] [address] Joshua Medrano. documented in this encounter [facility] 04-05-2022 Miscellaneous Notes Patient did return call and stated that he received voice mail and had no further questions. I called and left a voice message for him explaining the indeterminate result of the lupus anticoagulant testing. I believe this is probably a consequence of COVID and hopefully will eventually self resolved. However, for the time being I advised him to resume apixaban at least until he has a chance to see vascular medicine. I asked him to call back to confirm he got the voicemail. Sebastian Paris DO documented in this encounter [facility] 04-03-2022 History of Presen t illness Narrative HPI: Patient is a 41-year-old male with a past medical history significant for GERD. In 02/2019 turned suddenly on right foot and bent great toe. ED 03/2019 for pain. US revealed DVT. Was anticoagulated with apixaban. Was in a boot until surgery 08/2019 to replace first MTP joint. When finally out of boot, had follow up US 09/2019. No DVT. Stopped apixaban and was advised to take ASA. Around 09/2020 developed migratory numbness/pain and tremors. Was seen by neurologist. Undergoing work-up for possible small fiber neuropathy. Developed hemoptysis 01/2021. He underwent bronchoscopy. Report not available but his reports that he had findings of irritated airways. Patient was treated with Arnuity and hemoptysis resolved. Diagnosed with Covid 10/09/2021. ED 10/11/2021 with cough, dyspnea and chest pain. CT 10/11/2021 revealed intraluminal clot noted in the distal main pulmonary arteries bilaterally extending into the proximal upper lobe branches as well as the descending interlobar and segmental branches of both lower lobes. There was mild atelectasis within the right lower lobe. Very subtle patchy groundglass densities were observed in the lower lobes. Had monoclonal antibody infusion and sent home. Has continued on apixaban since then. Sex: Male. Smoker: Quit 2011. BMI: 29. Family h/o VTE: None known. Family h/o cancer: Maternal aunt--Pancreas cancer--about age early 60s. MGF--Pancreas cancer about age mid 60s. Hypercoagulation labs: None previous. Transient risk factors: See above. Presents for ongoing hematologic management. Interim history: He ran out of apixaban about a week before he had hypercoagulation labs checked. D-dimer was normal. He endorses today that when he goes on apixaban he has disequilibrium for a few days and then he acclimates to that problem. He has no right leg swelling work pain. He gets cramping in the big toe on the right side. He is not short of breath. Has not had recurrence of hemoptysis. Saw neurologist for tremors and feelings of paresthesia. Was started on gabapentin which has been helping. Was also advised to start Zoloft. He has not yet started that. He held apixaban beginning 2 days ago. He is going to undergo EGD with placement of an esophageal manometer. PMH, medications and allergies personally reviewed by me today. Any changes documented in appropriate section. ROS: Constitutional: Denies episodes of fever and night sweats. Not significantly fatigued. Normal appetite. Neuro: Denies LUNDBERG, vertigo, dizziness and imbalance. HEENT: No recent change in voice, vision or hearing. CVS: Denies exertional chest pain, PND, orthopnea and LE edema. GI: Denies dysgeusia. Denies symptoms of stomatitis. Denies dysphagia and odynophagia. Denies n/v, change in bowel habits and abdominal pain. : Denies dysuria or gross hematuria. No symptoms of bladder outlet obstruction. Endo: Denies hot flashes. Denies polyuria and polydipsia. Denies heat and cold intolerance. Musculoskeletal: Denies bone, back, joint and muscular pain. Derm: Denies rash. Denies jaundice and diffuse pruritis. Heme: Denies unusual bleeding and unexplained bruising. Psych: Normal mood. PHYSICAL EXAM: Vitals: Blood pressure 130/79, pulse 70, temperature 36.8 C (98.2 F), temperature source Temporal, weight 85.7 kg (189 lb). Well-appearing and in no acute distress. EYES: Sclerae are anicteric bilaterally. LYMPHATIC: There is no palpable cervical, supraclavicular, axillary or inguinal adenopathy. RESPIRATORY: Inspiratory breath sounds are of normal intensity in all desai. CARDIOVASCULAR: Rhythm is regular. No lower extremity varicose veins. ABDOMEN: The abdomen is nondistended. No organomegaly. No tenderness. Extremities: No swelling or edema. No leg/calf tenderness. SKIN: No jaundice or rash. No petechiae. 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 No focal motor weakness. 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 Developed significant pulmonary emboli clot burden in September 2021 when had COVID. -He completed 6 months of apixaban following the pulmonary embolism. Symptoms resolved. He was off apixaban for about a week and recently had a hypercoagulation panel drawn. D-dimer was normal. -Preliminary results of hypercoagulation panel reviewed. Plan: -Due to his complex history of venous thromboembolism, referral to vascular medicine. -Okay to hold apixaban for the time being until hypercoagulation lab work-up completed. He understands he needs to seek emergency care should he develop any leg pain, swelling or redness or any chest pain or shortness of breath in the interim. Portions of this documentation were copied and pasted from previous office visit notes in order to provide a cohesive continuity of the history. The note has been reviewed and edited and updated as necessary. Sebastian Paris DO documented in this encounter [facility] 03-13-2022 Miscellaneous Notes Scheduled and notified. Please schedule him for established complex visit sometime in March. Sebastian Paris DO Patient is on eliquis now d/t hx of hemoptysis (failed Xarelto). Insurance originally would not cover Eliquis until patient failed Xarelto. Patient has been on blood thinner since September. Patient states Dr. Remy recommended Eliquis for 6 months (ending in March). Patient now only has 1 week left and is asking if he needs a refill of Eliquis and is Dr. Paris prescribing? Patient will also need OV with Dr. Pairs in March per last OV note 12/19/2021. Rosangela Paige LPN documented in this encounter [facility] 03-12-2022 Miscellaneous Notes PDMP website checked and validated. All prescriptions have been APPROPRIATELY filled. No suspicious activity was identified. March 12, 2022 Michaelle Marie APRN.CARPENTER [employer]SEMBLER Patient MyChart requesting refills as follows: Last office visit: 02/21/2022 Next office visit: None scheduled Last refill: 12/12/2021 Patient stating in MyChart Message, probably stick with the 300mg TID Pending Prescriptions Disp Refills GABAPENTIN 300 MG CAPSULE 540 capsule 0 Sig: Take 2 capsules by mouth three times daily for 90 days. REBA: No Assessment/Plan: Copied from 02/21/22. R25.1 Tremor (primary encounter diagnosis) R20.2 Paresthesia of skin R53.1 Weakness G95.0 Syrinx (HCC) Comment: Patient previously seen for above mentioned symptoms. Etiology uncertain with all past testing unremarkable with exception of syrinx. Pt currently following with neurosurgery, though not felt that this is contributing to symptoms. Skin biopsy results available and reviewed. No evidence of a small fiber sensory neuropathy noted. As results are unremarkable for etiology of symptoms, will place consult to neuromuscular for second opinion. In interim will continue gabapentin 600mg TID for treatment of numbness and tremor. [facility] on 02/21/22 CONSULT TO NEUROLOGY Michaelle Marie APRN.[employer]PENTER ASSEMBLER Please review and advise. Amara Rao LPN documented in this encounter [facility] 02-21-2022 History of Presen t illness Narrative Images from the original note were not included. [facility] [place] Follow-up Virtual Visit Follow-up note This visit was conducted via virtual platform. February 21, 2022 HPI: Mr. Humphries presents today for a follow-up visit. Per his previous visit on 02/15/22: R20.2 Paresthesia of skin (primary encounter diagnosis) R25.1 Tremor R53.1 Weakness G95.0 Syrinx (HCC) Comment: Patient previously seen for above mentioned symptoms. Etiology uncertain with all past testing unremarkable with exception of syrinx. Pt currently following with neurosurgery, though not felt that this is contributing to symptoms. Note that he will be scheduling follow up with neurosurgery this upcoming month. More recently has completed skin biopsy to evaluate for small fiber neuropathy. Currently awaiting results. Pending results may consider consult to neuromuscular for second opinion. Currently taking gabapentin 600mg TID for treatment of numbness and tremor with improvement in symptoms. Will continue as previously prescribed. Will contact pt after skin biopsy results obtained at which time will discuss further POC. Denies new symptoms since previous appointment. Had sleep study 2-3 weeks ago. States he woke up 180 times over two hours. Reports he started CPAP about one week ago which has been helping with drowsiness and weakness. Will be trying to get new mask as his has the hose in the front and he frequently moves around. Will be starting to go on treadmill again and start exercising again. States he has not had many episodes of numbness and tingling since increasing the gabapentin. Though still notes some tremors. Continues to take gabapentin 600mg TID. PAST MEDICAL HISTORY Diagnosis Date Chest pain DVT (deep venous thrombosis) (HCC) Fatigue GERD (gastroesophageal reflux disease) Hiatal hernia Pneumonia Pulmonary embolism (HCC) Tremor PAST SURGICAL HISTORY Procedure Laterality Date BRONCHOSCOPY 05/2021 EGD HAND SURGERY HX Left 2010 scope lt thumb KNEE SURGERY HX Left 2000 LAPAROSCOPY SURG CHOLECYSTECTOMY 02/05/2018 Cholecystectomy, lap NASAL SURG PROC UNLISTED biopsy PAST SURGICAL HISTORY OF 2019 Joint replaced big toe right foot Current Outpatient Medications on File Prior to Visit Medication Sig apixaban (ELIQUIS) 5 mg tab(s) Take 5 mg by mouth twice daily. rivaroxaban (XARELTO) 20 mg tablet Take 1 tablet by mouth daily with dinner. ARNUITY ELLIPTA 200 mcg/actuation inhaler Inhale 1 Puff as instructed once daily. gabapentin (NEURONTIN) 300 mg capsule Take 2 capsules by mouth three times daily for 90 days. multivitamin tablet Take 1 tablet by mouth once daily. busPIRone (BUSPAR) 10 mg tablet Take 10 mg by mouth three times daily. Lactobac no.41/Bifidobact no.7 (PROBIOTIC-10 ORAL) Take 1 tablet by mouth twice daily. Dexlansoprazole 60 mg CpDM Take 60 mg by mouth once daily. No current facility-administered medications on file prior to visit. Social History Tobacco Use Smoking status: Former Smoker Packs/day: 2.00 Years: 10.00 Pack years: 20.00 Types: Cigarettes Quit date: 11/25/2011 Years since quittin.2 Smokeless tobacco: Never Used Tobacco comment: used vape until 01/2018 Vaping Use Vaping Use: Former Substances: Nicotine, Flavoring Devices: Refillable tank Substance Use Topics Alcohol use: Yes Comment: 2 beers a month Drug use: Yes Types: Marijuana Comment: no use since 18 y/o ALLERGIES Allergen Reactions Bees Anaphylaxis Penicillins Rash Review of Systems: Cardiopulmonary: denies + chest pain, palpitations Respiratory: denies shortness of breath GI/: denies recent nausea, vomiting, diarrhea, constipation, incontinence Musculoskeletal: denies weakness, + joint ache/pain Back/spine: denies low back or cervical pains Neuro: denies + tremors, loss of feeling, dizziness, seizure, blackout, + paresthesia, facial paresthesia, facial weakness, difficulty in speech, slurring of words, dysarthria, dysphagia, memory loss, headache, + vision changes (blurred), loss of hearing Physical Exam: Patient is alert and in no distress. Dress is appropriate. Mood is appropriate Breathing appears regular and unstressed Neurologic examination: Limited exam due to virtual platform. Cognitively intact. No deficits. No formal MMSE performed. CN: extraocular movements intact with no nystagmus, face is symmetric with no facial droop, hearing intact bilaterally, shoulder shrug is symmetric. Motor exam shows 5/5 strength symmetric through the upper and lower extremities in all groups observed. Coordination: No dysmetria on finger to nose. No tremors noted. No drift seen. Able to rise on heels and toes. Negative Romberg. Labs/studies: Skin biopsy for neuropathy 03/10/22: The epidermal nerve fiber densities are normal at all sites. There is no evidence of a small fiber sensory neuropathy. Previously Reviewed: Bronchoscopy 06/21/21: OPERATION: Bronchoscopy (MAC) PRE-OP DIAGNOSIS: Hemoptysis, cough, solitary pulmonary nodule TISSUE SUBMITTED: Gaston Gaston, biopsy: Fragments of bronchial mucosa with mild chronic inflammation. See comment. JOSE:prieto 06/23/2021 Changes consistent with vasculitis are not seen. Significant number of neutrophils are not seen. A small fragment of cartilage is also noted. Please also correlate with corresponding cytology [id number]. Slides are reviewed. Received in fixative is one container labeled with the patient's name and designated gaston. The specimen consists of multiple fragments of hemorrhagic soft tissue that in aggregate measure 0.5 x 0.5 x 0.1 cm. The specimen is totally submitted in one cassette. / SJ:rg 06/22/21 TC:3 CPT: 01683 ANCA on 2021 Atypical pANCA 1:80 Abnormal Neg:<1:20 [facility] Comment on above: Result Comment: The atypical pANCA pattern has been observed in a significant percentage of patients with ulcerative colitis, primary sclerosing cholangitis and autoimmune hepatitis. Performed By: #### M300.3000, M300.2000, M100.2000, M100.2400 #### [facility] [address] [place], [address] Perinuclear Ab. <1:20 Normal Neg:<1:20 [facility] Comment on above: Result Comment: The presence of positive fluorescence exhibiting P-ANCA or C-ANCA patterns alone is not specific for the diagnosis of Chelsy's Granulomatosis (WG) or microscopic polyangiitis. Decisions about treatment should not be based solely on ANCA IFA results. The International ANCA Group Consensus recommends follow up testing of positive sera with both MI- 3 and MPO-ANCA enzyme immunoassays. As many as 5% serum samples are positive only by EIA. Ref. AM J Clin Pathol 1999;111:507-513. C-REACTIVE PROT < 2.90 Normal 0.0-3.0 [facility] SED RATE 8 mm/hr Normal 0-20 [facility] RHEUMATOID FAC < 10.0 Normal <15 [facility] CTA Chest 05/15/21: IMPRESSION: No acute abnormalities in the chest. Specifically, no evidence of acute pulmonary emboli to the segmental level. 5 mm left upper lobe pulmonary nodule, stable since 2018. Assessment/Plan: R25.1 Tremor (primary encounter diagnosis) R20.2 Paresthesia of skin R53.1 Weakness G95.0 Syrinx (HCC) Comment: Patient previously seen for above mentioned symptoms. Etiology uncertain with all past testing unremarkable with exception of syrinx. Pt currently following with neurosurgery, though not felt that this is contributing to symptoms. Skin biopsy results available and reviewed. No evidence of a small fiber sensory neuropathy noted. As results are unremarkable for etiology of symptoms, will place consult to neuromuscular for second opinion. In interim will continue gabapentin 600mg TID for treatment of numbness and tremor. [facility] on 02/21/22 CONSULT TO NEUROLOGY Michaelle Marie APRN.NATALIIA I spent a total of 15 minutes on the date of the service which included preparing to see the patient, [id number] patient care, completing clinical documentation, obtaining and/or reviewing separately obtained history, performing a medically appropriate examination, counseling and educating the patient/family/caregiver and communicating results to the patient/family/caregiver. documented in this encounter [facility] 02-15-2022 History of Presen t illness Narrative Images from the original note were not included. [facility] [place] Follow-up Visit Follow-up note February 15, 2022 HPI: Mr. Humphries presents today for a follow-up visit. Per his previous visit with Dr. Castro on 12/04/21: ASSESSMENT/PLAN: 1. Paresthesia of skin - ICD9: 782.0, ICD10: R20.2 (primary diagnosis) 2. Tremor - ICD9: 781.0, ICD10: R25.1 3. Weakness - ICD9: 780.79, ICD10: R53.1 4. Syrinx (HCC) - ICD9: 336.0, ICD10: G95.0 Patient with persistence of symptoms since first office visit. 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 Undergoing workup for small fiber neuropathy, with patient wanting skin bx pending). Note that if bx unremarkable, and given extensive workup, may seek second opinion from movement or neuromuscular depending on complaints at that time. For tremor and numbness, which in the past was improving with gabapentin, will increase gabapentin dose to 600mg TID. SE and ADRs reviewed with pt. He will contact us later this week to determine if further changes to meds are needed, or sooner prn. Pt will follow up in office after skin bx. Since his previous visit he has had COVID twice. Had bilateral PE with COVID. He had low O2 but it has recently improved. Has been trying to exercise and walk more since that time. Recently switched jobs at work. 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 Has not always been cautious about direct contact with chemicals and has frequently gotten chemicals on his hands/skin. States he has felt like he has had more energy. Breathing has improved. Has not noticed tremors as much or as strong. Still some very minor tremors. Sneezed this morning and had R arm pain. Occasional tingling in toes bilaterally. Still taking gabapentin 600mg TID. Awaiting skin biopsy results. Will be following with new GI doctor next Saturday. PAST MEDICAL HISTORY Diagnosis Date Chest pain DVT (deep venous thrombosis) (HCC) Fatigue GERD (gastroesophageal reflux disease) Hiatal hernia Pneumonia Pulmonary embolism (HCC) Tremor PAST SURGICAL HISTORY Procedure Laterality Date BRONCHOSCOPY 05/2021 EGD HAND SURGERY HX Left 2010 scope lt thumb KNEE SURGERY HX Left 2000 LAPAROSCOPY SURG CHOLECYSTECTOMY 02/05/2018 Cholecystectomy, lap NASAL SURG PROC UNLISTED biopsy PAST SURGICAL HISTORY OF 2018 Joint replaced big toe right foot Current Outpatient Medications on File Prior to Visit Medication Sig rivaroxaban (XARELTO) 20 mg tablet Take 1 tablet by mouth daily with dinner. ARNUITY ELLIPTA 200 mcg/actuation inhaler Inhale 1 Puff as instructed once daily. gabapentin (NEURONTIN) 300 mg capsule Take 2 capsules by mouth three times daily for 90 days. multivitamin tablet Take 1 tablet by mouth once daily. busPIRone (BUSPAR) 10 mg tablet Take 10 mg by mouth three times daily. Lactobac no.41/Bifidobact no.7 (PROBIOTIC-10 ORAL) Take 1 tablet by mouth twice daily. Dexlansoprazole 60 mg CpDM Take 60 mg by mouth once daily. No current facility-administered medications on file prior to visit. Social History Tobacco Use Smoking status: Former Smoker Packs/day: 2.00 Years: 10.00 Pack years: 20.00 Types: Cigarettes Quit date: 11/25/2011 Years since quittin.2 Smokeless tobacco: Never Used Tobacco comment: used vape until 01/2018 Vaping Use Vaping Use: Former Substances: Nicotine, Flavoring Devices: RefTelltale Gamesble tank Substance Use Topics Alcohol use: Yes Comment: 2 beers a month Drug use: Yes Types: Marijuana Comment: no use since 18 y/o ALLERGIES Allergen Reactions Bees Anaphylaxis Penicillins Rash Review of Systems: Cardiopulmonary: denies + chest pain, palpitations, or skipped heart beats Respiratory: denies shortness of breath GI/: denies recent nausea, vomiting, + diarrhea, constipation, incontinence Musculoskeletal: denies weakness, muscle atrophy, joint ache/pain Back/spine: denies low back, mid back, or cervical pains Neuro: denies + tremors, loss of feeling, dizziness, seizure, blackout, + paresthesia, facial paresthesia, facial weakness, difficulty in speech, slurring of words, dysarthria, dysphagia, memory loss, headache, vision changes, loss of hearing Physical Exam: 02/15/22 1123 BP: 122/82 Pulse: 72 Resp: 18 Temp: 36.8 C (98.2 F) SpO2: 99% Weight: 87.1 kg (192 lb) Patient is alert and in no distress. Dress is appropriate. Mood is appropriate Breathing appears regular and unstressed Neurologic examination: Cognitively intact. No deficits. No formal MMSE performed. CN: Pupils equal and reactive to light, extraocular movements intact with no nystagmus, face is symmetric with no facial droop, hearing intact bilaterally, symmetric evaluation of the soft palate, tongue is midline with no deviation, shoulder shrug is symmetric. Motor exam shows 5/5 strength symmetric through the upper and lower extremities in all groups tested. Sensory intact to light touch in all extremities. Vibratory sensation is intact and symmetric all extremities. Pinprick decreased to all fingers of both hands. Intact above level of wrist. Deep tendon reflexes are brisk and symmetric at the biceps, brachioradialis, triceps, patella, and achilles bilaterally. Coordination: No dysmetria on finger to nose. No tremors noted. No drift seen. Gait normal in stance and pattern. Labs/studies: Previously Reviewed: Bronchoscopy 06/21/21: OPERATION: Bronchoscopy (MAC) PRE-OP DIAGNOSIS: Hemoptysis, cough, solitary pulmonary nodule TISSUE SUBMITTED: Gaston Gaston, biopsy: Fragments of bronchial mucosa with mild chronic inflammation. See comment. JOSE:prieto 06/23/2021 Changes consistent with vasculitis are not seen. Significant number of neutrophils are not seen. A small fragment of cartilage is also noted. Please also correlate with corresponding cytology [id number]. Slides are reviewed. Received in fixative is one container labeled with the patient's name and designated gaston. The specimen consists of multiple fragments of hemorrhagic soft tissue that in aggregate measure 0.5 x 0.5 x 0.1 cm. The specimen is totally submitted in one cassette. / JOSE:prieto 06/22/21 TC:3 CPT: 48000 ANCA on 2021 Atypical pANCA 1:80 Abnormal Neg:<1:20 [facility] Comment on above: Result Comment: The atypical pANCA pattern has been observed in a significant percentage of patients with ulcerative colitis, primary sclerosing cholangitis and autoimmune hepatitis. Performed By: #### M300.3000, M300.2000, M100.2000, M100.2400 #### [facility] [address] [place] [address]. [place], [place], [id number] Perinuclear Ab. <1:20 Normal Neg:<1:20 [facility] Comment on above: Result Comment: The presence of positive fluorescence exhibiting P-ANCA or C-ANCA patterns alone is not specific for the diagnosis of Chelsy's Granulomatosis (WG) or microscopic polyangiitis. Decisions about treatment should not be based solely on ANCA IFA results. The International ANCA Group Consensus recommends follow up testing of positive sera with both MI- 3 and MPO-ANCA enzyme immunoassays. As many as 5% serum samples are positive only by EIA. Ref. AM J Clin Pathol 1999;111:507-513. C-REACTIVE PROT < 2.90 Normal 0.0-3.0 [facility] SED RATE 8 mm/hr Normal 0-20 [facility] RHEUMATOID FAC < 10.0 Normal <15 [facility] CTA Chest 05/15/21: IMPRESSION: No acute abnormalities in the chest. Specifically, no evidence of acute pulmonary emboli to the segmental level. 5 mm left upper lobe pulmonary nodule, stable since 2018. Assessment/Plan: R20.2 Paresthesia of skin (primary encounter diagnosis) R25.1 Tremor R53.1 Weakness G95.0 Syrinx (HCC) Comment: Patient previously seen for above mentioned symptoms. Etiology uncertain with all past testing unremarkable with exception of syrinx. Pt currently following with neurosurgery, though not felt that this is contributing to symptoms. Note that he will be scheduling follow up with neurosurgery this upcoming month. More recently has completed skin biopsy to evaluate for small fiber neuropathy. Currently awaiting results. Pending results may consider consult to neuromuscular for second opinion. Currently taking gabapentin 600mg TID for treatment of numbness and tremor with improvement in symptoms. Will continue as previously prescribed. Will contact pt after skin biopsy results obtained at which time will discuss further POC. Michaelle Marie APRN.NATALIIA I spent a total of 25 minutes on the date of the service which included preparing to see the patient, [id number] patient care, completing clinical documentation, obtaining and/or reviewing separately obtained history, performing a medically appropriate examination and counseling and educating the patient/family/caregiver. documented in this encounter [facility] Tremor- Primary Abnormal involuntary movements Paresthesia of skin Disturbance of skin sensation Weakness Other malaise and fatigue Syrinx (HCC) Other myelopathy [facility] Diagnosis Paresthesia of skin Disturbance of skin sensation Hyperreflexia Abnormal reflex Syrinx (HCC) Other myelopathy Weakness Other malaise and fatigue [facility] Diagnosis Other chronic pulmonary embolism without acute cor pulmonale (HCC)- Primary [facility] Personal history of DVT (deep vein thrombosis)- Primary Personal history of venous thrombosis and embolism Acute pulmonary thromboembolism (HCC) Anticoagulation management encounter Encounter for therapeutic drug monitoring Personal history of COVID-19 [facility] Diagnosis Personal history of DVT (deep vein thrombosis)- Primary Personal history of venous thrombosis and embolism Anticoagulation management encounter Encounter for therapeutic drug monitoring Personal history of pulmonary embolism Personal history of COVID-19 [facility] Diagnosis Paresthesia of skin Disturbance of skin sensation Hyperreflexia Abnormal reflex Syrinx (HCC) Other myelopathy Weakness Other malaise and fatigue [facility] Diagnosis Tremor- Primary Abnormal involuntary movements documented in this encounter [facility] note* Diagnosis Paresthesia of skin- Primary Disturbance of skin sensation Tremor Abnormal involuntary movements Weakness Other malaise and fatigue Syrinx (HCC) Other myelopathy [facility] Diagnosis Syringomyelia and syringobulbia (HCC)- Primary Syringomyelia and syringobulbia [facility] Diagnosis Syringomyelia and syringobulbia (HCC) Syringomyelia and syringobulbia [facility] Diagnosis Tremor- Primary Abnormal involuntary movements Anxiety disorder, unspecified type Depression, unspecified depression type documented in this encounter [facility] note* Diagnosis Tremor- Primary Abnormal involuntary movements Anxiety disorder, unspecified type [facility] Diagnosis Generalized anxiety disorder- Primary Tremor Abnormal involuntary movements Paresthesia of skin- Primary Disturbance of skin sensation Tremor Abnormal involuntary movements Weakness Other malaise and fatigue Syrinx (HCC) Other myelopathy [facility] Diagnosis Paresthesia of skin- Primary Disturbance of skin sensation Paresthesia of skin- Primary Disturbance of skin sensation Tremor Abnormal involuntary movements Weakness Other malaise and fatigue Syrinx (HCC) Other myelopathy [facility] Diagnosis Generalized anxiety disorder- Primary documented in this encounter [facility] note* Diagnosis Generalized anxiety disorder- Primary Tremor Abnormal involuntary movements documented in this encounter [facility] note* Diagnosis Generalized anxiety disorder- Primary [facility] Diagnosis Generalized anxiety disorder- Primary Tremor Abnormal involuntary movements documented in this encounter [facility] for referral (narrative)* Outpatient Procedure (Routine) - Authorized Specialty Diagnoses / Procedures Referred By Contac t Referred To [facility] Diagnoses Acute pulmonary thromboembolism (HCC) Anticoagulation management encounter Procedures ECHO ECHO TTPSYCHIATRIC R-T 2D W/WOM-MODE COMPL SPEC&COLR D Clement Marks MD [address] [place] [address] [address] Referral ID Status Reason Start Date Expiration Date Visits Requested Visits Authorized [id number] Authorized Auto-Generat ed Referral 04/27/2022 04/27/2023 1 1 * Outpatient Procedure (Routine) - Authorized Specialty Diagnoses / Procedures Referred By Contac t Referred To Contact [facility] [place] Diagnoses Personal history of DVT (deep vein thrombosis) Anticoagulation management encounter Procedures US LEG VEIN DVT UNL VAS LAB DUP-SCAN XTR VEINS UNILATERAL/LIMITED STUDY Clement Marks MD [address] [place] [address] [address] Referral ID Status Reason Start Date Expiration Date Visits Requested Visits Authorized [id number] Authorized Auto-Generat ed Referral 04/27/2022 04/27/2023 1 1 [facility] Summary Purpose Family History No Family History Records FoundNo Family History Records FoundNo Family History Records Found Advance Directives Documents on File Type Date Recorded 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 Directive(s) 02/05/2018 12:55 PM Documents on File Type Date Recorded 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(s) 02/05/2018 12:55 PM Reason for Referral Specialty Diagnoses / Procedures Referred By Contac t Referred To Contact Neurology Diagnoses Tremor Paresthesia of skin Weakness Procedures CONSULT TO NEUROLOGY OFFICE/OUTPATIENT [facility] 60-74 MINUTES Michaelle Marie, 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 [address] [place] [address] Referral ID Status Reason Start Date Expiration Date Visits Requested Visits Authorized [id number] Pending Review PCP Requested Referral 02/21/2022 02/21/2023 1 1 Specialty Diagnoses / Procedures Referred By Contac t Referred To Contact MR IMAGING Diagnoses Syringomyelia and syringobulbia (HCC) Procedures MRI THORACIC SPINE WO/W IVCON MRI SPINAL CANAL THORACIC W/O & W/CONTR Shaila Mosher MD [address] [place] [address] Mr Imaging Referral ID Status Reason Start Date Expiration Date Visits Requested Visits Authorized [id number] Pending Review Auto-Generat ed Referral 2 11/15/2023 1 1 Referral ID Status Reason Start Date Expiration Date V isits Requested Visits Authorized [id number] Closed Auto-Generate d Referral 09/12/2022 10/12/2023 1 1 Specialty Diagnoses / Procedures Referred By Contac t Referred To Contact Diagnoses Tremor Anxiety disorder, unspecified type Depression, unspecified depression type Procedures PROVIDER ORDERED FOLLOW UP OFFICE/OUTPATIENT [facility] 60-74 MINUTES Marci Coto MD [address] [place] [address] Referral ID Status Reason Start Date Expiration Date Visits Requested Visits Authorized [id number] Pending Review PCP Requested Referral 2 01/17/2023 1 1 Specialty Diagnoses / Procedures Referred By Contac t Referred To Contact Psychology Diagnoses Tremor Anxiety disorder, unspecified type Depression, unspecified depression type Procedures CONSULT TO PSYCHOLOGY OFFICE/OUTPATIENT [facility] 60-74 MINUTES Marci Coto MD [address] [place] [address] Referral ID Status Reason Start Date Expiration Date Visits Requested Visits Authorized [id number] Pending Review PCP Requested Referral 2 10/19/2023 1 1 Specialty Diagnoses / Procedures Referred By Contac t Referred To Contact Diagnoses Tremor Anxiety disorder, unspecified type Procedures PROVIDER ORDERED FOLLOW UP OFFICE/OUTPATIENT [facility] 60-74 MINUTES Marci Coto MD [address] [place] [address] Referral ID Status Reason Start Date Expiration Date Visits Requested Visits Authorized [id number] Pending Review PCP Requested Referral 04/21/2023 04/22/2023 1 1 Specialty Diagnoses / Procedures Referred By Contac t Referred To Contact Psychology Diagnoses Tremor Anxiety disorder, unspecified type Procedures CONSULT TO PSYCHOLOGY OFFICE/OUTPATIENT [facility] 60-74 MINUTES Marci Coto MD [address] [place] [address] Referral ID Status Reason Start Date Expiration Date Visits Requested Visits Authorized [id number] Pending Review PCP Requested Referral 01/22/2023 01/22/2024 1 1 Specialty Diagnoses / Procedures Referred By Abdirizak daily Referred To Contact Diagnoses Generalized anxiety disorder Tremor Procedures PROVIDER ORDERED FOLLOW UP OFFICE/OUTPATIENT [facility] 60-74 MINUTES Marci Coto MD [address] [place] [address] Referral ID Status Reason Start Date Expiration Date Visits Requested Visits Authorized [id number] Pending Review PCP Requested Referral 07/24/2023 10/22/2023 1 1 Additional Source Comments (unrecognized sect ion and content) No Status Records FoundNo Status Records FoundNo Status Records Found INFORMATION SOURCE (unrecogn ized section and content) DATE CREATED AUTHOR AUTHOR'S ORGANIZ ATION 10/19/2022 [facility] DATE CREATED AUTHOR AUTHOR'S ORGANIZ ATION 07/25/2023 [facility] Source Comments (unrecognize d section and content) In the event this informatio n is protected by the Federal Confidentiality of Alcohol and Drug Abuse Patient Records regulations: The Federal rules restrict any use of the information to criminally investigate or prosecute any alcohol or drug abuse patient.[facility] the event this information is protected by the Federal Confidentiality of Alcohol and Drug Abuse Patient Records regulations: The Federal rules restrict any use of the information to criminally investigate or prosecute any alcohol or drug abuse patient.[facility] the event this information is protected by the Federal Confidentiality of Alcohol and Drug Abuse Patient Records regulations: The Federal rules restrict any use of the information to criminally investigate or prosecute any alcohol or drug abuse patient.[facility] the event this information is protected by the Federal Confidentiality of Alcohol and Drug Abuse Patient Records regulations: The Federal rules restrict any use of the information to criminally investigate or prosecute any alcohol or drug abuse patient.[facility] the event this information is protected by the Federal Confidentiality of Alcohol and Drug Abuse Patient Records regulations: The Federal rules restrict any use of the information to criminally investigate or prosecute any alcohol or drug abuse patient.[facility] the event this information is protected by the Federal Confidentiality of Alcohol and Drug Abuse Patient Records regulations: The Federal rules restrict any use of the information to criminally investigate or prosecute any alcohol or drug abuse patient.[facility] the event this information is protected by the Federal Confidentiality of Alcohol and Drug Abuse Patient Records regulations: The Federal rules restrict any use of the information to criminally investigate or prosecute any alcohol or drug abuse patient.[facility] the event this information is protected by the Federal Confidentiality of Alcohol and Drug Abuse Patient Records regulations: The Federal rules restrict any use of the information to criminally investigate or prosecute any alcohol or drug abuse patient.[facility] the event this information is protected by the Federal Confidentiality of Alcohol and Drug Abuse Patient Records regulations: The Federal rules restrict any use of the information to criminally investigate or prosecute any alcohol or drug abuse patient.[facility] the event this information is protected by the Federal Confidentiality of Alcohol and Drug Abuse Patient Records regulations: The Federal rules restrict any use of the information to criminally investigate or prosecute any alcohol or drug abuse patient.[facility] the event this information is protected by the Federal Confidentiality of Alcohol and Drug Abuse Patient Records regulations: The Federal rules restrict any use of the information to criminally investigate or prosecute any alcohol or drug abuse patient.[facility] the event this information is protected by the Federal Confidentiality of Alcohol and Drug Abuse Patient Records regulations: The Federal rules restrict any use of the information to criminally investigate or prosecute any alcohol or drug abuse patient.[facility] the event this information is protected by the Federal Confidentiality of Alcohol and Drug Abuse Patient Records regulations: The Federal rules restrict any use of the information to criminally investigate or prosecute any alcohol or drug abuse patient.[facility] the event this information is protected by the Federal Confidentiality of Alcohol and Drug Abuse Patient Records regulations: The Federal rules restrict any use of the information to criminally investigate or prosecute any alcohol or drug abuse patient.[facility] the event this information is protected by the Federal Confidentiality of Alcohol and Drug Abuse Patient Records regulations: The Federal rules restrict any use of the information to criminally investigate or prosecute any alcohol or drug abuse patient.[facility] the event this information is protected by the Federal Confidentiality of Alcohol and Drug Abuse Patient Records regulations: The Federal rules restrict any use of the information to criminally investigate or prosecute any alcohol or drug abuse patient.[facility] the event this information is protected by the Federal Confidentiality of Alcohol and Drug Abuse Patient Records regulations: The Federal rules restrict any use of the information to criminally investigate or prosecute any alcohol or drug abuse patient.[facility] the event this information is protected by the Federal Confidentiality of Alcohol and Drug Abuse Patient Records regulations: The Federal rules restrict any use of the information to criminally investigate or prosecute any alcohol or drug abuse patient.[facility] the event this information is protected by the Federal Confidentiality of Alcohol and Drug Abuse Patient Records regulations: The Federal rules restrict any use of the information to criminally investigate or prosecute any alcohol or drug abuse patient.[facility] Center[facility] the event this information is protected by the Federal Confidentiality of Alcohol and Drug Abuse Patient Records regulations: The Federal rules restrict any use of the information to criminally investigate or prosecute any alcohol or drug abuse patient.[facility] Center[facility] the event this information is protected by the Federal Confidentiality of Alcohol and Drug Abuse Patient Records regulations: The Federal rules restrict any use of the information to criminally investigate or prosecute any alcohol or drug abuse patient.[facility] the event this information is protected by the Federal Confidentiality of Alcohol and Drug Abuse Patient Records regulations: The Federal rules restrict any use of the information to criminally investigate or prosecute any alcohol or drug abuse patient.[facility] Center[facility] the event this information is protected by the Federal Confidentiality of Alcohol and Drug Abuse Patient Records regulations: The Federal rules restrict any use of the information to criminally investigate or prosecute any alcohol or drug abuse patient.[facility] Center[facility] the event this information is protected by the Federal Confidentiality of Alcohol and Drug Abuse Patient Records regulations: The Federal rules restrict any use of the information to criminally investigate or prosecute any alcohol or drug abuse patient.[facility] Center[facility] the event this information is protected by the Federal Confidentiality of Alcohol and Drug Abuse Patient Records regulations: The Federal rules restrict any use of the information to criminally investigate or prosecute any alcohol or drug abuse patient.[facility] CenterIn the event this information is protected by the Federal Confidentiality of Alcohol and Drug Abuse Patient Records regulations: The Federal rules restrict any use of the information to criminally investigate or prosecute any alcohol or drug abuse patient.[facility] Center[facility] the event this information is protected by the Federal Confidentiality of Alcohol and Drug Abuse Patient Records regulations: The Federal rules restrict any use of the information to criminally investigate or prosecute any alcohol or drug abuse patient.[facility] Reason for Visit (unrecogniz ed section and content) Specialty Diagnoses / Procedures Referred By Abdirizak t Referred To Contact Diagnoses Tremor Paresthesia of skin Weakness Anxiety disorder, unspecified type Procedures PROVIDER ORDERED FOLLOW UP OFFICE/OUTPATIENT [facility] 60-74 MINUTES Marci Coto MD [address] [place] [address] Referral ID Status Reason Start Date Expiration Date V isits Requested Visits Authorized [id number] Closed PCP Requested Referral 03/20/2022 06/18/2022 1 1 Reason Comments Established NI Patient Follow up Reason Comments Numbness/Tingling Tremor Reason Comments Established Patient Reason Comments Future Appointment Reason Comments Consult H/O DVT, PE Reason Onset Date Comments Refill Request 08/28/2022 Reason Comments Follow Up Tremor, paresthesia of skin Reason Comments Established Patient Specialty Diagnoses / Procedures Referred By Contac t Referred To Contact MR IMAGING Diagnoses Syringomyelia and syringobulbia (HCC) Procedures MRI THORACIC SPINE WO/W IVCON MRI SPINAL CANAL THORACIC W/O & W/CONTR Shaila Mosher MD [address] [id number] Mr Imaging Referral ID Status Reason Start Date Expiration Date V isits Requested Visits Authorized [id number] Closed Auto-Generate d Referral 09/12/2022 10/12/2023 1 1 Reason Comments Established Patient Tremors Tremor Reason Comments Anxiety Specialty Diagnoses / Procedures Referred By Contac t Referred To Contact Diagnoses Tremor Anxiety disorder, unspecified type Depression, unspecified depression type Procedures PROVIDER ORDERED FOLLOW UP OFFICE/OUTPATIENT [facility] 60-74 MINUTES Marci Coto MD [address] [place] [address] Referral ID Status Reason Start Date Expiration Date V isits Requested Visits Authorized [id number] Closed PCP Requested Referral 10/19/2022 01/17/2023 1 1 Reason Onset Date Comments Refill Request 01/22/2023 Reason Comments Consult Specialty Diagnoses / Procedures Referred By Contac t Referred To Contact Psychology Diagnoses Tremor Anxiety disorder, unspecified type Procedures CONSULT TO PSYCHOLOGY OFFICE/OUTPATIENT [facility] 60-74 MINUTES Marci Coto MD [address] [place] [address] Referral ID Status Reason Start Date Expiration Date Visits Requested Visits Authorized [id number] Pending Review PCP Requested Referral 01/22/2023 01/22/2024 1 1 Reason Onset Date Comments Refill Request 04/19/2023 Reason Comments Tremor Specialty Diagnoses / Procedures Referred By Contac t Referred To Contact Diagnoses Generalized anxiety disorder Tremor Procedures PROVIDER ORDERED FOLLOW UP OFFICE/OUTPATIENT [facility] 60-74 MINUTES Marci Coto MD [address] [place] [address] Referral ID Status Reason Start Date Expiration Date V isits Requested Visits Authorized [id number] Closed PCP Requested Referral 04/23/2023 07/22/2023 1 1 Reason Comments Refill Request Care Teams (unrecognized sec tion and content) 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 Relationship Specialty Start Date End Date Nicole Hankser [address] [place] [address] PCP - General Family Practice 01/31/18 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 Relationship Specialty Start Date End Date Nicole Hankser [address] [place] [address] PCP - General Family Practice 01/31/18 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 Relationship Specialty Start Date End Date Nicole Hankser [address] [place] [address] PCP - General Family Practice 01/31/18 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 Relationship Specialty Start Date End Date Nicole Hankser [address] [place] [address] PCP - General Family Practice 01/31/18 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 Relationship Specialty Start Date End Date Nicole Hankser [address] [place] [address] PCP - General Family Practice 01/31/18 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 Relationship Specialty Start Date End Date Nicole Hanks Jamila [address] [place] [address] PCP - General Family Practice 01/31/18 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 Relationship Specialty Start Date End Date Latonya Nicole Jamila [address] [place] [address] PCP - General Family Practice 01/31/18 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 Relationship Specialty Start Date End Date Jillianel Nicole Jamila [address] [place] [address] PCP - General Family Medicine 01/31/18 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 Relationship Specialty Start Date End Date Nicole Hanks [address] [place] [address] PCP - General Family Medicine 01/31/18 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 Relationship Specialty Start Date End Date Nicole Hanks [address] [place] [address] PCP - General Family Medicine 01/31/18 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 Relationship Specialty Start Date End Date Nicole Hanks [address] [place] [address] PCP - General Family Medicine 01/31/18 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 Relationship Specialty Start Date End Date Nicole Hanks [address] [place] [address] PCP - General Family Medicine 01/31/18 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 Relationship Specialty Start Date End Date Nicole Hanks [address] [place] [address] PCP - General Family Medicine 01/31/18 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 Relationship Specialty Start Date End Date Nicole Hanks [address] [place] [address] PCP - General Family Medicine 01/31/18 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 Relationship Specialty Start Date End Date Nicole Hanks [address] [place] [address] PCP - General Family Medicine 01/31/18 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 Relationship Specialty Start Date End Date Nicole Hanks [address] [place] [address] PCP - General Family Medicine 01/31/18 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 Relationship Specialty Start Date End Date Nicole Hanks [address] [place] [address] PCP - General Family Medicine 01/31/18 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 Relationship Specialty Start Date End Date Nicole Hanks [address] [place] [address] PCP - General Family Medicine 01/31/18 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 Relationship Specialty Start Date End Date Nicole Hanks [address] [place] [address] PCP - General Family Medicine 01/31/18 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 Relationship Specialty Start Date End Date Nicole Hanks [address] [place] [address] PCP - General Family Medicine 01/31/18 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 Relationship Specialty Start Date End Date Nicole Hanks [address] [place] [address] PCP - General Family Medicine 01/31/18 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 Relationship Specialty Start Date End Date Nicole Hanks [address] [place] [address] PCP - General Family Medicine 01/31/18 FOR RECORDS PERTAINING TO PATIENTS WHO ARE OR HAVE BEEN ENROLLED IN A CHEMICAL DEPENDENCY/SUBSTANCEABUSE PROGRAM, SOME INFORMATION MAY BE OMITTED. This clinical summary was aggregated from multiple sources. Caution should be exercised in using it in the provision of clinical care. This summary normalizes information from multiple sources, and as a consequence, information in this document may materially change the coding, format and clinical context of patient data. In addition, data may be omitted in some cases. CLINICAL DECISIONS SHOULD BE BASED ON THE PRIMARY CLINICAL RECORDS. [facility] [email or web address] [facility]. provides no warranty or guarantee of the accuracy or completeness of information in this document.
== END | disposition home or self-care (01) ==
LOC: CT 15:58
PROVIDERS: PCP Family Medicine; Referring Provider Internal Medicine Pulmonary Disease; Visit Provider Internal Medicine Pulmonary Disease
DX: R06.02 Shortness of breath (principal); R07.9 Chest pain, unspecified; Z86.711 Personal history of pulmonary embolism
CPT/HCPCS: 71275; Q9967; A4216

== ENCOUNTER → 2024-02-03 | Outpatient (CLI) | payer OTHER, SELFPAY ==
--- NOTE | 2024-02-03 15:00 | VDLE_ITS ---
Reason For Study: BLE Pain RIGHT LEFT GSV is normal. GSV is normal. CFV is compressible, spontaneous, phasic, CFV is compressible, spontaneous, phasic, competent and demonstrates normal competent, and demonstrates normal augmentation. augmentation. FV is compressible, spontaneous, phasic, FV is compressible, spontaneous, phasic, competent and demonstrates normal competent and demonstrates normal augmentation. augmentation. POP V is compressible, spontaneous, phasic, POP V is compressible, spontaneous, phasic, competent and demonstrates normal competent and demonstrates normal augmentation. augmentation. T/P Trunk is compressible. T/P Trunk is compressible. PTV is compressible. PTV is compressible. RT PerV is compressible. LT PerV is compressible. Procedure This is a venous duplex using B-mode, color flow and spectral Doppler. Exam performed in department. The exam was diagnostic. VL/Venous Duplex US - Sameer Extrem Interpretation Summary Deep veins of the lower extremities are bilaterally patent and compressible seg mentally. There is no evidence of deep vein thrombosis on either side. Valvular competence appears in tact within the proximal deep venous systems bilaterally. The great saphenous veins appear bila terally patent and compressible segmentally. Ordering Physician: Adilson Remy V Referring Physician: Nicole Hanks M.D. Performed By: Ru Armendariz RVT
[2024-02-03 16:19] LABS: D-Dimer Quantitative (DVT/PE) 0.35 FEU/ug/m (0.27-0.49)
== END | disposition home or self-care (01) ==
PROVIDERS: PCP Family Medicine; Referring Provider Internal Medicine Pulmonary Disease; Visit Provider Internal Medicine Pulmonary Disease
DX: M79.606 Pain in leg, unspecified (principal); I26.92 Saddle embolus of pulmonary artery without acute cor pulmonale; R06.02 Shortness of breath
CPT/HCPCS: 36415; 85379; 93970

== ENCOUNTER → 2024-10-13 | Outpatient (CLI) | payer OTHER, SELFPAY ==
--- NOTE | 2024-10-13 17:30 | CT_ITS ---
EXAM: CT NECK WITH INTRAVENOUS CONTRAST CLINICAL INDICATION: dysphagia TECHNIQUE: Helically acquired images were obtained of the neck with intravenous contrast. This CT exam was performed using one or more of the following dose reduction techniques: automated exposure control, adjustment of the mA and/or kV according to patient size, and/or use of iterative reconstruction technique. CONTRAST: IV 75mL Isovue-300 RADIATION DOSE: CTDIvol = 16.92 mGy, DLP = 536.75 mGy-cm COMPARISON: Multiple prior CTA chest exams, most recent November 29, 2023. No prior neck CT provided. FINDINGS: NASOPHARYNX: Unremarkable. SUPRAHYOID NECK: Unremarkable. Oropharynx, oral cavity, parapharyngeal space and retropharyngeal space are unremarkable. INFRAHYOID NECK: Unremarkable. No significant asymmetry of the vocal cords or false vocal cords. SUBMANDIBULAR/PAROTID GLANDS: Unremarkable. Glands are normal in size. THYROID: Unremarkable. No enlarged or calcified nodules. BONES/JOINTS: No acute fracture. Moderate disc space narrowing and mild anterior spondylosis at C5-6. Moderate left uncovertebral osteophytes and neural foraminal narrowing at C5-6. No lupe spinal stenosis. SOFT TISSUES: Unremarkable. VASCULATURE: No acute findings. LYMPH NODES: Unremarkable. No lymphadenopathy. LUNG APICES: Unremarkable as visualized. OTHER FINDINGS: No prevertebral fluid. Well-aerated paranasal sinuses, middle ears, mastoids sinuses. Major paimiut of Jensen vessels and partially included dural venous sinuses are patent and enhanced. CT/Soft Tissue Neck WITH Contrast IMPRESSION: No acute findings in the neck. Electronically Signed: Xi Marmolejo MD at 2:46 EST ,
--- NOTE | 2024-10-13 17:30 | CT_ITS ---
EXAM: CT MAXILLOFACIAL WITHOUT INTRAVENOUS CONTRAST CLINICAL INDICATION: chronic sinusitis TECHNIQUE: Helically acquired images were obtained of the face without intravenous contrast. This CT exam was performed using one or more of the following dose reduction techniques: automated exposure control, adjustment of the mA and/or kV according to patient size, and/or use of iterative reconstruction technique. RADIATION DOSE: CTDIvol = 29.38 mGy, DLP = 540.11 mGy-cm COMPARISON: The sinuses were also included on the CT of the neck. FINDINGS: BONES/JOINTS: Mild S-shaped nasal septal deviation and small left spur at the inferior septum. No displaced fracture. No discrete lytic or blastic abnormalities. SOFT TISSUES: Unremarkable. No focal subcutaneous swelling. No discrete fluid collections. ORBITS: Unremarkable. Both globes are unremarkable. Extraocular muscles are normal. Retrobulbar fat appears unremarkable. SINUSES: Well-aerated paranasal sinuses. No significant mucosal thickening or mucous retention cysts with the exception of trace mucosal thickening in the frontoethmoidal recesses and maxillary sinus. No intrasinus fluid. MASTOID AIR CELLS: Unremarkable as visualized. Clear. AUDITORY SYSTEM: Middle ears, most of the mastoids and external auditory canals are included and appear unremarkable. DENTAL: No acute findings. No periodontal osseous erosion. CT/Sinus/Facial Bone IMPRESSION: No significant sinusitis. Trace scattered mucosal thickening. Electronically Signed: Xi Marmolejo MD at 2:52 EST ,
== END | disposition home or self-care (01) ==
LOC: CT 17:29
PROVIDERS: PCP Family Medicine; Referring Provider Internal Medicine Gastroenterology; Visit Provider Internal Medicine Gastroenterology
DX: J32.8 Other chronic sinusitis (principal); R05.9 Cough, unspecified; R13.10 Dysphagia, unspecified
CPT/HCPCS: 70486; 70491; Q9967